=== PATIENT | female | born 1935 | race Caucasian/White ===

== ENCOUNTER 2016-10-14 17:10 | Inpatient (IN) | payer OTHER ==
[2016-10-14 17:54] LABS: BASOPHIL 1.1 % (0-2.0); EOSINOPHIL 3.2 % (0-4.5); MCH 29.8 pg (25.7-33.7); MCHC 32.7 g/dl (32.0-36.0); MEAN CELL VOLUME 91.1 fl (80-96); MEAN PLT VOLUME 8.2 fl (7.5-11.1); NEUTROPHILS 66.4 % (42.8-82.8); PLATELET COUNT 346 K/MM3 (134-434); RDW 14.6 % (11.6-15.6); WHITE BLOOD COUNT 6.2 K/mm3 (4.0-10.0)
--- NOTE | 2016-10-14 18:12 | PDOC ---
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 The patient reports left leg pain for approximately 2 weeks, during which she was diagnosed with a knee fracture, and was placed on a knee brace. The patient has had limited mobility secondary to fracture. The patient denies any chest pain, palpitations, shortness of breath, or diaphoresis. However, the family reports episodes where the patient has difficulty breathing. The patient denies any recent falls, head trauma, or LOC. The patient denies any fever, chills, cough, or dizziness. The patient denies any nausea, vomiting, diarrhea, or constipation. The patient denies dysuria, hematuria, frequency, or urgency. Allergies: None reported. Past Surgical History: Bilateral total hip replacements, left hip surgery Social History: Non-smoker. Denies alcohol or drug use. PCP: Dr. Kelly <Manas Ibrahim - Last Filed: 10/14/16 20:14> <Erica Khan - Last Filed: 10/14/16 20:48> - General Chief Complaint: Pain Stated Complaint: BLOOD CLOT Time Seen by Provider: 10/14/16 17:12 Past History <Manas Ibrahim - Last Filed: 10/14/16 20:14> - Past Medical History Anemia: Yes Asthma: Yes CVA: Yes (Right sided CVA January 2015, right arm weakness) Disorders: Yes (/O UTI) HTN: Yes Hypercholesterolemia: Yes - Surgical History Orthopedic Surgery: Yes (Bilateral total knee replacements, Left hip surgery,) - Psycho/Social/Smoking Cessation Hx Anxiety: No Suicidal Ideation: No Smoking History: Never smoked Have you smoked in the past 12 months: No Information on smoking cessation initiated: No Hx Alcohol Use: No Drug/Substance Use Hx: No Substance Use Type: None Hx Substance Use Treatment: No <Erica Khan - Last Filed: 10/14/16 20:48> - Past Medical History Allergies/Adverse Reactions: Allergies Allergy/AdvReac Type Severity Reaction Status Date / Time No Known Allergies Allergy Verified 10/14/16 17:12 Home Medications: Ambulatory Orders Calcium Carbonate/Vitamin D3 [Oyster Shell 500-Vit D3 200 Tb] 1 each PO DAILY Polyvinyl Alcohol [Artificial Tears] 0.2 drop OU BID 08/27/16 Acetaminophen [Tylenol .Regular Strength -] 650 mg PO Q6H PRN #0 tablet Albuterol 2.5/Ipratropium 0.5 [Duoneb -] 1 amp NEB Q6H PRN #0 amp 09/03/16 Aspirin Coated [Ecotrin -] 81 mg PO DAILY tablet.ec 09/03/16 Cyanocobalamin Vit B-12 Inj. [Vitamin B12 Injection -] 1,000 mcg IM DAILY vial 09/03/16 Docusate Sodium [Colace -] 300 mg PO HS capsule 09/03/16 Ferrous Sulfate [Feosol] 325 mg PO DAILY ud 09/03/16 Fluticasone Prop 0.05% Nasal [Flonase -] 1 spray NS BID bot 09/03/16 Lactobacillus Acidophilus [Bacid -] 1 tab PO DAILY tab 09/03/16 Loratadine [Claritin -] 10 mg PO DAILY tablet 09/03/16 Polyethylene Glycol 3350 [Miralax 119 gm Btl -] 17 gm PO DAILY PRN #0 bottle 07/10 Ranitidine [Zantac -] 150 mg PO DAILY tablet 09/03/16 Salmeterol/Fluticasone [Advair 100Mcg/50Mcg -] 1 puff IH BID inhaler 09/03/16 Amino Acids/Protein Hydrolys [Prostat Sugar-Free Packet -] 30 ml PO BID Review of Systems - Review of Systems Able to Perform ROS?: Yes Comments:: 10/14/16 19:40 CONSTITUTIONAL: Absent: fever, chills, diaphoresis, generalized weakness, malaise, loss of appetite HEENT: Absent: rhinorrhea, nasal congestion, throat pain, throat swelling, difficulty swallowing, mouth swelling, ear pain, eye pain, visual Changes CARDIOVASCULAR: Absent: chest pain, syncope, palpitations, irregular heart rate, lightheadedness , peripheral edema RESPIRATORY: Present: +difficulty breathing Absent: cough, orthopnea, wheezing, stridor, hemoptysis GASTROINTESTINAL: Absent: abdominal pain, abdominal distension, nausea, vomiting, diarrhea, constipation, melena, hematochezia GENITOURINARY: Absent: dysuria, frequency, urgency, hesitancy, hematuria, flank pain, genital pain MUSCULOSKELETAL: Present: +left leg fracture("on top of left knee cap"), +left leg DVT Absent: myalgia, arthralgia, joint swelling SKIN: Absent: rash, itching, pallor HEMATOLOGIC/IMMUNOLOGIC: Absent: easy bleeding, easy bruising, lymphadenopathy, frequent infections ENDOCRINE: Absent: unexplained weight gain, unexplained weight loss, heat intolerance, cold intolerance NEUROLOGIC: Absent: headache, focal weakness or paresthesias, dizziness, unsteady gait, seizure, mental status changes, bladder or bowel incontinence PSYCHIATRIC: Absent: anxiety, depression, suicidal or homicidal ideation, hallucinations. <Manas Ibrahim - Last Filed: 10/14/16 20:14> *Physical Exam - Vital Signs Last Vital Signs Temp Pulse Resp BP Pulse Ox 97.9 F 78 18 133/84 100 10/14/16 17:12 10/14/16 17:12 10/14/16 17:12 10/14/16 17:12 10/14/16 17:12 - Physical Exam Comments: 10/14/16 19:41 GENERAL: Well developed, well nourished. Awake and alert. No acute distress. HEENT: Normocephalic, atraumatic. PERRLA, EOMI. No conjunctival pallor. Sclera are non- icteric. Moist mucous membranes. Oropharynx is clear. NECK: Supple. Full ROM. No JVD. Carotid pulses 2+ and symmetric, without bruits. No thyromegaly. No lymphadenopathy. CARDIOVASCULAR: Regular rate and rhythm. No murmurs, rubs, or gallops. Distal pulses are 2+ and symmetric. PULMONARY: No evidence of respiratory distress. Lungs clear to auscultation bilaterally. No wheezing, rales or rhonchi. ABDOMINAL: Soft. Non-tender. Non-distended. No rebound or guarding. No organomegaly. Normoactive bowel sounds. MUSCULOSKELETAL Normal range of motion at all joints. No bony deformities or tenderness. No CVA tenderness. EXTREMITIES: Edema over the left knee. Bilateral lower extremity edema. No cyanosis. No clubbing. No calf tenderness. SKIN: Warm and dry. Normal capillary refill. No rashes. No jaundice. NEUROLOGICAL: Chronic left sided hemiplegia. Alert, awake, appropriate. Normal speech. PSYCHIATRIC: Cooperative. Good eye contact. Appropriate mood and affect. <Manas Ibrahim - Last Filed: 10/14/16 20:14> - Vital Signs Last Vital Signs Temp Pulse Resp BP Pulse Ox 97.9 F 78 18 133/84 100 10/14/16 17:12 10/14/16 17:12 10/14/16 17:12 10/14/16 17:12 10/14/16 17:12 <Erica Khan - Last Filed: 10/14/16 20:48> ED Treatment Course - LABORATORY CBC & Chemistry Diagram: 10/14/16 17:26 10/14/16 17:26 - ADDITIONAL ORDERS Additional order review: Laboratory Results 10/14/16 10/14/16 10/14/16 17:26 17:26 17:26 INR 1.41 H PTT (Actin FS) 26.4 L Sodium 142 Potassium 4.5 Chloride 108 H Carbon Dioxide 25 Anion Gap 9 BUN 25 H D Creatinine 1.0 Creat Clearance w eGFR 53.08 Random Glucose 83 Calcium 8.8 Total Bilirubin 0.2 AST 7 L D ALT 12 D Alkaline Phosphatase 95 Total Protein 7.3 Albumin 3.5 D 10/14/16 17:26 RBC 2.86 L MCV 91.1 MCHC 32.7 RDW 14.6 D MPV 8.2 Neutrophils % 66.4 Lymphocytes % 24.6 Monocytes % 4.7 Eosinophils % 3.2 Basophils % 1.1 - RADIOLOGY Radiograph Interpretation: 10/14/16 19:46 EXAM: CXR INTERPRETED BY: Dr. Claudio REVIEWED BY: Dr. Khan IMPRESSION: No significant interval change or acute lung disease is present. <Manas Ibrahim - Last Filed: 10/14/16 20:14> - LABORATORY CBC & Chemistry Diagram: 10/14/16 17:26 10/14/16 17:26 <Erica Khan - Last Filed: 10/14/16 20:48> Medical Decision Making - Medical Decision Making 10/14/16 20:10 First call placed to Dr. Kelly's service. Awaiting call back. First call placed to Dr. Navarro at 20:15. Awaiting call back. <Manas Ibrahim - Last Filed: 10/14/16 20:14> *DC/Admit/Observation/Transfer - Attestations Scribe Attestion: 10/14/16 19:46 Documentation prepared by Manas Ibrahim, acting as medical records assistant for Erica Khan MD. <Manas Ibrahim - Last Filed: 10/14/16 20:14> - Discharge Dispostion Admit: Yes <Erica Khan - Last Filed: 10/14/16 20:48> Diagnosis at time of Disposition: Deep vein thrombosis (DVT) Qualifiers: DVT location: lower extremity - Referrals Referrals: Ace Kelly MD [Primary Care Provider] -
[2016-10-14 18:18] LABS: INR 1.41 (0.82-1.09); PROTHROMBIN TIME (PATIENT) 15.6 SEC (9.98-11.88)
[2016-10-14 18:27] LABS: ALBUMIN 3.5 g/dl (3.4-5.0); BILIRUBIN,TOTAL 0.2 mg/dL (0.2-1.0); CALCIUM 8.8 mg/dL (8.5-10.1); TOT PROT 7.3 g/dl (6.4-8.2)
[2016-10-14] MEDS ORDERED: ALBUTEROL SO4 2.5/IPRATROPIUM 0.5 INH SOL 3 ML VIAL.NEB. NEB PRN (20:25)
[2016-10-14] MEDS ORDERED: ENOXAPARIN NA (PORCINE) 80 MG/0.8 ML DISP.SYRIN SQ ONE (20:34)
[2016-10-14] MEDS: ENOXAPARIN NA (PORCINE) 80 MG/0.8 ML DISP.SYRIN SQ SCH ×2 (20:39→22:08)
[2016-10-14] MEDS: DOCUSATE SODIUM 100 MG CAPSULE (FP) PO SCH (22:56)
[2016-10-14] MEDS: RANITIDINE HCL 150 MG TABLET (FP) PO SCH (22:56)
[2016-10-14] MEDS: FLUTICASONE/SALMETEROL 100 MCG/50 MCG DISKUS IH SCH (22:56)
[2016-10-15] MEDS ORDERED: NYSTATIN 100,000 UNIT/GM TOPICAL CREAM 15 GM TUBE TP ONE (00:45)
[2016-10-15] MEDS: NYSTATIN 100,000 UNIT/GM TOPICAL CREAM 15 GM TUBE TP SCH ×3 (00:57→23:38)
[2016-10-15] MEDS ORDERED: APIXABAN 5 MG TABLET PO SCH ×2 (10:00→22:00)
--- NOTE | 2016-10-15 10:01 | HP ---
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 Cardiovascular: Yes: HTN, Hyperlipdemia - Past Surgical History Past Surgical History: Yes: None - Smoking History Smoking history: Never smoked Have you smoked in the past 12 months: No - Alcohol/Substance Use Hx Alcohol Use: No - Social History ADL: Independent Home Medications - Allergies Allergies/Adverse Reactions: Allergies Allergy/AdvReac Type Severity Reaction Status Date / Time No Known Allergies Allergy Verified 10/14/16 17:12 - Home Medications Home Medications: Ambulatory Orders Calcium Carbonate/Vitamin D3 [Oyster Shell 500-Vit D3 200 Tb] 1 each PO DAILY Polyvinyl Alcohol [Artificial Tears] 0.2 drop OU BID 08/27/16 Acetaminophen [Tylenol .Regular Strength -] 650 mg PO Q6H PRN #0 tablet Albuterol 2.5/Ipratropium 0.5 [Duoneb -] 1 amp NEB Q6H PRN #0 amp 09/03/16 Aspirin Coated [Ecotrin -] 81 mg PO DAILY tablet.ec 09/03/16 Cyanocobalamin Vit B-12 Inj. [Vitamin B12 Injection -] 1,000 mcg IM DAILY vial 09/03/16 Docusate Sodium [Colace -] 300 mg PO HS capsule 09/03/16 Ferrous Sulfate [Feosol] 325 mg PO DAILY ud 09/03/16 Fluticasone Prop 0.05% Nasal [Flonase -] 1 spray NS BID bot 09/03/16 Lactobacillus Acidophilus [Bacid -] 1 tab PO DAILY tab 09/03/16 Loratadine [Claritin -] 10 mg PO DAILY tablet 09/03/16 Polyethylene Glycol 3350 [Miralax 119 gm Btl -] 17 gm PO DAILY PRN #0 bottle 07/10 Ranitidine [Zantac -] 150 mg PO DAILY tablet 09/03/16 Salmeterol/Fluticasone [Advair 100Mcg/50Mcg -] 1 puff IH BID inhaler 09/03/16 Amino Acids/Protein Hydrolys [Prostat Sugar-Free Packet -] 30 ml PO BID Review of Systems Findings/Remarks: AWAKE, CONFUSED - Review of Systems Constitutional: reports: Weakness Eyes: reports: No Symptoms HENT: reports: No Symptoms Neck: reports: No Symptoms Cardiovascular: reports: No Symptoms Respiratory: reports: No Symptoms Gastrointestinal: reports: No Symptoms Genitourinary: reports: Incontinence Musculoskeletal: reports: Muscle Weakness Integumentary: reports: No Symptoms Neurological: reports: Confusion, Pre-Existing Deficit Endocrine: reports: No Symptoms Hematology/Lymphatic: reports: No Symptoms Physical Examination Vital Signs: Vital Signs Temperature 97.9 F 10/14/16 17:12 Pulse Rate 86 10/15/16 04:48 Respiratory Rate 16 10/15/16 04:49 Blood Pressure 136/72 10/15/16 04:48 O2 Sat by Pulse Oximetry (%) 97 10/15/16 04:49 Findings/Remarks: FAMILY BEDSIDE, NAD NON-VERBAL Constitutional: Yes: Mild Distress Eyes: Yes: WNL HENT: Yes: WNL Neck: Yes: WNL Cardiovascular: Yes: WNL Respiratory: Yes: WNL Gastrointestinal: Yes: WNL Renal/: Yes: WNL, Incontinence Musculoskeletal: Yes: Muscle Weakness Extremities: Yes: Other Edema: Yes Edema: LLE: 2+, RLE: 2+ Peripheral Pulses WNL: Yes Integumentary: Yes: WNL Wound/Incision: Yes: Clean/Dry Neurological: Yes: Confusion, Pre-Existing Deficit ...Motor Strength: LLE Psychiatric: Yes: Other Imaging - Results Ultrasound: Report Reviewed Problem List - Problems (1) DVT (deep venous thrombosis) Code(s): I82.409 - ACUTE EMBOLISM AND THOMBOS UNSP DEEP VN UNSP LOWER EXTREMITY Qualifiers: DVT location: lower extremity (2) CVA (cerebral vascular accident) Code(s): I63.9 - CEREBRAL INFARCTION, UNSPECIFIED (3) Hemiplegia affecting dominant side Code(s): G81.90 - HEMIPLEGIA, UNSPECIFIED AFFECTING UNSPECIFIED SIDE (4) History of hip replacement Code(s): Z96.649 - PRESENCE OF UNSPECIFIED ARTIFICIAL HIP JOINT Assessment/Plan LOVENOX 80MG BID WEIGHT DETERMINED ELIQUIS 5MG BID GFR 53, NEED OUTPATIENT MONITORING OBSERVATION STATUS DC HOME TOMORROW STOOL GUAC PENDING
[2016-10-15] MEDS: AMINO ACIDS/PROTEIN HYDROLYS 30 ML LIQUID.PKT PO SCH ×2 (11:51→18:00)
[2016-10-15] MEDS: RANITIDINE HCL 150 MG TABLET (FP) PO SCH ×2 (11:52→23:38)
[2016-10-15] MEDS: ASPIRIN COATED 81 MG TABLET.EC PO SCH (11:52)
[2016-10-15] MEDS: ENOXAPARIN NA (PORCINE) 80 MG/0.8 ML DISP.SYRIN SQ SCH (11:52)
[2016-10-15] MEDS: LACTOBACILLUS ACIDOPHILUS 1 EACH TAB (FP) PO SCH (11:52)
[2016-10-15] MEDS: FERROUS SO4 325 MG TABLET (FP) PO SCH (11:52)
[2016-10-15] MEDS: POLYETHYLENE GLYCOL 3350 119 GM BTL PO SCH (12:05)
--- NOTE | 2016-10-15 13:54 | CONSULT ---
Consult Consult Specialty:: Neurology Reason for Consultation:: Anticoagulation - History of Present Illness History of Present Illness: 81 year old woman, history of left hemispheric stroke 2015 with residual right arm weakness and aphasia, hypertension, hyperlipidemia, presents to ED from [place] after left leg fracture, and found to have DVT. Patients daughter in law at bedside, states patient has had limited mobility in left leg due to fracture. She was started on eliquis for DVT. Daughter in law denies history of atrial fibrillation or anticoagulation needed for history of stroke. Denies any new neurological complaints. 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 Cardio/Vascular: Yes: HTN, Hyperlipdemia - Past Surgical History Past Surgical History: Yes: None - Alcohol/Substance Use Hx Alcohol Use: No - Smoking History Smoking history: Never smoked Have you smoked in the past 12 months: No - Social History ADL: Independent Home Medications - Allergies Allergies/Adverse Reactions: Allergies Allergy/AdvReac Type Severity Reaction Status Date / Time No Known Allergies Allergy Verified 10/14/16 17:12 - Home Medications Home Medications: Ambulatory Orders Calcium Carbonate/Vitamin D3 [Oyster Shell 500-Vit D3 200 Tb] 1 each PO DAILY Polyvinyl Alcohol [Artificial Tears] 0.2 drop OU BID 08/27/16 Acetaminophen [Tylenol .Regular Strength -] 650 mg PO Q6H PRN #0 tablet Albuterol 2.5/Ipratropium 0.5 [Duoneb -] 1 amp NEB Q6H PRN #0 amp 09/03/16 Aspirin Coated [Ecotrin -] 81 mg PO DAILY tablet.ec 09/03/16 Cyanocobalamin Vit B-12 Inj. [Vitamin B12 Injection -] 1,000 mcg IM DAILY vial 09/03/16 Docusate Sodium [Colace -] 300 mg PO HS capsule 09/03/16 Ferrous Sulfate [Feosol] 325 mg PO DAILY ud 09/03/16 Fluticasone Prop 0.05% Nasal [Flonase -] 1 spray NS BID bot 09/03/16 Lactobacillus Acidophilus [Bacid -] 1 tab PO DAILY tab 09/03/16 Loratadine [Claritin -] 10 mg PO DAILY tablet 09/03/16 Polyethylene Glycol 3350 [Miralax 119 gm Btl -] 17 gm PO DAILY PRN #0 bottle 07/10 Ranitidine [Zantac -] 150 mg PO DAILY tablet 09/03/16 Salmeterol/Fluticasone [Advair 100Mcg/50Mcg -] 1 puff IH BID inhaler 09/03/16 Amino Acids/Protein Hydrolys [Prostat Sugar-Free Packet -] 30 ml PO BID Physical Exam Vital Signs: Vital Signs Temperature 98.2 F 10/15/16 10:12 Pulse Rate 91 H 10/15/16 10:12 Respiratory Rate 16 10/15/16 10:12 Blood Pressure 141/78 10/15/16 10:12 O2 Sat by Pulse Oximetry (%) 97 10/15/16 10:12 Constitutional: Yes: No Distress Eyes: Yes: Conjunctiva Clear Cardiovascular: Yes: S1, S2 Respiratory: Yes: Regular Neurological: Yes: Alert, Other (+dysarthria, able to state name, can follow commands 3/5 strength right upper ext, 5/5 strength left upper ext, left lower extremity not assessed, right lower ext sensory intact to light touch) Assessment/Plan 81 year old woman, history of left hemispheric stroke 2014 with residual right arm weakness and aphasia, hypertension, hyperlipidemia, presents to ED from [place] after left leg fracture, and found to have DVT. Patients daughter in law at bedside, states patient has had limited mobility in left leg due to fracture. She was started on eliquis for DVT. Daughter in law denies history of atrial fibrillation or anticoagulation needed for history of stroke. Denies any new neurological complaints. Spoke to daughter at bedside Explained that anticoagulation would be necessary if patient had history of stroke and afib- however patients daughter denies history of afib Will defer management for anticoagulation for DVT to vascular medicine If eliquis is started for DVT, can discontinue aspirin as increased risk of bleeding could be seen. Once anticoagulation discontinued, recommend resuming aspirin for stroke prevention Continue supportive care
--- NOTE | 2016-10-15 14:45 | CONSULT ---
- Consultation REQUESTED PROVIDER: Dr. Agrawal, vascular surgery CONSULT REQUEST: We have been asked to surgically evaluate this patient for DVT. PCP: Syeda Navarro HISTORY OF PRESENT ILLNESS: 81 year old female with a PMH of CVA in 2014, HTN, hyperlipidemia, anemia, UTI, recent fracture of left knee, presented to the ED from her Detention after having a positive DVT study in her left leg. The patient had left leg pain for two weeks and one week ago was diagnosed with a knee fracture and put in a knee brace. According to the patient's daughter in law, the patient has had limited mobility for the past year, does not ambulate and has an aid to transfer her from her bed to chair. She had a hip replacement for left hip fracture in 2014 with multiple revision surgeries. PMHx: CVA in 2014, HTN, hyperlipidemia, anemia, UTI, recent fracture of left knee PSHx: Left hip replacement and revision 2015, bilateral knee replacements Social Hx: No tobacco or alcohol use Home Medications Medication Instructions Recorded Calcium Carbonate/Vitamin D3 1 each PO DAILY 02/27/16 [Oyster Shell 500-Vit D3 200 Tb] Polyvinyl Alcohol [Artificial 0.2 drop OU BID 08/27/16 Tears] Acetaminophen [Tylenol .Regular 650 mg PO Q6H PRN #0 tablet 09/03/16 Strength -] Albuterol 2.5/Ipratropium 0.5 1 amp NEB Q6H PRN #0 amp 09/03/16 [Duoneb -] Aspirin Coated [Ecotrin -] 81 mg PO DAILY tablet.ec 09/03/16 Cyanocobalamin Vit B-12 Inj. 1,000 mcg IM DAILY vial 09/03/16 [Vitamin B12 Injection -] Docusate Sodium [Colace -] 300 mg PO HS capsule 09/03/16 Ferrous Sulfate [Feosol] 325 mg PO DAILY ud 09/03/16 Fluticasone Prop 0.05% Nasal 1 spray NS BID bot 09/03/16 [Flonase -] Lactobacillus Acidophilus [Bacid -] 1 tab PO DAILY tab 09/03/16 Loratadine [Claritin -] 10 mg PO DAILY tablet 09/03/16 Polyethylene Glycol 3350 [Miralax 17 gm PO DAILY PRN #0 bottle 09/03/16 119 gm Btl -] Ranitidine [Zantac -] 150 mg PO DAILY tablet 09/03/16 Salmeterol/Fluticasone [Advair 1 puff IH BID inhaler 09/03/16 100Mcg/50Mcg -] Amino Acids/Protein Hydrolys 30 ml PO BID 10/14/16 [Prostat Sugar-Free Packet -] Allergies Allergy/AdvReac Type Severity Reaction Status Date / Time No Known Allergies Allergy Verified 10/14/16 17:12 REVIEW OF SYSTEMS: CONSTITUTIONAL: Absent: fever, chills CARDIOVASCULAR: Absent: chest pain, syncope, palpitations RESPIRATORY: Absent: cough, shortness of breath GASTROINTESTINAL: Absent: abdominal pain, nausea, vomiting GENITOURINARY: Absent: dysuria MUSCULOSKELETAL: Present: Left anterior and posterior knee pain SKIN: Absent: rash, itching HEMATOLOGIC/IMMUNOLOGIC: Absent: easy bleeding, easy bruising NEUROLOGIC: Absent: headache, dizziness PHYSICAL EXAM: GENERAL: NAD, minimal verbal responses, daughter in law at bedside reports this is her baseline HEAD: Normal with no signs of trauma EYES: PERRL, sclera anicteric, conjunctiva clear. NECK: supple without JVD or masses. LUNGS: Clear to auscultation bilat anteriorly HEART: Regular rate and rhythm ABDOMEN: Soft, nontender, not distended UPPER EXTREMITIES: warm, well-perfused LOWER EXTREMITIES: warm, well-perfused. Swelling noted over anterior knee, tenderness with palpation anterior and posterior knee, no erythema NEUROLOGICAL: Limited speech, gait not observed. SKIN: Warm, dry. Vital Signs Temperature 98.2 F 10/15/16 10:12 Pulse Rate 91 H 10/15/16 10:12 Respiratory Rate 16 10/15/16 10:12 Blood Pressure 141/78 10/15/16 10:12 O2 Sat by Pulse Oximetry (%) 97 10/15/16 10:12 Lab Results WBC 6.2 K/mm3 (4.0-10.0) 10/14/16 17:26 RBC 2.86 M/mm3 (3.60-5.2) L 10/14/16 17:26 Hgb 8.5 GM/dL (10.7-15.3) L 10/14/16 17:26 Hct 26.1 % (32.4-45.2) L 10/14/16 17:26 MCV 91.1 fl (80-96) 10/14/16 17:26 MCHC 32.7 g/dl (32.0-36.0) 10/14/16 17:26 RDW 14.6 % (11.6-15.6) D 10/14/16 17:26 Plt Count 346 K/MM3 (134-434) D 10/14/16 17:26 Sodium 142 mmol/L (136-145) 10/14/16 17:26 Potassium 4.5 mmol/L (3.5-5.1) 10/14/16 17:26 Chloride 108 mmol/L (98-107) H 10/14/16 17:26 Carbon Dioxide 25 mmol/L (21-32) 10/14/16 17:26 Anion Gap 9 (8-16) 10/14/16 17:26 BUN 25 mg/dL (7-18) H D 10/14/16 17:26 Creatinine 1.0 mg/dL (0.55-1.02) 10/14/16 17:26 Random Glucose 83 mg/dL (74-106) 10/14/16 17:26 Calcium 8.8 mg/dL (8.5-10.1) 10/14/16 17:26 INR 1.41 (0.82-1.09) H 10/14/16 17:26 Dopplar venous US: DVT in left popliteal and posterior tibial vein A/P LLE DVT in left popliteal and posterior tibial vein Patient was started on Lovenox 80 mg BID with plan to transition to Eliquis Patient discussed with Dr. Agrawal Patient should continue Eliquis for 6 months Visit type - Case Type Case Type: ED Admission - New patient This patient is new to me today: Yes Date on this admission: 10/15/16
--- NOTE | 2016-10-15 15:08 | CON.CARD ---
Consult Consult Specialty:: Cardiology Referred by:: Dr. Navarro Reason for Consultation:: Left leg DVT - History of Present Illness Chief Complaint: Left leg DVT History of Present Illness: 81 yo female with CVA in 2015, HTN, hyperlipidemia, anemia, UTI, and left knee fracture (diagnosed ~ 1 week ago) who presented to ED on 10/14/16 from assisted with left swelling and discomfor for past week or so and was found to have DVT in left popliteal or posterior tibialis vein. Currently denies chest pain or dyspnea. Cardiology consult was requested regarding anticoagulation for DVT. No reported melena, hematochezia, or hematmesis. - History Source History Provided By: Family Member, Medical Record - Past Medical History RANGE AID: Yes: CVA Cardio/Vascular: Yes: HTN, Hyperlipdemia - Past Surgical History Past Surgical History: Yes: None, Joint Replacement (bilateral total hip replacement) - Alcohol/Substance Use Hx Alcohol Use: No History of Substance Use: reports: None - Smoking History Smoking history: Never smoked Have you smoked in the past 12 months: No - Social History ADL: Independent Home Medications - Allergies Allergies/Adverse Reactions: Allergies Allergy/AdvReac Type Severity Reaction Status Date / Time No Known Allergies Allergy Verified 10/14/16 17:12 - Home Medications Home Medications: Ambulatory Orders Calcium Carbonate/Vitamin D3 [Oyster Shell 500-Vit D3 200 Tb] 1 each PO DAILY Polyvinyl Alcohol [Artificial Tears] 0.2 drop OU BID 08/27/16 Acetaminophen [Tylenol .Regular Strength -] 650 mg PO Q6H PRN #0 tablet Albuterol 2.5/Ipratropium 0.5 [Duoneb -] 1 amp NEB Q6H PRN #0 amp 09/03/16 Aspirin Coated [Ecotrin -] 81 mg PO DAILY tablet.ec 09/03/16 Cyanocobalamin Vit B-12 Inj. [Vitamin B12 Injection -] 1,000 mcg IM DAILY vial 09/03/16 Docusate Sodium [Colace -] 300 mg PO HS capsule 09/03/16 Ferrous Sulfate [Feosol] 325 mg PO DAILY ud 09/03/16 Fluticasone Prop 0.05% Nasal [Flonase -] 1 spray NS BID bot 09/03/16 Lactobacillus Acidophilus [Bacid -] 1 tab PO DAILY tab 09/03/16 Loratadine [Claritin -] 10 mg PO DAILY tablet 09/03/16 Polyethylene Glycol 3350 [Miralax 119 gm Btl -] 17 gm PO DAILY PRN #0 bottle 07/10 Ranitidine [Zantac -] 150 mg PO DAILY tablet 09/03/16 Salmeterol/Fluticasone [Advair 100Mcg/50Mcg -] 1 puff IH BID inhaler 09/03/16 Amino Acids/Protein Hydrolys [Prostat Sugar-Free Packet -] 30 ml PO BID Family Disease History - Family Disease History Family History: Denies (premature CAD) Review of Systems - Review of Systems Constitutional: reports: No Symptoms Eyes: reports: No Symptoms HENT: reports: No Symptoms Neck: reports: No Symptoms Cardiovascular: reports: Edema (left leg swelling). denies: Chest Pain, Palpitations, Shortness of Breath Respiratory: reports: No Symptoms Gastrointestinal: reports: No Symptoms Genitourinary: reports: No Symptoms Neurological: reports: No Symptoms Endocrine: reports: No Symptoms Vital Signs: Vital Signs Temperature 98.2 F 10/15/16 10:12 Pulse Rate 91 H 10/15/16 10:12 Respiratory Rate 16 10/15/16 10:12 Blood Pressure 141/78 10/15/16 10:12 O2 Sat by Pulse Oximetry (%) 97 10/15/16 10:12 Constitutional: Yes: No Distress, Obese Eyes: Yes: Conjunctiva Clear, EOM Intact HENT: Yes: Atraumatic, Normocephalic Respiratory: Yes: CTA Bilaterally Gastrointestinal: Yes: Normal Bowel Sounds, Soft. No: Tenderness Cardiovascular: Yes: Regular Rate and Rhythm JVD: No Carotid Bruit: No Heart Sounds: Yes: S1, S2 Murmur: No: Systolic Murmur Extremities: Yes: Other (Left leg swelling) Peripheral Pulses WNL: No Neurological: Yes: Alert, Oriented - Other Data Labs, Other Data: INR, PTT INR 1.41 (0.82-1.09) H 10/14/16 17:26 10/14/16 ECG: Sinus rhythm, rate 74 bpm, cannot rule out inferior infarct, but no change from 08/26/16 Echo: Report Reviewed (08/27/16 Echo: TDS. Normal LV size and systolic function. Possible diastolic dysfunction. RVSP 30-40 mmHg.) Imaging - Results Chest X-ray: Report Reviewed (10/14/16: No acute pulmonary process.), Image Reviewed Assessment/Plan 81 yo female with CVA in 2015, HTN, hyperlipidemia, anemia, UTI, and left knee fracture (diagnosed ~ 1 week ago). Admitted for left leg DVT of popliteal and posterior tibialis vein. Currently denies chest pain or dyspnea. Cardiology consult was requested regarding anticoagulation for DVT. RECS: Patient will require 3 months of anticoagulation. Patient received dose of lovenox 80 mg earlier today. Will discontinue lovenox and start Eliquis 5 mg po bid tonight. Patient is currently on aspirin given prior history of CVA. Although patient may be at increased risk of bleeding while on both oral anticoagulation and aspirin, would continue both as patient's prior CVA was not attributed to atrial fibrillation. Plan was discussed with Dr. Navarro. Patient should also ideally be on statin therapy given prior CVA, but will defer to primary care team. Will see prn. Please call with questions.
--- NOTE | 2016-10-15 16:09 | EKG ---
Test Reason : Blood Pressure : / mmHG Vent. Rate : 084 BPM Atrial Rate : 084 BPM P-R Int : 000 ms QRS Dur : 092 ms QT Int : 386 ms P-R-T Axes : 036 -11 009 degrees QTc Int : 456 ms SINUS RHYTHM WITH PREMATURE ATRIAL COMPLEXES INFERIOR INFARCT , AGE UNDETERMINED ABNORMAL ECG WHEN COMPARED WITH ECG OF 26-AUG-2016 22:41, PREMATURE ATRIAL COMPLEXES ARE NOW PRESENT VENT. RATE HAS DECREASED BY 43 BPM INFERIOR INFARCT IS NOW PRESENT Confirmed by AGGIE MINOR MD ([id number]) on 10/15/2016 4:09:14 PM Referred By: Confirmed By:AGGIE MIONR MD
--- NOTE | 2016-10-15 17:37 | PN ---
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 (short form) - Note 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: Vascular Surgery Pt seen and examined. Left popliteal vein DVt. Doing well. AC for 6 months of your choice. Ambulate. Dipak Agrawal DO
[2016-10-15] MEDS: FLUTICASONE/SALMETEROL 100 MCG/50 MCG DISKUS IH SCH ×2 (17:42→23:38)
[2016-10-15] MEDS: ACETAMINOPHEN 325 MG TABLET (FP) PO PRN (20:17)
[2016-10-15] MEDS: DOCUSATE SODIUM 100 MG CAPSULE (FP) PO SCH (23:37)
[2016-10-15] MEDS: ATORVASTATIN CA 10 MG TABLET (FP) PO SCH (23:38)
[2016-10-16 07:40] LABS: MCH 29.9 pg (25.7-33.7); MCHC 32.8 g/dl (32.0-36.0); MEAN PLT VOLUME 7.8 fl (7.5-11.1); PLATELET COUNT 230 K/MM3 (134-434); RDW 14.6 % (11.6-15.6); WHITE BLOOD COUNT 4.5 K/mm3 (4.0-10.0)
[2016-10-16 07:58] LABS: CALCIUM 8.2 mg/dL (8.5-10.1); CREATININE 0.9 mg/dL (0.55-1.02)
--- NOTE | 2016-10-16 09:16 | PN ---
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 (short form) - Note 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: THERE IS A DROP IN THE PATIENTS HEMOGLOBIN, NEED STAT GUAC AND HOLD ELQUIS. WILL REPEAT CBC AT 12PM TODAY. HOLD DISCHARGE Problem List - Problems (1) DVT (deep venous thrombosis) Code(s): I82.409 - ACUTE EMBOLISM AND THOMBOS UNSP DEEP VN UNSP LOWER EXTREMITY Qualifiers: DVT location: lower extremity (2) CVA (cerebral vascular accident) Code(s): I63.9 - CEREBRAL INFARCTION, UNSPECIFIED (3) Hemiplegia affecting dominant side Code(s): G81.90 - HEMIPLEGIA, UNSPECIFIED AFFECTING UNSPECIFIED SIDE (4) History of hip replacement Code(s): Z96.649 - PRESENCE OF UNSPECIFIED ARTIFICIAL HIP JOINT
[2016-10-16] MEDS: ASPIRIN COATED 81 MG TABLET.EC PO SCH (09:40)
[2016-10-16] MEDS: FLUTICASONE/SALMETEROL 100 MCG/50 MCG DISKUS IH SCH ×2 (09:40→23:15)
[2016-10-16] MEDS: LACTOBACILLUS ACIDOPHILUS 1 EACH TAB (FP) PO SCH (09:40)
[2016-10-16] MEDS: AMINO ACIDS/PROTEIN HYDROLYS 30 ML LIQUID.PKT PO SCH ×2 (09:40→17:39)
[2016-10-16] MEDS: RANITIDINE HCL 150 MG TABLET (FP) PO SCH ×2 (09:40→23:12)
[2016-10-16] MEDS: FERROUS SO4 325 MG TABLET (FP) PO SCH (09:40)
[2016-10-16] MEDS: POLYETHYLENE GLYCOL 3350 119 GM BTL PO SCH (09:41)
[2016-10-16] MEDS: NYSTATIN 100,000 UNIT/GM TOPICAL CREAM 15 GM TUBE TP SCH ×2 (09:49→23:12)
[2016-10-16 11:08] LABS: URINE APPEARANCE CLEAR; URINE BILIRUBIN NEGATIVE (NEGATIVE); URINE COLOR LTYELLOW; URINE GLUCOSE (UA) NEGATIVE (NEGATIVE); URINE KETONE NEGATIVE (NEGATIVE); URINE NITRITE NEGATIVE (NEGATIVE); URINE PROTEIN NEGATIVE (NEGATIVE); URINE UROBILINOGEN NEGATIVE E.U./dl (0.2-1.0)
[2016-10-16 11:37] LABS: URINE BLOOD 1+ (NEGATIVE); URINE LEUK ESTERASE 1+ (NEGATIVE)
[2016-10-16 11:39] LABS: URINE HYALINE CAST 5 /lpf; URINE MUCUS RARE; URINE RBC 2 /hpf (0-3); URINE WBC 10 /hpf (3-5)
--- NOTE | 2016-10-16 11:51 | PN ---
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, Physician Chief Complaint: AWAKE, FAMILY BEDSIDE NO MS CHANGE ELIQUIS STOPPED DUE TO DROP IN H/H - Current Medication List Current Medications: Active Medications Acetaminophen (Tylenol -) 650 mg PO Q6H PRN PRN Reason: FEVER OR PAIN Last Admin: 10/15/16 20:17 Dose: 650 mg Albuterol/Ipratropium (Duoneb -) 1 amp NEB Q6H PRN PRN Reason: SHORTNESS OF BREATH Amino Acids (Prosource No Carb Liquid Pkt) 30 ml PO BID@0800,1730 [facility] Last Admin: 10/16/16 09:40 Dose: 30 ml Aspirin (Ecotrin -) 81 mg PO DAILY [facility] Last Admin: 10/16/16 09:40 Dose: 81 mg Atorvastatin Calcium (Lipitor -) 10 mg PO HS [facility] Last Admin: 10/15/16 23:38 Dose: 10 mg Docusate Sodium (Colace -) 300 mg PO HS [facility] Last Admin: 10/15/16 23:37 Dose: 300 mg Ferrous Sulfate (Feosol -) 325 mg PO DAILY [facility] Last Admin: 10/16/16 09:40 Dose: 325 mg Lactobacillus Acidophilus (Bacid -) 1 tab PO DAILY [facility] Last Admin: 10/16/16 09:40 Dose: 1 tab Nystatin (Mycostatin Cream -) 1 applic TP BID [facility] Last Admin: 10/16/16 09:49 Dose: 1 applic Polyethylene Glycol (Miralax (For Daily Use) -) 17 gm PO DAILY [facility] Last Admin: 10/16/16 09:41 Dose: 17 gm Ranitidine HCl (Zantac -) 150 mg PO BID [facility] Last Admin: 10/16/16 09:40 Dose: 150 mg Fluticasone/Salmeterol (Advair 100mcg/50mcg -) 1 puff IH BID [facility] Last Admin: 10/16/16 09:40 Dose: 1 inh - Objective Vital Signs: Vital Signs Temperature 98.5 F 10/16/16 06:00 Pulse Rate 94 H 10/16/16 06:00 Respiratory Rate 18 10/16/16 06:00 Blood Pressure 125/81 10/16/16 06:00 O2 Sat by Pulse Oximetry (%) 97 10/16/16 04:00 Constitutional: Yes: No Distress Eyes: Yes: WNL HENT: Yes: WNL Neck: Yes: WNL Cardiovascular: Yes: WNL Respiratory: Yes: WNL Gastrointestinal: Yes: WNL Genitourinary: Yes: Incontinence Musculoskeletal: Yes: Joint Stiffness, Muscle Weakness Extremities: Yes: Deformity Edema: Yes Edema: LLE: Trace, RLE: Trace Peripheral Pulses WNL: Yes Integumentary: Yes: WNL Wound/Incision: Yes: Clean/Dry Neurological: Yes: Confusion, Pre-Existing Deficit, Unsteady Gait, Weakness ...Motor Strength: LLE, RLE Psychiatric: Yes: Other Labs: CBC, BMP 10/16/16 06:40 10/16/16 06:40 INR, PTT INR 1.41 (0.82-1.09) H 10/14/16 17:26 Problem List - Problems (1) DVT (deep venous thrombosis) Code(s): I82.409 - ACUTE EMBOLISM AND THOMBOS UNSP DEEP VN UNSP LOWER EXTREMITY Qualifiers: DVT location: lower extremity (2) CVA (cerebral vascular accident) Code(s): I63.9 - CEREBRAL INFARCTION, UNSPECIFIED (3) Hemiplegia affecting dominant side Code(s): G81.90 - HEMIPLEGIA, UNSPECIFIED AFFECTING UNSPECIFIED SIDE (4) History of hip replacement Code(s): Z96.649 - PRESENCE OF UNSPECIFIED ARTIFICIAL HIP JOINT Assessment/Plan ANTICOAGULATION STOPPED DUE TO DECREASE IN H/H REPEAT CBC TODAY STOOL FOR OCCULT BLOOD MAY BENEFIT FROM AN IVC FILTER VASC SX FOLLOW UP
[2016-10-16 12:07] LABS: MCH 29.3 pg (25.7-33.7); MCHC 32.1 g/dl (32.0-36.0); MEAN CELL VOLUME 91.4 fl (80-96); MEAN PLT VOLUME 7.6 fl (7.5-11.1); PLATELET COUNT 233 K/MM3 (134-434); RDW 14.9 % (11.6-15.6); WHITE BLOOD COUNT 5.7 K/mm3 (4.0-10.0)
[2016-10-16] MEDS: ACETAMINOPHEN 325 MG TABLET (FP) PO PRN (12:20)
--- NOTE | 2016-10-16 16:02 | PN ---
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 (short form) - Note 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: Vascular Surgery Pt seen and examined. Will do IVC filter in am douglas. Drop in H/H after AC was started. NPO past midnite. Dipak Agrawal DO
[2016-10-16] MEDS ORDERED: PT OWN MED DRAWER 7, Y5N ONE (23:03)
[2016-10-16] MEDS: DOCUSATE SODIUM 100 MG CAPSULE (FP) PO SCH (23:11)
[2016-10-16] MEDS: ATORVASTATIN CA 10 MG TABLET (FP) PO SCH (23:12)
[2016-10-17] MEDS: AMINO ACIDS/PROTEIN HYDROLYS 30 ML LIQUID.PKT PO SCH ×2 (08:00→17:44)
[2016-10-17] MEDS ORDERED: PROPOFOL 20 ML ONE (08:07)
[2016-10-17] MEDS ORDERED: LIDOCAINE HCL 1%, 10 MG/ML (20ML VIAL) IJ ONE ×2 (08:16)
--- NOTE | 2016-10-17 08:37 | OP ---
Operative Note - Note: Operative Date: 10/17/16 Pre-Operative Diagnosis: DVT left leg, GI bleed Operation: Insertion of IVC filter with venogram Post-Operative Diagnosis: Same as Pre-op Surgeon: Dipak Agrawal Anesthesia: Fractional Estimated Blood Loss (mls): 5 Operative Report Dictated: Yes
[2016-10-17 08:52] LABS: ALBUMIN 2.9 g/dl (3.4-5.0); BILIRUBIN,TOTAL 0.3 mg/dL (0.2-1.0); CALCIUM 8.2 mg/dL (8.5-10.1); CREATININE 0.9 mg/dL (0.55-1.02)
[2016-10-17] MEDS ORDERED: ALBUTEROL SO4 2.5/IPRATROPIUM 0.5 INH SOL 3 ML VIAL.NEB. NEB PRN (08:52)
[2016-10-17 08:54] LABS: TOT PROT 6.5 g/dl (6.4-8.2)
[2016-10-17] MEDS: NYSTATIN 100,000 UNIT/GM TOPICAL CREAM 15 GM TUBE TP SCH (10:00)
[2016-10-17] MEDS: FERROUS SO4 325 MG TABLET (FP) PO SCH (11:16)
[2016-10-17] MEDS: ASPIRIN COATED 81 MG TABLET.EC PO SCH (11:16)
[2016-10-17] MEDS: FLUTICASONE/SALMETEROL 100 MCG/50 MCG DISKUS IH SCH ×2 (11:17→21:08)
[2016-10-17] MEDS: LACTOBACILLUS ACIDOPHILUS 1 EACH TAB (FP) PO SCH (11:17)
[2016-10-17] MEDS: RANITIDINE HCL 150 MG TABLET (FP) PO SCH ×2 (11:18→21:07)
[2016-10-17] MEDS: POLYETHYLENE GLYCOL 3350 119 GM BTL PO SCH (11:18)
[2016-10-17] MEDS: ACETAMINOPHEN 325 MG TABLET (FP) PO PRN ×2 (11:53→17:43)
[2016-10-17] MEDS: PNEUMOC 13-VAL CONJ-DIP CRM/PF 0.5 ML DISP.SYRIN IM ONE ×2 (14:39→14:40)
--- NOTE | 2016-10-17 16:01 | PN ---
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, Physician Chief Complaint: PATIENT IN BED, AWAKE AND ALERT X 2 S/P IVC FILTER PLACED RIGHT GROIN TODAY TOLERATED WELL STOPPED ANTICOAGULATION DUE TO DROP IN HEMOGLOBIN S/P CVA, BED BOUND NON-AMBULATORY - Current Medication List Current Medications: Active Medications Acetaminophen (Tylenol -) 650 mg PO Q6H PRN PRN Reason: FEVER OR PAIN Last Admin: 10/17/16 11:53 Dose: 650 mg Albuterol/Ipratropium (Duoneb -) 1 amp NEB Q6H PRN PRN Reason: SHORTNESS OF BREATH Amino Acids (Prosource No Carb Liquid Pkt) 30 ml PO BID@0800,1730 [facility] Aspirin (Ecotrin -) 81 mg PO DAILY [facility] Last Admin: 10/17/16 11:16 Dose: 81 mg Atorvastatin Calcium (Lipitor -) 10 mg PO HS [facility] Docusate Sodium (Colace -) 300 mg PO HS [facility] Ferrous Sulfate (Feosol -) 325 mg PO DAILY [facility] Last Admin: 10/17/16 11:16 Dose: 325 mg Lactobacillus Acidophilus (Bacid -) 1 tab PO DAILY [facility] Last Admin: 10/17/16 11:17 Dose: 1 tab Nystatin (Mycostatin Cream -) 1 applic TP BID [facility] Pneumococcal 13-Valent Conj Vacc (Prevnar 13 Syringe -) 0.5 ml IM .ONCE ONE Stop: 10/17/16 16:01 Last Admin: 10/17/16 14:39 Dose: 0.5 ml Polyethylene Glycol (Miralax (For Daily Use) -) 17 gm PO DAILY [facility] Last Admin: 10/17/16 11:18 Dose: 17 gm Ranitidine HCl (Zantac -) 150 mg PO BID [facility] Last Admin: 10/17/16 11:18 Dose: 150 mg Fluticasone/Salmeterol (Advair 100mcg/50mcg -) 1 puff IH BID [facility] Last Admin: 10/17/16 11:17 Dose: 2 pfu - Objective Vital Signs: Vital Signs Temperature 98.6 F 10/17/16 14:40 Pulse Rate 72 10/17/16 14:40 Respiratory Rate 18 10/17/16 14:40 Blood Pressure 120/63 10/17/16 14:40 O2 Sat by Pulse Oximetry (%) 95 10/17/16 09:30 Constitutional: Yes: Mild Distress Eyes: Yes: WNL HENT: Yes: WNL Neck: Yes: WNL Cardiovascular: Yes: WNL Respiratory: Yes: WNL Gastrointestinal: Yes: WNL Genitourinary: Yes: Incontinence Musculoskeletal: Yes: Joint Stiffness, Muscle Weakness Extremities: Yes: Deformity Edema: Yes Edema: LLE: 2+, RLE: 2+ Peripheral Pulses WNL: Yes Integumentary: Yes: Rash Wound/Incision: Yes: Dressing Dry and Intact Neurological: Yes: Confusion, Pre-Existing Deficit, Unsteady Gait, Weakness ...Motor Strength: LLE, RLE Psychiatric: Yes: Other Labs: CBC, BMP 10/16/16 11:50 10/17/16 07:00 INR, PTT INR 1.41 (0.82-1.09) H 10/14/16 17:26 Problem List - Problems (1) DVT (deep venous thrombosis) Code(s): I82.409 - ACUTE EMBOLISM AND THOMBOS UNSP DEEP VN UNSP LOWER EXTREMITY Qualifiers: DVT location: lower extremity (2) CVA (cerebral vascular accident) Code(s): I63.9 - CEREBRAL INFARCTION, UNSPECIFIED (3) Hemiplegia affecting dominant side Code(s): G81.90 - HEMIPLEGIA, UNSPECIFIED AFFECTING UNSPECIFIED SIDE (4) History of hip replacement Code(s): Z96.649 - PRESENCE OF UNSPECIFIED ARTIFICIAL HIP JOINT Assessment/Plan ANTICOAGULATION STOPPED DUE TO DECREASE IN H/H REPEAT CBC TOMORROW CHECK CT BRAIN STOOL FOR OCCULT BLOOD IVC FILTER PLACED, PT EVAL OOB TO CHAIR [facility] SX FOLLOW UP
[2016-10-17] MEDS ORDERED: MAGNESIUM HYDROX 2400MG/30ML ORAL SUSPENSION 30 ML CUP PO PRN (16:03)
[2016-10-17] MEDS: DOCUSATE SODIUM 100 MG CAPSULE (FP) PO SCH (21:07)
[2016-10-17] MEDS: ATORVASTATIN CA 10 MG TABLET (FP) PO SCH (21:07)
[2016-10-18] MEDS: NYSTATIN 100,000 UNIT/GM TOPICAL CREAM 15 GM TUBE TP SCH ×3 (06:02→22:08)
[2016-10-18 07:30] LABS: MCH 29.6 pg (25.7-33.7); MCHC 32.9 g/dl (32.0-36.0); PLATELET COUNT 224 K/MM3 (134-434); RDW 14.3 % (11.6-15.6); WHITE BLOOD COUNT 4.9 K/mm3 (4.0-10.0)
[2016-10-18 07:58] LABS: CALCIUM 8.6 mg/dL (8.5-10.1); CREATININE 0.9 mg/dL (0.55-1.02)
[2016-10-18] MEDS: AMINO ACIDS/PROTEIN HYDROLYS 30 ML LIQUID.PKT PO SCH ×2 (10:25→17:05)
[2016-10-18] MEDS: RANITIDINE HCL 150 MG TABLET (FP) PO SCH ×2 (10:25→22:27)
[2016-10-18] MEDS: LACTOBACILLUS ACIDOPHILUS 1 EACH TAB (FP) PO SCH (10:25)
[2016-10-18] MEDS: FERROUS SO4 325 MG TABLET (FP) PO SCH (10:25)
[2016-10-18] MEDS: FLUTICASONE/SALMETEROL 100 MCG/50 MCG DISKUS IH SCH ×2 (10:26→22:27)
[2016-10-18] MEDS: ASPIRIN COATED 81 MG TABLET.EC PO SCH (10:26)
[2016-10-18] MEDS: POLYETHYLENE GLYCOL 3350 119 GM BTL PO SCH (10:30)
--- NOTE | 2016-10-18 10:56 | OP ---
DATE OF OPERATION: 10/17/2016 PREOPERATIVE DIAGNOSES: Gastrointestinal bleed, left lower extremity deep vein thrombosis. POSTOPERATIVE DIAGNOSES: Gastrointestinal bleed, left lower extremity deep vein thrombosis. PROCEDURE: Insertion of inferior vena cava filter with venogram. SURGEON: Dipak Don DO ANESTHESIA: Fractional. BLOOD LOSS: 5 mL. The patient is an 81-year-old female with a left lower extremity DVT secondary to a recent fracture in the femur. Came into the hospital with a left lower extremity DVT. She was started on anticoagulation with IV heparin and then given Eliquis, and then she had a drop in her hemoglobin and hematocrit and can no longer be anticoagulated. Thus, it was decided that she would need an IVC filter. Patient was consented for the procedure, understanding all risks, benefits, and alternatives, and then taken to the operating room. Once in the operating suite on the operating table in a supine manner, the area of the right groin was prepped and draped in sterile surgical manner. We then injected 10 mL of 1% lidocaine over the right common femoral vein. We then went ahead and used our micropuncture needle to puncture the right common femoral vein. Micropuncture wire was placed. Micropuncture sheath was placed. We then placed a 0.035 floppy guide wire under fluoroscopy into the inferior vena cava. We then went ahead and placed our IVC filter sheath up to L3. We then shot a venacavogram via hand injection, showing that the renal veins came off at L1 and those were marked on our screen. We then loaded the filter into the sheath, and the filter was deployed between L2 and L3. Completion venacavogram was then shot by hand injection, showing that the filter was in place. There was no extravasation of contrast, and there was no migration of the filter. We then took out the sheath. Pressure was held on the right groin for 5 minutes after which there was no bleeding. The area was wet and dried, and Dermabond was placed. Patient tolerated the procedure, with no complications. Patient was transferred to PACU in stable condition. DIPAK DON DO [id number]
[2016-10-18] MEDS: ACETAMINOPHEN 325 MG TABLET (FP) PO PRN ×2 (12:15→22:07)
--- NOTE | 2016-10-18 13:51 | PN ---
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, Physician History of Present Illness: FATIGUE - Current Medication List Current Medications: Active Medications Acetaminophen (Tylenol -) 650 mg PO Q6H PRN PRN Reason: FEVER OR PAIN Last Admin: 10/18/16 12:15 Dose: 650 mg Albuterol/Ipratropium (Duoneb -) 1 amp NEB Q6H PRN PRN Reason: SHORTNESS OF BREATH Amino Acids (Prosource No Carb Liquid Pkt) 30 ml PO BID@0800,1730 [facility] Last Admin: 10/18/16 10:25 Dose: 30 ml Aspirin (Ecotrin -) 81 mg PO DAILY [facility] Last Admin: 10/18/16 10:26 Dose: 81 mg Atorvastatin Calcium (Lipitor -) 10 mg PO HS [facility] Last Admin: 10/17/16 21:07 Dose: 10 mg Docusate Sodium (Colace -) 300 mg PO HS [facility] Last Admin: 10/17/16 21:07 Dose: 300 mg Ferrous Sulfate (Feosol -) 325 mg PO DAILY [facility] Last Admin: 10/18/16 10:25 Dose: 325 mg Furosemide (Lasix Injection -) 40 mg IVPUSH ONCE ONE Stop: 10/18/16 13:49 Lactobacillus Acidophilus (Bacid -) 1 tab PO DAILY [facility] Last Admin: 10/18/16 10:25 Dose: 1 tab Magnesium Hydroxide (Milk Of Magnesia -) 30 ml PO DAILY PRN PRN Reason: CONSTIPATION Last Admin: 10/17/16 17:43 Dose: 30 ml Nystatin (Mycostatin Cream -) 1 applic TP BID [facility] Last Admin: 10/18/16 06:02 Dose: Not Given Polyethylene Glycol (Miralax (For Daily Use) -) 17 gm PO DAILY [facility] Last Admin: 10/18/16 10:30 Dose: 17 gm Ranitidine HCl (Zantac -) 150 mg PO BID [facility] Last Admin: 10/18/16 10:25 Dose: 150 mg Fluticasone/Salmeterol (Advair 100mcg/50mcg -) 1 puff IH BID [facility] Last Admin: 10/18/16 10:26 Dose: 1 pfu - Objective Vital Signs: Vital Signs Temperature 98.9 F 10/18/16 06:00 Pulse Rate 85 10/18/16 06:00 Respiratory Rate 18 10/18/16 06:00 Blood Pressure 105/51 10/18/16 06:00 O2 Sat by Pulse Oximetry (%) 95 10/17/16 22:00 Cardiovascular: Yes: S1, S2 Respiratory: Yes: Regular, CTA Bilaterally Gastrointestinal: Yes: Normal Bowel Sounds, Soft. No: Tenderness Labs: CBC, BMP 10/18/16 06:20 10/18/16 06:20 INR, PTT INR 1.41 (0.82-1.09) H 10/14/16 17:26 Problem List - Problems (1) DVT (deep venous thrombosis) Assessment/Plan: IVC FILTER IN PLACE HOLD AC DUE TO ANEMIA Code(s): I82.409 - ACUTE EMBOLISM AND THOMBOS UNSP DEEP VN UNSP LOWER EXTREMITY Qualifiers: DVT location: lower extremity (2) CVA (cerebral vascular accident) Assessment/Plan: OLD Code(s): I63.9 - CEREBRAL INFARCTION, UNSPECIFIED (3) Anemia Assessment/Plan: TRANSFUSE PRBC FOLLOW LABS Code(s): D64.9 - ANEMIA, UNSPECIFIED
[2016-10-18] MEDS ORDERED: FUROSEMIDE 40 MG/4 ML INJECTABLE VIAL IVPUSH ONE ×2 (15:00→22:00)
[2016-10-18] MEDS ORDERED: PT OWN MED DRAWER 7, Y5N ONE (21:49)
[2016-10-18] MEDS: DOCUSATE SODIUM 100 MG CAPSULE (FP) PO SCH (22:27)
[2016-10-18] MEDS: ATORVASTATIN CA 10 MG TABLET (FP) PO SCH (22:27)
[2016-10-19 08:26] LABS: BASOPHIL 0.6 % (0-2.0); EOSINOPHIL 6.3 % (0-4.5); MCH 29.8 pg (25.7-33.7); MCHC 33.2 g/dl (32.0-36.0); MEAN CELL VOLUME 89.7 fl (80-96); MEAN PLT VOLUME 8.1 fl (7.5-11.1); NEUTROPHILS 50.7 % (42.8-82.8); PLATELET COUNT 229 K/MM3 (134-434); RDW 15.1 % (11.6-15.6); WHITE BLOOD COUNT 4.6 K/mm3 (4.0-10.0)
[2016-10-19 08:51] LABS: ALBUMIN 3.2 g/dl (3.4-5.0); CALCIUM 8.3 mg/dL (8.5-10.1)
[2016-10-19] MEDS ORDERED: PT OWN MED DRAWER 7, Y5N ONE (08:52)
[2016-10-19 08:55] LABS: BILIRUBIN,TOTAL 0.5 mg/dL (0.2-1.0); CREATININE 0.9 mg/dL (0.55-1.02); TOT PROT 6.6 g/dl (6.4-8.2)
[2016-10-19] MEDS: ACETAMINOPHEN 325 MG TABLET (FP) PO PRN ×2 (08:57→21:41)
[2016-10-19] MEDS: AMINO ACIDS/PROTEIN HYDROLYS 30 ML LIQUID.PKT PO SCH ×2 (08:58→18:42)
[2016-10-19] MEDS: FLUTICASONE/SALMETEROL 100 MCG/50 MCG DISKUS IH SCH ×2 (10:08→21:42)
[2016-10-19] MEDS: ASPIRIN COATED 81 MG TABLET.EC PO SCH (10:09)
[2016-10-19] MEDS: POLYETHYLENE GLYCOL 3350 119 GM BTL PO SCH (10:09)
[2016-10-19] MEDS: LACTOBACILLUS ACIDOPHILUS 1 EACH TAB (FP) PO SCH (10:09)
[2016-10-19] MEDS: FERROUS SO4 325 MG TABLET (FP) PO SCH (10:09)
[2016-10-19] MEDS: RANITIDINE HCL 150 MG TABLET (FP) PO SCH ×2 (10:09→21:41)
[2016-10-19] MEDS: NYSTATIN 100,000 UNIT/GM TOPICAL CREAM 15 GM TUBE TP SCH ×2 (10:10→21:42)
--- NOTE | 2016-10-19 11:04 | PN ---
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, Physician History of Present Illness: FATIGUE - Current Medication List Current Medications: Active Medications Acetaminophen (Tylenol -) 650 mg PO Q6H PRN PRN Reason: FEVER OR PAIN Last Admin: 10/19/16 08:57 Dose: 650 mg Albuterol/Ipratropium (Duoneb -) 1 amp NEB Q6H PRN PRN Reason: SHORTNESS OF BREATH Amino Acids (Prosource No Carb Liquid Pkt) 30 ml PO BID@0800,1730 [facility] Last Admin: 10/19/16 08:58 Dose: 30 ml Aspirin (Ecotrin -) 81 mg PO DAILY [facility] Last Admin: 10/19/16 10:09 Dose: 81 mg Atorvastatin Calcium (Lipitor -) 10 mg PO HS [facility] Last Admin: 10/18/16 22:27 Dose: 10 mg Docusate Sodium (Colace -) 300 mg PO HS [facility] Last Admin: 10/18/16 22:27 Dose: 300 mg Ferrous Sulfate (Feosol -) 325 mg PO DAILY [facility] Last Admin: 10/19/16 10:09 Dose: 325 mg Lactobacillus Acidophilus (Bacid -) 1 tab PO DAILY [facility] Last Admin: 10/19/16 10:09 Dose: 1 tab Magnesium Hydroxide (Milk Of Magnesia -) 30 ml PO DAILY PRN PRN Reason: CONSTIPATION Last Admin: 10/17/16 17:43 Dose: 30 ml Nystatin (Mycostatin Cream -) 1 applic TP BID [facility] Last Admin: 10/19/16 10:10 Dose: 1 applic Polyethylene Glycol (Miralax (For Daily Use) -) 17 gm PO DAILY [facility] Last Admin: 10/19/16 10:09 Dose: 17 gm Ranitidine HCl (Zantac -) 150 mg PO BID [facility] Last Admin: 10/19/16 10:09 Dose: 150 mg Fluticasone/Salmeterol (Advair 100mcg/50mcg -) 1 puff IH BID [facility] Last Admin: 10/19/16 10:08 Dose: 1 pfu - Objective Vital Signs: Vital Signs Temperature 99.2 F 10/19/16 09:30 Pulse Rate 85 10/19/16 09:30 Respiratory Rate 20 10/19/16 09:30 Blood Pressure 103/55 10/19/16 09:30 O2 Sat by Pulse Oximetry (%) 96 10/18/16 21:00 Cardiovascular: Yes: Regular Rate and Rhythm Respiratory: Yes: Regular, CTA Bilaterally Gastrointestinal: Yes: Normal Bowel Sounds, Soft Neurological: Yes: Alert, Pre-Existing Deficit Labs: CBC, BMP 10/19/16 06:20 10/19/16 06:20 INR, PTT INR 1.41 (0.82-1.09) H 10/14/16 17:26 Problem List - Problems (1) DVT (deep venous thrombosis) Assessment/Plan: IVC FILTER IN PLACE HOLD AC DUE TO ANEMIA Code(s): I82.409 - ACUTE EMBOLISM AND THOMBOS UNSP DEEP VN UNSP LOWER EXTREMITY Qualifiers: DVT location: lower extremity (2) CVA (cerebral vascular accident) Assessment/Plan: OLD Code(s): I63.9 - CEREBRAL INFARCTION, UNSPECIFIED (3) Anemia Assessment/Plan: S/P TRANSFUSION PRBC FOLLOW LABS Code(s): D64.9 - ANEMIA, UNSPECIFIED
[2016-10-19] MEDS: ATORVASTATIN CA 10 MG TABLET (FP) PO SCH (21:41)
[2016-10-19] MEDS: DOCUSATE SODIUM 100 MG CAPSULE (FP) PO SCH (21:41)
[2016-10-20 08:39] LABS: MCH 29.5 pg (25.7-33.7); MCHC 32.7 g/dl (32.0-36.0); MEAN CELL VOLUME 90.3 fl (80-96); MEAN PLT VOLUME 8.1 fl (7.5-11.1); PLATELET COUNT 214 K/MM3 (134-434); RDW 15.3 % (11.6-15.6); WHITE BLOOD COUNT 4.6 K/mm3 (4.0-10.0)
[2016-10-20] MEDS: AMINO ACIDS/PROTEIN HYDROLYS 30 ML LIQUID.PKT PO SCH ×2 (08:39→17:21)
[2016-10-20] MEDS: ASPIRIN COATED 81 MG TABLET.EC PO SCH (09:42)
[2016-10-20] MEDS: RANITIDINE HCL 150 MG TABLET (FP) PO SCH ×2 (09:42→23:40)
[2016-10-20] MEDS: LACTOBACILLUS ACIDOPHILUS 1 EACH TAB (FP) PO SCH (09:42)
[2016-10-20] MEDS: FERROUS SO4 325 MG TABLET (FP) PO SCH (09:42)
[2016-10-20] MEDS: FLUTICASONE/SALMETEROL 100 MCG/50 MCG DISKUS IH SCH ×2 (09:42→23:39)
[2016-10-20] MEDS: POLYETHYLENE GLYCOL 3350 119 GM BTL PO SCH (09:43)
[2016-10-20] MEDS: ACETAMINOPHEN 325 MG TABLET (FP) PO PRN (10:51)
[2016-10-20] MEDS: NYSTATIN 100,000 UNIT/GM TOPICAL CREAM 15 GM TUBE TP SCH ×2 (10:55→23:40)
--- NOTE | 2016-10-20 16:41 | DS ---
Physical Examination Vital Signs: Vital Signs Temperature 99.1 F 10/20/16 14:48 Pulse Rate 89 10/20/16 14:48 Respiratory Rate 20 10/20/16 14:48 Blood Pressure 105/78 10/20/16 14:48 O2 Sat by Pulse Oximetry (%) 95 10/20/16 09:00 Findings/Remarks: RECOGNIZES ME Cardiovascular: Yes: WNL Respiratory: Yes: WNL Gastrointestinal: Yes: WNL Labs: CBC, BMP 10/20/16 07:15 10/19/16 06:20 Discharge Summary Reason For Visit: DEEP VEIN THROMBOSIS (DVT) Current Active Problems Anemia (Acute) DVT (deep venous thrombosis) (Acute) Hospital Course: (1) DVT (deep venous thrombosis) Assessment/Plan: IVC FILTER IN PLACE HOLD AC DUE TO ANEMIA ON ASA 81 APPRECIATE VASC SURG CONSULT -> NEED AC x 6 MONTHS Code(s): I82.409 - ACUTE EMBOLISM AND THOMBOS UNSP DEEP VN UNSP LOWER EXTREMITY Qualifiers: DVT location: lower extremity (2) CVA (cerebral vascular accident) Assessment/Plan: OLD Code(s): I63.9 - CEREBRAL INFARCTION, UNSPECIFIED (3) Anemia Assessment/Plan: S/P TRANSFUSION PRBC HGB 9 STABLE Code(s): D64.9 - ANEMIA, UNSPECIFIED DISCHARGE BACK TO [facility] Condition: Stable - Instructions Referrals: Ace Kelly MD [Primary Care Provider] - Disposition: CARE HOME FACILITY - Home Medications Comprehensive Discharge Medication List: Ambulatory Orders Calcium Carbonate/Vitamin D3 [Oyster Shell 500-Vit D3 200 Tb] 1 each PO DAILY Polyvinyl Alcohol [Artificial Tears] 0.2 drop OU BID 08/27/16 Acetaminophen [Tylenol .Regular Strength -] 650 mg PO Q6H PRN #0 tablet Albuterol 2.5/Ipratropium 0.5 [Duoneb -] 1 amp NEB Q6H PRN #0 amp 09/03/16 Aspirin Coated [Ecotrin -] 81 mg PO DAILY tablet.ec 09/03/16 Cyanocobalamin Vit B-12 Inj. [Vitamin B12 Injection -] 1,000 mcg IM DAILY vial 09/03/16 Docusate Sodium [Colace -] 300 mg PO HS capsule 09/03/16 Ferrous Sulfate [Feosol] 325 mg PO DAILY ud 09/03/16 Fluticasone Prop 0.05% Nasal [Flonase -] 1 spray NS BID bot 09/03/16 Lactobacillus Acidophilus [Bacid -] 1 tab PO DAILY tab 09/03/16 Loratadine [Claritin -] 10 mg PO DAILY tablet 09/03/16 Polyethylene Glycol 3350 [Miralax 119 gm Btl -] 17 gm PO DAILY PRN #0 bottle 07/10 Ranitidine [Zantac -] 150 mg PO DAILY tablet 09/03/16 Salmeterol/Fluticasone [Advair 100Mcg/50Mcg -] 1 puff IH BID inhaler 09/03/16 Amino Acids/Protein Hydrolys [Prostat Sugar-Free Packet -] 30 ml PO BID
[2016-10-20] MEDS ORDERED: PT OWN MED DRAWER 7, Y5N ONE (23:28)
[2016-10-20] MEDS: DOCUSATE SODIUM 100 MG CAPSULE (FP) PO SCH (23:39)
[2016-10-20] MEDS: ATORVASTATIN CA 10 MG TABLET (FP) PO SCH (23:40)
[2016-10-21 08:26] LABS: BASOPHIL 1.1 % (0-2.0); EOSINOPHIL 4.7 % (0-4.5); MCH 29.7 pg (25.7-33.7); MCHC 33.1 g/dl (32.0-36.0); MEAN CELL VOLUME 89.6 fl (80-96); MEAN PLT VOLUME 7.7 fl (7.5-11.1); NEUTROPHILS 55.2 % (42.8-82.8); PLATELET COUNT 203 K/MM3 (134-434); RDW 14.8 % (11.6-15.6); WHITE BLOOD COUNT 4.8 K/mm3 (4.0-10.0)
[2016-10-21 09:05] LABS: ALBUMIN 3.1 g/dl (3.4-5.0); CALCIUM 8.8 mg/dL (8.5-10.1)
[2016-10-21 09:08] LABS: BILIRUBIN,TOTAL 0.3 mg/dL (0.2-1.0); CREATININE 0.9 mg/dL (0.55-1.02); TOT PROT 6.6 g/dl (6.4-8.2)
[2016-10-21] MEDS: AMINO ACIDS/PROTEIN HYDROLYS 30 ML LIQUID.PKT PO SCH ×2 (09:55→17:38)
[2016-10-21] MEDS: LACTOBACILLUS ACIDOPHILUS 1 EACH TAB (FP) PO SCH (09:55)
[2016-10-21] MEDS: ASPIRIN COATED 81 MG TABLET.EC PO SCH (09:55)
[2016-10-21] MEDS: FERROUS SO4 325 MG TABLET (FP) PO SCH (09:55)
[2016-10-21] MEDS: RANITIDINE HCL 150 MG TABLET (FP) PO SCH ×2 (09:55→22:47)
[2016-10-21] MEDS: FLUTICASONE/SALMETEROL 100 MCG/50 MCG DISKUS IH SCH ×2 (09:55→22:46)
[2016-10-21] MEDS: NYSTATIN 100,000 UNIT/GM TOPICAL CREAM 15 GM TUBE TP SCH ×2 (09:56→22:47)
[2016-10-21] MEDS: POLYETHYLENE GLYCOL 3350 119 GM BTL PO SCH (09:57)
[2016-10-21] MEDS: ACETAMINOPHEN 325 MG TABLET (FP) PO PRN ×2 (09:57→17:38)
--- NOTE | 2016-10-21 15:16 | PN ---
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 (short form) - Note 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: patient cleared for discharge , waiting on response for SNF. Patient seen and examined, family bedside. will discharge home if not accepted to SNF with home PT Problem List - Problems (1) DVT (deep venous thrombosis) Code(s): I82.409 - ACUTE EMBOLISM AND THOMBOS UNSP DEEP VN UNSP LOWER EXTREMITY Qualifiers: DVT location: lower extremity (2) CVA (cerebral vascular accident) Code(s): I63.9 - CEREBRAL INFARCTION, UNSPECIFIED (3) Hemiplegia affecting dominant side Code(s): G81.90 - HEMIPLEGIA, UNSPECIFIED AFFECTING UNSPECIFIED SIDE (4) History of hip replacement Code(s): Z96.649 - PRESENCE OF UNSPECIFIED ARTIFICIAL HIP JOINT
--- NOTE | 2016-10-21 15:30 | DS ---
Physical Examination Vital Signs: Vital Signs Temperature 99.1 F 10/21/16 15:24 Pulse Rate 76 10/21/16 15:24 Respiratory Rate 18 10/21/16 15:24 Blood Pressure 123/66 10/21/16 15:24 O2 Sat by Pulse Oximetry (%) 95 10/21/16 09:00 Constitutional: Yes: Mild Distress Eyes: Yes: WNL HENT: Yes: WNL Neck: Yes: WNL Cardiovascular: Yes: WNL Respiratory: Yes: WNL Gastrointestinal: Yes: WNL Renal/: Yes: WNL, Incontinence Extremities: Yes: WNL Edema: Yes Peripheral Pulses WNL: Yes Integumentary: Yes: WNL Wound/Incision: Yes: Open to air, Other Neurological: Yes: Pre-Existing Deficit, Unsteady Gait, Weakness ...Motor Strength: LLE, RLE Psychiatric: Yes: Other Labs: CBC, BMP 10/21/16 07:10 10/21/16 07:10 Discharge Summary Reason For Visit: DEEP VEIN THROMBOSIS (DVT) Current Active Problems Anemia (Acute) DVT (deep venous thrombosis) (Acute) OLD CVA OLD LEFT HIP FRACTURE Procedures: Principal: CT HEAD Other Procedures: IVC FILTER Hospital Course: ADMITTED COULD NOT TOLERATE ANTICOAGULATION DUE TO DROP IN HEMOGLOBIN, TRNSFUSED PRBC, GUAC NEGATIVE, IVC FILTER PLACED, ASPIRIN 81MG DAILY ONLY, THEN SNF OR HOME WITH AGGRESSIVE PHYSICAL THERAPY. Condition: Stable - Instructions Diet, Activity, Other Instructions: LOW SODIUM Referrals: Ace Kelly MD [Primary Care Provider] - Disposition: HOME - Home Medications Comprehensive Discharge Medication List: Ambulatory Orders Polyvinyl Alcohol [Artificial Tears] 0.2 drop OU BID 08/27/16 Acetaminophen [Tylenol .Regular Strength -] 650 mg PO Q6H PRN #0 tablet Albuterol 2.5/Ipratropium 0.5 [Duoneb -] 1 amp NEB Q6H PRN #0 amp 09/03/16 Aspirin Coated [Ecotrin -] 81 mg PO DAILY tablet.ec 09/03/16 Docusate Sodium [Colace -] 300 mg PO HS capsule 09/03/16 Ferrous Sulfate [Feosol] 325 mg PO DAILY ud 09/03/16 Lactobacillus Acidophilus [Bacid -] 1 tab PO DAILY tab 09/03/16 Polyethylene Glycol 3350 [Miralax 119 gm Btl -] 17 gm PO DAILY PRN #0 bottle 07/10 Salmeterol/Fluticasone [Advair 100Mcg/50Mcg -] 1 puff IH BID inhaler 09/03/16 Amino Acids/Protein Hydrolys [Prostat Sugar-Free Packet -] 30 ml PO BID Acetaminophen [Tylenol .Regular Strength -] 650 mg PO Q6H PRN #0 tablet Albuterol 2.5/Ipratropium 0.5 [Duoneb -] 1 amp NEB Q6H PRN #0 amp 10/20/16 Amino Acids/Protein Hydrolys [Prosource No Carb Liquid Pkt] 30 ml PO BID@0800, 1730 packet 10/20/16 Aspirin Coated [Ecotrin -] 81 mg PO DAILY tablet.ec 10/20/16 Atorvastatin Ca [Lipitor] 10 mg PO HS tablet 10/20/16 Docusate Sodium [Colace -] 300 mg PO HS capsule 10/20/16 Ferrous Sulfate [Feosol] 325 mg PO DAILY ud 10/20/16 Lactobacillus Acidophilus [Bacid -] 1 tab PO DAILY tab 10/20/16 Magnesium Hydrox 2400MG/30Ml [Milk of Magnesia -] 30 ml PO DAILY PRN #0 cup Nystatin Cream [Mycostatin Cream -] 1 applic TP BID applic 10/20/16 Polyethylene Glycol 3350 [Miralax 119 gm Btl -] 17 gm PO DAILY bottle 10/20/16 Ranitidine [Zantac -] 150 mg PO BID tablet 10/20/16 Salmeterol/Fluticasone [Advair 100Mcg/50Mcg -] 1 puff IH BID inhaler 10/20/16
[2016-10-21] MEDS ORDERED: PT OWN MED DRAWER 7, Y5N ONE (22:44)
[2016-10-21] MEDS: DOCUSATE SODIUM 100 MG CAPSULE (FP) PO SCH (22:46)
[2016-10-21] MEDS: ATORVASTATIN CA 10 MG TABLET (FP) PO SCH (22:47)
[2016-10-22 06:53] LABS: MCH 29.4 pg (25.7-33.7); MCHC 32.8 g/dl (32.0-36.0); MEAN CELL VOLUME 89.9 fl (80-96); MEAN PLT VOLUME 8.4 fl (7.5-11.1); PLATELET COUNT 216 K/MM3 (134-434); RDW 14.9 % (11.6-15.6); WHITE BLOOD COUNT 4.5 K/mm3 (4.0-10.0)
[2016-10-22] MEDS: ACETAMINOPHEN 325 MG TABLET (FP) PO PRN ×2 (08:39→15:00)
[2016-10-22] MEDS: AMINO ACIDS/PROTEIN HYDROLYS 30 ML LIQUID.PKT PO SCH (08:43)
[2016-10-22] MEDS: LACTOBACILLUS ACIDOPHILUS 1 EACH TAB (FP) PO SCH (10:20)
[2016-10-22] MEDS: FERROUS SO4 325 MG TABLET (FP) PO SCH (10:20)
[2016-10-22] MEDS: RANITIDINE HCL 150 MG TABLET (FP) PO SCH (10:21)
[2016-10-22] MEDS: FLUTICASONE/SALMETEROL 100 MCG/50 MCG DISKUS IH SCH (10:21)
[2016-10-22] MEDS: ASPIRIN COATED 81 MG TABLET.EC PO SCH (10:21)
[2016-10-22] MEDS: POLYETHYLENE GLYCOL 3350 119 GM BTL PO SCH (10:22)
[2016-10-22] MEDS: NYSTATIN 100,000 UNIT/GM TOPICAL CREAM 15 GM TUBE TP SCH (10:28)
[2016-10-22 15:35] VITALS: BP 134/70; PULSE 107; TEMP 99
== END 2016-10-22 17:03 | DRG 197 ==
LOC: JER 17:10 → JERBED 20:48 → J5S 10-15 10:02 → OBSVTOIN 10-16 11:48
PROVIDERS: ADMIT Family Medicine; ATTEND Family Medicine
PROC: 06H03DZ Insertion of Intraluminal Device into Inferior Vena Cava, Percutaneous Approach (ICD-10-PCS; principal; 2016-10-17 07:30)
PROC: 30233N1 Transfusion of Nonautologous Red Blood Cells into Peripheral Vein, Percutaneous Approach (ICD-10-PCS; 2016-10-18)
DX: I82.432 Acute embolism and thrombosis of left popliteal vein (principal); I82.442 Acute embolism and thrombosis of left tibial vein; I69.351 Hemiplegia and hemiparesis following cerebral infarction affecting right dominant side; D64.9 Anemia, unspecified; I69.320 Aphasia following cerebral infarction; J45.909 Unspecified asthma, uncomplicated; I10 Essential (primary) hypertension; E78.5 Hyperlipidemia, unspecified; E66.9 Obesity, unspecified; Z68.30 Body mass index [BMI] 30.0-30.9, adult
CPT/HCPCS: 36415; 36430; 70450-TC; 71010-TC; 76000-TC; 80048; 80053; 81003; 81015; 82272; 83540; 85025; 85027; 85610; 85730; 86850; 86900; 86901; 86922; 87086; 90670; 93005; 93010; 94760; 97116-GP; 97162-PG; 99285-25; G0378; P9038; P9058

== ENCOUNTER 2018-05-11 17:58 | Inpatient (IN) | payer MEDICARE, OTHER ==
[2018-05-11 18:57] LABS: BASO % 0.9 % (0-2.0); EOS % 3.5 % (0-4.5); HEMOGLOBIN 10.5 GM/dL (10.7-15.3); MCH 29.6 pg (25.7-33.7); MCHC 33.7 g/dl (32.0-36.0); MEAN CELL VOLUME 87.6 fl (80-96); MEAN PLT VOLUME 7.9 fl (7.5-11.1); MONO % 5.5 % (3.8-10.2); NEUT % 62.1 % (42.8-82.8); PLATELET COUNT 268 K/MM3 (134-434); RBC 3.54 M/mm3 (3.60-5.2); RDW 15.4 % (11.6-15.6); WHITE BLOOD COUNT 4.8 K/mm3 (4.0-10.0)
[2018-05-11 19:09] LABS: INR 1.11 (0.83-1.09); PROTHROMBIN TIME (PATIENT) 12.5 SEC (9.7-13.0)
--- NOTE | 2018-05-11 19:31 | PDOC ---
Attending Attestation - Resident Resident Name: Bill Owens - ED Attending Attestation I have performed the following: I have examined & evaluated the patient, The case was reviewed & discussed with the resident, I agree w/resident's findings & plan, Exceptions are as noted - HPI HPI: 05/11/18 19:26 83 F with h/o anemia, asthma, right sided CVA(01/2015), UTI, hypertension, and hyperlipidemia presenting with abdominal distention and pain. Pt denies vomiting. Endorses normal BMs, last one this morning. States that she has had similar episodes in the past and had NG tubes placed. Denies prior surgical history. Pt denies CP/SOB. - Physicial Exam PE: 05/11/18 19:31 "GENERAL: Awake, alert, and fully oriented, in no acute distress. HEAD: No signs of trauma EYES: PERRLA, EOMI, sclera anicteric, conjunctiva clear ENT: Auricles normal inspection, hearing grossly normal, nares patent, oropharynx clear without exudates. Moist mucosa NECK: Nontender, no stepoffs, Normal ROM, supple, no lymphadenopathy, JVD, or masses LUNGS: Breath sounds equal, clear to auscultation bilaterally. No wheezes, and no crackles HEART: Regular rate and rhythm, normal S1 and S2, no murmurs, rubs or gallops ABDOMEN: + distended, tympanitic, mild diffuse TTP, normoactive bowel sounds. No guarding, no rebound. No masses EXTREMITIES: Normal range of motion, no edema. No clubbing or cyanosis. No cords, erythema, or tenderness NEUROLOGICAL: Cranial nerves II through XII intact. 5/5 strength and sensation in all extremities, Normal speech, normal gait, normal cerebellar function SKIN: Warm, Dry, normal turgor, no rashes or lesions noted." - Medical Decision Making 05/11/18 19:31 83 F with abdominal distention and pain. Exam notable for distended and tympanitic abdomen. Pt without any other signs of obstruction, but will obtain CT to r/o SBO. - Labs - CTAP - Likely admit
--- NOTE | 2018-05-11 19:59 | PDOC ---
History of Present Illness - General Chief Complaint: Pain, Acute Stated Complaint: ABD PAIN Time Seen by Provider: 05/11/18 18:21 History Source: Family Exam Limitations: Clinical Condition - History of Present Illness Initial Comments: 05/11/18 19:54 Patient is an 83F with history of anemia, CVA with R sided weakness, dysarthria and dysphagia, chronic obstruction (worked up multiple times at [facility], placed ng tubes for medical management, no surgery) here today complaining of abdominal distention. Patient has had this distention for months and has been admitted at [facility] for medical management of what seems to be an obstruction, but the family is not sure what caused the obstruction. Family denies fevers, chills, nausea, vomiting. Last bowel movement was today. Patient is not able to give history. Patient's family reports that her colon is "weak" at the end, and that they considered a colostomy. Patient's family states that she came to [facility] because they wish to be evaluated by Dr Maxwell. Past History - Past Medical History Allergies/Adverse Reactions: Allergies Allergy/AdvReac Type Severity Reaction Status Date / Time No Known Allergies Allergy Verified 10/14/16 17:12 Home Medications: Ambulatory Orders Acetaminophen [Tylenol .Regular Strength -] 650 mg PO Q6H PRN #0 tablet Albuterol 2.5/Ipratropium 0.5 [Duoneb -] 1 amp NEB Q6H PRN #0 amp 09/03/16 Amino Acids/Protein Hydrolys [Prostat Sugar-Free Packet -] 30 ml PO BID Aspirin Coated [Ecotrin -] 81 mg PO DAILY tablet.ec 10/20/16 Atorvastatin Ca [Lipitor] 10 mg PO HS tablet 10/20/16 Docusate Sodium [Colace -] 300 mg PO HS capsule 10/20/16 Ferrous Sulfate [Feosol] 325 mg PO DAILY ud 10/20/16 Ascorbic Acid [Vitamin C] 500 mg PO DAILY 05/11/18 Clopidogrel Bisulfate [Plavix] 75 mg PO DAILY 05/11/18 Pantoprazole Sodium [Protonix] 40 mg PO DAILY 05/11/18 Sennosides [Senokot] 8.6 mg PO HS 05/11/18 Simethicone 80 mg PO TID PRN 05/11/18 Anemia: Yes Asthma: Yes CVA: Yes (Right sided CVA January 2015, right arm weakness) COPD: No Disorders: Yes (/O UTI) HTN: Yes Hypercholesterolemia: Yes - Surgical History Orthopedic Surgery: Yes (Bilateral total knee replacements, Left hip surgery,) - Suicide/Smoking/Psychosocial Hx Smoking History: Never smoked Have you smoked in the past 12 months: No Hx Alcohol Use: No Drug/Substance Use Hx: No Substance Use Type: None Hx Substance Use Treatment: No Review of Systems - Review of Systems Able to Perform ROS?: No (2/2 clinical condition) *Physical Exam - Vital Signs Last Vital Signs Temp Pulse Resp BP Pulse Ox 75 18 149/72 100 05/11/18 18:12 05/11/18 18:12 05/11/18 18:12 05/11/18 18:12 - Physical Exam Comments: 05/11/18 19:59 GENERAL: Awake, alert, in no acute distress HEAD: No signs of trauma, normocephalic, atraumatic EYES: PERRLA, EOMI, sclera anicteric, conjunctiva clear ENT: Auricles normal inspection, hearing grossly normal, nares patent, oropharynx clear without exudates. Moist mucosa NECK: Normal ROM, supple, no lymphadenopathy, JVD, or masses LUNGS: No distress, speaks full sentences, clear to auscultation bilaterally HEART: Regular rate and rhythm, normal S1 and S2, no murmurs, rubs or gallops, peripheral pulses normal and equal bilaterally. ABDOMEN: Distended, tympanic, nontender, normoactive bowel sounds. No guarding , no rebound. No masses EXTREMITIES: Normal inspection, Normal range of motion, no edema. No clubbing or cyanosis. NEUROLOGICAL: Cranial nerves II through XII grossly intact. Slurred speech SKIN: Warm, Dry, normal turgor, no rashes or lesions noted. ED Treatment Course - LABORATORY CBC & Chemistry Diagram: 05/11/18 18:41 05/11/18 18:41 - ADDITIONAL ORDERS Additional order review: Laboratory Results 05/11/18 05/11/18 05/11/18 18:41 18:41 18:41 PT with INR 12.50 INR 1.11 H Sodium Cancelled Potassium Cancelled Chloride Cancelled Carbon Dioxide Cancelled Anion Gap Cancelled BUN Cancelled Creatinine Cancelled Creat Clearance w eGFR Cancelled Random Glucose Cancelled Calcium Cancelled Total Bilirubin Cancelled AST Cancelled ALT Cancelled Alkaline Phosphatase Cancelled Creatine Kinase 70 Troponin I < 0.02 Total Protein Cancelled Albumin Cancelled Lipase Cancelled 05/11/18 18:40 PT with INR INR Sodium Potassium Chloride Carbon Dioxide Anion Gap BUN Creatinine Creat Clearance w eGFR Random Glucose Calcium Total Bilirubin AST ALT Alkaline Phosphatase Creatine Kinase Cancelled Troponin I Cancelled Total Protein Albumin Lipase 05/11/18 18:41 RBC 3.54 L MCV 87.6 MCHC 33.7 RDW 15.4 MPV 7.9 Neutrophils % 62.1 Lymphocytes % 28.0 Monocytes % 5.5 Eosinophils % 3.5 Basophils % 0.9 - RADIOLOGY Radiology Studies Ordered: Category Date Time Status ABDOMEN & PELVIS CT WITH CONTR [CT] Stat CT Scan 05/11/18 18:40 Ordered Medical Decision Making - Medical Decision Making 05/11/18 20:00 Patient is 83F with history of of anemia, CVA, chronic obstructions, HTN, HLD here today with abdominal distention. Vitals normal and stable. DDx includes, but is not limited to: ileus, plumbing and heating mechanic obstruction, volvulus. Will workup with abdominal labs, lactate, ct abd/pelvis. 05/11/18 20:37 BUN/Cr suggests dehydration, K low to 2.8. Will give 1L NS with 20eq K. Trop and lactic acid negative. 05/11/18 21:50 CT shows ileus in distal colon, no acute SBO. No mass or physical obstruction seen. Page out to hospitalist. 05/11/18 22:06 D/w Erica Cunningham. Will admit under Ifudu. *DC/Admit/Observation/Transfer Diagnosis at time of Disposition: Ileus - Discharge Dispostion Condition at time of disposition: Stable Decision to Admit order: Yes - Referrals Referrals: Ace Kelly MD [Primary Care Provider] - - Patient Instructions - Post Discharge Activity
[2018-05-11 20:06] LABS: ALBUMIN 3.1 g/dl (3.4-5.0); ANION GAP 14 MMOL/L (8-16); BILIRUBIN,TOTAL 0.3 mg/dL (0.2-1); BLOOD UREA NITROGEN 34 mg/dL (7-18); CALCIUM 8.9 mg/dL (8.5-10.1); CHLORIDE 109 mmol/L (98-107); CO2 22 mmol/L (21-32); CREATININE 0.5 mg/dL (0.55-1.3); GLUCOSE,RANDOM 105 mg/dL (74-106); LIPASE 259 U/L (73-393); SGOT/AST 18 U/L (15-37); SODIUM 145 mmol/L (136-145); TOT PROT 6.7 g/dl (6.4-8.2)
[2018-05-11 20:13] LABS: ALK PHOS 69 U/L (45-117); SGPT/ALT 21 U/L (13-61)
[2018-05-11 20:22] LABS: POTASSIUM 2.8 mmol/L (3.5-5.1)
[2018-05-11] MEDS ORDERED: SODIUM CHLORIDE 0.9%/KCL 20 MEQ/1,000 ML INFUS.BAG IV SCH (20:30)
--- NOTE | 2018-05-11 22:24 | HP ---
Admitting History and Physical - Primary Care Physician PCP: Ace Kelly S - Admission Chief Complaint: Abdominal Distention History of Present Illness: 83 y/o woman with PMHx of CVA (R-sided hemiplegia), dysarthria, dysphagia, multiple chronic obstructions (NGTs, no sx), HTN, HLD. Who presents to the ED with family for abdominal distention. Per family patient was seen at [facility] for same, unresolved. Per family patient has had BMs, no N/V. Patient's family requesting patient to be evaluated by Dr. Maxwell. History Source: Family Member Limitations to Obtaining History: Clinical Condition, Language Barrier - Past Medical History ACADEMY DIRECTOR: Yes: CVA, Dementia Cardiovascular: Yes: HTN, Hyperlipdemia Gastrointestinal: Yes: Other (chronic obstructions) - Past Surgical History Past Surgical History: Yes: None, Joint Replacement (bilateral total hip replacement) - Smoking History Smoking history: Never smoked Have you smoked in the past 12 months: No - Alcohol/Substance Use Hx Alcohol Use: No History of Substance Use: reports: None - Social History Usual Living Arrangement: Yes: Retirement ADL: Support Services History of Recent Travel: No Home Medications - Allergies Allergies/Adverse Reactions: Allergies Allergy/AdvReac Type Severity Reaction Status Date / Time No Known Allergies Allergy Verified 10/14/16 17:12 - Home Medications Home Medications: Ambulatory Orders Acetaminophen [Tylenol .Regular Strength -] 650 mg PO Q6H PRN #0 tablet Albuterol 2.5/Ipratropium 0.5 [Duoneb -] 1 amp NEB Q6H PRN #0 amp 09/03/16 Amino Acids/Protein Hydrolys [Prostat Sugar-Free Packet -] 30 ml PO BID Aspirin Coated [Ecotrin -] 81 mg PO DAILY tablet.ec 10/20/16 Atorvastatin Ca [Lipitor] 10 mg PO HS tablet 10/20/16 Docusate Sodium [Colace -] 300 mg PO HS capsule 10/20/16 Ferrous Sulfate [Feosol] 325 mg PO DAILY ud 10/20/16 Ascorbic Acid [Vitamin C] 500 mg PO DAILY 05/11/18 Clopidogrel Bisulfate [Plavix] 75 mg PO DAILY 05/11/18 Pantoprazole Sodium [Protonix] 40 mg PO DAILY 05/11/18 Sennosides [Senokot] 8.6 mg PO HS 05/11/18 Simethicone 80 mg PO TID PRN 05/11/18 Family Disease History - Family Disease History Family History: Unable to Obtain Review of Systems Unable to obtain ROS, reason: dementia Physical Examination Vital Signs: Vital Signs Temperature Pulse Rate 75 05/11/18 18:12 Respiratory Rate 18 05/11/18 18:12 Blood Pressure 149/72 05/11/18 18:12 O2 Sat by Pulse Oximetry (%) 100 05/11/18 18:12 Constitutional: Yes: No Distress, Calm Eyes: Yes: Conjunctiva Clear, PERRL HENT: Yes: WNL, Atraumatic, Normocephalic Neck: Yes: WNL, Supple, Trachea Midline Cardiovascular: Yes: WNL, Regular Rate and Rhythm, S1, S2 Respiratory: Yes: WNL, Regular, CTA Bilaterally Gastrointestinal: Yes: Distention, Hypoactive Bowel Sounds, Other (loose stool in diaper) Renal/: Yes: Incontinence Breast(s): Yes: WNL Extremities: Yes: Shortened (LLE contracture- baseline) Peripheral Pulses WNL: Yes Integumentary: Yes: Pressure Ulcer (sacral) Wound/Incision: Yes: Other (sacral decubitus) Neurological: Yes: Alert, Dysarthria Psychiatric: Yes: Alert Labs: CBC, BMP 05/11/18 18:41 05/11/18 18:41 Laboratory Results - last 24 hr 05/11/18 05/11/18 05/11/18 18:40 18:41 18:41 WBC 4.8 RBC 3.54 L Hgb 10.5 L Hct 31.0 L MCV 87.6 MCH 29.6 MCHC 33.7 RDW 15.4 Plt Count 268 D MPV 7.9 Absolute Neuts (auto) 3.0 Neutrophils % 62.1 Lymphocytes % 28.0 Monocytes % 5.5 Eosinophils % 3.5 Basophils % 0.9 Nucleated RBC % 0 PT with INR 12.50 INR 1.11 H Sodium 145 Potassium 2.8 L* Chloride 109 H Carbon Dioxide 22 Anion Gap 14 BUN 34 H Creatinine 0.5 L Creat Clearance w eGFR > 60 Random Glucose 105 Lactic Acid Calcium 8.9 Total Bilirubin 0.3 AST 18 ALT 21 Alkaline Phosphatase 69 Creatine Kinase Cancelled Troponin I Cancelled Total Protein 6.7 Albumin 3.1 L Lipase 259 05/11/18 05/11/18 05/11/18 18:41 18:41 18:41 WBC RBC Hgb Hct MCV MCH MCHC RDW Plt Count MPV Absolute Neuts (auto) Neutrophils % Lymphocytes % Monocytes % Eosinophils % Basophils % Nucleated RBC % PT with INR INR Sodium Cancelled Potassium Cancelled Chloride Cancelled Carbon Dioxide Cancelled Anion Gap Cancelled BUN Cancelled Creatinine Cancelled Creat Clearance w eGFR Cancelled Random Glucose Cancelled Lactic Acid 0.7 Calcium Cancelled Total Bilirubin Cancelled AST Cancelled ALT Cancelled Alkaline Phosphatase Cancelled Creatine Kinase 70 Troponin I < 0.02 Total Protein Cancelled Albumin Cancelled Lipase Cancelled 05/12/18 04:30 WBC RBC Hgb Hct MCV MCH MCHC RDW Plt Count MPV Absolute Neuts (auto) Neutrophils % Lymphocytes % Monocytes % Eosinophils % Basophils % Nucleated RBC % PT with INR INR Sodium 143 Potassium 2.9 L* Chloride 110 H Carbon Dioxide 28 Anion Gap 5 L BUN 25 H Creatinine 0.5 L Creat Clearance w eGFR > 60 Random Glucose 101 Lactic Acid Calcium 8.2 L Total Bilirubin AST ALT Alkaline Phosphatase Creatine Kinase Troponin I Total Protein Albumin Lipase Current Medications Generic Name Dose Route Start Last Admin Trade Name Freq PRN Reason Stop Dose Admin Heparin Sodium (Porcine) 5,000 unit 05/12/18 10:00 Heparin - SQ BID AIDEE Potassium Chloride/Sodium Chloride 20 meq in 1,000 mls @ 175 mls/hr 05/11/18 20:30 05/11/18 21:41 Ns+20 Meq Kcl - IV 175 mls/hr ASDIR AIDEE Administration Dextrose/Sodium Chloride 1,000 mls @ 42 mls/hr 05/11/18 22:30 05/12/18 00:00 D5-1/2ns - IV 42 mls/hr ASDIR AIDEE Administration Potassium Chloride 10 meq in 100 mls @ 100 mls/hr 05/12/18 05:45 05/12/18 06: 14 Potassium Chloride 10 Meq Premix Ivpb - IVPB 05/12/18 07:44 100 mls/hr Q60M AIDEE Administration Influenza Virus Vaccine Quadrival 60 mcg 05/12/18 10:00 Flulaval Quad [id number] IM 05/12/18 10:01 .ONCE ONE Intake & Output 05/09/18 05/10/18 05/11/18 05/12/18 23:59 23:59 23:59 23:59 Intake Total 400 Balance 400 Weight 90.718 kg 79.605 kg Imaging - Results Chest X-ray: Image Reviewed Cat Scan: Report Reviewed (read by Dr. Edwards: In comparison to a 2017 CT study interval development of marked air-filled distention is seen of the mild and upper thirds a very redundant sigmoid colon probably on the basis of an ileus/ atony. There is no definite CT evidence of a sigmoid volvulus. The rectum and the lower third of the sigmoid colon demonstrate mild to moderate fluid-filled distention.), Image Reviewed EKG: Image Reviewed Problem List - Problems (1) Ileus Code(s): K56.7 - ILEUS, UNSPECIFIED (2) Abdominal distension Code(s): R14.0 - ABDOMINAL DISTENSION (GASEOUS) (3) Abdominal pain Code(s): R10.9 - UNSPECIFIED ABDOMINAL PAIN (4) Anemia Code(s): D64.9 - ANEMIA, UNSPECIFIED (5) CVA (cerebral vascular accident) Code(s): I63.9 - CEREBRAL INFARCTION, UNSPECIFIED (6) DVT (deep venous thrombosis) Code(s): I82.409 - ACUTE EMBOLISM AND THOMBOS UNSP DEEP VN UNSP LOWER EXTREMITY Qualifiers: DVT location: lower extremity (7) Dysarthria as late effect of cerebrovascular accident (CVA) Code(s): I69.322 - DYSARTHRIA FOLLOWING CEREBRAL INFARCTION (8) Hemiplegia affecting dominant side Code(s): G81.90 - HEMIPLEGIA, UNSPECIFIED AFFECTING UNSPECIFIED SIDE (9) Functional quadriplegia Code(s): R53.2 - FUNCTIONAL QUADRIPLEGIA Assessment/Plan 83 y/o woman admitted for Ileus, Hypokalemia secondary to Dehydration for further evaluation of their emergent condition. Plan Admit to M/S 1. Acute Ileus- Abd xray suggestive Ileus, no obstruction, per family pt has had BM today. Appreciate GI consult, no leukocytosis, lactate-nl, will monitor CBC, BMPs, vitals, gentle IVF, consider NGT, serial abd exams 2. Hypokalemia -Likely secondary to dehydration, repleted with K- rider x1 in ED , serial BMPs, will replete as needed, EKG reviewed, monitor vitals 3. CVA hx- stable, Fall precautions, will hold meds tonight and reassess in am, will need NGT for med administration 4. HTN- stable, monitor BP, hold meds tonight reassess in am 5. Sacral Ulcer- chronic, continue wound care, turn & position Q2hr 6. Functional Quadriplegia- complete mobility due to frailty, end stage Dementia , CVA, turn Q2h, Che Lift as needed, heel protectors, Fall Precautions 5. FEN- D51/2NS@42ml/hr, Repleted K with K riders, continue to monitor, NPO 6. DVT ppx- SCDs, Heparin SQ Dispo: Requires Inpatient Care Visit type - Emergency Visit Emergency Visit: Yes ED Registration Date: 05/11/18 Care time: The patient presented to the Emergency Department on the above date and was hospitalized for further evaluation of their emergent condition. - New Patient This patient is new to me today: Yes Date on this admission: 05/11/18 - Critical Care Critical Care patient: No Hospitalist Screening - Colonoscopy Questionnaire Colonoscopy Questionnaire: Colonoscopy Questionnaire - Patient: 50 - 75 years old and never had a screening colonoscopy: Unknown History of colon or rectal polyps, or CA: Unknown History of IBD, Crohn's disease or UC: Unknown History of abdominal radiation therapy as a child: Unknown - Relative: 1 with colon or rectal CA, or polyps at age 60 or younger: Unknown Colon or rectal CA diagnosed at age 45 or younger: Unknown Multiple relatives with colon or rectal CA: Unknown - Outcome: Screening Result: Negative Screen
[2018-05-11] MEDS ORDERED: DEXTROSE 5%-0.45% SALINE 1,000 ML IV SCH (22:30)
[2018-05-12] MEDS ORDERED: KCL 10 MEQ IVPB 10 MEQ/100 ML INFUS.BAG IVPB SCH (02:00)
[2018-05-12 05:31] LABS: BLOOD UREA NITROGEN 25 mg/dL (7-18); CREATININE 0.5 mg/dL (0.55-1.3); GLUCOSE,RANDOM 101 mg/dL (74-106); SODIUM 143 mmol/L (136-145)
[2018-05-12 05:32] LABS: ANION GAP 5 MMOL/L (8-16); CALCIUM 8.2 mg/dL (8.5-10.1); CHLORIDE 110 mmol/L (98-107); CO2 28 mmol/L (21-32)
[2018-05-12 05:36] LABS: POTASSIUM 2.9 mmol/L (3.5-5.1)
[2018-05-12] MEDS: KCL 10 MEQ IVPB 10 MEQ/100 ML INFUS.BAG IVPB SCH ×5 (06:14→18:49)
[2018-05-12 07:15] LABS: BASO % 0.9 % (0-2.0); HEMATOCRIT 29.7 % (32.4-45.2); HEMOGLOBIN 9.9 GM/dL (10.7-15.3); LYMPH % 29.6 % (8-40); MCH 29.1 pg (25.7-33.7); MCHC 33.4 g/dl (32.0-36.0); MEAN CELL VOLUME 87.3 fl (80-96); MEAN PLT VOLUME 7.9 fl (7.5-11.1); MONO % 6.8 % (3.8-10.2); NEUT % 58.7 % (42.8-82.8); PLATELET COUNT 250 K/MM3 (134-434); RDW 15.5 % (11.6-15.6); WHITE BLOOD COUNT 4.6 K/mm3 (4.0-10.0)
[2018-05-12 07:29] LABS: ANION GAP 7 MMOL/L (8-16); BLOOD UREA NITROGEN 25 mg/dL (7-18); CALCIUM 8.2 mg/dL (8.5-10.1); CHLORIDE 110 mmol/L (98-107); CO2 27 mmol/L (21-32); CREATININE 0.5 mg/dL (0.55-1.3); GLUCOSE,RANDOM 104 mg/dL (74-106); MAGNESIUM 1.7 mg/dL (1.8-2.4); SODIUM 144 mmol/L (136-145)
[2018-05-12 08:17] LABS: POTASSIUM 2.8 mmol/L (3.5-5.1)
[2018-05-12] MEDS ORDERED: HEPARIN NA (PORCINE) 5,000 UNITS/ML 1ML VIAL SQ SCH (10:00)
[2018-05-12] MEDS ORDERED: FLU VACCINE QUAD 60 MCG/0.5 ML (MDV 18-19) IM ONE (10:00)
--- NOTE | 2018-05-12 11:01 | CON.GI ---
Consult Consult Specialty:: Gastroenterology Referred by:: Dr Navarro - History of Present Illness History of Present Illness: 83 y/o female with PMH of dysphagia, abdominal distention, NGT decompression in the past was asked to be seen because of abdominal distention. Medical records reviewed. Cat scan done in ED revealed colonic distention with no evidence of volsulus. She has been bed ridden . 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 Cardio/Vascular: Yes: HTN, Hyperlipdemia Gastrointestinal: Yes: Other (chronic obstructions) - Past Surgical History Past Surgical History: Yes: None, Joint Replacement (bilateral total hip replacement) - Alcohol/Substance Use Hx Alcohol Use: No History of Substance Use: reports: None - Smoking History Smoking history: Never smoked Have you smoked in the past 12 months: No - Social History ADL: Support Services History of Recent Travel: No Home Medications - Allergies Allergies/Adverse Reactions: Allergies Allergy/AdvReac Type Severity Reaction Status Date / Time No Known Allergies Allergy Verified 10/14/16 17:12 - Home Medications Home Medications: Ambulatory Orders Acetaminophen [Tylenol .Regular Strength -] 650 mg PO Q6H PRN #0 tablet Albuterol 2.5/Ipratropium 0.5 [Duoneb -] 1 amp NEB Q6H PRN #0 amp 09/03/16 Amino Acids/Protein Hydrolys [Prostat Sugar-Free Packet -] 30 ml PO BID Aspirin Coated [Ecotrin -] 81 mg PO DAILY tablet.ec 10/20/16 Atorvastatin Ca [Lipitor] 10 mg PO HS tablet 10/20/16 Docusate Sodium [Colace -] 300 mg PO HS capsule 10/20/16 Ferrous Sulfate [Feosol] 325 mg PO DAILY ud 10/20/16 Ascorbic Acid [Vitamin C] 500 mg PO DAILY 05/11/18 Clopidogrel Bisulfate [Plavix] 75 mg PO DAILY 05/11/18 Pantoprazole Sodium [Protonix] 40 mg PO DAILY 05/11/18 Sennosides [Senokot] 8.6 mg PO HS 05/11/18 Simethicone 80 mg PO TID PRN 05/11/18 Physical Exam-GI Vital Signs: Vital Signs Temperature 98.7 F 05/12/18 06:00 Pulse Rate 83 05/12/18 06:00 Respiratory Rate 18 05/12/18 06:00 Blood Pressure 133/72 05/12/18 06:00 O2 Sat by Pulse Oximetry (%) 97 05/12/18 01:00 Constitutional: Yes: Well Nourished Eyes: Yes: Conjunctiva Clear HENT: Yes: Atraumatic Neck: Yes: Supple Cardiovascular: Yes: Regular Rate and Rhythm Respiratory: Yes: CTA Bilaterally Gastrointestinal Inspection: Yes: Distention ...Palpate: Yes: Soft. No: Firm/Rigid, Guarding, Hepatomegaly, Mass, Pulsatile Mass, Splenomegaly, Tenderness ...Percussion: Yes: Tympanitic Labs: CBC, BMP 05/12/18 06:25 INR, PTT INR 1.11 (0.83-1.09) H 05/11/18 18:41 Current Medications Generic Name Dose Route Start Last Admin Trade Name Freq PRN Reason Stop Dose Admin Heparin Sodium (Porcine) 5,000 unit 05/12/18 10:00 05/12/18 10:32 Heparin - SQ 5,000 unit BID AIDEE Administration Potassium Chloride/Sodium Chloride 20 meq in 1,000 mls @ 175 mls/hr 05/11/18 20:30 05/11/18 21:41 Ns+20 Meq Kcl - IV 175 mls/hr ASDIR AIDEE Administration Dextrose/Sodium Chloride 1,000 mls @ 42 mls/hr 05/11/18 22:30 05/12/18 00:00 D5-1/2ns - IV 42 mls/hr ASDIR AIDEE Administration Sodium Phosphate 133 ml 05/12/18 10:55 Fleet Adult Rectal Enema - CA 05/12/18 10:56 ONCE ONE Home Medications Medication Instructions Recorded Acetaminophen [Tylenol .Regular 650 mg PO Q6H PRN #0 tablet 09/03/16 Strength -] Albuterol 2.5/Ipratropium 0.5 1 amp NEB Q6H PRN #0 amp 09/03/16 [Duoneb -] Amino Acids/Protein Hydrolys 30 ml PO BID 10/14/16 [Prostat Sugar-Free Packet -] Aspirin Coated [Ecotrin -] 81 mg PO DAILY tablet.ec 10/20/16 Atorvastatin Ca [Lipitor] 10 mg PO HS tablet 10/20/16 Docusate Sodium [Colace -] 300 mg PO HS capsule 10/20/16 Ferrous Sulfate [Feosol] 325 mg PO DAILY ud 10/20/16 Ascorbic Acid [Vitamin C] 500 mg PO DAILY 05/11/18 Clopidogrel Bisulfate [Plavix] 75 mg PO DAILY 05/11/18 Pantoprazole Sodium [Protonix] 40 mg PO DAILY 05/11/18 Sennosides [Senokot] 8.6 mg PO HS 05/11/18 Simethicone 80 mg PO TID PRN 05/11/18 Problem List - Problems (1) Pseudo-obstruction of colon Assessment/Plan: this condition is difficult to treat as laxatives and enemas are the only options FUA in am Code(s): K59.8 - OTHER SPECIFIED FUNCTIONAL INTESTINAL DISORDERS (2) Anemia Assessment/Plan: secondary to chronic Plavix and Aspirin use R> continue supportive care, poor candidate for any GI procedures at this time consider to discontinue Plavix or Aspirin to avoid further anemia Ferrous sulfate can cause severe constipation--will mason Dulcoalax and Miralax Code(s): D64.9 - ANEMIA, UNSPECIFIED
[2018-05-12] MEDS ORDERED: BISACODYL 5 MG TABLET.DR (FP) PO ONE (11:11)
[2018-05-12] MEDS ORDERED: SODIUM PHOSPHATE/NA BIPHOS 133 ML ENEMA PR ONE (11:45)
[2018-05-12] MEDS ORDERED: PANTOPRAZOLE 40 MG TABLET (FP) PO ONE (11:45)
[2018-05-12 11:54] LABS: ANION GAP 12 MMOL/L (8-16); BLOOD UREA NITROGEN 27 mg/dL (7-18); CALCIUM 8.5 mg/dL (8.5-10.1); CHLORIDE 111 mmol/L (98-107); CO2 24 mmol/L (21-32); CREATININE 0.5 mg/dL (0.55-1.3); SODIUM 147 mmol/L (136-145)
[2018-05-12] MEDS ORDERED: PT OWN MED DRAWER 7, Y5N ONE ×2 (12:00→21:37)
[2018-05-12] MEDS: METOCLOPRAMIDE HCL 10 MG TABLET (FP) PO SCH ×2 (12:13→17:32)
[2018-05-12] MEDS: POLYETHYLENE GLYCOL 3350 119 GM BTL PO SCH ×2 (12:15→22:53)
[2018-05-12 12:47] LABS: GLUCOSE,RANDOM 108 mg/dL (74-106)
[2018-05-12] MEDS: LIPASE/PROTEASE/AMYLASE 36,000 UNIT CAPSULE PO SCH ×2 (12:48→17:33)
--- NOTE | 2018-05-12 13:37 | EKG ---
Test Reason : Blood Pressure : / mmHG Vent. Rate : 085 BPM Atrial Rate : 085 BPM P-R Int : 156 ms QRS Dur : 098 ms QT Int : 400 ms P-R-T Axes : 000 010 035 degrees QTc Int : 476 ms NORMAL SINUS RHYTHM CANNOT RULE OUT INFERIOR INFARCT (CITED ON OR BEFORE 14-OCT-2016) ABNORMAL ECG WHEN COMPARED WITH ECG OF 14-OCT-2016 17:35, PREMATURE ATRIAL COMPLEXES ARE NO LONGER PRESENT Confirmed by DONY LOPEZ MD ([id number]) on 05/12/2018 1:36:58 PM Referred By: Confirmed By:DONY LOPEZ MD
--- NOTE | 2018-05-12 14:42 | PN ---
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, Physician Chief Complaint: Hypokalemia Abdominal distention Constipation Anemia History of Present Illness: NAD Pt alert but non verbal bed bound - Current Medication List Current Medications: Active Medications Acetaminophen (Tylenol -) 650 mg PO Q6H PRN PRN Reason: FEVER Albuterol/Ipratropium (Duoneb -) 1 amp NEB Q6H PRN PRN Reason: SHORTNESS OF BREATH Ascorbic Acid (Vitamin C -) 500 mg PO BID [facility] Aspirin (Ecotrin -) 81 mg PO DAILY [facility] Atorvastatin Calcium (Lipitor -) 10 mg PO HS [facility] Clopidogrel Bisulfate (Plavix -) 75 mg PO DAILY [facility] Heparin Sodium (Porcine) (Heparin -) 5,000 unit SQ BID [facility] Last Admin: 05/12/18 10:32 Dose: 5,000 unit Dextrose/Sodium Chloride (D5-1/2ns+40 Meq Kcl -) 40 meq in 1,000 mls @ 42 mls/ hr IV ASDIR [facility] Potassium Chloride (Potassium Chloride 10 Meq Premix Ivpb -) 10 meq in 100 mls @ 100 mls/hr IVPB Q60M [facility] Stop: 05/12/18 17:29 Metoclopramide HCl (Reglan -) 5 mg PO TIDAC [facility] Last Admin: 05/12/18 12:13 Dose: 5 mg Metronidazole (Flagyl -) 250 mg PO TID [facility] Pancrelipase (Creon Dr 36,000 Units Capsule) 1 cap PO TIDCM [facility] Last Admin: 05/12/18 12:48 Dose: 1 cap Pantoprazole Sodium (Protonix -) 40 mg PO DAILY [facility] Polyethylene Glycol (Miralax (For Daily Use) -) 34 gm PO BID [facility] Last Admin: 05/12/18 12:15 Dose: 34 gm Simethicone (Mylicon Liquid -) 80 mg PO QID [facility] - Objective Vital Signs: Vital Signs Temperature 98.2 F 05/12/18 12:00 Pulse Rate 83 05/12/18 12:00 Respiratory Rate 18 05/12/18 12:00 Blood Pressure 138/68 05/12/18 12:00 O2 Sat by Pulse Oximetry (%) 96 05/12/18 09:00 Constitutional: Yes: Well Nourished, No Distress, Calm Cardiovascular: Yes: Regular Rate and Rhythm Respiratory: Yes: Regular Gastrointestinal: Yes: Normal Bowel Sounds, Soft, Abdomen, Obese Musculoskeletal: Yes: Muscle Weakness Edema: No Peripheral Pulses WNL: Yes Neurological: Yes: Alert, Pre-Existing Deficit Psychiatric: Yes: Alert Labs: CBC, BMP 05/12/18 06:25 05/12/18 10:20 INR, PTT INR 1.11 (0.83-1.09) H 05/11/18 18:41 Problem List - Problems (1) Hypokalemia Assessment/Plan: -Change IVF to D5 08/25 NS + KCl 40 meq @ 42 cc/hr -KCl 10 meq x 3 -repeat labs in AM Code(s): E87.6 - HYPOKALEMIA (2) Anemia Assessment/Plan: -No Iron deficiency in the past, repeat iron profile -Stool Guaiac negative in the past, would repeat -B12 and folate deficiency in the past, recheck levels now -Recheck Thyroid profile as well Code(s): D64.9 - ANEMIA, UNSPECIFIED (3) Functional quadriplegia Assessment/Plan: 2/2 to past CVA in 2014 Code(s): R53.2 - FUNCTIONAL QUADRIPLEGIA (4) Pseudo-obstruction of colon Assessment/Plan: -Seen by GI-CT abd/pelvis reviewed, no volvulus or obstruction noted -Abdominal distention 2/2 to ileus? -Simethicone 80 mg po QID -Flagyl for SIBO -Enema x 3 -Miralax daily -KUB in AM Code(s): K59.8 - OTHER SPECIFIED FUNCTIONAL INTESTINAL DISORDERS (5) Abdominal distension Assessment/Plan: -Seen by GI-CT abd/pelvis reviewed, no volvulus or obstruction noted -Abdominal distention 2/2 to ileus? -Simethicone 80 mg po QID -Flagyl for SIBO -Enema x 3 -Miralax daily -KUB in AM Code(s): R14.0 - ABDOMINAL DISTENSION (GASEOUS) (6) CAD (coronary artery disease) Assessment/Plan: -repeat lipids in AM -No history of Diabetes -No U/S carotid imaging available -last MRI and CT head no ischemia or infarct Code(s): I25.10 - ATHSCL HEART DISEASE OF [place] CORONARY ARTERY W/O ANG PCTRS Assessment/Plan see problem list
[2018-05-12] MEDS: CLOPIDOGREL BISULFATE 75 MG TABLET (FP) PO SCH (15:10)
[2018-05-12] MEDS: metroNIDAZOLE 250 MG TABLET PO SCH ×2 (15:11→22:52)
[2018-05-12] MEDS: D5-1/2NS+40 MEQ KCL - 40 MEQ/1,000 ML INFUS.BAG IV SCH (15:15)
[2018-05-12] MEDS: SODIUM PHOSPHATE/NA BIPHOS 133 ML ENEMA RC SCH ×2 (16:30→22:52)
[2018-05-12] MEDS: SIMETHICONE 40 MG/0.6 ML BOTTLE PO SCH ×2 (17:34→22:52)
--- NOTE | 2018-05-12 17:49 | CONSULT ---
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 Cardiovascular: Yes: HTN, Hyperlipdemia Gastrointestinal: Yes: Other (chronic obstructions) - Past Surgical History Past Surgical History: Yes: None, Joint Replacement (bilateral total hip replacement) - Advance Directives Advance Directives: Yes: Health Care Proxy - Smoking History Smoking history: Never smoked Have you smoked in the past 12 months: No - Alcohol/Substance Use Hx Alcohol Use: No History of Substance Use: reports: None - Social History ADL: Support Services History of Recent Travel: No History - Admission Reason For Visit: ILEUS - Hearing Hearing: Normal Hearing Aide: No With Patient: No Speech Evaluation - Communication Primary Language: HEBREW Communication: Yes: Aphasia Oral Expression Ability: Yes: Non-Verbal - Speech Production Dysarthria: Yes: Flaccid Apraxia: Yes Able to Make Needs Known: Yes: Severely Impaired Intelligibility: Yes: Severely Impaired - Speech Characteristics Voice Loudness: Moderately Loud Voice Pitch: Yes: Moderately High Voice Phonatory-based Quality: Yes: Hoarse, Shrill, Strident Speech Pattern: Impaired Speech Clarity: < 25% Articulation: Yes: Imprecise - Language/Auditory Comprehension Follows: Yes: 1 Stage Simple Commands (within functional limits. ie "open your mouth" "swallow"), 2 Stage Simple Commands (not demonstrated) Observation: Able to respond to yes/no queries: No, Yes/No Confusion: Yes, Comprehends Conversational Speech: No (not demonstrated), Benefits from Slow Speech: Yes, Benefits from Repetiton: Yes, Benefits from Increased Volume of Speech: Yes - Language/Verbal Expression Aphasia: Yes: Nonfluent (Simple responses, a couple of words to represent a sentence.More fluent than 16) Able to Respond to Simple Queries: Yes: Moderately Impaired Functional Communication Status: Yes: Severely Impaired Aware of Errors: No Attempts to Correct Errors: No Use of Gestures: Yes Written Expression: not examined Oral Expression: Non verbal Reading Comprehension: not examined Calculations: not examined Attention: Yes: Moderate Impairment - Memory/Perception FCI Memory: Yes: Moderately Impaired Short Term Memory: Yes: Moderately Impaired Hemaniopsia: Yes: Right - Swallow Evaluation/Bedside Assessment Current Nutritional Intake: Clear Liquids Oral Secretions: Yes: Dryness, Tongue Coated Tracheostomy Present: No Patient on Ventilator: No Dentition: Yes: Edentulous (bottom), Missing Teeth Facial Symmetry at Rest: Facial Droop Right Facial Symmetry on Retraction: Facial Droop Right Facial Movement: Controlled Sensation: Reduced Right Facial Comment: Right side weakness, but WFL for swallow Jaw Position: Open at Rest Against Resistance Opening: Weak (right) Against Resistance Closing: Weak Pucker Lips: Droops Right Lips, Comment: Right side weakness, but WFL for swallow Lingual Movement: Unable to Perform Lingual Speed of Movement: Reduced Lingual Movement Strgth Against Opposition: Normal Lingual Movement Characteristics: Normal Lingual Comment: WFL for swallow Soft Palate Description: Normal Color Hard Palate Description: Normal Color Gag Reflex: Strong Bite Reflex: Present Velopharyngeal Movement: Normal Laryngeal Elevation: WFL Laryngeal Movement: Able to Palpate Needs Assistance: Yes Rate of Intake: Slow/Holding Bolus Size: Small Sensation: Bite Reflex Labial Seal: WFL Chewing: WFL Oral Prep Time: WFL A-P Transit: WFL Pocketing: None Timing of Swallow: Delayed (2-3 seconds, requires verbal prompting.) Odynophagia: Oral, Pharyngeal Other Findings/Remarks: 83 yo female seen at bedside for swallow eval to r/o dysphagia. Pt is non- verbal but vocal, A&Ox1 somewhat cooperative. Pt presents with right hemiplegia of face and Right UES. Noticeable reduced airway protect. Audible breath sounds at rest. Admitted to [facility] for abdominal distention. PHMX includes right hemiplegia secondary to CVA, dysarthria, dysphagia, HTN HLD. Reduced airway protection. Reduced vocal quality. Pt unable to participate in oral motor exam. Informally, right side weakness of face and jaw. Pt observed crying occasionally during this session. Pt given po trial of pureed only with total assistance revealed reduced acceptance and bolus control. Reduce lateral tongue movement. Tongue thrust observe with bolus with A-P transport. Pharyngeal swallow are mildly delayed (2- 3 seconds ) with occasional cough possibly due to secretion management. Pt did require verbal prompts to open mouth and then swallow. Pt given po trials of nectar thicken liquids with total assistance via spoon and cup revealed reduced acceptance and bolus control. Reduce lateral tongue movement. Tongue thrust observe with bolus with A-P transport. Pharyngeal swallow are mildly delayed (2-3 seconds ) with occasional cough possibly due to secretion management. Recommendations - Speech Evaluation, Impression/Plan Impression: 83 yo female present with moderate rian-phayrngeal dysphagia for pureed and thicken liquids. Possible risk of aspiration observed secondary to poor secretion management. Fdc Goals: tolerate the least restrictive diet consistency without s/s of aspiration. Short Term Goals: tolerate purees and nectar thicken liquids without s/s of aspiration. - Dysphagia Impressions/Plan Swallowing Skills: Impaired Dysphagia Impressions: Moderate Impairment, Risk of Aspiration, Refused PO Trials *Silent aspiration: cannot be R/O at bedside Dysphagia Treatment Plan: Small Bites, Trial Feedings (nectar thicken liquids. pureed), Safe Rate, 1/2 tsp. at a time, Elevate HOB during feed Dysphagia Evaluation Summary: Trial puree with nectar thicken liquids as tolerated. Observe standard aspiration precautions. Slow rate of intake. Pt may require verbal prompts to open mouth and swallow at times. Crush meds in purees. Results given verbally to storage battery charger and WRAPPING CHECKER. TUNNEL KILN FIRER to follow up for diet tolerance. Recommendations: Modified Barium Swallow (consider to determine risk of aspiration.) - Recommendations Diet Consistency: Dysphagia Pureed Medication Administration: Crushed with applesauce Liquids: No Name Thick
[2018-05-12] MEDS: ATORVASTATIN CA 10 MG TABLET (FP) PO SCH (22:52)
[2018-05-12] MEDS: ASCORBIC ACID 500 MG TABLET (FP) PO SCH (22:52)
[2018-05-13] MEDS: SODIUM PHOSPHATE/NA BIPHOS 133 ML ENEMA RC SCH (01:15)
[2018-05-13] MEDS: METOCLOPRAMIDE HCL 10 MG TABLET (FP) PO SCH ×3 (06:06→17:10)
[2018-05-13] MEDS: metroNIDAZOLE 250 MG TABLET PO SCH ×3 (06:07→22:40)
[2018-05-13] MEDS: ACETAMINOPHEN 325 MG TABLET (FP) PO PRN ×2 (06:07→22:40)
[2018-05-13 07:16] LABS: BASO % 0.7 % (0-2.0); EOS % 0.8 % (0-4.5); HEMATOCRIT 29.2 % (32.4-45.2); HEMOGLOBIN 9.9 GM/dL (10.7-15.3); LYMPH % 13.4 % (8-40); MCH 29.4 pg (25.7-33.7); MEAN CELL VOLUME 86.4 fl (80-96); MEAN PLT VOLUME 7.8 fl (7.5-11.1); MONO % 5.2 % (3.8-10.2); NEUT % 79.9 % (42.8-82.8); PLATELET COUNT 240 K/MM3 (134-434); RBC 3.38 M/mm3 (3.60-5.2); RDW 15.4 % (11.6-15.6); WHITE BLOOD COUNT 5.4 K/mm3 (4.0-10.0)
[2018-05-13 07:39] LABS: CHLORIDE 110 mmol/L (98-107); SODIUM 145 mmol/L (136-145)
[2018-05-13 07:45] LABS: ALBUMIN 2.9 g/dl (3.4-5.0); ALK PHOS 68 U/L (45-117); ANION GAP 9 MMOL/L (8-16); BILIRUBIN,TOTAL 0.4 mg/dL (0.2-1); BLOOD UREA NITROGEN 14 mg/dL (7-18); CALCIUM 7.8 mg/dL (8.5-10.1); CHOLESTEROL 95 mg/dL (50-200); CO2 26 mmol/L (21-32); CREATININE 0.5 mg/dL (0.55-1.3); GLUCOSE,RANDOM 128 mg/dL (74-106); HDL CHOLESTEROL 33 mg/dL (40-60); SGOT/AST 11 U/L (15-37); SGPT/ALT 15 U/L (13-61); TOT PROT 6.3 g/dl (6.4-8.2); TRIGLYCERIDES 104 mg/dL (0-150)
[2018-05-13 08:15] LABS: POTASSIUM 2.4 mmol/L (3.5-5.1)
[2018-05-13] MEDS ORDERED: PT OWN MED DRAWER 7, Y5N ONE (08:23)
[2018-05-13] MEDS: LIPASE/PROTEASE/AMYLASE 36,000 UNIT CAPSULE PO SCH ×3 (08:33→17:12)
[2018-05-13] MEDS ORDERED: PANTOPRAZOLE 40 MG TABLET (FP) PO SCH (10:00)
[2018-05-13] MEDS ORDERED: POTASSIUM CHLORIDE ORAL LIQUID 20 MEQ/15 ML PO ONE (10:01)
--- NOTE | 2018-05-13 10:01 | HOSP ---
Physical Examination Vital Signs: Vital Signs Temperature 99.5 F 05/13/18 09:42 Pulse Rate 87 05/13/18 09:42 Respiratory Rate 17 05/13/18 09:42 Blood Pressure 147/95 05/13/18 09:42 O2 Sat by Pulse Oximetry (%) 96 05/12/18 21:00 Constitutional: Yes: No Distress Eyes: Yes: WNL HENT: Yes: WNL Neck: Yes: WNL Cardiovascular: Yes: Regular Rate and Rhythm Respiratory: Yes: WNL Gastrointestinal: Yes: Distention Labs: CBC, BMP 05/13/18 06:40 05/13/18 06:40 Hospitalist Encounter Assessment: Called by primary RN after attempts to call attending to report critical value of serum potassium of 2.4 Patient in bed, contracted upper ext. in no acute distress, anterior lung sounds clear to auscultation. patient to get ekg now, tech at bedside. plan: stat ekg 3 k riders of K recheck labs at 3pm
[2018-05-13] MEDS: ASCORBIC ACID 500 MG TABLET (FP) PO SCH ×3 (10:26→22:40)
[2018-05-13] MEDS: KCL 10 MEQ IVPB 10 MEQ/100 ML INFUS.BAG IVPB SCH ×3 (10:26→13:49)
[2018-05-13] MEDS: ASPIRIN COATED 81 MG TABLET.EC PO SCH (10:26)
[2018-05-13] MEDS: CLOPIDOGREL BISULFATE 75 MG TABLET (FP) PO SCH (10:27)
[2018-05-13] MEDS: POLYETHYLENE GLYCOL 3350 119 GM BTL PO SCH ×2 (10:33→22:43)
[2018-05-13] MEDS: SIMETHICONE 40 MG/0.6 ML BOTTLE PO SCH ×5 (10:34→22:44)
--- NOTE | 2018-05-13 10:43 | PN ---
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, AUDITOR INTERNAL - Note 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: Per GI- Pseudo-obstruction of colon Assessment/Plan: this condition is difficult to treat as laxatives and enemas are the only options FUA in am MBS 2016- brisk swallow- soft diet/thin liquid. Pt alert, non vocal, non verbal. Tongue hanging out of her mouth. With puree trial and told to swallow in [place] ([place]), pt retracted tongue weakly, with incomplete,weak bilabial closure, wityh swallow onset. Swallow seems weak and untimely with aspiration risk. Suggest- Dys puree, honey thick liquid on tsp. Tell pt to swallow with each 1/2 tsp. Monitor tolerance If poor tolerance, may need TF. Agree with MBS. Defer today due to low Potassium. Suggest t'mw if medically stable.
--- NOTE | 2018-05-13 11:52 | PN ---
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, Physician Chief Complaint: patient seen in bed temp 100.3 - Current Medication List Current Medications: Active Medications Acetaminophen (Tylenol -) 650 mg PO Q6H PRN PRN Reason: FEVER Last Admin: 05/13/18 06:07 Dose: 650 mg Albuterol/Ipratropium (Duoneb -) 1 amp NEB Q6H PRN PRN Reason: SHORTNESS OF BREATH Ascorbic Acid (Vitamin C -) 500 mg PO BID [facility] Last Admin: 05/13/18 10:26 Dose: Not Given Aspirin (Ecotrin -) 81 mg PO DAILY [facility] Last Admin: 05/13/18 10:26 Dose: Not Given Atorvastatin Calcium (Lipitor -) 10 mg PO HS [facility] Last Admin: 05/12/18 22:52 Dose: 10 mg Clopidogrel Bisulfate (Plavix -) 75 mg PO DAILY [facility] Last Admin: 05/13/18 10:27 Dose: Not Given Dextrose/Sodium Chloride (D5-1/2ns+40 Meq Kcl -) 40 meq in 1,000 mls @ 42 mls/ hr IV ASDIR [facility] Last Admin: 05/12/18 15:15 Dose: 42 mls/hr Potassium Chloride (Potassium Chloride 10 Meq Premix Ivpb -) 10 meq in 100 mls @ 100 mls/hr IVPB Q60M [facility] Stop: 05/13/18 12:59 Last Admin: 05/13/18 10:26 Dose: 100 mls/hr Magnesium Sulfate (Magnesium Sulfate) 1 gm IVPB ONCE ONE Stop: 05/13/18 11:41 Metoclopramide HCl (Reglan -) 5 mg PO TIDAC [facility] Last Admin: 05/13/18 10:26 Dose: Not Given Metronidazole (Flagyl -) 250 mg PO TID [facility] Last Admin: 05/13/18 06:07 Dose: 250 mg Pancrelipase (Creon Dr 36,000 Units Capsule) 1 cap PO TIDCM [facility] Last Admin: 05/13/18 08:33 Dose: 1 cap Pantoprazole Sodium (Protonix Iv) 40 mg IVPB DAILY [facility] Polyethylene Glycol (Miralax (For Daily Use) -) 34 gm PO BID [facility] Last Admin: 05/13/18 10:33 Dose: Not Given Simethicone (Mylicon Liquid -) 80 mg PO QID [facility] Last Admin: 05/13/18 10:34 Dose: Not Given - Objective Vital Signs: Vital Signs Temperature 99.5 F 05/13/18 09:42 Pulse Rate 87 05/13/18 09:42 Respiratory Rate 17 05/13/18 09:42 Blood Pressure 147/95 05/13/18 09:42 O2 Sat by Pulse Oximetry (%) 96 05/12/18 21:00 Constitutional: Yes: Calm Cardiovascular: Yes: Regular Rate and Rhythm, S1, S2 Respiratory: Yes: CTA Bilaterally, Diminished Gastrointestinal: Yes: Soft, Distention Labs: CBC, BMP 05/13/18 06:40 05/13/18 06:40 INR, PTT INR 1.11 (0.83-1.09) H 05/11/18 18:41 Problem List - Problems (1) Anemia Assessment/Plan: iron panel Code(s): D64.9 - ANEMIA, UNSPECIFIED (2) Hypokalemia Assessment/Plan: potassium riders ordered not taking liquid potassium magnesium ordered as well repeat labs in afternoon Code(s): E87.6 - HYPOKALEMIA (3) Pseudo-obstruction of colon Assessment/Plan: got enema had two bm repeat FUA pending Code(s): K59.8 - OTHER SPECIFIED FUNCTIONAL INTESTINAL DISORDERS
[2018-05-13] MEDS ORDERED: MAGNESIUM SULF 50% (8.12 MEQ/2 ML-1 GM VIAL) IVPB ONE (12:00)
[2018-05-13] MEDS: PANTOPRAZOLE SODIUM 40 MG VIAL IVPB SCH (12:20)
--- NOTE | 2018-05-13 14:42 | EKG ---
Test Reason : Blood Pressure : / mmHG Vent. Rate : 085 BPM Atrial Rate : 085 BPM P-R Int : 180 ms QRS Dur : 092 ms QT Int : 394 ms P-R-T Axes : -26 -09 012 degrees QTc Int : 468 ms NORMAL SINUS RHYTHM INFERIOR INFARCT (CITED ON OR BEFORE 14-OCT-2016) ABNORMAL ECG WHEN COMPARED WITH ECG OF 11-MAY-2018 19:18, QUESTIONABLE CHANGE IN INITIAL FORCES OF INFERIOR LEADS Confirmed by STEFF CHAMBERS MD ([id number]) on 05/13/2018 2:41:38 PM Referred By: Confirmed By:STEFF CHAMBERS MD
[2018-05-13 15:59] LABS: MAGNESIUM 1.9 mg/dL (1.8-2.4); POTASSIUM 3.2 mmol/L (3.5-5.1)
[2018-05-13 16:37] LABS: URINE APPEARANCE CLEAR; URINE BILIRUBIN NEGATIVE (<2.0 mg/dL); URINE COLOR YELLOW; URINE GLUCOSE (UA) NEGATIVE (NEGATIVE); URINE KETONE NEGATIVE (NEGATIVE); URINE LEUK ESTERASE TRACE (NEGATIVE); URINE NITRITE POSITIVE (NEGATIVE); URINE PROTEIN NEGATIVE (NEGATIVE); URINE UROBILINOGEN NEGATIVE mg/dL (0.2-1.0)
[2018-05-13 16:48] LABS: URINE BACTERIA MANY /hpf (NONE SEEN); URINE MUCUS RARE
[2018-05-13] MEDS: D5-1/2NS+40 MEQ KCL - 40 MEQ/1,000 ML INFUS.BAG IV SCH (17:11)
[2018-05-13] MEDS: ALBUTEROL SO4 2.5/IPRATROPIUM 0.5 INH SOL 3 ML VIAL.NEB. NEB PRN (19:40)
[2018-05-13] MEDS: ATORVASTATIN CA 10 MG TABLET (FP) PO SCH (22:40)
[2018-05-14 06:06] LABS: SERUM IRON SATURATION 15 % (15-55); TOTAL IRON BINDING CAPACITY 181 ug/dL (250-450); UIBC 153 ug/dL (118-369)
[2018-05-14] MEDS: METOCLOPRAMIDE HCL 10 MG TABLET (FP) PO SCH ×3 (07:03→16:32)
[2018-05-14] MEDS: metroNIDAZOLE 250 MG TABLET PO SCH ×3 (07:03→21:44)
[2018-05-14 07:17] LABS: BASO % 0.7 % (0-2.0); EOS % 2.1 % (0-4.5); HEMOGLOBIN 10.2 GM/dL (10.7-15.3); MCH 29.3 pg (25.7-33.7); MCHC 32.8 g/dl (32.0-36.0); MEAN CELL VOLUME 89.1 fl (80-96); MEAN PLT VOLUME 7.7 fl (7.5-11.1); NEUT % 54.2 % (42.8-82.8); PLATELET COUNT 229 K/MM3 (134-434); RBC 3.48 M/mm3 (3.60-5.2); RDW 15.6 % (11.6-15.6)
[2018-05-14 07:48] LABS: ALK PHOS 67 U/L (45-117); ANION GAP 11 MMOL/L (8-16); BILIRUBIN,TOTAL 0.3 mg/dL (0.2-1); BLOOD UREA NITROGEN 12 mg/dL (7-18); CHLORIDE 110 mmol/L (98-107); CO2 25 mmol/L (21-32); CREATININE 0.6 mg/dL (0.55-1.3); GLUCOSE,RANDOM 108 mg/dL (74-106); MAGNESIUM 1.8 mg/dL (1.8-2.4); POTASSIUM 3.2 mmol/L (3.5-5.1); SGOT/AST 14 U/L (15-37); SGPT/ALT 14 U/L (13-61); SODIUM 145 mmol/L (136-145); TOT PROT 6.5 g/dl (6.4-8.2)
[2018-05-14] MEDS ORDERED: PT OWN MED DRAWER 7, Y5N ONE (08:51)
[2018-05-14] MEDS: LIPASE/PROTEASE/AMYLASE 36,000 UNIT CAPSULE PO SCH ×3 (09:07→16:33)
[2018-05-14] MEDS: ALBUTEROL SO4 2.5/IPRATROPIUM 0.5 INH SOL 3 ML VIAL.NEB. NEB PRN (09:28)
[2018-05-14] MEDS: POLYETHYLENE GLYCOL 3350 119 GM BTL PO SCH ×3 (10:28→22:34)
[2018-05-14] MEDS: ASPIRIN COATED 81 MG TABLET.EC PO SCH (10:28)
[2018-05-14] MEDS: PANTOPRAZOLE SODIUM 40 MG VIAL IVPB SCH (10:29)
[2018-05-14] MEDS: SIMETHICONE 40 MG/0.6 ML BOTTLE PO SCH ×4 (10:29→21:44)
[2018-05-14] MEDS: CLOPIDOGREL BISULFATE 75 MG TABLET (FP) PO SCH (10:29)
[2018-05-14] MEDS: ASCORBIC ACID 500 MG TABLET (FP) PO SCH ×2 (10:30→21:44)
[2018-05-14] MEDS ORDERED: POTASSIUM CHLORIDE ORAL LIQUID 20 MEQ/15 ML PO ONE (10:30)
--- NOTE | 2018-05-14 11:49 | PN ---
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, Physician Chief Complaint: patient seen in bed temp 100.5 potassium noted - Current Medication List Current Medications: Active Medications Acetaminophen (Tylenol -) 650 mg PO Q6H PRN PRN Reason: FEVER Last Admin: 05/13/18 22:40 Dose: 650 mg Albuterol/Ipratropium (Duoneb -) 1 amp NEB Q6H PRN PRN Reason: SHORTNESS OF BREATH Last Admin: 05/14/18 09:28 Dose: 1 amp Ascorbic Acid (Vitamin C -) 500 mg PO BID [facility] Last Admin: 05/14/18 10:30 Dose: 500 mg Aspirin (Ecotrin -) 81 mg PO DAILY [facility] Last Admin: 05/14/18 10:28 Dose: 81 mg Atorvastatin Calcium (Lipitor -) 10 mg PO HS [facility] Last Admin: 05/13/18 22:40 Dose: 10 mg Clopidogrel Bisulfate (Plavix -) 75 mg PO DAILY [facility] Last Admin: 05/14/18 10:29 Dose: 75 mg Dextrose/Sodium Chloride (D5-1/2ns+40 Meq Kcl -) 40 meq in 1,000 mls @ 42 mls/ hr IV ASDIR [facility] Last Admin: 05/13/18 17:11 Dose: Not Given Potassium Chloride (Potassium Chloride 10 Meq Premix Ivpb -) 10 meq in 100 mls @ 100 mls/hr IVPB Q60M [facility] Stop: 05/14/18 14:44 Metoclopramide HCl (Reglan -) 5 mg PO TIDAC [facility] Last Admin: 05/14/18 07:03 Dose: 5 mg Metronidazole (Flagyl -) 250 mg PO TID [facility] Last Admin: 05/14/18 07:03 Dose: 250 mg Pancrelipase (Creon Dr 36,000 Units Capsule) 1 cap PO TIDCM [facility] Last Admin: 05/14/18 09:07 Dose: 1 cap Pantoprazole Sodium (Protonix Iv) 40 mg IVPB DAILY [facility] Last Admin: 05/14/18 10:29 Dose: 40 mg Polyethylene Glycol (Miralax (For Daily Use) -) 34 gm PO BID [facility] Last Admin: 05/14/18 10:38 Dose: Not Given Simethicone (Mylicon Liquid -) 80 mg PO QID [facility] Last Admin: 05/14/18 10:29 Dose: 80 mg - Objective Vital Signs: Vital Signs Temperature 99.5 F 05/14/18 06:00 Pulse Rate 80 05/14/18 06:00 Respiratory Rate 18 05/14/18 06:00 Blood Pressure 128/75 05/14/18 06:00 O2 Sat by Pulse Oximetry (%) 94 L 05/13/18 21:00 Constitutional: Yes: Calm Neck: Yes: Other (trach) Cardiovascular: Yes: Regular Rate and Rhythm, S1, S2 Respiratory: Yes: CTA Bilaterally Gastrointestinal: Yes: Normal Bowel Sounds, Soft, Distention (less distended) Labs: CBC, BMP 05/14/18 06:30 05/14/18 06:30 INR, PTT INR 1.11 (0.83-1.09) H 05/11/18 18:41 Problem List - Problems (1) Pseudo-obstruction of colon Assessment/Plan: got enema had two bm repeat FUA report pending miralax enema simethicone on flagyl as well to get mBS today- dysphagia puree diet Code(s): K59.8 - OTHER SPECIFIED FUNCTIONAL INTESTINAL DISORDERS (2) Anemia Assessment/Plan: iron panel noted h/h stable ferrous sulfate on hold given constipation and abdominal distension b12 and folate level are ok protonix Code(s): D64.9 - ANEMIA, UNSPECIFIED (3) Hypokalemia Assessment/Plan: potassium riders ordered Code(s): E87.6 - HYPOKALEMIA
[2018-05-14] MEDS: KCL 10 MEQ IVPB 10 MEQ/100 ML INFUS.BAG IVPB SCH ×3 (12:02→16:32)
[2018-05-14] MEDS: D5-1/2NS+40 MEQ KCL - 40 MEQ/1,000 ML INFUS.BAG IV SCH (14:46)
--- NOTE | 2018-05-14 16:04 | CON.ID ---
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, 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 Cardio/Vascular: Yes: HTN, Hyperlipdemia Pulmonary: Yes: Asthma Gastrointestinal: Yes: Other (chronic obstructions) Renal/: Yes: UTI Heme/Onc: Yes: Anemia - Past Surgical History Past Surgical History: Yes: None, Joint Replacement (bilateral knee replacement , left hip surgery) Additional Surgical History: ivc filter - Alcohol/Substance Use Hx Alcohol Use: No History of Substance Use: reports: None - Smoking History Smoking history: Never smoked Have you smoked in the past 12 months: No - Social History Usual Living Arrangement: [facility] ADL: Support Services History of Recent Travel: No Home Medications - Allergies Allergies/Adverse Reactions: Allergies Allergy/AdvReac Type Severity Reaction Status Date / Time No Known Allergies Allergy Verified 10/14/16 17:12 - Home Medications Home Medications: Ambulatory Orders Acetaminophen [Tylenol .Regular Strength -] 650 mg PO Q6H PRN #0 tablet Albuterol 2.5/Ipratropium 0.5 [Duoneb -] 1 amp NEB Q6H PRN #0 amp 09/03/16 Amino Acids/Protein Hydrolys [Prostat Sugar-Free Packet -] 30 ml PO BID Aspirin Coated [Ecotrin -] 81 mg PO DAILY tablet.ec 10/20/16 Atorvastatin Ca [Lipitor] 10 mg PO HS tablet 10/20/16 Docusate Sodium [Colace -] 300 mg PO HS capsule 10/20/16 Ferrous Sulfate [Feosol] 325 mg PO DAILY ud 10/20/16 Ascorbic Acid [Vitamin C] 500 mg PO DAILY 05/11/18 Clopidogrel Bisulfate [Plavix] 75 mg PO DAILY 05/11/18 Pantoprazole Sodium [Protonix] 40 mg PO DAILY 05/11/18 Sennosides [Senokot] 8.6 mg PO HS 05/11/18 Simethicone 80 mg PO TID PRN 05/11/18 Family Disease History - Family Disease History Family History: Unable to Obtain Review of Systems Unable to obtain ROS, reason: due to dementia Physical Exam Vital Signs: Vital Signs Temperature 98.5 F 05/14/18 10:00 Pulse Rate 83 05/14/18 10:00 Respiratory Rate 05/14/18 10:00 Blood Pressure 111/76 05/14/18 10:00 O2 Sat by Pulse Oximetry (%) 94 L 05/13/18 21:00 Constitutional: Yes: No Distress, Calm Eyes: Yes: Conjunctiva Clear HENT: Yes: Atraumatic, Normocephalic Neck: Yes: Supple, Trachea Midline Cardiovascular: Yes: Regular Rate and Rhythm Respiratory: Yes: Regular, CTA Bilaterally Gastrointestinal: Yes: Normal Bowel Sounds, Soft, Distention, Other (normal bowel sounds, soft,). No: Tenderness ...Rectal Exam: Yes: Deferred Extremities: Yes: WNL Edema: No Neurological: Yes: Other (awake does not speak does not follow ocmmands) Labs: CBC, BMP 05/14/18 06:30 05/14/18 06:30 Imaging - Results Chest X-ray: Report Reviewed (clear, right humerus fractue suspected) Cat Scan: Report Reviewed (l4 vertebral body compression fractue, ileus) Problem List - Problems (1) Fever Code(s): R50.9 - FEVER, UNSPECIFIED (2) Ileus Code(s): K56.7 - ILEUS, UNSPECIFIED (3) Functional quadriplegia Code(s): R53.2 - FUNCTIONAL QUADRIPLEGIA Assessment/Plan no obvious source of fever agree with cultures and f/u ua not impressive apparently abdominal distention is improved now with BMS records from md reviewed
--- NOTE | 2018-05-14 16:43 | PN ---
GI 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 Subjective: patient was more alert, had good results from enemas, spoke to her son, the patietn is more alert and has less abdominal distention. Patient was seen at 4 pm yesterday and was noted to be less distended. Patient is noted to have poor po intake. MInimal bowel movement today as per nurse. - Objective Vital Signs: Vital Signs Temperature 98.5 F 05/14/18 10:00 Pulse Rate 83 05/14/18 10:00 Respiratory Rate 18 05/14/18 10:00 Blood Pressure 111/76 05/14/18 10:00 O2 Sat by Pulse Oximetry (%) 97 05/14/18 09:00 Constitutional: Well Nourished Eyes: Yes: Conjunctiva Clear HENT: Yes: Atraumatic Neck: Yes: Supple Cardiovascular: Yes: Regular Rate and Rhythm Respiratory: Yes: CTA Bilaterally Gastrointestinal Inspection: Yes: Distention ...Palpate: Yes: Soft. No: Firm/Rigid, Guarding, Hepatomegaly, Mass, Pulsatile Mass, Splenomegaly, Tenderness Labs: CBC, BMP 05/14/18 06:30 05/14/18 06:30 INR, PTT INR 1.11 (0.83-1.09) H 05/11/18 18:41 Problem List - Problems (1) Pseudo-obstruction of colon Assessment/Plan: R> chadd Dawn spoke to her son and advised that she is given fleets enema --Thu in the [place] Code(s): K59.8 - OTHER SPECIFIED FUNCTIONAL INTESTINAL DISORDERS (2) Anemia Code(s): D64.9 - ANEMIA, UNSPECIFIED (3) Change in mental status Assessment/Plan: R> neurology consult Code(s): R41.82 - ALTERED MENTAL STATUS, UNSPECIFIED
[2018-05-14] MEDS: ATORVASTATIN CA 10 MG TABLET (FP) PO SCH (21:44)
[2018-05-15] MEDS: METOCLOPRAMIDE HCL 10 MG TABLET (FP) PO SCH ×3 (06:08→17:18)
[2018-05-15] MEDS: metroNIDAZOLE 250 MG TABLET PO SCH ×3 (06:09→21:21)
[2018-05-15] MEDS ORDERED: PT OWN MED DRAWER 7, Y5N ONE ×4 (08:18→19:57)
[2018-05-15] MEDS: LIPASE/PROTEASE/AMYLASE 36,000 UNIT CAPSULE PO SCH ×3 (08:23→17:19)
[2018-05-15] MEDS: ASPIRIN COATED 81 MG TABLET.EC PO SCH (10:10)
[2018-05-15] MEDS: PANTOPRAZOLE SODIUM 40 MG VIAL IVPB SCH (10:10)
[2018-05-15] MEDS: ASCORBIC ACID 500 MG TABLET (FP) PO SCH ×2 (10:10→21:21)
[2018-05-15] MEDS: SIMETHICONE 40 MG/0.6 ML BOTTLE PO SCH ×4 (10:10→21:21)
[2018-05-15] MEDS: CLOPIDOGREL BISULFATE 75 MG TABLET (FP) PO SCH (10:10)
[2018-05-15] MEDS: POLYETHYLENE GLYCOL 3350 119 GM BTL PO SCH ×2 (10:16→10:36)
[2018-05-15] MEDS: D5-1/2NS+40 MEQ KCL - 40 MEQ/1,000 ML INFUS.BAG IV SCH (15:07)
--- NOTE | 2018-05-15 15:09 | PN ---
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, Physician Chief Complaint: Hypokalemia Abdominal distention Constipation Anemia History of Present Illness: NAD Pt alert but non verbal bed bound febrile Seen by ID UC/BC pending - Current Medication List Current Medications: Active Medications Acetaminophen (Tylenol -) 650 mg PO Q6H PRN PRN Reason: FEVER Last Admin: 05/13/18 22:40 Dose: 650 mg Albuterol/Ipratropium (Duoneb -) 1 amp NEB Q6H PRN PRN Reason: SHORTNESS OF BREATH Last Admin: 05/14/18 09:28 Dose: 1 amp Ascorbic Acid (Vitamin C -) 500 mg PO BID [facility] Last Admin: 05/15/18 10:10 Dose: 500 mg Aspirin (Ecotrin -) 81 mg PO DAILY [facility] Last Admin: 05/15/18 10:10 Dose: 81 mg Atorvastatin Calcium (Lipitor -) 10 mg PO HS [facility] Last Admin: 05/14/18 21:44 Dose: 10 mg Clopidogrel Bisulfate (Plavix -) 75 mg PO DAILY [facility] Last Admin: 05/15/18 10:10 Dose: 75 mg Dextrose/Sodium Chloride (D5-1/2ns+40 Meq Kcl -) 40 meq in 1,000 mls @ 42 mls/ hr IV ASDIR [facility] Last Admin: 05/14/18 14:46 Dose: Not Given Metoclopramide HCl (Reglan -) 5 mg PO TIDAC [facility] Last Admin: 05/15/18 12:24 Dose: 5 mg Metronidazole (Flagyl -) 250 mg PO TID [facility] Last Admin: 05/15/18 14:40 Dose: 250 mg Pancrelipase (Creon Dr 36,000 Units Capsule) 1 cap PO TIDCM [facility] Last Admin: 05/15/18 12:28 Dose: 1 cap Pantoprazole Sodium (Protonix Iv) 40 mg IVPB DAILY [facility] Last Admin: 05/15/18 10:10 Dose: 40 mg Polyethylene Glycol (Miralax (For Daily Use) -) 34 gm PO BID [facility] Last Admin: 05/15/18 10:36 Dose: Not Given Potassium Chloride (Potassium Chloride Oral Liquid) 40 meq PO DAILY [facility] Simethicone (Mylicon Liquid -) 80 mg PO QID [facility] Last Admin: 05/15/18 14:40 Dose: 80 mg - Objective Vital Signs: Vital Signs Temperature 98.3 F 05/15/18 09:16 Pulse Rate 91 H 05/15/18 09:16 Respiratory Rate 18 05/15/18 09:16 Blood Pressure 121/66 05/15/18 09:16 O2 Sat by Pulse Oximetry (%) 97 05/14/18 21:00 Constitutional: Yes: Well Nourished, No Distress, Calm Cardiovascular: Yes: Regular Rate and Rhythm Respiratory: Yes: Regular Gastrointestinal: Yes: Normal Bowel Sounds, Soft Musculoskeletal: Yes: Muscle Weakness Extremities: Yes: WNL Neurological: Yes: Alert, Pre-Existing Deficit Psychiatric: Yes: Alert Labs: CBC, BMP 05/14/18 06:30 05/14/18 06:30 INR, PTT INR 1.11 (0.83-1.09) H 05/11/18 18:41 Problem List - Problems (1) Hypokalemia Assessment/Plan: -improved -IVF to D5 08/25 NS + KCl 40 meq @ 42 cc/hr -Kcl 40 meq PO daily -repeat labs in AM Code(s): E87.6 - HYPOKALEMIA (2) Anemia Assessment/Plan: -Chronic disease -No Iron deficiency in the past, repeat iron profile -Stool Guaiac negative in the past, would repeat -B12 and folate deficiency in the past, repeat levels normal -thyroid profile normal Code(s): D64.9 - ANEMIA, UNSPECIFIED (3) Functional quadriplegia Assessment/Plan: 2/2 to past CVA in 2014 Code(s): R53.2 - FUNCTIONAL QUADRIPLEGIA (4) Pseudo-obstruction of colon Assessment/Plan: -Seen by GI-CT abd/pelvis reviewed, no volvulus or obstruction noted -Abdominal distention 2/2 to ileus? -Simethicone 80 mg po QID -Flagyl for SIBO -Enema x 3 -Miralax daily -KUB in AM Code(s): K59.8 - OTHER SPECIFIED FUNCTIONAL INTESTINAL DISORDERS (5) Abdominal distension Assessment/Plan: -Seen by GI-CT abd/pelvis reviewed, no volvulus or obstruction noted -Abdominal distention 2/2 to ileus? -Simethicone 80 mg po QID -Flagyl for SIBO -Enema x 3 -Miralax daily -KUB in AM Code(s): R14.0 - ABDOMINAL DISTENSION (GASEOUS) (6) CAD (coronary artery disease) Assessment/Plan: -repeat lipids in AM -No history of Diabetes -No U/S carotid imaging available -last MRI and CT head no ischemia or infarct Code(s): I25.10 - ATHSCL HEART DISEASE OF [place] CORONARY ARTERY W/O ANG PCTRS (7) Fever Assessment/Plan: -BC/UC pending -Seen by ID -Acetaminophen for fever > 100.0F Code(s): R50.9 - FEVER, UNSPECIFIED Assessment/Plan see problem list spoke to son and daughter at bedside
[2018-05-15] MEDS ORDERED: diphenhydrAMINE HCL 50 MG CAPSULE PO ONE (15:10)
[2018-05-15] MEDS ORDERED: diphenhydrAMINE HCL 25 MG CAPSULE (FP) PO ONE (15:35)
[2018-05-15] MEDS: POTASSIUM CHLORIDE ORAL LIQUID 20 MEQ/15 ML PO SCH (15:38)
[2018-05-15] MEDS: ACETAMINOPHEN 500 MG TABLET (FP) PO SCH (15:42)
[2018-05-15] MEDS: ATORVASTATIN CA 10 MG TABLET (FP) PO SCH (21:21)
[2018-05-15] MEDS: SENNOSIDES 8.8 MG/5 ML BULK BOTTLE PO SCH (21:21)
[2018-05-16] MEDS: metroNIDAZOLE 250 MG TABLET PO SCH ×3 (05:22→22:11)
[2018-05-16] MEDS: METOCLOPRAMIDE HCL 10 MG TABLET (FP) PO SCH ×3 (06:00→17:44)
[2018-05-16] MEDS ORDERED: PT OWN MED DRAWER 7, Y5N ONE (08:11)
[2018-05-16] MEDS: ACETAMINOPHEN 500 MG TABLET (FP) PO SCH (09:02)
[2018-05-16] MEDS: ASPIRIN COATED 81 MG TABLET.EC PO SCH (09:02)
[2018-05-16] MEDS: ASCORBIC ACID 500 MG TABLET (FP) PO SCH ×2 (09:02→22:11)
[2018-05-16] MEDS: PANTOPRAZOLE SODIUM 40 MG VIAL IVPB SCH (09:03)
[2018-05-16] MEDS: CLOPIDOGREL BISULFATE 75 MG TABLET (FP) PO SCH (09:04)
[2018-05-16] MEDS: POTASSIUM CHLORIDE ORAL LIQUID 20 MEQ/15 ML PO SCH (09:04)
[2018-05-16] MEDS: LIPASE/PROTEASE/AMYLASE 36,000 UNIT CAPSULE PO SCH ×3 (09:51→17:45)
[2018-05-16] MEDS: SIMETHICONE 40 MG/0.6 ML BOTTLE PO SCH ×4 (10:11→22:11)
--- NOTE | 2018-05-16 11:51 | PN ---
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, Physician Chief Complaint: Hypokalemia Abdominal distention Constipation Anemia History of Present Illness: NAD Pt alert but non verbal bed bound febrile Seen by ID UC/BC pending - Current Medication List Current Medications: Active Medications Acetaminophen (Tylenol -) 650 mg PO Q6H PRN PRN Reason: FEVER Last Admin: 05/13/18 22:40 Dose: 650 mg Acetaminophen (Tylenol -) 500 mg PO DAILY [facility] Last Admin: 05/16/18 09:02 Dose: 500 mg Albuterol/Ipratropium (Duoneb -) 1 amp NEB Q6H PRN PRN Reason: SHORTNESS OF BREATH Last Admin: 05/14/18 09:28 Dose: 1 amp Ascorbic Acid (Vitamin C -) 500 mg PO BID [facility] Last Admin: 05/16/18 09:02 Dose: 500 mg Aspirin (Ecotrin -) 81 mg PO DAILY [facility] Last Admin: 05/16/18 09:02 Dose: 81 mg Atorvastatin Calcium (Lipitor -) 10 mg PO [facility] Last Admin: 05/15/18 21:21 Dose: 10 mg Clopidogrel Bisulfate (Plavix -) 75 mg PO DAILY [facility] Last Admin: 05/16/18 09:04 Dose: 75 mg Dextrose/Sodium Chloride (D5-1/2ns+40 Meq Kcl -) 40 meq in 1,000 mls @ 42 mls/ hr IV ASDIR [facility] Last Admin: 05/15/18 15:07 Dose: Not Given Metoclopramide HCl (Reglan -) 5 mg PO TIDAC [facility] Last Admin: 05/16/18 06:00 Dose: 5 mg Metronidazole (Flagyl -) 250 mg PO TID [facility] Last Admin: 05/16/18 05:22 Dose: 250 mg Pancrelipase (Creon Dr 36,000 Units Capsule) 1 cap PO TIDCM [facility] Last Admin: 05/16/18 09:51 Dose: 1 cap Pantoprazole Sodium (Protonix Iv) 40 mg IVPB DAILY [facility] Last Admin: 05/16/18 09:03 Dose: 40 mg Potassium Chloride (Potassium Chloride Oral Liquid) 40 meq PO DAILY [facility] Last Admin: 05/16/18 09:04 Dose: 40 meq Senna (Senna Oral Solution -) 8.8 mg PO HS [facility] Last Admin: 05/15/18 21:21 Dose: 8.8 mg Simethicone (Mylicon Liquid -) 80 mg PO QID [facility] Last Admin: 05/16/18 10:11 Dose: 80 mg - Objective Vital Signs: Vital Signs Temperature 98.7 F 05/16/18 08:54 Pulse Rate 78 05/16/18 08:54 Respiratory Rate 20 05/16/18 08:54 Blood Pressure 151/91 05/16/18 08:54 O2 Sat by Pulse Oximetry (%) 95 05/15/18 19:25 Constitutional: Yes: Well Nourished, No Distress, Calm Cardiovascular: Yes: Regular Rate and Rhythm Respiratory: Yes: Regular Gastrointestinal: Yes: Normal Bowel Sounds, Soft, Abdomen, Obese Musculoskeletal: Yes: Muscle Weakness Neurological: Yes: Alert, Pre-Existing Deficit Psychiatric: Yes: Alert Labs: CBC, BMP 05/14/18 06:30 05/14/18 06:30 INR, PTT INR 1.11 (0.83-1.09) H 05/11/18 18:41 Problem List - Problems (1) Hypokalemia Assessment/Plan: -labs today -IVF to D5 08/25 NS + KCl 40 meq @ 42 cc/hr -Kcl 40 meq PO daily -repeat labs in AM Code(s): E87.6 - HYPOKALEMIA (2) Anemia Assessment/Plan: -Chronic disease -No Iron deficiency in the past, repeat iron profile -Stool Guaiac negative in the past, would repeat -B12 and folate deficiency in the past, repeat levels normal -thyroid profile normal Code(s): D64.9 - ANEMIA, UNSPECIFIED (3) Functional quadriplegia Assessment/Plan: 2/2 to past CVA in 2014 Code(s): R53.2 - FUNCTIONAL QUADRIPLEGIA (4) Pseudo-obstruction of colon Assessment/Plan: -Seen by GI-CT abd/pelvis reviewed, no volvulus or obstruction noted -Abdominal distention 2/2 to ileus? -Simethicone 80 mg po QID -Flagyl for SIBO -Enema x 3 -Miralax daily -KUB in AM Code(s): K59.8 - OTHER SPECIFIED FUNCTIONAL INTESTINAL DISORDERS (5) Abdominal distension Assessment/Plan: -Seen by GI-CT abd/pelvis reviewed, no volvulus or obstruction noted -Abdominal distention 2/2 to ileus? -Simethicone 80 mg po QID -Flagyl for SIBO -Enema x 3 -Miralax daily -KUB in AM Code(s): R14.0 - ABDOMINAL DISTENSION (GASEOUS) (6) CAD (coronary artery disease) Assessment/Plan: -repeat lipids in AM -No history of Diabetes -No U/S carotid imaging available -last MRI and CT head no ischemia or infarct Code(s): I25.10 - ATHSCL HEART DISEASE OF [place] CORONARY ARTERY W/O ANG PCTRS (7) Fever Assessment/Plan: -BC/UC pending -Seen by ID -Acetaminophen for fever > 100.0F Code(s): R50.9 - FEVER, UNSPECIFIED Assessment/Plan see problem list
[2018-05-16 12:57] LABS: EOS % 3.3 % (0-4.5); HEMATOCRIT 31.7 % (32.4-45.2); HEMOGLOBIN 10.4 GM/dL (10.7-15.3); LYMPH % 28.3 % (8-40); MCH 29.3 pg (25.7-33.7); MCHC 32.9 g/dl (32.0-36.0); MEAN CELL VOLUME 89.2 fl (80-96); MEAN PLT VOLUME 7.9 fl (7.5-11.1); MONO % 5.9 % (3.8-10.2); NEUT % 61.5 % (42.8-82.8); PLATELET COUNT 245 K/MM3 (134-434); RBC 3.56 M/mm3 (3.60-5.2); RDW 15.5 % (11.6-15.6); WHITE BLOOD COUNT 5.1 K/mm3 (4.0-10.0)
[2018-05-16 13:45] LABS: ALK PHOS 68 U/L (45-117); ANION GAP 3 MMOL/L (8-16); BILIRUBIN,TOTAL 0.2 mg/dL (0.2-1); BLOOD UREA NITROGEN 12 mg/dL (7-18); CALCIUM 8.1 mg/dL (8.5-10.1); CHLORIDE 112 mmol/L (98-107); CO2 25 mmol/L (21-32); CREATININE 0.6 mg/dL (0.55-1.3); GLUCOSE,RANDOM 216 mg/dL (74-106); POTASSIUM 5.9 mmol/L (3.5-5.1); SGOT/AST 17 U/L (15-37); SGPT/ALT 14 U/L (13-61); SODIUM 140 mmol/L (136-145); TOT PROT 6.5 g/dl (6.4-8.2)
--- NOTE | 2018-05-16 14:16 | PN ---
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 (short form) - Note 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: no fevers normal WBC now having BMs less abdominal distention Vital Signs Period Temp Pulse Resp BP Sys/[place] Pulse Ox Last 24 Hr 98.5 F-99 F 78-87 18-20 120-151/65-91 95 cor-rrr lungs clear abd soft,slightly distended, nt ext no edema CBC, BMP 05/16/18 12:45 05/16/18 12:45 Microbiology 05/13/18 12:23 Blood - Fresh Frozen Plasma Unit Blood Culture - Preliminary NO GROWTH OBTAINED AFTER 72 HOURS, INCUBATION TO CONTINUE FOR 2 DAYS. 05/13/18 12:45 Blood - Fresh Frozen Plasma Unit Blood Culture - Preliminary NO GROWTH OBTAINED AFTER 72 HOURS, INCUBATION TO CONTINUE FOR 2 DAYS. 05/13/18 12:38 Urine - Urine - Catheterized Urine Culture - Final Escherichia Coli a/p Ileus with fecal retention pseudo-obstruction aymptomatic bacteriuria-no need to treat fevers resolved with resolution of constipation please call back if needed Problem List - Problems (1) Fever Code(s): R50.9 - FEVER, UNSPECIFIED (2) Ileus Code(s): K56.7 - ILEUS, UNSPECIFIED (3) Functional quadriplegia Code(s): R53.2 - FUNCTIONAL QUADRIPLEGIA
[2018-05-16] MEDS: SENNOSIDES 8.8 MG/5 ML BULK BOTTLE PO SCH (22:11)
[2018-05-16] MEDS: ATORVASTATIN CA 10 MG TABLET (FP) PO SCH (22:11)
[2018-05-17] MEDS: metroNIDAZOLE 250 MG TABLET PO SCH ×2 (06:04→15:10)
[2018-05-17] MEDS: METOCLOPRAMIDE HCL 10 MG TABLET (FP) PO SCH ×3 (06:04→17:15)
[2018-05-17 08:04] LABS: BASO % 1.3 % (0-2.0); EOS % 3.5 % (0-4.5); HEMATOCRIT 29.4 % (32.4-45.2); HEMOGLOBIN 9.8 GM/dL (10.7-15.3); LYMPH % 27.5 % (8-40); MCH 29.5 pg (25.7-33.7); MCHC 33.4 g/dl (32.0-36.0); MEAN CELL VOLUME 88.3 fl (80-96); MEAN PLT VOLUME 7.8 fl (7.5-11.1); MONO % 6.1 % (3.8-10.2); NEUT % 61.6 % (42.8-82.8); PLATELET COUNT 216 K/MM3 (134-434); RBC 3.33 M/mm3 (3.60-5.2); RDW 15.4 % (11.6-15.6); WHITE BLOOD COUNT 4.6 K/mm3 (4.0-10.0)
[2018-05-17] MEDS ORDERED: PT OWN MED DRAWER 7, Y5N ONE ×2 (08:30→08:58)
[2018-05-17 08:58] LABS: ALBUMIN 2.8 g/dl (3.4-5.0); ALK PHOS 67 U/L (45-117); ANION GAP 7 MMOL/L (8-16); BILIRUBIN,TOTAL 0.3 mg/dL (0.2-1); BLOOD UREA NITROGEN 12 mg/dL (7-18); CALCIUM 8.6 mg/dL (8.5-10.1); CHLORIDE 109 mmol/L (98-107); CO2 26 mmol/L (21-32); CREATININE 0.6 mg/dL (0.55-1.3); GLUCOSE,RANDOM 89 mg/dL (74-106); POTASSIUM 4.2 mmol/L (3.5-5.1); SGOT/AST 16 U/L (15-37); SGPT/ALT 14 U/L (13-61); SODIUM 142 mmol/L (136-145); TOT PROT 6.1 g/dl (6.4-8.2)
[2018-05-17] MEDS: ASPIRIN COATED 81 MG TABLET.EC PO SCH (09:01)
[2018-05-17] MEDS: ASCORBIC ACID 500 MG TABLET (FP) PO SCH (09:01)
[2018-05-17] MEDS: CLOPIDOGREL BISULFATE 75 MG TABLET (FP) PO SCH (09:01)
[2018-05-17] MEDS: PANTOPRAZOLE SODIUM 40 MG VIAL IVPB SCH (09:01)
[2018-05-17] MEDS: ACETAMINOPHEN 500 MG TABLET (FP) PO SCH (09:02)
[2018-05-17] MEDS: SIMETHICONE 40 MG/0.6 ML BOTTLE PO SCH ×2 (09:02→15:16)
--- NOTE | 2018-05-17 12:16 | PN ---
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 Selected Entries 05/16/18 05/16/18 05/16/18 05:32 08:54 15:10 Breakfast 50% Lunch 75% Skin Risk Level Supper Temperature 98.9 F 98.7 F 98.2 F 05/16/18 05/16/18 05/16/18 19:13 22:00 23:48 Breakfast Lunch Skin Risk Level Very High Risk Supper 50% Temperature 98.5 F 05/17/18 05/17/18 01:00 11:27 Breakfast 50% Lunch Skin Risk Level Supper Temperature 98.0 F Laboratory Tests 05/17/18 07:10 WBC 4.6 MBS completed with brisk swallow. Recommended puree/thin liquids, and Ensure b/ n meals. Diet order presently is puree/nectar/ no supplements ordered. Tolerating diet per [employer] REC: Puree/thin liquids, and Ensure b/n meals.
[2018-05-17] MEDS: LIPASE/PROTEASE/AMYLASE 36,000 UNIT CAPSULE PO SCH ×3 (12:50→17:15)
--- NOTE | 2018-05-17 13:48 | DS ---
Physical Examination Vital Signs: Vital Signs Temperature 98.5 F 05/17/18 10:00 Pulse Rate 79 05/17/18 10:00 Respiratory Rate 20 05/17/18 10:00 Blood Pressure 111/75 05/17/18 10:00 O2 Sat by Pulse Oximetry (%) 95 05/17/18 09:00 Constitutional: Yes: Calm Neck: Yes: Other (trach) Cardiovascular: Yes: Regular Rate and Rhythm, S1, S2 Respiratory: Yes: Diminished Gastrointestinal: Yes: Soft, Distention (less distended) Labs: CBC, BMP 05/17/18 07:10 05/17/18 07:10 Discharge Summary Reason For Visit: ILEUS Current Active Problems Anemia (Acute) CAD (coronary artery disease) (Acute) Change in mental status (Acute) Fever (Acute) Functional quadriplegia (Acute) Hypokalemia (Acute) Ileus (Acute) Pseudo-obstruction of colon (Acute) Hospital Course: - Primary Care Physician PCP: Ace Kelly - Admission Chief Complaint: Abdominal Distention History of Present Illness: 83 y/o woman with PMHx of CVA (R-sided hemiplegia), dysarthria, dysphagia, multiple chronic obstructions (NGTs, no sx), HTN, HLD. Who presents to the ED with family for abdominal distention. Per family patient was seen at [facility] for same, unresolved. Per family patient has had BMs, no N/V. Patient's family requesting patient to be evaluated by Dr. Maxwell. 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 Cardiovascular: Yes: HTN, Hyperlipdemia Gastrointestinal: Yes: Other (chronic obstructions) - Past Surgical History Past Surgical History: Yes: None, Joint Replacement (bilateral total hip replacement) - Smoking History Smoking history: Never smoked Have you smoked in the past 12 months: No - Alcohol/Substance Use Hx Alcohol Use: No History of Substance Use: reports: None in hospital seen by GI pseudo obstruction stop iron enema and miralax flagyl for SIBO hypokalemia - improved check twice a week bmp constipation fleet enemas and miralax Condition: Stable - Instructions Referrals: Ace Kelly MD [Primary Care Provider] - Disposition: [facility] - Home Medications Comprehensive Discharge Medication List: Ambulatory Orders Acetaminophen [Tylenol .Regular Strength -] 650 mg PO Q6H PRN #0 tablet Albuterol 2.5/Ipratropium 0.5 [Duoneb -] 1 amp NEB Q6H PRN #0 amp 09/03/16 Amino Acids/Protein Hydrolys [Prostat Sugar-Free Packet -] 30 ml PO BID Aspirin Coated [Ecotrin -] 81 mg PO DAILY tablet.ec 10/20/16 Atorvastatin Ca [Lipitor] 10 mg PO HS tablet 10/20/16 Docusate Sodium [Colace -] 300 mg PO HS capsule 10/20/16 Ferrous Sulfate [Feosol] 325 mg PO DAILY ud 10/20/16 Ascorbic Acid [Vitamin C] 500 mg PO DAILY 05/11/18 Clopidogrel Bisulfate [Plavix] 75 mg PO DAILY 05/11/18 Pantoprazole Sodium [Protonix] 40 mg PO DAILY 05/11/18 Sennosides [Senokot] 8.6 mg PO HS 05/11/18 Simethicone 80 mg PO TID PRN 05/11/18
[2018-05-17 15:24] VITALS: BP 130/68; PULSE 77; TEMP 98.9
== END 2018-05-17 17:38 | DRG 391 ==
LOC: JER 17:58 → JERBED 21:48 → J5S 05-12 00:30
PROVIDERS: ADMIT Internal Medicine; ATTEND Family Medicine
DX: K59.8 Other specified functional intestinal disorders (principal); R53.2 Functional quadriplegia; K56.7 Ileus, unspecified; I69.351 Hemiplegia and hemiparesis following cerebral infarction affecting right dominant side; E87.6 Hypokalemia; E86.0 Dehydration; D64.9 Anemia, unspecified; I25.10 Atherosclerotic heart disease of native coronary artery without angina pectoris; J45.909 Unspecified asthma, uncomplicated; E78.5 Hyperlipidemia, unspecified; I10 Essential (primary) hypertension; I69.322 Dysarthria following cerebral infarction; I69.391 Dysphagia following cerebral infarction; Z96.643 Presence of artificial hip joint, bilateral; R13.12 Dysphagia, oropharyngeal phase; R32 Unspecified urinary incontinence; Z74.01 Bed confinement status; Z93.0 Tracheostomy status
CPT/HCPCS: 36415; 71045-TC-FY; 74018-TC-FY; 74177-TC; 74230-TC-FY; 80048; 80053; 80061; 81003; 81015; 82272; 82550; 82607; 82728; 82746; 83036; 83540; 83550; 83605; 83690; 83721; 83735; 84132; 84439; 84443; 84484; 85025; 85610; 87040; 87086; 87186; 90688; 92611-GN; 93005; 93010; 94640; 99283-25; G0008; J1644

== ENCOUNTER 2018-08-01 16:21 | Inpatient (IN) | payer MEDICARE, OTHER ==
--- NOTE | 2018-08-01 16:26 | PDOC ---
History of Present Illness - General Stated Complaint: AMS Time Seen by Provider: 08/01/18 16:26 - History of Present Illness Initial Comments: 83 y/o woman with PMHx of CVA (residual right sided hemiplegia), dysarthria, large ventral hernia, chronic constipation, dysphagia, multiple chronic obstructions (non surgical management), HTN, and HLD presenting with decreased feeding for the past three days, warmth, and altered mental status. Family states that she has not been eating much over the past 3 days and they have been trying to force her to eat and drink with little success. Earlier today, she appeared altered and less responsive than usual according to the family. Typically she can respond, have a conversation, and knows her name + her location but never really knows the date. She has been less interactive the past year but has definitely declined over the past three days. 08/01/18 16:26 Past History - Past Medical History Allergies/Adverse Reactions: Allergies Allergy/AdvReac Type Severity Reaction Status Date / Time No Known Allergies Allergy Verified 10/14/16 17:12 Home Medications: Ambulatory Orders Acetaminophen [Tylenol .Regular Strength -] 650 mg PO Q6H PRN #0 tablet Albuterol 2.5/Ipratropium 0.5 [Duoneb -] 1 amp NEB Q6H PRN #0 amp 09/03/16 Amino Acids/Protein Hydrolys [Prostat Sugar-Free Packet -] 30 ml PO BID Aspirin Coated [Ecotrin -] 81 mg PO DAILY tablet.ec 10/20/16 Atorvastatin Ca [Lipitor] 10 mg PO HS tablet 10/20/16 Docusate Sodium [Colace -] 300 mg PO HS capsule 10/20/16 Ascorbic Acid [Vitamin C] 500 mg PO DAILY 05/11/18 Clopidogrel Bisulfate [Plavix] 75 mg PO DAILY 05/11/18 Pantoprazole Sodium [Protonix] 40 mg PO DAILY 05/11/18 Sennosides [Senokot] 8.6 mg PO HS 05/11/18 Simethicone 80 mg PO TID PRN 05/11/18 Metoclopramide HCl [Reglan -] 5 mg PO TIDAC #20 tablet MDD 3 05/17/18 Potassium Chloride [Potassium Chloride Oral Liquid] 40 meq PO DAILY #30 ml 05/17 Simethicone Liquid [Mylicon Liquid -] 80 mg PO QID #20 ml 05/17/18 metroNIDAZOLE [Flagyl -] 250 mg PO TID #30 tablet MDD 3 05/17/18 Megestrol Acetate Oral Susp [Megace Liquid -] 400 mg PO DAILY 08/01/18 Anemia: Yes Asthma: Yes CVA: Yes (Right sided CVA January 2015, right arm weakness) COPD: No Disorders: Yes (/O UTI) HTN: Yes Hypercholesterolemia: Yes - Surgical History Orthopedic Surgery: Yes (Bilateral total knee replacements, Left hip surgery,) - Suicide/Smoking/Psychosocial Hx Smoking History: Never smoked Have you smoked in the past 12 months: No Hx Alcohol Use: No Drug/Substance Use Hx: No Substance Use Type: None Hx Substance Use Treatment: No Review of Systems - Review of Systems Able to Perform ROS?: No (altered) *Physical Exam - Physical Exam General Appearance: Yes: Nourished, Appropriately Dressed. No: Apparent Distress HEENT: positive: EOMI, SOUMYA. negative: Normal ENT Inspection (dry mucous membrane), Normal Voice Neck: positive: Trachea midline, Normal Thyroid, Supple. negative: Tender, Rigid Respiratory/Chest: positive: Lungs Clear, Normal Breath Sounds. negative: Chest Tender, Respiratory Distress, Accessory Muscle Use Cardiovascular: positive: Regular Rhythm, Tachycardia. negative: Regular Rate Gastrointestinal/Abdominal: positive: Normal Bowel Sounds, Soft, Distended, Other (large reducible hernia). negative: Tender, Flat Lymphatic: negative: Adenopathy, Tenderness Musculoskeletal: positive: Normal Inspection. negative: Decreased Range of Motion Extremity: positive: Normal Capillary Refill, Normal Inspection. negative: Normal Range of Motion (inability to move right side with minimal response to command), Tender Integumentary: positive: Normal Color, Dry, Warm Neurologic: positive: Alert. negative: Fully Oriented, Normal Mood/Affect, Normal Response, Motor Strength 5/5 (globally weak) ED Treatment Course - LABORATORY CBC & Chemistry Diagram: 08/01/18 17:19 08/01/18 17:19 Medical Decision Making - Medical Decision Making 83 year old female with PMHx of CVA (R-sided hemiplegia), dysarthria, dysphagia , multiple chronic obstructions (NGTs, no sx), HTN, and presenting with decreased PO intake and altered mental status. This AMS is likely due to decreased feeding but unclear reason for decreased feeding. This is likely evolution of her vascular dementia. THere has been discussion for PEG placement in the past but family was hesitant to pursue due to the seemingly invasive nature of the procedure. Labs demonstrating hypernatremia and hyperchloremia. EKG demonstrating rate 101, IN 128, QRS 88, QTc 456, normal axis. Will Admit to hospitalist after signing out to AREN Cunningham under Dr. Tyler. 08/01/18 18:08 *DC/Admit/Observation/Transfer Diagnosis at time of Disposition: Hypernatremia - Discharge Dispostion Condition at time of disposition: Stable Decision to Admit order: Yes - Referrals Referrals: Ace Kelly MD [Primary Care Provider] - - Patient Instructions - Post Discharge Activity
--- NOTE | 2018-08-01 17:05 | PDOC ---
Attending Attestation - Resident Resident Name: PauletteRyleemonydane - ED Attending Attestation I have performed the following: I have examined & evaluated the patient, The case was reviewed & discussed with the resident, I agree w/resident's findings & plan, Exceptions are as noted - HPI HPI: 08/01/18 17:32 The patient is a 83 woman with a significant past medical Hx of CVA (residual right sided hemiplegia), dysarthria, dysphagia, multiple chronic obstructions ( non surgical management), HTN, and HLD who presents to the emergency department via ems from [place] for difficulty to arouse and nonverbal this morning as per family. The family also reports decreased PO intake over the past few days and was to see dr. weiner regarding possible PEG. History limited from patient and provided primariy from EMS and family. Allergies: None reported. Past Surgical History: Bilateral total hip replacements, left hip surgery Social History: Non-smoker. Denies alcohol or drug use. PCP: Dr. Kelly - Physicial Exam PE: 08/01/18 17:47 general: no acute distress pulm cta b/l abd soft nontender card rrr, no mrg skin hot to touch - Medical Decision Making 08/01/18 17:33 ddx includes but not limited to metaoblic darangement, occult infection, cva, sepsis orderset obtained will obtain ct head will reassess anticipate admission <Anibal Hannah - Last Filed: 08/01/18 17:47> - Medical Decision Making 08/01/18 21:16 Received pt on signout. Pt with Na and CL elevated; Started on a 1/2 NSS drip 100ml/hr. I called for hospitalist and ICU eval; hospitalist will care for pt on telemetry. <Cherri Avitia - Last Filed: 08/01/18 21:18>
[2018-08-01] MEDS ORDERED: ACETAMINOPHEN 1000 MG/100 ML VIAL (NON FORMULARY) IVPB ONE (18:04)
[2018-08-01 18:07] LABS: BASO % 0.2 % (0-2.0); EOS % 1.1 % (0-4.5); HEMATOCRIT 34.5 % (32.4-45.2); HEMOGLOBIN 11.4 GM/dL (10.7-15.3); MCH 30.9 pg (25.7-33.7); MEAN CELL VOLUME 93.5 fl (80-96); MEAN PLT VOLUME 10.5 fl (7.5-11.1); MONO % 3.7 % (3.8-10.2); PLATELET COUNT 213 K/MM3 (134-434); RBC 3.69 M/mm3 (3.60-5.2); RDW 16.3 % (11.6-15.6); WHITE BLOOD COUNT 8.6 K/mm3 (4.0-10.0)
[2018-08-01 18:07] LABS: VENOUS PC02 39.6 mmHg (38-52); VENOUS PH 7.4 (7.32-7.42); VENOUS PO2 47.1 mmHg (28-48)
[2018-08-01] MEDS ORDERED: ACETAMINOPHEN INJECTION 100 ML IVPB ONE (18:15)
[2018-08-01 18:17] LABS: INR 1.29 (0.83-1.09); PROTHROMBIN TIME (PATIENT) 15.3 SEC (9.7-13.0)
[2018-08-01 18:20] LABS: ACTIVATED PTT 27.1 SECONDS (25.2-36.5)
[2018-08-01 19:02] LABS: ALBUMIN 2.8 g/dl (3.4-5.0); ALK PHOS 106 U/L (45-117); ANION GAP 7 MMOL/L (8-16); BILIRUBIN,TOTAL 0.5 mg/dL (0.2-1); BLOOD UREA NITROGEN 49 mg/dL (7-18); CALCIUM 8.8 mg/dL (8.5-10.1); CHLORIDE 132 mmol/L (98-107); CO2 24 mmol/L (21-32); CREATININE 0.9 mg/dL (0.55-1.3); GLUCOSE,RANDOM 113 mg/dL (74-106); POTASSIUM 3.9 mmol/L (3.5-5.1); SGOT/AST 30 U/L (15-37); SGPT/ALT 51 U/L (13-61); TOT PROT 6.9 g/dl (6.4-8.2)
[2018-08-01 19:04] LABS: SODIUM 162 mmol/L (136-145)
[2018-08-01 19:14] LABS: URINE APPEARANCE CLEAR; URINE BILIRUBIN NEGATIVE (<2.0 mg/dL); URINE COLOR DKYELLOW; URINE GLUCOSE (UA) NEGATIVE (NEGATIVE); URINE KETONE NEGATIVE (NEGATIVE); URINE LEUK ESTERASE TRACE (NEGATIVE); URINE NITRITE POSITIVE (NEGATIVE); URINE PROTEIN NEGATIVE (NEGATIVE)
[2018-08-01 19:22] LABS: URINE BACTERIA MANY /hpf (NONE SEEN); URINE MUCUS RARE
[2018-08-01] MEDS ORDERED: LACTATED RINGERS SOLUTION 1,000 ML/1,000 ML INFUS.BAG IV SCH (19:30)
[2018-08-01] MEDS ORDERED: SODIUM CHLORIDE 0.45% 1,000 ML IV SCH (20:00)
[2018-08-01 21:23] LABS: ALBUMIN 2.9 g/dl (3.4-5.0); ALK PHOS 100 U/L (45-117); ANION GAP 6 MMOL/L (8-16); BILIRUBIN,TOTAL 0.5 mg/dL (0.2-1); BLOOD UREA NITROGEN 52 mg/dL (7-18); CALCIUM 8.9 mg/dL (8.5-10.1); CHLORIDE 132 mmol/L (98-107); CO2 25 mmol/L (21-32); GLUCOSE,RANDOM 115 mg/dL (74-106); POTASSIUM 3.9 mmol/L (3.5-5.1); SGOT/AST 23 U/L (15-37); SGPT/ALT 48 U/L (13-61); TOT PROT 6.7 g/dl (6.4-8.2)
[2018-08-01 21:31] LABS: SODIUM 164 mmol/L (136-145)
--- NOTE | 2018-08-01 22:19 | HP ---
Admitting History and Physical - Primary Care Physician PCP: Ace Kelly S - Admission Chief Complaint: AMS, Weakness History of Present Illness: This is a 83 y/o woman with a PMHx of Dementia, HTN, CVA (r-sided deficits), Chronic Obstructions (NGTs, no sx). Who presents to the ED with family for AMS and weakness. Patient has Dementia, family not at bedside to provide HPI. Per ED records: presenting with decreased feeding for the past three days, warmth, and altered mental status. Family states that she has not been eating much over the past 3 days and they have been trying to force her to eat and drink with little success. Earlier today, she appeared altered and less responsive than usual according to the family. Typically she can respond, have a conversation, and knows her name + her location but never really knows the date. She has been less interactive the past year but has definitely declined over the past three days. History Source: Family Member, Medical Record Limitations to Obtaining History: Clinical Condition, Dementia - Past Medical History [place]: Yes: CVA, Dementia Cardiovascular: Yes: HTN, Hyperlipdemia Pulmonary: Yes: Asthma Gastrointestinal: Yes: Other (chronic obstructions) Renal/: Yes: UTI Heme/Onc: Yes: Anemia - Past Surgical History Past Surgical History: Yes: None, Joint Replacement (bilateral knee replacement , left hip surgery) - Smoking History Smoking history: Never smoked Have you smoked in the past 12 months: No - Alcohol/Substance Use Hx Alcohol Use: No History of Substance Use: reports: None - Social History ADL: Support Services History of Recent Travel: No Home Medications - Allergies Allergies/Adverse Reactions: Allergies Allergy/AdvReac Type Severity Reaction Status Date / Time No Known Allergies Allergy Verified 10/14/16 17:12 - Home Medications Home Medications: Ambulatory Orders Acetaminophen [Tylenol .Regular Strength -] 650 mg PO Q6H PRN #0 tablet Albuterol 2.5/Ipratropium 0.5 [Duoneb -] 1 amp NEB Q6H PRN #0 amp 09/03/16 Amino Acids/Protein Hydrolys [Prostat Sugar-Free Packet -] 30 ml PO BID Aspirin Coated [Ecotrin -] 81 mg PO DAILY tablet.ec 10/20/16 Atorvastatin Ca [Lipitor] 10 mg PO HS tablet 10/20/16 Docusate Sodium [Colace -] 300 mg PO HS capsule 10/20/16 Ascorbic Acid [Vitamin C] 500 mg PO DAILY 05/11/18 Clopidogrel Bisulfate [Plavix] 75 mg PO DAILY 05/11/18 Pantoprazole Sodium [Protonix] 40 mg PO DAILY 05/11/18 Sennosides [Senokot] 8.6 mg PO HS 05/11/18 Simethicone 80 mg PO TID PRN 05/11/18 Metoclopramide HCl [Reglan -] 5 mg PO TIDAC #20 tablet MDD 3 05/17/18 Potassium Chloride [Potassium Chloride Oral Liquid] 40 meq PO DAILY #30 ml 05/17 Simethicone Liquid [Mylicon Liquid -] 80 mg PO QID #20 ml 05/17/18 metroNIDAZOLE [Flagyl -] 250 mg PO TID #30 tablet MDD 3 05/17/18 Megestrol Acetate Oral Susp [Megace Liquid -] 400 mg PO DAILY 08/01/18 Family Disease History - Family Disease History Family History: Unable to Obtain Review of Systems Unable to obtain ROS, reason: Dementia Physical Examination Vital Signs: Vital Signs Temperature 99.0 F 08/01/18 19:05 Pulse Rate 92 H 08/01/18 19:05 Respiratory Rate 16 08/01/18 19:05 Blood Pressure 111/71 08/01/18 19:05 O2 Sat by Pulse Oximetry (%) 98 08/01/18 19:05 Constitutional: Yes: No Distress, Other (Lethargic) Eyes: Yes: Conjunctiva Clear, PERRL HENT: Yes: Atraumatic, Normocephalic, Other (dry mucousa) Neck: Yes: WNL, Supple, Trachea Midline Cardiovascular: Yes: WNL, Regular Rate and Rhythm, S1, S2 Respiratory: Yes: WNL, Regular, CTA Bilaterally, On Nasal O2 Gastrointestinal: Yes: WNL, Normal Bowel Sounds, Soft ...Rectal Exam: Yes: Deferred Renal/: Yes: Incontinence Breast(s): Yes: WNL Musculoskeletal: Yes: WNL Extremities: Yes: WNL Edema: No Peripheral Pulses WNL: Yes Peripheral Pulses: Left Doralis Pedis: 2+, Right Dorsalis Pedis: 2+ Neurological: Yes: Lethargy Psychiatric: Yes: Other (Lethargic unable to assess) Labs: CBC, BMP 08/01/18 17:19 18 20:00 Laboratory Results - last 24 hr 08/01/1818 18 17:09 17:09 17:09 WBC RBC Hgb Hct MCV MCH MCHC RDW Plt Count MPV Absolute Neuts (auto) Neutrophils % Lymphocytes % Monocytes % Eosinophils % Basophils % Nucleated RBC % PT with INR INR PTT (Actin FS) VBG pH 7.40 POC VBG pCO2 39.6 POC VBG pO2 47.1 Mixed VBG HCO3 24.1 Sodium Potassium Chloride Carbon Dioxide Anion Gap BUN Creatinine Creat Clearance w eGFR Random Glucose Lactic Acid 1.4 Calcium Total Bilirubin AST ALT Alkaline Phosphatase Troponin I < 0.02 Total Protein Albumin TSH Urine Color Urine Appearance Urine pH Ur Specific [place] Urine Protein Urine Glucose (UA) Urine Ketones Urine Blood Urine Nitrite Urine Bilirubin Urine Urobilinogen Ur Leukocyte Esterase Urine WBC (Auto) Urine RBC (Auto) Urine Bacteria Urine Mucus Ur Random Sodium Ur Random Potassium Ur Random Chloride 08/01/18 08/01/18 08/01/18 17:09 17:19 17:19 WBC 8.6 RBC 3.69 Hgb 11.4 Hct 34.5 D MCV 93.5 MCH 30.9 MCHC 33.0 RDW 16.3 H Plt Count 213 MPV 10.5 D Absolute Neuts (auto) 6.6 Neutrophils % 76.0 D Lymphocytes % 19.0 D Monocytes % 3.7 L Eosinophils % 1.1 Basophils % 0.2 Nucleated RBC % 0 PT with INR 15.30 H INR 1.29 H PTT (Actin FS) 27.1 VBG pH POC VBG pCO2 POC VBG pO2 Mixed VBG HCO3 Sodium Potassium Chloride Carbon Dioxide Anion Gap BUN Creatinine Creat Clearance w eGFR Random Glucose Lactic Acid Calcium Total Bilirubin AST ALT Alkaline Phosphatase Troponin I Total Protein Albumin TSH 0.90 Urine Color Urine Appearance Urine pH Ur Specific [place] Urine Protein Urine Glucose (UA) Urine Ketones Urine Blood Urine Nitrite Urine Bilirubin Urine Urobilinogen Ur Leukocyte Esterase Urine WBC (Auto) Urine RBC (Auto) Urine Bacteria Urine Mucus Ur Random Sodium Ur Random Potassium Ur Random Chloride 08/01/1818 18 17:19 18:14 20:00 WBC RBC Hgb Hct MCV MCH MCHC RDW Plt Count MPV Absolute Neuts (auto) Neutrophils % Lymphocytes % Monocytes % Eosinophils % Basophils % Nucleated RBC % PT with INR INR PTT (Actin FS) VBG pH POC VBG pCO2 POC VBG pO2 Mixed VBG HCO3 Sodium 162 H* 164 H* Potassium 3.9 3.9 Chloride 132 H 132 H Carbon Dioxide 24 25 Anion Gap 7 L 6 L BUN 49 H 52 H Creatinine 0.9 1.0 Creat Clearance w eGFR 59.65 52.82 Random Glucose 113 H 115 H Lactic Acid Calcium 8.8 8.9 Total Bilirubin 0.5 0.5 AST 30 23 ALT 51 48 Alkaline Phosphatase 106 100 Troponin I Total Protein 6.9 6.7 Albumin 2.8 L 2.9 L TSH Urine Color Dkyellow Urine Appearance Clear Urine pH 5.0 Ur Specific [place] 1.021 Urine Protein Negative Urine Glucose (UA) Negative Urine Ketones Negative Urine Blood Negative Urine Nitrite Positive Urine Bilirubin Negative Urine Urobilinogen 2.0 H Ur Leukocyte Esterase Trace Urine WBC (Auto) 9 Urine RBC (Auto) None Urine Bacteria Many Urine Mucus Rare Ur Random Sodium Ur Random Potassium Ur Random Chloride 08/02/18 08/02/18 01:00 03:25 WBC RBC Hgb Hct MCV MCH MCHC RDW Plt Count MPV Absolute Neuts (auto) Neutrophils % Lymphocytes % Monocytes % Eosinophils % Basophils % Nucleated RBC % PT with INR INR PTT (Actin FS) VBG pH POC VBG pCO2 POC VBG pO2 Mixed VBG HCO3 Sodium 162 H* Potassium 3.7 Chloride 132 H Carbon Dioxide 26 Anion Gap 4 L BUN 52 H Creatinine 1.0 Creat Clearance w eGFR 52.82 Random Glucose 111 H Lactic Acid Calcium 8.4 L Total Bilirubin 0.5 AST 22 ALT 44 Alkaline Phosphatase 95 Troponin I Total Protein 6.5 Albumin 2.6 L TSH Urine Color Urine Appearance Urine pH Ur Specific [place] Urine Protein Urine Glucose (UA) Urine Ketones Urine Blood Urine Nitrite Urine Bilirubin Urine Urobilinogen Ur Leukocyte Esterase Urine WBC (Auto) Urine RBC (Auto) Urine Bacteria Urine Mucus Ur Random Sodium 38 L Ur Random Potassium 52.0 Ur Random Chloride 42 L Intake & Output 07/30/18 07/31/18 08/01/18 08/02/18 23:59 23:59 23:59 23:59 Weight 72.575 kg Imaging - Results Chest X-ray: Image Reviewed Cat Scan: Image Reviewed EKG: Image Reviewed (ST 101bpm with PVCs QT/QTc 352/456) Problem List - Problems (1) Acute metabolic encephalopathy Assessment/Plan: Likely secondary to Hypernatremia Head CT- no ICH Appreciate Neurology consult Neurochecks Monitor CMP Monitor vitals Seizure Precautions Code(s): G93.41 - METABOLIC ENCEPHALOPATHY (2) Altered mental status Assessment/Plan: See above Code(s): R41.82 - ALTERED MENTAL STATUS, UNSPECIFIED Qualifiers: Altered mental status type: unspecified Qualified Code(s): R41.82 - Altered mental status, unspecified (3) Hypernatremia Assessment/Plan: Likely secondary to dehydration Patient's family reported decreased PO intake > 3 days Free Water Deficit 5.1L Appreciate Nephrology consult BMP Q4h 0.45%NS started in ED, will continue and defer to Nephrology Seizure Precautions Monitor vitals Code(s): E87.0 - HYPEROSMOLALITY AND HYPERNATREMIA (4) UTI (urinary tract infection) Assessment/Plan: UA- +nitrate, trace Leukocyte Esterase, many Bacteria Urine Culture-pending hx Ecoli, ESBL content producer Will start on Ceftriaxone Monitor CBC, BMP Monitor vitals Code(s): N39.0 - URINARY TRACT INFECTION, SITE NOT SPECIFIED Qualifiers: Urinary tract infection type: site unspecified Hematuria presence: without hematuria Qualified Code(s): N39.0 - Urinary tract infection, site not specified (5) Failure to thrive in adult Assessment/Plan: Likely secondary to advancing disease process Appreciate RD consult Continue IVF Monitor lytes Monitor vitals Code(s): R62.7 - ADULT FAILURE TO THRIVE (6) Dementia Assessment/Plan: Will continue home meds when at baseline Fall Precautions Aspiration Precautions Code(s): F03.90 - UNSPECIFIED DEMENTIA WITHOUT BEHAVIORAL DISTURBANCE (7) HTN (hypertension) Assessment/Plan: stable Monitor BP Will resume meds when more arousable, consider IV as needed Monitor renal function Code(s): I10 - ESSENTIAL (PRIMARY) HYPERTENSION (8) Anemia Assessment/Plan: stable Hgb 11.4 Will transfuse if Hgb < 7.0 Monitor CBC Code(s): D64.9 - ANEMIA, UNSPECIFIED (9) CAD (coronary artery disease) Assessment/Plan: stable EKG reviewed Continue home meds when more arousable Code(s): I25.10 - ATHSCL HEART DISEASE OF [place] CORONARY ARTERY W/O ANG PCTRS (10) CVA (cerebral vascular accident) Assessment/Plan: Continue home meds, when patient is more arousable Fall Precautions Aspiration Precautions Code(s): I63.9 - CEREBRAL INFARCTION, UNSPECIFIED (11) Dysarthria as late effect of cerebrovascular accident (CVA) Assessment/Plan: not at baseline secondary to Hypernatremia Code(s): I69.322 - DYSARTHRIA FOLLOWING CEREBRAL INFARCTION (12) Hemiplegia affecting dominant side Assessment/Plan: Will continue to monitor and treat with interventions accordingly Code(s): G81.90 - HEMIPLEGIA, UNSPECIFIED AFFECTING UNSPECIFIED SIDE (13) Functional quadriplegia Assessment/Plan: Complete immobility due to frailty, end-stage Dementia Requires total care Turn Q2h Che lift as needed Heel Protectors Fall Precaution Code(s): R53.2 - FUNCTIONAL QUADRIPLEGIA Assessment/Plan This is a 83 y/o woman with a PMHx of: CVA (R-deficits), Dementia, HTN, Dysphagia, Chronic Obstructions (NGTs, no Sx). Admitted for Acute Metabolic Encephalopathy secondary to Acute Hypernatremia, Failure to Thrive for further evaluation of their emergent condition. Plan: FEN 0.45%NS@100ml/hr Replete lytes prn NPO DVT ppx SCDs Lovenox SQ Code Status: Full Code, HCP Dispo: Requires Inpatient Care Visit type - Emergency Visit Emergency Visit: Yes ED Registration Date: 08/01/18 Care time: The patient presented to the Emergency Department on the above date and was hospitalized for further evaluation of their emergent condition. - New Patient This patient is new to me today: Yes Date on this admission: 08/01/18 - Critical Care Critical Care patient: No
[2018-08-02 04:31] LABS: ALBUMIN 2.6 g/dl (3.4-5.0); ALK PHOS 95 U/L (45-117); ANION GAP 4 MMOL/L (8-16); BILIRUBIN,TOTAL 0.5 mg/dL (0.2-1); BLOOD UREA NITROGEN 52 mg/dL (7-18); CALCIUM 8.4 mg/dL (8.5-10.1); CHLORIDE 132 mmol/L (98-107); CO2 26 mmol/L (21-32); GLUCOSE,RANDOM 111 mg/dL (74-106); POTASSIUM 3.7 mmol/L (3.5-5.1); SGOT/AST 22 U/L (15-37); SGPT/ALT 44 U/L (13-61); TOT PROT 6.5 g/dl (6.4-8.2)
[2018-08-02 04:36] LABS: SODIUM 162 mmol/L (136-145)
[2018-08-02] MEDS ORDERED: CEFTRIAXONE 1 GM in DEXTROSE 5%-WATER - 50 ML IVPB ONE (05:38)
[2018-08-02 06:03] VITALS: BMI 29.5
[2018-08-02 07:39] LABS: BASO % 0.4 % (0-2.0); EOS % 2.6 % (0-4.5); HEMATOCRIT 36.2 % (32.4-45.2); LYMPH % 24.6 % (8-40); MCH 29.5 pg (25.7-33.7); MCHC 30.4 g/dl (32.0-36.0); MEAN CELL VOLUME 97.1 fl (80-96); MEAN PLT VOLUME 10.1 fl (7.5-11.1); MONO % 3.3 % (3.8-10.2); NEUT % 69.1 % (42.8-82.8); PLATELET COUNT 160 K/MM3 (134-434); RBC 3.73 M/mm3 (3.60-5.2); RDW 16.9 % (11.6-15.6); WHITE BLOOD COUNT 7.4 K/mm3 (4.0-10.0)
[2018-08-02 07:50] LABS: MAGNESIUM 2.5 mg/dL (1.8-2.4); PHOSPHOROUS 3.6 mg/dL (2.5-4.9)
[2018-08-02 08:11] LABS: ALBUMIN 2.6 g/dl (3.4-5.0); ALK PHOS 96 U/L (45-117); ANION GAP 6 MMOL/L (8-16); BILIRUBIN,TOTAL 0.5 mg/dL (0.2-1); BLOOD UREA NITROGEN 51 mg/dL (7-18); CALCIUM 8.4 mg/dL (8.5-10.1); CHLORIDE 131 mmol/L (98-107); CO2 25 mmol/L (21-32); GLUCOSE,RANDOM 105 mg/dL (74-106); POTASSIUM 3.8 mmol/L (3.5-5.1); SGOT/AST 22 U/L (15-37); SGPT/ALT 41 U/L (13-61); TOT PROT 6.5 g/dl (6.4-8.2)
[2018-08-02 08:15] LABS: SODIUM 162 mmol/L (136-145)
[2018-08-02] MEDS ORDERED: cefTRIAXone SODIUM 1 GM VIAL ONE (09:02)
[2018-08-02] MEDS ORDERED: DEXTROSE 5%-WATER - 50 ML IVPB ONE (09:02)
[2018-08-02 11:31] LABS: ALBUMIN 2.6 g/dl (3.4-5.0); ALK PHOS 94 U/L (45-117); ANION GAP 8 MMOL/L (8-16); BILIRUBIN,TOTAL 0.4 mg/dL (0.2-1); BLOOD UREA NITROGEN 49 mg/dL (7-18); CALCIUM 8.5 mg/dL (8.5-10.1); CHLORIDE 130 mmol/L (98-107); CO2 23 mmol/L (21-32); CREATININE 0.9 mg/dL (0.55-1.3); GLUCOSE,RANDOM 102 mg/dL (74-106); SGOT/AST 23 U/L (15-37); SGPT/ALT 38 U/L (13-61); TOT PROT 6.6 g/dl (6.4-8.2)
--- NOTE | 2018-08-02 11:33 | PN ---
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, Physician Chief Complaint: EVENTS AND NOTES REVIEWED PATIENT WITH OLD CVA WITH DEMENTIA, POOR APPETITE, DYSPHAGIA, HYPERNATREMIA, CHF, COPD, POOR OVERALL PROGNOSIS WITH POOR QUALITY OF LIFE. - Current Medication List Current Medications: Active Medications Sodium Chloride (1/2 Normal Saline) 1,000 mls @ 100 mls/hr IV ASDIR AIDEE Last Admin: 08/01/18 20:38 Dose: 100 mls/hr Ceftriaxone Sodium 1 gm/ (Dextrose) 50 mls @ 100 mls/hr IVPB DAILY AIDEE; Protocol - Objective Vital Signs: Vital Signs Temperature 97.3 F L 08/02/18 08:57 Pulse Rate 86 08/02/18 08:57 Respiratory Rate 18 08/02/18 10:42 Blood Pressure 109/46 L 08/02/18 08:57 O2 Sat by Pulse Oximetry (%) 95 08/02/18 10:42 Constitutional: Yes: Moderate Distress HENT: Yes: Other Cardiovascular: Yes: Regular Rate and Rhythm Respiratory: Yes: Diminished, On Nasal O2 Gastrointestinal: Yes: Soft, Distention Genitourinary: Yes: Incontinence Musculoskeletal: Yes: Muscle Weakness Extremities: Yes: Deformity Edema: Yes Integumentary: Yes: Pressure Ulcer, Other Wound/Incision: Yes: Dressing Dry and Intact, Excoriated, Unapproximated Neurological: Yes: Aphasia, Facial Droop, Lethargy, Loss of Sensation, Numbness , Paresthesia, Pre-Existing Deficit, Unresponsive, Weakness ...Motor Strength: LUE, LLE, RUE, RLE Psychiatric: Yes: Other Labs: CBC, BMP 08/02/18 06:00 INR, PTT INR 1.29 (0.83-1.09) H 08/01/18 17:19 Problem List - Problems (1) Old cerebrovascular accident (CVA) without late effect Code(s): Z86.73 - PRSNL HX OF TIA (TIA), AND CEREB INFRC W/O RESID DEFICITS (2) Acute metabolic encephalopathy Code(s): G93.41 - METABOLIC ENCEPHALOPATHY (3) Dementia Code(s): F03.90 - UNSPECIFIED DEMENTIA WITHOUT BEHAVIORAL DISTURBANCE (4) Failure to thrive in adult Code(s): R62.7 - ADULT FAILURE TO THRIVE (5) HTN (hypertension) Code(s): I10 - ESSENTIAL (PRIMARY) HYPERTENSION (6) Hypernatremia Code(s): E87.0 - HYPEROSMOLALITY AND HYPERNATREMIA (7) [place] (acute kidney injury) Code(s): N17.9 - ACUTE KIDNEY FAILURE, UNSPECIFIED (8) Abdominal distension Code(s): R14.0 - ABDOMINAL DISTENSION (GASEOUS) (9) Anemia Code(s): D64.9 - ANEMIA, UNSPECIFIED (10) Functional quadriplegia Code(s): R53.2 - FUNCTIONAL QUADRIPLEGIA (11) Hemiplegia affecting dominant side Code(s): G81.90 - HEMIPLEGIA, UNSPECIFIED AFFECTING UNSPECIFIED SIDE (12) History of hip replacement Code(s): Z96.649 - PRESENCE OF UNSPECIFIED ARTIFICIAL HIP JOINT Assessment/Plan POOR OVERALL PROGNOSIS DISCUSSED WITH FAMILY BEDSIDE I DO NOT RECOMMEND A FEEDING TUBE AT THIS TIME. I HAVE RECOMMENDED HOSPICE CARE AND PALLIAITVE CARE CONSULTS IVF IV ABX
[2018-08-02 12:17] LABS: SODIUM 161 mmol/L (136-145)
--- NOTE | 2018-08-02 14:57 | CONSULT ---
Consult Consult Specialty:: Nephrology Reason for Consultation:: hypernatremia - History of Present Illness Chief Complaint: decreased po intake and altered mentation History of Present Illness: Pt is an 83 year old female with pmhx of CVA with right marty, dysarthria, HTN, dementia and HLD who presents to the ER with altered mental status and decreased PO intake. SHe is not able to give history. Chart reviewed for history. She is awake but not responding. Her daughter is at bedside who also assisted with history. Pt has not been eating of drinking at all. She was found to be hypernatremic and sodium did not respond to 1/2ns. - History Source History Provided By: Medical Record - Past Medical History [employer]: Yes: CVA, Dementia Cardio/Vascular: Yes: HTN, Hyperlipdemia Pulmonary: Yes: Asthma Gastrointestinal: Yes: Other (chronic obstructions) Renal/: Yes: UTI ...: No - Past Surgical History Past Surgical History: Yes: None, Joint Replacement (bilateral knee replacement , left hip surgery) - Alcohol/Substance Use Hx Alcohol Use: No History of Substance Use: reports: None - Smoking History Smoking history: Never smoked Have you smoked in the past 12 months: No - Social History Usual Living Arrangement: Shelter ADL: Support Services History of Recent Travel: No Home Medications - Allergies Allergies/Adverse Reactions: Allergies Allergy/AdvReac Type Severity Reaction Status Date / Time No Known Allergies Allergy Verified 10/14/16 17:12 - Home Medications Home Medications: Ambulatory Orders Acetaminophen [Tylenol .Regular Strength -] 650 mg PO Q6H PRN #0 tablet Albuterol 2.5/Ipratropium 0.5 [Duoneb -] 1 amp NEB Q6H PRN #0 amp 09/03/16 Amino Acids/Protein Hydrolys [Prostat Sugar-Free Packet -] 30 ml PO BID Aspirin Coated [Ecotrin -] 81 mg PO DAILY tablet.ec 10/20/16 Atorvastatin Ca [Lipitor] 10 mg PO HS tablet 10/20/16 Docusate Sodium [Colace -] 300 mg PO HS capsule 10/20/16 Ascorbic Acid [Vitamin C] 500 mg PO DAILY 05/11/18 Clopidogrel Bisulfate [Plavix] 75 mg PO DAILY 05/11/18 Pantoprazole Sodium [Protonix] 40 mg PO DAILY 05/11/18 Sennosides [Senokot] 8.6 mg PO HS 05/11/18 Simethicone 80 mg PO TID PRN 05/11/18 Metoclopramide HCl [Reglan -] 5 mg PO TIDAC #20 tablet [facility] 3 05/17/18 Potassium Chloride [Potassium Chloride Oral Liquid] 40 meq PO DAILY #30 ml 05/17 Simethicone Liquid [Mylicon Liquid -] 80 mg PO QID #20 ml 05/17/18 metroNIDAZOLE [Flagyl -] 250 mg PO TID #30 tablet [facility] 3 05/17/18 Megestrol Acetate Oral Susp [Megace Liquid -] 400 mg PO DAILY 08/01/18 Family Disease History - Family Disease History Family History: Unable to Obtain Review of Systems Unable to obtain ROS, reason: non verbal Physical Exam Vital Signs: Vital Signs Temperature 97.3 F L 08/02/18 08:57 Pulse Rate 86 08/02/18 08:57 Respiratory Rate 18 08/02/18 10:42 Blood Pressure 109/46 L 08/02/18 08:57 O2 Sat by Pulse Oximetry (%) 95 08/02/18 10:42 Constitutional: Yes: Calm Eyes: Yes: Conjunctiva Clear HENT: Yes: Other (dry mucous membranes) Neck: Yes: Supple Cardiovascular: Yes: S1, S2 Respiratory: Yes: CTA Bilaterally Gastrointestinal: Yes: Abdomen, Obese Renal/: Yes: Incontinence Musculoskeletal: Yes: Muscle Weakness Edema: No Neurological: Yes: Aphasia, Unresponsive Labs: CBC, BMP 08/02/18 06:00 08/02/18 10:11 Laboratory Tests 08/01/18 08/01/18 08/02/18 17:19 20:00 03:25 Sodium 162 H* 164 H* 162 H* 08/02/18 08/02/18 06:00 10:11 Sodium 162 H* 161 H* Imaging - Results Chest X-ray: Report Reviewed Problem List - Problems (1) Acute metabolic encephalopathy Code(s): G93.41 - METABOLIC ENCEPHALOPATHY (2) Dementia Code(s): F03.90 - UNSPECIFIED DEMENTIA WITHOUT BEHAVIORAL DISTURBANCE (3) Failure to thrive in adult Code(s): R62.7 - ADULT FAILURE TO THRIVE (4) HTN (hypertension) Code(s): I10 - ESSENTIAL (PRIMARY) HYPERTENSION (5) Hypernatremia Code(s): E87.0 - HYPEROSMOLALITY AND HYPERNATREMIA (6) WIN (acute kidney injury) Code(s): N17.9 - ACUTE KIDNEY FAILURE, UNSPECIFIED Assessment/Plan Current Medications Generic Name Dose Route Start Last Admin Trade Name Freq PRN Reason Stop Dose Admin Sodium Chloride 1,000 mls @ 100 mls/hr 08/01/18 20:00 08/01/18 20:38 1/2 Normal Saline IV 100 mls/hr ASDIR AIDEE Administration Ceftriaxone Sodium 1 gm/ 50 mls @ 100 mls/hr 08/03/18 10:00 Dextrose IVPB DAILY AIDEE Protocol Impression 1. WIN 2. UTI 3. CVA 4. HTN 5. hyperlipidemia 6. hypernatremia 7. dementia Plan - win likely from severe dehydration - pt has a free water deficit of 5.1 liters, will need about 2.2 liters to get her to a sodium of 151 (10 meq) - check bladder ultrasound - cont abx for UTI - discussed with family
--- NOTE | 2018-08-02 15:21 | EKG ---
Test Reason : Blood Pressure : / mmHG Vent. Rate : 101 BPM Atrial Rate : 101 BPM P-R Int : 128 ms QRS Dur : 088 ms QT Int : 352 ms P-R-T Axes : 017 038 045 degrees QTc Int : 456 ms SINUS TACHYCARDIA WITH PREMATURE ATRIAL COMPLEXES LOW VOLTAGE QRS BORDERLINE ECG WHEN COMPARED WITH ECG OF 13-MAY-2018 09:58, PREMATURE ATRIAL COMPLEXES ARE NOW PRESENT T WAVE VARIATION VENT. RATE HAS INCREASED Confirmed by SHANDA VARGAS, YINA ([id number]) on 08/02/2018 3:21:08 PM Referred By: Confirmed By:YINA LAND MD
[2018-08-02] MEDS: DEXTROSE 5%-WATER - 1,000 ML IV SCH (16:37)
[2018-08-02 17:03] LABS: ALBUMIN 2.7 g/dl (3.4-5.0); ALK PHOS 93 U/L (45-117); ANION GAP 6 MMOL/L (8-16); BILIRUBIN,TOTAL 0.3 mg/dL (0.2-1); BLOOD UREA NITROGEN 46 mg/dL (7-18); CALCIUM 8.4 mg/dL (8.5-10.1); CHLORIDE 132 mmol/L (98-107); CO2 22 mmol/L (21-32); CREATININE 0.8 mg/dL (0.55-1.3); GLUCOSE,RANDOM 88 mg/dL (74-106); POTASSIUM 3.9 mmol/L (3.5-5.1); SGOT/AST 19 U/L (15-37); SGPT/ALT 36 U/L (13-61); SODIUM 160 mmol/L (136-145); TOT PROT 6.4 g/dl (6.4-8.2)
[2018-08-02 19:44] LABS: ALBUMIN 2.6 g/dl (3.4-5.0); ALK PHOS 89 U/L (45-117); ANION GAP 6 MMOL/L (8-16); BILIRUBIN,TOTAL 0.4 mg/dL (0.2-1); BLOOD UREA NITROGEN 46 mg/dL (7-18); CALCIUM 8.5 mg/dL (8.5-10.1); CHLORIDE 130 mmol/L (98-107); CO2 23 mmol/L (21-32); CREATININE 0.9 mg/dL (0.55-1.3); GLUCOSE,RANDOM 114 mg/dL (74-106); POTASSIUM 3.7 mmol/L (3.5-5.1); SGOT/AST 18 U/L (15-37); SGPT/ALT 37 U/L (13-61); SODIUM 160 mmol/L (136-145); TOT PROT 6.2 g/dl (6.4-8.2)
--- NOTE | 2018-08-02 23:30 | CONSULT ---
Consult - text type - Consultation Consultation Note: NEUROLOGY CONSULTATION is greatly appreciated: This 83 yo woman is a chronic [place] resident after left CVA with Right hemiparesis , aphasia and dysphagia. Maintained on: Acetaminophen; Albuterol; Aspirin 81; Atorvastatin; Clopidogrel; Protonix; Metoclopramide; metroNIDAZOLE. Family was apparently planning a PEG insertion by Dr. Maxwell but patient had decreased PO intake became lethargic and poorly responsive. Admitted with Na+=160 and Cl--= [address] mg% CT of head (reviewed): shows moderate, diffuse atrophy and diffuse microvascular changes with calcification of the intracranial arteries. ADALGISA: Neck supple. No bruits. Cor reg Left leg foreshortened, internally rotated with a club foot. B/L TKR's. NEURO: Spontaneous eye opening and closure. No speech. Follows no commands. + Glabella. Blinks to visual threat L>R Left facial. Decreased gag Drops both elevated arms symmetrically. No legs mov't to pinch Areflexic. Grimaces to pinch arms>>legs. IMP: Severe, B/L cerebral dysfunction (OMS/Chronic) Advanced Alzheimer's +/- Chronic microvascular/ multiinfarct state (CT does not support large territory infarcts). This would explain progressive dysphagia. 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 Toxic-metabolic Encephalopathy due to dehydration. SUGGEST: Aggressive IV hydation Check B12, TSH, RPR Reassess level of consciousness and cognition when rehydrated. Proceed with PEG if family desires. Thank you very much, Miguel Ann MD
[2018-08-03 06:51] LABS: ALBUMIN 2.4 g/dl (3.4-5.0); ALK PHOS 89 U/L (45-117); ANION GAP 7 MMOL/L (8-16); BILIRUBIN,TOTAL 0.4 mg/dL (0.2-1); BLOOD UREA NITROGEN 43 mg/dL (7-18); CALCIUM 8.5 mg/dL (8.5-10.1); CHLORIDE 126 mmol/L (98-107); CO2 23 mmol/L (21-32); CREATININE 0.8 mg/dL (0.55-1.3); GLUCOSE,RANDOM 131 mg/dL (74-106); POTASSIUM 3.6 mmol/L (3.5-5.1); SGOT/AST 17 U/L (15-37); SGPT/ALT 33 U/L (13-61); SODIUM 156 mmol/L (136-145)
[2018-08-03 07:09] LABS: HEMATOCRIT 33.3 % (32.4-45.2); HEMOGLOBIN 10.4 GM/dL (10.7-15.3); MCH 29.6 pg (25.7-33.7); MCHC 31.2 g/dl (32.0-36.0); MEAN CELL VOLUME 94.8 fl (80-96); MEAN PLT VOLUME 9.9 fl (7.5-11.1); PLATELET COUNT 166 K/MM3 (134-434); RBC 3.51 M/mm3 (3.60-5.2); RDW 15.9 % (11.6-15.6); WHITE BLOOD COUNT 5.5 K/mm3 (4.0-10.0)
[2018-08-03] MEDS ORDERED: cefTRIAXone SODIUM 1 GM VIAL ONE (10:04)
[2018-08-03] MEDS ORDERED: DEXTROSE 5%-WATER - 50 ML IVPB ONE (10:04)
[2018-08-03] MEDS: CEFTRIAXONE 1 GM in DEXTROSE 5%-WATER - 50 ML IVPB SCH (10:37)
--- NOTE | 2018-08-03 12:53 | PN ---
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, Physician History of Present Illness: Pt seen and examined at bedside. She is more awake than yesterday. - Current Medication List Current Medications: Active Medications Ceftriaxone Sodium 1 gm/ (Dextrose) 50 mls @ 100 mls/hr IVPB DAILY AIDEE; Protocol Last Admin: 08/03/18 10:37 Dose: 100 mls/hr Dextrose (D5w -) 1,000 mls @ 90 mls/hr IV ASDIR AIDEE Last Admin: 08/02/18 16:37 Dose: 90 mls/hr - Objective Vital Signs: Vital Signs Temperature 99.4 F 08/03/18 09:00 Pulse Rate 87 08/03/18 09:00 Respiratory Rate 14 08/03/18 09:00 Blood Pressure 95/55 L 08/03/18 09:00 O2 Sat by Pulse Oximetry (%) 98 08/03/18 08:57 Constitutional: Yes: Calm Eyes: Yes: Conjunctiva Clear Cardiovascular: Yes: S1, S2 Respiratory: Yes: CTA Bilaterally Gastrointestinal: Yes: Soft, Abdomen, Obese Genitourinary: Yes: Incontinence Musculoskeletal: Yes: Muscle Weakness Edema: No Neurological: Yes: Aphasia, Confusion, Pre-Existing Deficit Labs: CBC, BMP 08/03/18 05:30 08/03/18 05:30 INR, PTT INR 1.29 (0.83-1.09) H 08/01/18 17:19 Problem List - Problems (1) Acute metabolic encephalopathy Code(s): G93.41 - METABOLIC ENCEPHALOPATHY (2) Dementia Code(s): F03.90 - UNSPECIFIED DEMENTIA WITHOUT BEHAVIORAL DISTURBANCE (3) Failure to thrive in adult Code(s): R62.7 - ADULT FAILURE TO THRIVE (4) HTN (hypertension) Code(s): I10 - ESSENTIAL (PRIMARY) HYPERTENSION (5) Hypernatremia Code(s): E87.0 - HYPEROSMOLALITY AND HYPERNATREMIA (6) AZALEA (acute kidney injury) Code(s): N17.9 - ACUTE KIDNEY FAILURE, UNSPECIFIED Assessment/Plan Current Medications Generic Name Dose Route Start Last Admin Trade Name Freq PRN Reason Stop Dose Admin Ceftriaxone Sodium 1 gm/ 50 mls @ 100 mls/hr 08/03/18 10:00 08/03/18 10:37 Dextrose IVPB 100 mls/hr DAILY AIDEE Administration Protocol Dextrose 1,000 mls @ 90 mls/hr 08/02/18 15:45 08/02/18 16:37 D5w - IV 90 mls/hr ASDIR AIDEE Administration Impression 1. AZALEA 2. UTI 3. CVA 4. HTN 5. hyperlipidemia 6. hypernatremia 7. dementia Plan - cont fluids - sodium is improving - cont to monitor renal function - monitor mental status - neuro input appreciated - creatinine is improving - renal ultrasound reviewed - cont abx for UTI
--- NOTE | 2018-08-03 15:25 | PN ---
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, Physician Chief Complaint: AWAKE NOT RESPONDING DUE TO APHASIA NEUROLOGY/RENAL EVAL REVIEWED - Current Medication List Current Medications: Active Medications Ceftriaxone Sodium 1 gm/ (Dextrose) 50 mls @ 100 mls/hr IVPB DAILY AIDEE; Protocol Last Admin: 08/03/18 10:37 Dose: 100 mls/hr Dextrose (D5w -) 1,000 mls @ 90 mls/hr IV ASDIR AIDEE Last Admin: 08/02/18 16:37 Dose: 90 mls/hr - Objective Vital Signs: Vital Signs Temperature 99.4 F 08/03/18 09:00 Pulse Rate 87 08/03/18 09:00 Respiratory Rate 14 08/03/18 09:00 Blood Pressure 95/55 L 08/03/18 09:00 O2 Sat by Pulse Oximetry (%) 98 08/03/18 08:57 Constitutional: Yes: Moderate Distress Eyes: Yes: Other HENT: Yes: Other Neck: Yes: WNL Cardiovascular: Yes: Regular Rate and Rhythm Respiratory: Yes: Diminished Gastrointestinal: Yes: Soft, Abdomen, Obese Genitourinary: Yes: Incontinence Musculoskeletal: Yes: Muscle Weakness Extremities: Yes: Deformity Edema: Yes Integumentary: Yes: Pressure Ulcer, Other Wound/Incision: Yes: Dressing Dry and Intact, Excoriated, Unapproximated Neurological: Yes: Aphasia, Ataxia, Confusion, Pre-Existing Deficit, Unresponsive, Unsteady Gait, Weakness ...Motor Strength: LUE, LLE, RUE, RLE Psychiatric: Yes: Other Labs: CBC, BMP 08/03/18 05:30 08/03/18 05:30 INR, PTT INR 1.29 (0.83-1.09) H 08/01/18 17:19 Problem List - Problems (1) Old cerebrovascular accident (CVA) without late effect Code(s): Z86.73 - PRSNL HX OF TIA (TIA), AND CEREB INFRC W/O RESID DEFICITS (2) Acute metabolic encephalopathy Code(s): G93.41 - METABOLIC ENCEPHALOPATHY (3) Dementia Code(s): F03.90 - UNSPECIFIED DEMENTIA WITHOUT BEHAVIORAL DISTURBANCE (4) Failure to thrive in adult Code(s): R62.7 - ADULT FAILURE TO THRIVE (5) HTN (hypertension) Code(s): I10 - ESSENTIAL (PRIMARY) HYPERTENSION (6) Hypernatremia Code(s): E87.0 - HYPEROSMOLALITY AND HYPERNATREMIA (7) AZALEA (acute kidney injury) Code(s): N17.9 - ACUTE KIDNEY FAILURE, UNSPECIFIED (8) Abdominal distension Code(s): R14.0 - ABDOMINAL DISTENSION (GASEOUS) (9) Anemia Code(s): D64.9 - ANEMIA, UNSPECIFIED (10) Functional quadriplegia Code(s): R53.2 - FUNCTIONAL QUADRIPLEGIA (11) Hemiplegia affecting dominant side Code(s): G81.90 - HEMIPLEGIA, UNSPECIFIED AFFECTING UNSPECIFIED SIDE (12) History of hip replacement Code(s): Z96.649 - PRESENCE OF UNSPECIFIED ARTIFICIAL HIP JOINT Assessment/Plan SEVERE CEREBRAL DEGENERATION WITH TOXIC METABOLIC ENCEPHALOPATHY UTI/HYPERNATREMIA, FAILURE TO THRIVE. TREATING CONSERVATIVELY D/W HER SON GAUTAM HE IVF AND IV CEFTRIAXONE FOR NOW IF PATIENT IS MORE ALERT WILL DISCUSS FEEDING TUBE PLACEMENT. HOWEVER, AT THIS POINT WITH HER POOR OVERALL QUALITY OF LIFE PATIENT SHOULD BE PLACED IN HOSPICE/PALLIATIVE CARE.
[2018-08-03] MEDS: DEXTROSE 5%-WATER - 1,000 ML IV SCH (16:36)
[2018-08-04 07:27] LABS: HEMATOCRIT 32.1 % (32.4-45.2); HEMOGLOBIN 9.9 GM/dL (10.7-15.3); MCHC 30.8 g/dl (32.0-36.0); MEAN CELL VOLUME 94.1 fl (80-96); MEAN PLT VOLUME 9.9 fl (7.5-11.1); PLATELET COUNT 165 K/MM3 (134-434); RBC 3.41 M/mm3 (3.60-5.2); RDW 15.3 % (11.6-15.6); WHITE BLOOD COUNT 4.8 K/mm3 (4.0-10.0)
[2018-08-04 08:07] LABS: ALBUMIN 3.2 g/dl (3.4-5.0); ALK PHOS 82 U/L (45-117); ANION GAP 13 MMOL/L (8-16); BILIRUBIN,TOTAL 0.2 mg/dL (0.2-1); BLOOD UREA NITROGEN 28 mg/dL (7-18); CALCIUM 8.6 mg/dL (8.5-10.1); CHLORIDE 114 mmol/L (98-107); CO2 21 mmol/L (21-32); CREATININE 0.9 mg/dL (0.55-1.3); GLUCOSE,RANDOM 112 mg/dL (74-106); SGOT/AST 19 U/L (15-37); SGPT/ALT 17 U/L (13-61); SODIUM 148 mmol/L (136-145); TOT PROT 6.6 g/dl (6.4-8.2)
[2018-08-04] MEDS ORDERED: cefTRIAXone SODIUM 1 GM VIAL ONE (08:54)
[2018-08-04] MEDS ORDERED: DEXTROSE 5%-WATER - 50 ML IVPB ONE (08:54)
[2018-08-04] MEDS: CEFTRIAXONE 1 GM in DEXTROSE 5%-WATER - 50 ML IVPB SCH (09:03)
--- NOTE | 2018-08-04 10:16 | PN ---
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, Physician Chief Complaint: NO CHANGE IN MENTAL STATUS FAMILY FEELS THAT SHE IS BETTER?? UNRESPONSIVE, APHASIA, WEAKNESS - Current Medication List Current Medications: Active Medications Ceftriaxone Sodium 1 gm/ (Dextrose) 50 mls @ 100 mls/hr IVPB DAILY AIDEE; Protocol Last Admin: 08/04/18 09:03 Dose: 100 mls/hr Dextrose (D5w -) 1,000 mls @ 90 mls/hr IV ASDIR AIDEE Last Admin: 08/03/18 16:36 Dose: 90 mls/hr - Objective Vital Signs: Vital Signs Temperature 98.7 F 08/04/18 06:00 Pulse Rate 83 08/04/18 06:00 Respiratory Rate 20 08/04/18 06:00 Blood Pressure 100/54 L 08/04/18 06:00 O2 Sat by Pulse Oximetry (%) 100 08/03/18 21:00 Constitutional: Yes: Other HENT: Yes: Other (TONGUE HYPERTROPHY) Cardiovascular: Yes: Regular Rate and Rhythm Respiratory: Yes: Poor Air Entry Gastrointestinal: Yes: Abdomen, Obese Genitourinary: Yes: Incontinence Musculoskeletal: Yes: Muscle Weakness Extremities: Yes: Other Edema: Yes Integumentary: Yes: Rash, Other Wound/Incision: Yes: Dressing Dry and Intact Neurological: Yes: Aphasia, Asterixis, Facial Droop, Numbness, Paresthesia, Weakness ...Motor Strength: LUE (WEAKNESS), LLE, RUE, RLE Psychiatric: Yes: Other Labs: CBC, BMP 08/04/18 05:30 08/04/18 05:30 INR, PTT INR 1.29 (0.83-1.09) H 08/01/18 17:19 Problem List - Problems (1) Old cerebrovascular accident (CVA) without late effect Code(s): Z86.73 - PRSNL HX OF TIA (TIA), AND CEREB INFRC W/O RESID DEFICITS (2) Acute metabolic encephalopathy Code(s): G93.41 - METABOLIC ENCEPHALOPATHY (3) Dementia Code(s): F03.90 - UNSPECIFIED DEMENTIA WITHOUT BEHAVIORAL DISTURBANCE (4) Failure to thrive in adult Code(s): R62.7 - ADULT FAILURE TO THRIVE (5) HTN (hypertension) Code(s): I10 - ESSENTIAL (PRIMARY) HYPERTENSION (6) Hypernatremia Code(s): E87.0 - HYPEROSMOLALITY AND HYPERNATREMIA (7) AZALEA (acute kidney injury) Code(s): N17.9 - ACUTE KIDNEY FAILURE, UNSPECIFIED (8) Abdominal distension Code(s): R14.0 - ABDOMINAL DISTENSION (GASEOUS) (9) Anemia Code(s): D64.9 - ANEMIA, UNSPECIFIED (10) Functional quadriplegia Code(s): R53.2 - FUNCTIONAL QUADRIPLEGIA (11) Hemiplegia affecting dominant side Code(s): G81.90 - HEMIPLEGIA, UNSPECIFIED AFFECTING UNSPECIFIED SIDE (12) History of hip replacement Code(s): Z96.649 - PRESENCE OF UNSPECIFIED ARTIFICIAL HIP JOINT Assessment/Plan SEVERE CEREBRAL DEGENERATION WITH TOXIC METABOLIC ENCEPHALOPATHY UTI/HYPERNATREMIA, FAILURE TO THRIVE. TREATING CONSERVATIVELY D/W HER SON GAUTAM HE IVF AND IV CEFTRIAXONE FOR NOW IF PATIENT IS MORE ALERT WILL DISCUSS FEEDING TUBE PLACEMENT. HOWEVER, AT THIS POINT WITH HER POOR OVERALL QUALITY OF LIFE PATIENT SHOULD BE PLACED IN HOSPICE/PALLIATIVE CARE. STARTING DYSPHAGIA PUREE DIET WITH HONEY THICK LIQUIDS
--- NOTE | 2018-08-04 11:48 | PN ---
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, Physician History of Present Illness: Pt seen and examined at bedside. She is awake and appears comfortable. - Current Medication List Current Medications: Active Medications Ceftriaxone Sodium 1 gm/ (Dextrose) 50 mls @ 100 mls/hr IVPB DAILY AIDEE; Protocol Last Admin: 08/04/18 09:03 Dose: 100 mls/hr Dextrose (D5w -) 1,000 mls @ 90 mls/hr IV ASDIR AIDEE Last Admin: 08/03/18 16:36 Dose: 90 mls/hr - Objective Vital Signs: Vital Signs Temperature 98.7 F 08/04/18 06:00 Pulse Rate 83 08/04/18 06:00 Respiratory Rate 20 08/04/18 06:00 Blood Pressure 100/54 L 08/04/18 06:00 O2 Sat by Pulse Oximetry (%) 100 08/03/18 21:00 Constitutional: Yes: Calm Eyes: Yes: Conjunctiva Clear HENT: Yes: Atraumatic Neck: Yes: Supple Cardiovascular: Yes: S1, S2 Respiratory: Yes: CTA Bilaterally Gastrointestinal: Yes: Soft, Abdomen, Obese Genitourinary: Yes: Incontinence Musculoskeletal: Yes: Muscle Weakness Edema: No Neurological: Yes: Pre-Existing Deficit Labs: CBC, BMP 08/04/18 05:30 08/04/18 05:30 INR, PTT INR 1.29 (0.83-1.09) H 08/01/18 17:19 Problem List - Problems (1) Acute metabolic encephalopathy Code(s): G93.41 - METABOLIC ENCEPHALOPATHY (2) Dementia Code(s): F03.90 - UNSPECIFIED DEMENTIA WITHOUT BEHAVIORAL DISTURBANCE (3) Failure to thrive in adult Code(s): R62.7 - ADULT FAILURE TO THRIVE (4) HTN (hypertension) Code(s): I10 - ESSENTIAL (PRIMARY) HYPERTENSION (5) Hypernatremia Code(s): E87.0 - HYPEROSMOLALITY AND HYPERNATREMIA (6) AZALEA (acute kidney injury) Code(s): N17.9 - ACUTE KIDNEY FAILURE, UNSPECIFIED Assessment/Plan Current Medications Generic Name Dose Route Start Last Admin Trade Name Freq PRN Reason Stop Dose Admin Ceftriaxone Sodium 1 gm/ 50 mls @ 100 mls/hr 08/03/18 10:00 08/04/18 09:03 Dextrose IVPB 100 mls/hr DAILY AIDEE Administration Protocol Dextrose 1,000 mls @ 90 mls/hr 08/02/18 15:45 08/03/18 16:36 D5w - IV 90 mls/hr ASDIR AIDEE Administration Impression 1. AZALEA 2. UTI 3. CVA 4. HTN 5. hyperlipidemia 6. hypernatremia 7. dementia Plan - sodium is improving - renal function is stabilizing - cont fluids - monitor mental status - cont abx for UTI
--- NOTE | 2018-08-04 12:12 | CONSULT ---
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 Pt became lethargic and poorly responsive and was admitted with dx of Acute metabolic encephalopathy likely secondary to Hypernatremia. Pt was on puree/nectar thick liquid at [place]. Pt has been NPO since admission. Presently pt is a full code, and decision regarding PEG vs Hospice/palliative care being addressed. Selected Entries 08/01/18 08/01/18 08/01/18 16:23 16:51 19:05 Supper Temperature 99.7 F H 99.7 F H 99.0 F 08/01/18 08/01/18 08/02/18 20:34 23:05 05:09 Supper Temperature 98 F 99.0 F 98.0 F 08/02/18 08/02/18 08/03/18 08:57 21:00 01:47 Supper Temperature 97.3 F L 98.9 F 98.3 F 08/03/18 08/03/18 08/03/18 05:00 09:00 13:00 Supper Temperature 98.5 F 99.4 F 99.1 F 08/03/18 08/03/18 08/04/18 17:00 21:00 02:33 Supper Temperature 99.0 F 98.3 F 98.1 F 08/04/18 08/04/18 06:00 10:00 Supper NPO Temperature 98.7 F 98.3 F Laboratory Tests 08/04/18 05:30 WBC 4.8 Seen last by me April 2018, MBS with brisk swallow. Recommended puree/thin liquids, and Ensure b/n meals. Patient with intermittent po acceptance. No admissions at [facility] since April. Pt does not look emaciated. Has pt tolerated PO diet over last 3 months with recent decline? Related to dehydation? History Source: Medical Record Limitations to Obtaining History: Clinical Condition, Dementia, Other (Aphasia) - Past Medical History TECHNOLOGY LEAD: Yes: CVA, Dementia Cardiovascular: Yes: HTN, Hyperlipdemia Pulmonary: Yes: Asthma Gastrointestinal: Yes: Other (chronic obstructions) Renal/: Yes: UTI ...: No Heme/Onc: Yes: Anemia - Past Surgical History Past Surgical History: Yes: None, Joint Replacement (bilateral knee replacement , left hip surgery) - Advance Directives Advance Directives: Yes: Health Care Proxy - Smoking History Smoking history: Never smoked Have you smoked in the past 12 months: No - Alcohol/Substance Use Hx Alcohol Use: No History of Substance Use: reports: None - Social History ADL: Support Services History of Recent Travel: No History - Admission Reason For Visit: HYPERNATREMIA / AMS - Diagnostics X-ray: Report Reviewed CT Scan: Report Reviewed ( moderate, diffuse atrophy and diffuse microvascular changes with calcification of the intracranial arteries.) - General Mental Status: Awake and Alert (Visually tracks. Quite dealyed response but closes eyes upon command. Follows no other commands. Rare eye blink.) Ability to Follow Directions: Poor Head/Neck Control: Fair - Hearing Hearing: Normal Hearing Aide: No With Patient: No Speech Evaluation - Communication Primary Language: YI Communication: Yes: Non-Communicable Oral Expression Ability: Yes: Non-Verbal (vocal. Snorts. Weak velopharyngeal closure suspected.) - Speech Production Apraxia: Yes - Speech Characteristics Voice Phonatory-based Quality: Yes: Normal - Language/Auditory Comprehension Observation: Able to respond to yes/no queries: No, Comprehends Conversational Speech: No (not demonstrated) - Swallow Evaluation/Bedside Assessment Current Nutritional Intake: NPO Oral Secretions: Yes: WFL Facial Symmetry at Rest: Symmetrical Jaw Position: Open at Rest Against Resistance Opening: Weak Against Resistance Closing: Weak Lingual Movement: Symmetric (weak. Hangs out of open mouth.) Lingual Speed of Movement: Reduced Lingual Movement Strgth Against Opposition: Reduced Velopharyngeal Movement: Reduced Elevation Laryngeal Elevation: Impaired Laryngeal Movement: Reduced Excursion, Labored,delay initiation, Reduced Velocity Needs Assistance: Yes Rate of Intake: Slow/Holding Labial Seal: Impaired Bilaterally (Open mouth posture resulting in dryness of oral mucosa. Bilabial closure is weak but achieved. Benefits from gentle upward pressure to chin/mandible to achieve bilabial closure with delayed, fairly brisk swallow. Liquid spills out of her mouth without tactile stim/jaw support) A-P Transit: WFL Timing of Swallow: Delayed Coughing/Throat Clear: No (with thick liquid on tsp.) Change in Voice: No Recommendations - Speech Evaluation, Impression/Plan Impression: Aphasia. Non verbal. Was verbal, imprecise speech in April. Open mouth posture resulting in dryness of oral mucosa. Bilabial closure is weak but achieved. Benefits from gentle upward pressure to chin/mandible to achieve bilabial closure with delayed, fairly brisk swallow. Liquid spills out of her mouth without tactile stim/jaw support - Disposition Discharge to: Long Term Facility - Dysphagia Impressions/Plan Dysphagia Impressions: Mild Impairment, Moderate Impairment, Risk of Aspiration *Silent aspiration: cannot be R/O at bedside Dysphagia Treatment Plan: Small Bites, Clear Pocket Food, Trial Feedings, Safe Rate, 1/2 tsp. at a time, Elevate HOB during feed, Other (Gentle upward pressure to chin/mandible to achieve bilabial closure with delayed, fairly brisk swallow. Liquid spills out of her mouth without tactile stim/jaw support) Recommendations: Other (Monitor congestion/suppicient PO acceptance.Staff educated on feeding technique) - Recommendations Diet Consistency: Dysphagia Pureed (thinned out with soup/gravy) Medication Administration: Crushed with applesauce (maybe in nectar thick liquid.gentle upward pressure to chin/mandible to achieve bilabial closure with delayed, fairly brisk swallow. Liquid spills out of her mouth without tactile stim/jaw support) Liquids: Joffre Thick (on tsp.gentle upward pressure to chin/mandible to achieve bilabial closure with delayed, fairly brisk swallow. Liquid spills out of her mouth without tactile stim/jaw support) Supplement: Ensure Pudding (thinned out with milk.gentle upward pressure to chin /mandible to achieve bilabial closure with delayed, fairly brisk swallow. Liquid spills out of her mouth without tactile stim/jaw support), Other (Ensure compact TID)
[2018-08-04] MEDS ORDERED: ACETAMINOPHEN 325 MG TABLET (FP) PO PRN (17:06)
[2018-08-04] MEDS: DEXTROSE 5%-WATER - 1,000 ML IV SCH (18:47)
[2018-08-04] MEDS: ATORVASTATIN CA 10 MG TABLET (FP) PO SCH (21:12)
[2018-08-04] MEDS: SENNOSIDES 8.6MG TABLET (FP) PO SCH (21:12)
[2018-08-05 07:56] LABS: ALBUMIN 2.3 g/dl (3.4-5.0); ALK PHOS 71 U/L (45-117); ANION GAP 11 MMOL/L (8-16); BILIRUBIN,TOTAL 0.4 mg/dL (0.2-1); BLOOD UREA NITROGEN 25 mg/dL (7-18); CALCIUM 7.8 mg/dL (8.5-10.1); CHLORIDE 114 mmol/L (98-107); CO2 19 mmol/L (21-32); CREATININE 0.7 mg/dL (0.55-1.3); GLUCOSE,RANDOM 132 mg/dL (74-106); POTASSIUM 3.3 mmol/L (3.5-5.1); SGOT/AST 20 U/L (15-37); SGPT/ALT 30 U/L (13-61); SODIUM 144 mmol/L (136-145); TOT PROT 5.4 g/dl (6.4-8.2)
[2018-08-05] MEDS: DEXTROSE 5%-WATER - 1,000 ML IV SCH (08:21)
[2018-08-05] MEDS ORDERED: cefTRIAXone SODIUM 1 GM VIAL ONE (09:03)
[2018-08-05] MEDS ORDERED: DEXTROSE 5%-WATER - 50 ML IVPB ONE (09:03)
[2018-08-05] MEDS: PANTOPRAZOLE SOD 40 MG SUSPENSION PACKET PO SCH (09:21)
[2018-08-05] MEDS: CEFTRIAXONE 1 GM in DEXTROSE 5%-WATER - 50 ML IVPB SCH (09:21)
[2018-08-05] MEDS: CLOPIDOGREL BISULFATE 75 MG TABLET (FP) PO SCH (09:21)
[2018-08-05] MEDS: ASPIRIN COATED 81 MG TABLET.EC PO SCH (09:21)
--- NOTE | 2018-08-05 10:34 | CON.CARD ---
Cardiology Consult (text) - Consultation Consultation Note: cc: failure to thrive pt with dementia, not communicating, hx from charts hpi: 83 f hx dementia, htn, hld, cva, here with failure to thrive. Had not been eating at home and seemed more lethargic so brought to ER. Found to be dehydrated wit high Na. Improving with ivfs. pmh: per hpi psh: hip, knee social: no tob fam: unknown ros: unable to obtain 2/2 dementia meds: Ambulatory Orders Acetaminophen [Tylenol .Regular Strength -] 650 mg PO Q6H PRN #0 tablet Albuterol 2.5/Ipratropium 0.5 [Duoneb -] 1 amp NEB Q6H PRN #0 amp 09/03/16 Amino Acids/Protein Hydrolys [Prostat Sugar-Free Packet -] 30 ml PO BID Aspirin Coated [Ecotrin -] 81 mg PO DAILY tablet.ec 10/20/16 Atorvastatin Ca [Lipitor] 10 mg PO HS tablet 10/20/16 Docusate Sodium [Colace -] 300 mg PO HS capsule 10/20/16 Ascorbic Acid [Vitamin C] 500 mg PO DAILY 05/11/18 Clopidogrel Bisulfate [Plavix] 75 mg PO DAILY 05/11/18 Pantoprazole Sodium [Protonix] 40 mg PO DAILY 05/11/18 Sennosides [Senokot] 8.6 mg PO HS 05/11/18 Simethicone 80 mg PO TID PRN 05/11/18 Metoclopramide HCl [Reglan -] 5 mg PO TIDAC #20 tablet MDD 3 05/17/18 Potassium Chloride [Potassium Chloride Oral Liquid] 40 meq PO DAILY #30 ml 05/17 Simethicone Liquid [Mylicon Liquid -] 80 mg PO QID #20 ml 05/17/18 metroNIDAZOLE [Flagyl -] 250 mg PO TID #30 tablet MDD 3 05/17/18 Megestrol Acetate Oral Susp [Megace Liquid -] 400 mg PO DAILY 08/01/18 pe: Vital Signs Period Temp Pulse Resp BP Sys/Hancock Pulse Ox Last 24 Hr 98.0 F-99.4 F 74-81 18-20 98-108/52-70 100 nad no jvd rrr s1s2 no mrg no le e/c/c abd nd pos bs no jaudice diaphoresis awake alert confused pos dp pt no carotid bruits cta bl anteriorly, poor eff Laboratory Last Values WBC 4.8 K/mm3 (4.0-10.0) 08/04/18 05:30 RBC 3.41 M/mm3 (3.60-5.2) L 08/04/18 05:30 Hgb 9.9 GM/dL (10.7-15.3) L 08/04/18 05:30 Hct 32.1 % (32.4-45.2) L 08/04/18 05:30 MCV 94.1 fl (80-96) 08/04/18 05:30 MCH 29.0 pg (25.7-33.7) 08/04/18 05:30 MCHC 30.8 g/dl (32.0-36.0) L 08/04/18 05:30 RDW 15.3 % (11.6-15.6) 08/04/18 05:30 Plt Count 165 K/MM3 (134-434) 08/04/18 05:30 MPV 9.9 fl (7.5-11.1) 08/04/18 05:30 Absolute Neuts (auto) 5.1 K/mm3 (1.5-8.0) 08/02/18 06:00 Neutrophils % 69.1 % (42.8-82.8) 08/02/18 06:00 Lymphocytes % 24.6 % (8-40) D 08/02/18 06:00 Monocytes % 3.3 % (3.8-10.2) L 08/02/18 06:00 Eosinophils % 2.6 % (0-4.5) D 08/02/18 06:00 Basophils % 0.4 % (0-2.0) 08/02/18 06:00 Nucleated RBC % 0 % (0-0) 08/02/18 06:00 PT with INR 15.30 SEC (9.7-13.0) H 08/01/18 17:19 INR 1.29 (0.83-1.09) H 08/01/18 17:19 PTT (Actin FS) 27.1 SECONDS (25.2-36.5) 08/01/18 17:19 VBG pH 7.40 (7.32-7.42) 08/01/18 17:09 POC VBG pCO2 39.6 mmHg (38-52) 08/01/18 17:09 POC VBG pO2 47.1 mmHg (28-48) 08/01/18 17:09 Mixed VBG HCO3 24.1 meq/L (19-25) 08/01/18 17:09 Sodium 144 mmol/L (136-145) 08/05/18 05:30 Potassium 3.3 mmol/L (3.5-5.1) L 08/05/18 05:30 Chloride 114 mmol/L (98-107) H 08/05/18 05:30 Carbon Dioxide 19 mmol/L (21-32) L 08/05/18 05:30 Anion Gap 11 MMOL/L (8-16) 08/05/18 05:30 BUN 25 mg/dL (7-18) H 08/05/18 05:30 Creatinine 0.7 mg/dL (0.55-1.3) 08/05/18 05:30 Creat Clearance w eGFR > 60 (>60) 08/05/18 05:30 Random Glucose 132 mg/dL (74-106) H 08/05/18 05:30 Lactic Acid 1.4 mmol/L (0.4-2.0) 08/01/18 17:09 Calcium 7.8 mg/dL (8.5-10.1) L 08/05/18 05:30 Phosphorus 3.6 mg/dL (2.5-4.9) 08/02/18 06:00 Magnesium 2.5 mg/dL (1.8-2.4) H 08/02/18 06:00 Total Bilirubin 0.4 mg/dL (0.2-1) 08/05/18 05:30 AST 20 U/L (15-37) 08/05/18 05:30 ALT 30 U/L (13-61) 08/05/18 05:30 Alkaline Phosphatase 71 U/L (45-117) 08/05/18 05:30 Troponin I < 0.02 ng/ml (0.00-0.05) 08/01/18 17:09 Total Protein 5.4 g/dl (6.4-8.2) L 08/05/18 05:30 Albumin 2.3 g/dl (3.4-5.0) L 08/05/18 05:30 TSH 0.90 uIU/ml (0.358-3.74) 08/01/18 17:09 Urine Color Dkyellow 08/01/18 18:14 Urine Appearance Clear 08/01/18 18:14 Urine pH 5.0 (5.0-8.0) 08/01/18 18:14 Ur Specific [place] 1.021 (1.010-1.035) 08/01/18 18:14 Urine Protein Negative (NEGATIVE) 08/01/18 18:14 Urine Glucose (UA) Negative (NEGATIVE) 08/01/18 18:14 Urine Ketones Negative (NEGATIVE) 08/01/18 18:14 Urine Blood Negative (NEGATIVE) 08/01/18 18:14 Urine Nitrite Positive (NEGATIVE) 08/01/18 18:14 Urine Bilirubin Negative (<2.0 mg/dL) 08/01/18 18:14 Urine Urobilinogen 2.0 mg/dL (0.2-1.0) H 08/01/18 18:14 Ur Leukocyte Esterase Trace (NEGATIVE) 08/01/18 18:14 Urine WBC (Auto) 9 /hpf (3-5) 08/01/18 18:14 Urine RBC (Auto) None /hpf (0-3) 08/01/18 18:14 Urine Bacteria Many /hpf (NONE SEEN) 08/01/18 18:14 Urine Mucus Rare 08/01/18 18:14 Ur Random Sodium 38 MMOL/L (40-220) L 08/02/18 01:00 Ur Random Potassium 52.0 MMOL/L (25-125) 08/02/18 01:00 Ur Random Chloride 42 MMOL/L (110-250) L 08/02/18 01:00 cxr: clear lungs echo 08/2016: tds, nl lvef, rv tds, no sig valve path, rvsp 30-40 tele: sr, pacs ecg: sr, nl intervals, no ischemic changes a/p: 83 f hx dementia, htn, hld, cva, here with failure to thrive. hypernatremia, win: -renal following, labs improved with ivfs htn: -controlled off meds hld: -cont statin cva: -cont statin, asa cardiac sandoval stable, can dc tele
--- NOTE | 2018-08-05 11:54 | PN ---
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, Physician Chief Complaint: AWAKE MORE ALERT TODAY NO EVENTS OVERNIGHT - Current Medication List Current Medications: Active Medications Acetaminophen (Tylenol -) 650 mg PO Q6H PRN PRN Reason: FEVER Aspirin (Ecotrin -) 81 mg PO DAILY [facility] Last Admin: 08/05/18 09:21 Dose: 81 mg Atorvastatin Calcium (Lipitor -) 10 mg PO HS [facility] Last Admin: 08/04/18 21:12 Dose: 10 mg Clopidogrel Bisulfate (Plavix -) 75 mg PO DAILY [facility] Last Admin: 08/05/18 09:21 Dose: 75 mg Ceftriaxone Sodium 1 gm/ (Dextrose) 50 mls @ 100 mls/hr IVPB DAILY [facility]; Protocol Last Admin: 08/05/18 09:21 Dose: 100 mls/hr Dextrose (D5w -) 1,000 mls @ 83 mls/hr IV ASDIR [facility] Last Admin: 08/05/18 08:21 Dose: 83 mls/hr Potassium Chloride (Potassium Chloride 10 Meq Premix Ivpb -) 10 meq in 100 mls @ 100 mls/hr IVPB Q60M [facility] Stop: 08/05/18 13:29 Pantoprazole Sodium (Protonix Packets For Oral Suspension -) 40 mg PO DAILY [facility] Last Admin: 08/05/18 09:21 Dose: 40 mg Senna (Senna -) 2 tab PO HS [facility] Last Admin: 08/04/18 21:12 Dose: 2 tab - Objective Vital Signs: Vital Signs Temperature 98.3 F 08/05/18 09:03 Pulse Rate 81 08/05/18 09:03 Respiratory Rate 18 08/05/18 09:03 Blood Pressure 98/52 L 08/05/18 09:03 O2 Sat by Pulse Oximetry (%) 100 08/04/18 21:00 Constitutional: Yes: Other Eyes: Yes: WNL HENT: Yes: Other (TONGUE HYPERTROPHY) Cardiovascular: Yes: Regular Rate and Rhythm Respiratory: Yes: Diminished Gastrointestinal: Yes: Soft Genitourinary: Yes: Incontinence Musculoskeletal: Yes: Muscle Weakness Extremities: Yes: Other Edema: Yes Integumentary: Yes: Pressure Ulcer, Rash, Venous Stasis Changes Wound/Incision: Yes: Other Neurological: Yes: Aphasia, Ataxia, Confusion ...Motor Strength: LUE, LLE, RUE, RLE Psychiatric: Yes: Other Labs: CBC, BMP 08/04/18 05:30 08/05/18 05:30 INR, PTT INR 1.29 (0.83-1.09) H 08/01/18 17:19 Problem List - Problems (1) Old cerebrovascular accident (CVA) without late effect Code(s): Z86.73 - PRSNL HX OF TIA (TIA), AND CEREB INFRC W/O RESID DEFICITS (2) Acute metabolic encephalopathy Code(s): G93.41 - METABOLIC ENCEPHALOPATHY (3) Dementia Code(s): F03.90 - UNSPECIFIED DEMENTIA WITHOUT BEHAVIORAL DISTURBANCE (4) Failure to thrive in adult Code(s): R62.7 - ADULT FAILURE TO THRIVE (5) HTN (hypertension) Code(s): I10 - ESSENTIAL (PRIMARY) HYPERTENSION (6) Hypernatremia Code(s): E87.0 - HYPEROSMOLALITY AND HYPERNATREMIA (7) AZALEA (acute kidney injury) Code(s): N17.9 - ACUTE KIDNEY FAILURE, UNSPECIFIED (8) Abdominal distension Code(s): R14.0 - ABDOMINAL DISTENSION (GASEOUS) (9) Anemia Code(s): D64.9 - ANEMIA, UNSPECIFIED (10) Functional quadriplegia Code(s): R53.2 - FUNCTIONAL QUADRIPLEGIA (11) Hemiplegia affecting dominant side Code(s): G81.90 - HEMIPLEGIA, UNSPECIFIED AFFECTING UNSPECIFIED SIDE (12) History of hip replacement Code(s): Z96.649 - PRESENCE OF UNSPECIFIED ARTIFICIAL HIP JOINT Assessment/Plan SEVERE CEREBRAL DEGENERATION WITH TOXIC METABOLIC ENCEPHALOPATHY UTI/HYPERNATREMIA, FAILURE TO THRIVE. TREATING CONSERVATIVELY D/W HER SON GAUTAM HE IVF AND IV CEFTRIAXONE FOR NOW IF PATIENT IS MORE ALERT WILL DISCUSS FEEDING TUBE PLACEMENT. HOWEVER, AT THIS POINT WITH HER POOR OVERALL QUALITY OF LIFE PATIENT SHOULD BE PLACED IN HOSPICE/PALLIATIVE CARE. STARTING DYSPHAGIA PUREE DIET WITH HONEY THICK LIQUIDS [facility]
--- NOTE | 2018-08-05 13:29 | PN ---
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, Physician History of Present Illness: Pt seen and examined at bedside. She remains confused. - Current Medication List Current Medications: Active Medications Acetaminophen (Tylenol -) 650 mg PO Q6H PRN PRN Reason: FEVER Aspirin (Ecotrin -) 81 mg PO DAILY [facility] Last Admin: 08/05/18 09:21 Dose: 81 mg Atorvastatin Calcium (Lipitor -) 10 mg PO HS [facility] Last Admin: 08/04/18 21:12 Dose: 10 mg Clopidogrel Bisulfate (Plavix -) 75 mg PO DAILY [facility] Last Admin: 08/05/18 09:21 Dose: 75 mg Ceftriaxone Sodium 1 gm/ (Dextrose) 50 mls @ 100 mls/hr IVPB DAILY [facility]; Protocol Last Admin: 08/05/18 09:21 Dose: 100 mls/hr Dextrose (D5w -) 1,000 mls @ 83 mls/hr IV ASDIR [facility] Last Admin: 08/05/18 08:21 Dose: 83 mls/hr Potassium Chloride (Potassium Chloride 10 Meq Premix Ivpb -) 10 meq in 100 mls @ 100 mls/hr IVPB Q60M [facility] Stop: 08/05/18 13:29 Pantoprazole Sodium (Protonix Packets For Oral Suspension -) 40 mg PO DAILY [facility] Last Admin: 08/05/18 09:21 Dose: 40 mg Senna (Senna -) 2 tab PO [facility] Last Admin: 08/04/18 21:12 Dose: 2 tab - Objective Vital Signs: Vital Signs Temperature 98.3 F 08/05/18 09:03 Pulse Rate 81 08/05/18 09:03 Respiratory Rate 18 08/05/18 09:03 Blood Pressure 98/52 L 08/05/18 09:03 O2 Sat by Pulse Oximetry (%) 100 08/04/18 21:00 Constitutional: Yes: Calm Eyes: Yes: Conjunctiva Clear HENT: Yes: Atraumatic Neck: Yes: Supple Cardiovascular: Yes: S1, S2 Respiratory: Yes: CTA Bilaterally Gastrointestinal: Yes: Normal Bowel Sounds, Soft, Abdomen, Obese Genitourinary: Yes: Incontinence Musculoskeletal: Yes: Muscle Weakness Edema: No Neurological: Yes: Confusion Labs: CBC, BMP 08/04/18 05:30 08/05/18 05:30 INR, PTT INR 1.29 (0.83-1.09) H 08/01/18 17:19 Problem List - Problems (1) Acute metabolic encephalopathy Code(s): G93.41 - METABOLIC ENCEPHALOPATHY (2) Dementia Code(s): F03.90 - UNSPECIFIED DEMENTIA WITHOUT BEHAVIORAL DISTURBANCE (3) Failure to thrive in adult Code(s): R62.7 - ADULT FAILURE TO THRIVE (4) HTN (hypertension) Code(s): I10 - ESSENTIAL (PRIMARY) HYPERTENSION (5) Hypernatremia Code(s): E87.0 - HYPEROSMOLALITY AND HYPERNATREMIA (6) AZALEA (acute kidney injury) Code(s): N17.9 - ACUTE KIDNEY FAILURE, UNSPECIFIED Assessment/Plan Current Medications Generic Name Dose Route Start Last Admin Trade Name Freq PRN Reason Stop Dose Admin Acetaminophen 650 mg 08/04/18 17:06 Tylenol - PO Q6H PRN FEVER Aspirin 81 mg 08/05/18 10:00 08/05/18 09:21 Ecotrin - PO 81 mg DAILY AIDEE Administration Atorvastatin Calcium 10 mg 08/04/18 22:00 08/04/18 21:12 Lipitor - PO 10 mg HS AIDEE Administration Clopidogrel Bisulfate 75 mg 08/05/18 10:00 08/05/18 09:21 Plavix - PO 75 mg DAILY AIDEE Administration Ceftriaxone Sodium 1 gm/ 50 mls @ 100 mls/hr 08/03/18 10:00 08/05/18 09:21 Dextrose IVPB 100 mls/hr DAILY AIDEE Administration Protocol Dextrose 1,000 mls @ 83 mls/hr 08/04/18 11:49 08/05/18 08:21 D5w - IV 83 mls/hr ASDIR AIDEE Administration Potassium Chloride 10 meq in 100 mls @ 100 mls/hr 08/05/18 11:30 Potassium Chloride 10 Meq Premix Ivpb - IVPB 08/05/18 13:29 Q60M AIDEE Pantoprazole Sodium 40 mg 08/05/18 10:00 08/05/18 09:21 Protonix Packets For Oral Suspension - PO 40 mg DAILY AIDEE Administration Senna 2 tab 08/04/18 22:00 08/04/18 21:12 Senna - PO 2 tab HS AIDEE Administration Impression 1. AZALEA 2. UTI 3. CVA 4. HTN 5. hyperlipidemia 6. hypernatremia 7. dementia Plan - will decrease rate of d5w and add potassium to it - repeat labs in am - check mag - overall she is stabilizing - monitor mental status - cont abx for UTI
[2018-08-05] MEDS: KCL 10 MEQ IVPB 10 MEQ/100 ML INFUS.BAG IVPB SCH ×2 (13:34→14:53)
--- NOTE | 2018-08-05 14:17 | PN ---
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, PALLIATIVE CARE NURSE PRACTITIONER - Note 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: Selected Entries 08/04/18 08/04/18 08/04/18 02:33 06:00 10:00 Breakfast Supper NPO Temperature 98.1 F 98.7 F 98.3 F 08/04/18 08/04/18 08/04/18 14:00 17:00 19:30 Breakfast Supper 25% Temperature 99.1 F 98.9 F 08/04/18 08/05/18 08/05/18 21:00 02:01 05:43 Breakfast Supper Temperature 99.4 F 98.0 F 98.5 F 08/05/18 08/05/18 09:03 12:29 Breakfast 25% Supper Temperature 98.3 F Laboratory Tests 08/04/18 05:30 WBC 4.8 Pt reported to have tolerated diet last night, fed by son. This am, she accepted breakfast, with sweetener added with visible genertion of swallow reflex. [employer] reported after eating a good amount, she started hanging head down with less head support and drooling, spitting out a decent amount and started coughing. Breakfast was then terminated. Lunch time, head again down with poor support, tongue out (tongue is baseline). [employer] unable to feed pt with pt not retracting tongue/swallowing. When I tried, she was unable to transfer puree. However, with nectar thick apple juice on teaspoon, tongueretracted, lips closed and pt did trigger a swallow. However, there was a responsive cough with 3 trials attempted. Lunch was terminated. Pt's son was planning on coming in to try to feed her. Staff advised to observe , and hold PO if cough, vocal wetness, SOB noted. Swallowing not as functional as yesterday. Careful monitoring with PO trials. NPO if difficulty. Pt is a full code. End of life decisions regarding code/PEG/hospice/comfort care may need to be readdressed.
[2018-08-05] MEDS ORDERED: PT OWN MED DRAWER 7, Y5N ONE (16:45)
[2018-08-05] MEDS: POTASSIUM CHLORIDE 10 MEQ in DEXTROSE 5%-WATER - 1,000 ML IVPB SCH (18:15)
--- NOTE | 2018-08-05 19:00 | CON.ENT ---
Consult Consult Specialty:: ENT Referred by:: Dr. Navarro Reason for Consultation:: difficulty swallowing - History of Present Illness Chief Complaint: difficulty swallowing History of Present Illness: 83 yo F with hx recurrent TIA's, fell, hip fracture, surgical repair has had gradual progressive trouble swallowing at one point stopped eating completely son modified pts diet to pureed found sometimes pt spit food out, sometimes held in mouth, when swallows sometimes chokes has had speech and swallowing evaluation with Lucita Schneider no modified barium swallow yet has also had GI consultation with Dr. 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 Cardio/Vascular: Yes: HTN, Hyperlipdemia Pulmonary: Yes: Asthma Gastrointestinal: Yes: Other (chronic obstructions) Renal/: Yes: UTI ...: No - Past Surgical History Past Surgical History: Yes: None, Joint Replacement (bilateral knee replacement , left hip surgery) - Alcohol/Substance Use Hx Alcohol Use: No History of Substance Use: reports: None - Smoking History Smoking history: Never smoked Have you smoked in the past 12 months: No - Social History Usual Living Arrangement: Care Home ADL: Support Services History of Recent Travel: No Home Medications - Allergies Allergies/Adverse Reactions: Allergies Allergy/AdvReac Type Severity Reaction Status Date / Time No Known Allergies Allergy Verified 10/14/16 17:12 - Home Medications Home Medications: Ambulatory Orders Acetaminophen [Tylenol .Regular Strength -] 650 mg PO Q6H PRN #0 tablet Albuterol 2.5/Ipratropium 0.5 [Duoneb -] 1 amp NEB Q6H PRN #0 amp 09/03/16 Amino Acids/Protein Hydrolys [Prostat Sugar-Free Packet -] 30 ml PO BID Aspirin Coated [Ecotrin -] 81 mg PO DAILY tablet.ec 10/20/16 Atorvastatin Ca [Lipitor] 10 mg PO HS tablet 10/20/16 Docusate Sodium [Colace -] 300 mg PO HS capsule 10/20/16 Ascorbic Acid [Vitamin C] 500 mg PO DAILY 05/11/18 Clopidogrel Bisulfate [Plavix] 75 mg PO DAILY 05/11/18 Pantoprazole Sodium [Protonix] 40 mg PO DAILY 05/11/18 Sennosides [Senokot] 8.6 mg PO HS 05/11/18 Simethicone 80 mg PO TID PRN 05/11/18 Metoclopramide HCl [Reglan -] 5 mg PO TIDAC #20 tablet MDD 3 05/17/18 Potassium Chloride [Potassium Chloride Oral Liquid] 40 meq PO DAILY #30 ml 05/17 Simethicone Liquid [Mylicon Liquid -] 80 mg PO QID #20 ml 05/17/18 metroNIDAZOLE [Flagyl -] 250 mg PO TID #30 tablet MDD 3 05/17/18 Megestrol Acetate Oral Susp [Megace Liquid -] 400 mg PO DAILY 08/01/18 Family Disease History - Family Disease History Family Disease History: Other: Son (alive and well ) Physical Exam-ENT Vital Signs: Vital Signs Temperature 100 F H 08/05/18 14:00 Pulse Rate 86 08/05/18 14:00 Respiratory Rate 18 08/05/18 14:00 Blood Pressure 109/62 08/05/18 14:00 O2 Sat by Pulse Oximetry (%) 99 08/05/18 09:00 Head: Yes: WNL Face: Yes: WNL Nose: Yes: Septum Deviated, Other (crusting left greater than right) Nasal Passage: Yes: Other (nasal endoscopy: crusting (removed) deviated septum, turbinates edematous inferior and middle; polyp left side, small, no pus, sphenoethmoid recesses clear) Oral/Pharynx: Yes: WNL, Gag Reflex, Other (tongue enlarged, protruding, poor dentition; flexible laryngoscopy shows normal base of tongue, vallecula, epiglottis, aryepiglottic folds and arytenoids. moderate postglottic edema, true and false vocal folds WNL, normal vocal cord mobility with full closure on phonation, symmetric adduction. NO stridor or respiratory distress, nonverbal but vocalization produces relatively clear voice. NO pooling noted) Outer Ear: Yes: WNL Ear Canal: Yes: WNL Tympanic Membrane: Yes: WNL Neck: Yes: WNL, Other (no mass, salivary glands WNL) Respiratory: Yes: WNL Imaging - Results Cat Scan: Report Reviewed, Image Reviewed (deviated septum, osteoma ethmoid sinus) Problem List - Problems (1) Dysphagia Assessment/Plan: dysphagia multifactorial, likely related to CVA some macroglossia and holding of food in mouth some choking suggesting risk of aspiration Recommend: aspiration precautions dysphagia diet as per Lucita Jennie modified barium swallow as per Lucita Jennie hope for improved swallowing function and ability to maintain adequate nutritional intake po if not then consideration of alternate feeding methods, including PEG, should be considered Code(s): R13.10 - DYSPHAGIA, UNSPECIFIED Qualifiers: Dysphagia type: oropharyngeal phase Qualified Code(s): R13.12 - Dysphagia, oropharyngeal phase (2) Rhinitis Assessment/Plan: chronic rhinitis - drying from oxygen and some crusting, cleaned mild deviated septum 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
[2018-08-05] MEDS: SENNOSIDES 8.6MG TABLET (FP) PO SCH (21:09)
[2018-08-05] MEDS: ATORVASTATIN CA 10 MG TABLET (FP) PO SCH (21:09)
[2018-08-05] MEDS: NYSTATIN POWDER 100,000 UNITS/GM - 15 GM TOPICAL POWDER TP SCH (21:13)
[2018-08-05] MEDS: SODIUM CHLORIDE NASAL SPRAY 44 ML BOTTLE NS SCH (21:14)
[2018-08-06] MEDS: POTASSIUM CHLORIDE 10 MEQ in DEXTROSE 5%-WATER - 1,000 ML IVPB SCH ×3 (06:35→22:00)
[2018-08-06 08:00] LABS: ALBUMIN 2.2 g/dl (3.4-5.0); ALK PHOS 71 U/L (45-117); ANION GAP 7 MMOL/L (8-16); BILIRUBIN,TOTAL 0.2 mg/dL (0.2-1); BLOOD UREA NITROGEN 18 mg/dL (7-18); CALCIUM 7.6 mg/dL (8.5-10.1); CHLORIDE 112 mmol/L (98-107); CO2 22 mmol/L (21-32); CREATININE 0.6 mg/dL (0.55-1.3); GLUCOSE,RANDOM 94 mg/dL (74-106); MAGNESIUM 1.6 mg/dL (1.8-2.4); POTASSIUM 3.4 mmol/L (3.5-5.1); SGOT/AST 19 U/L (15-37); SGPT/ALT 27 U/L (13-61); SODIUM 141 mmol/L (136-145); TOT PROT 5.1 g/dl (6.4-8.2)
[2018-08-06] MEDS ORDERED: DEXTROSE 5%-WATER - 50 ML IVPB ONE (09:00)
[2018-08-06] MEDS ORDERED: cefTRIAXone SODIUM 1 GM VIAL ONE (09:00)
[2018-08-06] MEDS ORDERED: PT OWN MED DRAWER 7, Y5N ONE ×2 (09:00→21:04)
[2018-08-06] MEDS: PANTOPRAZOLE SOD 40 MG SUSPENSION PACKET PO SCH (09:58)
[2018-08-06] MEDS: CEFTRIAXONE 1 GM in DEXTROSE 5%-WATER - 50 ML IVPB SCH (09:58)
[2018-08-06] MEDS: CLOPIDOGREL BISULFATE 75 MG TABLET (FP) PO SCH (09:58)
[2018-08-06] MEDS: ASPIRIN COATED 81 MG TABLET.EC PO SCH (09:58)
[2018-08-06] MEDS: SODIUM CHLORIDE NASAL SPRAY 44 ML BOTTLE NS SCH ×2 (09:59→21:18)
[2018-08-06] MEDS: NYSTATIN POWDER 100,000 UNITS/GM - 15 GM TOPICAL POWDER TP SCH ×2 (09:59→21:18)
--- NOTE | 2018-08-06 11:04 | PN ---
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, Physician Chief Complaint: AMS UTI History of Present Illness: NAD more awake ams 2/2 to metabolic encephalopathy Palliative care on board due to poor prognosis - Current Medication List Current Medications: Active Medications Acetaminophen (Tylenol -) 650 mg PO Q6H PRN PRN Reason: FEVER Last Admin: 08/05/18 14:00 Dose: 650 mg Aspirin (Ecotrin -) 81 mg PO DAILY [facility] Last Admin: 08/06/18 09:58 Dose: 81 mg Atorvastatin Calcium (Lipitor -) 10 mg PO HS [facility] Last Admin: 08/05/18 21:09 Dose: 10 mg Clopidogrel Bisulfate (Plavix -) 75 mg PO DAILY [facility] Last Admin: 08/06/18 09:58 Dose: 75 mg Ceftriaxone Sodium 1 gm/ (Dextrose) 50 mls @ 100 mls/hr IVPB DAILY [facility]; Protocol Last Admin: 08/06/18 09:58 Dose: 100 mls/hr Potassium Chloride 10 meq/ (Dextrose) 1,005 mls @ 60 mls/hr IVPB Q16H [facility] Last Admin: 08/06/18 10:03 Dose: 60 mls/hr Nystatin (Nystop Powder -) 1 applic TP BID [facility] Last Admin: 08/06/18 09:59 Dose: 1 applic Pantoprazole Sodium (Protonix Packets For Oral Suspension -) 40 mg PO DAILY [facility] Last Admin: 08/06/18 09:58 Dose: 40 mg Senna (Senna -) 2 tab PO HS [facility] Last Admin: 08/05/18 21:09 Dose: 2 tab Sodium Chloride ([place] Nasal [place] -) 2 spray NS BID [facility] Last Admin: 08/06/18 09:59 Dose: 2 spray - Objective Vital Signs: Vital Signs Temperature 99.3 F 08/06/18 06:00 Pulse Rate 81 08/06/18 06:00 Respiratory Rate 22 H 08/05/18 22:20 Blood Pressure 118/65 08/06/18 06:00 O2 Sat by Pulse Oximetry (%) 100 08/05/18 21:00 Labs: CBC, BMP 08/04/18 05:30 08/06/18 05:40 INR, PTT INR 1.29 (0.83-1.09) H 08/01/18 17:19 Problem List - Problems (1) Acute metabolic encephalopathy Assessment/Plan: 2/2 to UTI -ID on board -On IV abx Code(s): G93.41 - METABOLIC ENCEPHALOPATHY (2) Dementia Assessment/Plan: -chronic Code(s): F03.90 - UNSPECIFIED DEMENTIA WITHOUT BEHAVIORAL DISTURBANCE (3) Dysphagia Code(s): R13.10 - DYSPHAGIA, UNSPECIFIED Qualifiers: Dysphagia type: oropharyngeal phase Qualified Code(s): R13.12 - Dysphagia, oropharyngeal phase (4) Failure to thrive in adult Assessment/Plan: -palliative care -Speech therapy Code(s): R62.7 - ADULT FAILURE TO THRIVE (5) Anemia Assessment/Plan: -H/H trnding down -Iron profile pending -B12+ thyroid profile normal -Stool OB pending -monitor trend Code(s): D64.9 - ANEMIA, UNSPECIFIED (6) UTI (urinary tract infection) Assessment/Plan: -culture: Microbiology 08/01/18 17:19 Blood - Peripheral Venous Blood Culture - Final NO GROWTH AFTER 5 DAYS INCUBATION 08/01/18 17:19 Blood - Peripheral Venous Blood Culture - Final NO GROWTH AFTER 5 DAYS INCUBATION 08/01/18 18:14 Urine - Urine Clean Catch Urine Culture - Final Escherichia Coli 08/02/18 19:20 Stool Clostridium difficile Antigen (ELLIE) - Final 08/02/18 19:20 Stool Clostridium difficile Toxin Assay - Final -ID on board -On IV abx Code(s): N39.0 - URINARY TRACT INFECTION, SITE NOT SPECIFIED Qualifiers: Urinary tract infection type: site unspecified Hematuria presence: without hematuria Qualified Code(s): N39.0 - Urinary tract infection, site not specified Assessment/Plan see problem list
--- NOTE | 2018-08-06 11:59 | PN ---
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, Physician History of Present Illness: Pt seen and examined at bedside. She is starting to eat however needs one to one feeds. - Current Medication List Current Medications: Active Medications Acetaminophen (Tylenol -) 650 mg PO Q6H PRN PRN Reason: FEVER Last Admin: 08/05/18 14:00 Dose: 650 mg Aspirin (Ecotrin -) 81 mg PO DAILY [facility] Last Admin: 08/06/18 09:58 Dose: 81 mg Atorvastatin Calcium (Lipitor -) 10 mg PO HS [facility] Last Admin: 08/05/18 21:09 Dose: 10 mg Clopidogrel Bisulfate (Plavix -) 75 mg PO DAILY [facility] Last Admin: 08/06/18 09:58 Dose: 75 mg Ceftriaxone Sodium 1 gm/ (Dextrose) 50 mls @ 100 mls/hr IVPB DAILY [facility]; Protocol Last Admin: 08/06/18 09:58 Dose: 100 mls/hr Potassium Chloride 10 meq/ (Dextrose) 1,005 mls @ 60 mls/hr IVPB Q16H [facility] Last Admin: 08/06/18 10:03 Dose: 60 mls/hr Potassium Chloride (Potassium Chloride 10 Meq Premix Ivpb -) 10 meq in 100 mls @ 100 mls/hr IVPB Q60M [facility] Stop: 08/06/18 13:59 Nystatin (Nystop Powder -) 1 applic TP BID [facility] Last Admin: 08/06/18 09:59 Dose: 1 applic Pantoprazole Sodium (Protonix Packets For Oral Suspension -) 40 mg PO DAILY [facility] Last Admin: 08/06/18 09:58 Dose: 40 mg Potassium Chloride (Potassium Chloride Oral Liquid) 20 meq PO ONCE ONE Stop: 08/06/18 11:57 Senna (Senna -) 2 tab PO HS [facility] Last Admin: 08/05/18 21:09 Dose: 2 tab Sodium Chloride ([place] Nasal [place] -) 2 spray NS BID [facility] Last Admin: 08/06/18 09:59 Dose: 2 spray - Objective Vital Signs: Vital Signs Temperature 99.3 F 08/06/18 06:00 Pulse Rate 81 08/06/18 06:00 Respiratory Rate 22 H 08/05/18 22:20 Blood Pressure 118/65 08/06/18 06:00 O2 Sat by Pulse Oximetry (%) 100 08/05/18 21:00 Constitutional: Yes: Calm Eyes: Yes: Conjunctiva Clear HENT: Yes: Atraumatic Neck: Yes: Supple Cardiovascular: Yes: S1, S2 Respiratory: Yes: CTA Bilaterally Gastrointestinal: Yes: Soft Genitourinary: Yes: Incontinence Musculoskeletal: Yes: Muscle Weakness Edema: No Neurological: Yes: Confusion, Other (awake) Labs: CBC, BMP 08/04/18 05:30 08/06/18 05:40 INR, PTT INR 1.29 (0.83-1.09) H 08/01/18 17:19 Problem List - Problems (1) Acute metabolic encephalopathy Code(s): G93.41 - METABOLIC ENCEPHALOPATHY (2) Dementia Code(s): F03.90 - UNSPECIFIED DEMENTIA WITHOUT BEHAVIORAL DISTURBANCE (3) Failure to thrive in adult Code(s): R62.7 - ADULT FAILURE TO THRIVE (4) HTN (hypertension) Code(s): I10 - ESSENTIAL (PRIMARY) HYPERTENSION (5) Hypernatremia Code(s): E87.0 - HYPEROSMOLALITY AND HYPERNATREMIA (6) AZALEA (acute kidney injury) Code(s): N17.9 - ACUTE KIDNEY FAILURE, UNSPECIFIED Assessment/Plan Current Medications Generic Name Dose Route Start Last Admin Trade Name Freq PRN Reason Stop Dose Admin Acetaminophen 650 mg 08/04/18 17:06 08/05/18 14:00 Tylenol - PO 650 mg Q6H PRN Administration FEVER Aspirin 81 mg 08/05/18 10:00 08/06/18 09:58 Ecotrin - PO 81 mg DAILY AIDEE Administration Atorvastatin Calcium 10 mg 08/04/18 22:00 08/05/18 21:09 Lipitor - PO 10 mg HS AIDEE Administration Clopidogrel Bisulfate 75 mg 08/05/18 10:00 08/06/18 09:58 Plavix - PO 75 mg DAILY A[facility]EE Administration Ceftriaxone Sodium 1 gm/ 50 mls @ 100 mls/hr 08/03/18 10:00 08/06/18 09:58 Dextrose IVPB 100 mls/hr DAILY AIDEE Administration Protocol Potassium Chloride 10 meq/ 1,005 mls @ 60 mls/hr 08/05/18 13:45 08/06/18 10: 03 Dextrose IVPB 60 mls/hr Q16H AIDEE Administration Potassium Chloride 10 meq in 100 mls @ 100 mls/hr 08/06/18 12:00 Potassium Chloride 10 Meq Premix Ivpb - IVPB 08/06/18 13:59 Q60M AIDEE Magnesium Sulfate 2 gm 08/06/18 11:57 Magnesium Sulfate IVPB 08/06/18 11:58 ONCE ONE Nystatin 1 applic 08/05/18 22:00 08/06/18 09:59 Nystop Powder - TP 1 applic BID AIDEE Administration Pantoprazole Sodium 40 mg 08/05/18 10:00 08/06/18 09:58 Protonix Packets For Oral Suspension - PO 40 mg DAILY [facility]EE Administration Potassium Chloride 20 meq 08/06/18 11:56 Potassium Chloride Oral Liquid PO 08/06/18 11:57 ONCE ONE Senna 2 tab 08/04/18 22:00 08/05/18 21:09 Senna - PO 2 tab HS AIDEE Administration Sodium Chloride 2 spray 08/05/18 22:00 08/06/18 09:59 [place] Nasal [place] - NS 2 spray BID AIDEE Administration Impression 1. AZALEA 2. UTI 3. CVA 4. HTN 5. hyperlipidemia 6. hypernatremia 7. dementia Plan - decrease fluids further - monitor lytes - will need to encourage PO intake - replace mag - one to one feeds - overall she is stabilizing - cont abx for UTI
--- NOTE | 2018-08-06 12:12 | PN ---
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 (short form) - Note 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: s: does not communicate, no overnight events, appears comfortable Current Medications Generic Name Dose Route Start Last Admin Trade Name Freq PRN Reason Stop Dose Admin Acetaminophen 650 mg 08/04/18 17:06 08/05/18 14:00 Tylenol - PO 650 mg Q6H PRN Administration FEVER Aspirin 81 mg 08/05/18 10:00 08/06/18 09:58 Ecotrin - PO 81 mg DAILY AIDEE Administration Atorvastatin Calcium 10 mg 08/04/18 22:00 08/05/18 21:09 Lipitor - PO 10 mg HS AIDEE Administration Clopidogrel Bisulfate 75 mg 08/05/18 10:00 08/06/18 09:58 Plavix - PO 75 mg DAILY A[facility]EE Administration Ceftriaxone Sodium 1 gm/ 50 mls @ 100 mls/hr 08/03/18 10:00 08/06/18 09:58 Dextrose IVPB 100 mls/hr DAILY A[facility]EE Administration Protocol Potassium Chloride 10 meq/ 1,005 mls @ 60 mls/hr 08/05/18 13:45 08/06/18 10: 03 Dextrose IVPB 60 mls/hr Q16H [facility] Administration Potassium Chloride 10 meq in 100 mls @ 100 mls/hr 08/06/18 12:00 Potassium Chloride 10 Meq Premix Ivpb - IVPB 08/06/18 13:59 Q60M AIDEE Magnesium Sulfate 2 gm 08/06/18 12:30 Magnesium Sulfate IVPB 08/06/18 12:31 ONCE ONE Nystatin 1 applic 08/05/18 22:00 08/06/18 09:59 Nystop Powder - TP 1 applic BID [facility]EE Administration Pantoprazole Sodium 40 mg 08/05/18 10:00 08/06/18 09:58 Protonix Packets For Oral Suspension - PO 40 mg DAILY A[facility]EE Administration Potassium Chloride 20 meq 08/06/18 12:20 Potassium Chloride Oral Liquid PO 08/06/18 12:21 ONCE ONE Senna 2 tab 08/04/18 22:00 08/05/18 21:09 Senna - PO 2 tab HS AIDEE Administration Sodium Chloride 2 spray 08/05/18 22:00 08/06/18 09:59 [place] Nasal [place] - NS 2 spray BID AIDEE Administration pe: Vital Signs Period Temp Pulse Resp BP Sys/[place] Pulse Ox Last 24 Hr 99.3 F-100 F 81-88 18-22 109-164/62-84 100 nad no jvd rrr s1s2 no mrg no le e/c/c abd nd pos bs no jaudice diaphoresis awake alert confused cta bl anteriorly, poor eff CBC, BMP 08/04/18 05:30 08/06/18 05:40 cxr: clear lungs echo 08/2016: tds, nl lvef, rv tds, no sig valve path, rvsp 30-40 ecg: sr, nl intervals, no ischemic changes a/p: 83 f hx dementia, htn, hld, cva, here with failure to thrive. hypernatremia, win: -renal following, labs improved with ivfs htn: -controlled off meds hld: -cont statin cva: -cont statin, asa cardiac sandoval stable, no contraindications to PEG if planned
[2018-08-06] MEDS ORDERED: POTASSIUM CHLORIDE ORAL LIQUID 20 MEQ/15 ML PO ONE (12:20)
[2018-08-06] MEDS: KCL 10 MEQ IVPB 10 MEQ/100 ML INFUS.BAG IVPB SCH ×2 (12:25→13:33)
[2018-08-06] MEDS ORDERED: MAGNESIUM SULF 50% (8.12 MEQ/2 ML-1 GM VIAL) IVPB ONE (12:30)
--- NOTE | 2018-08-06 13:40 | PN ---
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 Pt reportedly ate well last night and this am. Provided extensive education to pt's [id number] and son regarding compensatory swallowing strategies. They will additionally be educated by nursing, CULTURE MEDIA LABORATORY ASSISTANT and RD regarding diet and safest means of feeding pt to minimize aspiration risk and maximize nutrition and hydration. Please add Ensure compact TID Monitor PO tolerance, pulmonary/nutritional status, temperature. Pt is a full code. f/u by Palliative care.
[2018-08-06] MEDS ORDERED: MINERAL OIL ENEMA 133 ML ENEMA PR ONE (18:01)
[2018-08-06] MEDS: SENNOSIDES 8.6MG TABLET (FP) PO SCH (21:17)
[2018-08-06] MEDS: ATORVASTATIN CA 10 MG TABLET (FP) PO SCH (21:17)
[2018-08-07] MEDS ORDERED: PT OWN MED DRAWER 7, Y5N ONE ×3 (05:58→09:48)
[2018-08-07] MEDS: POTASSIUM CHLORIDE 10 MEQ in DEXTROSE 5%-WATER - 1,000 ML IVPB SCH ×2 (06:29→23:58)
[2018-08-07] MEDS ORDERED: ACETAMINOPHEN 325 MG TABLET (FP) PO PRN (07:25)
[2018-08-07 08:29] LABS: ALBUMIN 2.4 g/dl (3.4-5.0); ALK PHOS 74 U/L (45-117); ANION GAP 8 MMOL/L (8-16); BILIRUBIN,TOTAL 0.2 mg/dL (0.2-1); BLOOD UREA NITROGEN 14 mg/dL (7-18); CALCIUM 7.9 mg/dL (8.5-10.1); CHLORIDE 110 mmol/L (98-107); CO2 20 mmol/L (21-32); CREATININE 0.6 mg/dL (0.55-1.3); GLUCOSE,RANDOM 109 mg/dL (74-106); POTASSIUM 3.6 mmol/L (3.5-5.1); SGOT/AST 17 U/L (15-37); SGPT/ALT 26 U/L (13-61); SODIUM 138 mmol/L (136-145); TOT PROT 5.6 g/dl (6.4-8.2)
--- NOTE | 2018-08-07 09:15 | PN ---
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, Physician Chief Complaint: AMS UTI History of Present Illness: NAD more awake, eating well as per staff ams 2/2 to metabolic encephalopathy Palliative care on board due to poor prognosis - Current Medication List Current Medications: Active Medications Acetaminophen (Tylenol -) 650 mg PO Q6H PRN PRN Reason: FEVER Aspirin (Ecotrin -) 81 mg PO DAILY [facility] Atorvastatin Calcium (Lipitor -) 10 mg PO HS [facility]EE Clopidogrel Bisulfate (Plavix -) 75 mg PO DAILY [facility] Potassium Chloride 10 meq/ (Dextrose) 1,005 mls @ 60 mls/hr IVPB Q16H [facility] Last Admin: 08/07/18 06:29 Dose: 60 mls/hr Ceftriaxone Sodium 1 gm/ (Dextrose) 50 mls @ 100 mls/hr IVPB DAILY [facility]; Protocol Nystatin (Nystop Powder -) 1 applic TP BID [facility] Last Admin: 08/06/18 21:18 Dose: 1 applic Pantoprazole Sodium (Protonix Packets For Oral Suspension -) 40 mg PO DAILY [facility] Senna (Senna -) 2 tab PO HS [facility] Sodium Chloride ([place] Nasal [place] -) 2 spray NS BID [facility] Last Admin: 08/06/18 21:18 Dose: 2 spray - Objective Vital Signs: Vital Signs Temperature 99.0 F 08/07/18 06:00 Pulse Rate 75 08/07/18 06:00 Respiratory Rate 20 08/07/18 06:00 Blood Pressure 122/67 08/07/18 06:00 O2 Sat by Pulse Oximetry (%) 97 08/06/18 20:50 Constitutional: Yes: Well Nourished, No Distress, Calm Cardiovascular: Yes: Regular Rate and Rhythm Respiratory: Yes: Regular Gastrointestinal: Yes: Normal Bowel Sounds, Soft Musculoskeletal: Yes: Muscle Weakness Edema: No Peripheral Pulses WNL: Yes Neurological: Yes: Lethargy, Pre-Existing Deficit Labs: CBC, BMP 08/04/18 05:30 08/07/18 07:00 INR, PTT INR 1.29 (0.83-1.09) H 08/01/18 17:19 Problem List - Problems (1) Acute metabolic encephalopathy Assessment/Plan: 2/2 to UTI -ID on board -On IV abx Code(s): G93.41 - METABOLIC ENCEPHALOPATHY (2) Dementia Assessment/Plan: -chronic Code(s): F03.90 - UNSPECIFIED DEMENTIA WITHOUT BEHAVIORAL DISTURBANCE (3) Failure to thrive in adult Assessment/Plan: -palliative care -Speech therapy Code(s): R62.7 - ADULT FAILURE TO THRIVE (4) UTI (urinary tract infection) Assessment/Plan: -culture: Microbiology 08/01/18 17:19 Blood - Peripheral Venous Blood Culture - Final NO GROWTH AFTER 5 DAYS INCUBATION 08/01/18 17:19 Blood - Peripheral Venous Blood Culture - Final NO GROWTH AFTER 5 DAYS INCUBATION 08/01/18 18:14 Urine - Urine Clean Catch Urine Culture - Final Escherichia Coli 08/02/18 19:20 Stool Clostridium difficile Antigen (ELLIE) - Final 08/02/18 19:20 Stool Clostridium difficile Toxin Assay - Final -ID on board -On IV abx Code(s): N39.0 - URINARY TRACT INFECTION, SITE NOT SPECIFIED Qualifiers: Urinary tract infection type: site unspecified Hematuria presence: without hematuria Qualified Code(s): N39.0 - Urinary tract infection, site not specified (5) Anemia Assessment/Plan: -H/H trnding down -Iron profile pending -B12+ thyroid profile normal -Stool OB pending -monitor trend Code(s): D64.9 - ANEMIA, UNSPECIFIED Assessment/Plan See problem list Palliative care and speech therapy on board
[2018-08-07] MEDS ORDERED: cefTRIAXone SODIUM 1 GM VIAL ONE (09:49)
[2018-08-07] MEDS ORDERED: DEXTROSE 5%-WATER - 50 ML IVPB ONE ×2 (09:49→20:27)
[2018-08-07] MEDS: CEFTRIAXONE 1 GM in DEXTROSE 5%-WATER - 50 ML IVPB SCH (10:01)
[2018-08-07] MEDS: CLOPIDOGREL BISULFATE 75 MG TABLET (FP) PO SCH (10:05)
[2018-08-07] MEDS: PANTOPRAZOLE SOD 40 MG SUSPENSION PACKET PO SCH (10:05)
[2018-08-07] MEDS: ASPIRIN COATED 81 MG TABLET.EC PO SCH (10:06)
[2018-08-07] MEDS: NYSTATIN POWDER 100,000 UNITS/GM - 15 GM TOPICAL POWDER TP SCH ×2 (10:07→22:39)
[2018-08-07] MEDS: SODIUM CHLORIDE NASAL SPRAY 44 ML BOTTLE NS SCH ×2 (10:10→22:39)
--- NOTE | 2018-08-07 20:04 | HOSP ---
Physical Examination Vital Signs: Vital Signs Temperature 103 F H 08/07/18 19:58 Pulse Rate 74 08/07/18 19:58 Respiratory Rate 21 H 08/07/18 19:58 Blood Pressure 90/48 L 08/07/18 19:58 O2 Sat by Pulse Oximetry (%) 98 08/07/18 09:00 Labs: CBC, BMP 08/04/18 05:30 08/07/18 07:00 Hospitalist Encounter Assessment: Patient with high fever of 103F. Ordered blood cultures, urine cultures, CXR, lactate. Covered empirically with vancomycin and zosyn. Will monitor VS closely. ID consult.
[2018-08-07] MEDS ORDERED: ACETAMINOPHEN 1000 MG/100 ML VIAL (NON FORMULARY) IVPB PRN (20:21)
[2018-08-07] MEDS ORDERED: PIPERACILLIN/TAZOBACTAM 3.375 GM VIAL IVPB ONE (20:27)
[2018-08-07] MEDS ORDERED: PIPERACILLIN/TAZOB 3.375 GM 3.375 GM in DEXTROSE 5%-WATER - 50 ML IVPB ONE (20:30)
[2018-08-07] MEDS ORDERED: VANCOMYCIN 1 GRAM (PRE-DOCKED) 1,000 MG/250 ML BAG IVPB ONE (20:30)
[2018-08-07 20:56] LABS: BASO % 0.5 % (0-2.0); EOS % 2.3 % (0-4.5); HEMATOCRIT 26.6 % (32.4-45.2); HEMOGLOBIN 9.2 GM/dL (10.7-15.3); MCHC 34.4 g/dl (32.0-36.0); MEAN PLT VOLUME 9.4 fl (7.5-11.1); MONO % 5.5 % (3.8-10.2); NEUT % 61.7 % (42.8-82.8); PLATELET COUNT 197 K/MM3 (134-434); RBC 2.96 M/mm3 (3.60-5.2); RDW 14.6 % (11.6-15.6); WHITE BLOOD COUNT 4.6 K/mm3 (4.0-10.0)
[2018-08-07 21:36] LABS: ANION GAP 8 MMOL/L (8-16); BLOOD UREA NITROGEN 13 mg/dL (7-18); CALCIUM 7.3 mg/dL (8.5-10.1); CHLORIDE 105 mmol/L (98-107); CO2 20 mmol/L (21-32); CREATININE 0.6 mg/dL (0.55-1.3); GLUCOSE,RANDOM 140 mg/dL (74-106); POTASSIUM 3.6 mmol/L (3.5-5.1); SODIUM 133 mmol/L (136-145)
[2018-08-07 21:50] LABS: URINE APPEARANCE CLEAR; URINE BILIRUBIN NEGATIVE (<2.0 mg/dL); URINE COLOR LTYELLOW; URINE GLUCOSE (UA) NEGATIVE (NEGATIVE); URINE KETONE NEGATIVE (NEGATIVE); URINE LEUK ESTERASE NEGATIVE (NEGATIVE); URINE NITRITE NEGATIVE (NEGATIVE); URINE PROTEIN NEGATIVE (NEGATIVE); URINE UROBILINOGEN NEGATIVE mg/dL (0.2-1.0)
[2018-08-07] MEDS: SENNOSIDES 8.6MG TABLET (FP) PO SCH (22:40)
[2018-08-07] MEDS: ATORVASTATIN CA 10 MG TABLET (FP) PO SCH (22:40)
[2018-08-08] MEDS ORDERED: PT OWN MED DRAWER 7, Y5N ONE ×3 (04:20→14:44)
[2018-08-08] MEDS: POTASSIUM CHLORIDE 10 MEQ in DEXTROSE 5%-WATER - 1,000 ML IVPB SCH ×3 (04:21→21:26)
[2018-08-08 07:36] LABS: BASO % 0.3 % (0-2.0); HEMATOCRIT 26.6 % (32.4-45.2); HEMOGLOBIN 9.3 GM/dL (10.7-15.3); LYMPH % 26.3 % (8-40); MCH 31.3 pg (25.7-33.7); MCHC 34.8 g/dl (32.0-36.0); MONO % 5.4 % (3.8-10.2); PLATELET COUNT 193 K/MM3 (134-434); RBC 2.95 M/mm3 (3.60-5.2); RDW 14.8 % (11.6-15.6); WHITE BLOOD COUNT 4.7 K/mm3 (4.0-10.0)
[2018-08-08 08:19] LABS: ALBUMIN 2.2 g/dl (3.4-5.0); ALK PHOS 64 U/L (45-117); ANION GAP 7 MMOL/L (8-16); BILIRUBIN,TOTAL 0.5 mg/dL (0.2-1); BLOOD UREA NITROGEN 12 mg/dL (7-18); CALCIUM 7.6 mg/dL (8.5-10.1); CHLORIDE 109 mmol/L (98-107); CO2 21 mmol/L (21-32); CREATININE 0.6 mg/dL (0.55-1.3); GLUCOSE,RANDOM 97 mg/dL (74-106); POTASSIUM 3.7 mmol/L (3.5-5.1); SGOT/AST 15 U/L (15-37); SGPT/ALT 21 U/L (13-61); SODIUM 137 mmol/L (136-145); TOT PROT 5.2 g/dl (6.4-8.2)
[2018-08-08] MEDS ORDERED: DEXTROSE 5%-WATER - 50 ML IVPB ONE ×3 (09:34→17:14)
[2018-08-08] MEDS ORDERED: cefTRIAXone SODIUM 1 GM VIAL ONE (09:34)
[2018-08-08] MEDS: CEFTRIAXONE 1 GM in DEXTROSE 5%-WATER - 50 ML IVPB SCH (09:37)
[2018-08-08] MEDS: CLOPIDOGREL BISULFATE 75 MG TABLET (FP) PO SCH (09:40)
[2018-08-08] MEDS: PANTOPRAZOLE SOD 40 MG SUSPENSION PACKET PO SCH (09:41)
[2018-08-08] MEDS: ASPIRIN COATED 81 MG TABLET.EC PO SCH (09:42)
--- NOTE | 2018-08-08 09:45 | PN ---
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, Physician Chief Complaint: AMS UTI History of Present Illness: NAD more awake ams 2/2 to metabolic encephalopathy Palliative care on board due to poor prognosis febrile overnight CXR and labs unremarkable BC pending already on IV abx was noted to have cough during meals - Current Medication List Current Medications: Active Medications Acetaminophen (Ofirmev Injection -) 1,000 mg IVPB Q6H PRN PRN Reason: FEVER Last Admin: 08/07/18 20:34 Dose: 1,000 mg Aspirin (Ecotrin -) 81 mg PO DAILY [facility] Last Admin: 08/07/18 10:06 Dose: Not Given Atorvastatin Calcium (Lipitor -) 10 mg PO HS [facility] Last Admin: 08/07/18 22:40 Dose: Not Given Clopidogrel Bisulfate (Plavix -) 75 mg PO DAILY [facility] Last Admin: 08/07/18 10:05 Dose: Not Given Potassium Chloride 10 meq/ (Dextrose) 1,005 mls @ 60 mls/hr IVPB Q16H [facility] Last Admin: 08/08/18 05:30 Dose: Not Given Ceftriaxone Sodium 1 gm/ (Dextrose) 50 mls @ 100 mls/hr IVPB DAILY [facility]; Protocol Last Admin: 08/08/18 09:37 Dose: 100 mls/hr Nystatin (Nystop Powder -) 1 applic TP BID [facility] Last Admin: 08/07/18 22:39 Dose: 1 applic Pantoprazole Sodium (Protonix Packets For Oral Suspension -) 40 mg PO DAILY [facility] Last Admin: 08/07/18 10:05 Dose: Not Given Senna (Senna -) 2 tab PO HS [facility] Last Admin: 08/07/18 22:40 Dose: Not Given Sodium Chloride ([place] Nasal [place] -) 2 spray NS BID [facility] Last Admin: 08/07/18 22:39 Dose: 2 spray - Objective Vital Signs: Vital Signs Temperature 97.8 F 08/08/18 05:30 Pulse Rate 74 08/08/18 05:30 Respiratory Rate 20 08/08/18 05:30 Blood Pressure 109/62 08/08/18 05:30 O2 Sat by Pulse Oximetry (%) 98 08/07/18 21:00 Constitutional: Yes: Well Nourished, No Distress, Calm Cardiovascular: Yes: Regular Rate and Rhythm Respiratory: Yes: Regular Gastrointestinal: Yes: Normal Bowel Sounds, Soft, Abdomen, Obese Musculoskeletal: Yes: WNL Extremities: Yes: WNL Edema: No Peripheral Pulses WNL: Yes Neurological: Yes: Pre-Existing Deficit Labs: CBC, BMP 08/08/18 07:15 08/08/18 07:15 INR, PTT INR 1.29 (0.83-1.09) H 08/01/18 17:19 Problem List - Problems (1) Acute metabolic encephalopathy Assessment/Plan: 2/2 to UTI -ID on board -On IV abx Code(s): G93.41 - METABOLIC ENCEPHALOPATHY (2) Dementia Assessment/Plan: -chronic Code(s): F03.90 - UNSPECIFIED DEMENTIA WITHOUT BEHAVIORAL DISTURBANCE (3) Dysphagia Code(s): R13.10 - DYSPHAGIA, UNSPECIFIED Qualifiers: Dysphagia type: oropharyngeal phase Qualified Code(s): R13.12 - Dysphagia, oropharyngeal phase (4) Failure to thrive in adult Assessment/Plan: -palliative care -Speech therapy Code(s): R62.7 - ADULT FAILURE TO THRIVE (5) Anemia Assessment/Plan: -H/H trending down -Iron profile pending -B12+ thyroid profile normal -Stool OB negative -monitor trend Code(s): D64.9 - ANEMIA, UNSPECIFIED (6) UTI (urinary tract infection) Assessment/Plan: -culture: Microbiology 08/01/18 17:19 Blood - Peripheral Venous Blood Culture - Final NO GROWTH AFTER 5 DAYS INCUBATION 08/01/18 17:19 Blood - Peripheral Venous Blood Culture - Final NO GROWTH AFTER 5 DAYS INCUBATION 08/01/18 18:14 Urine - Urine Clean Catch Urine Culture - Final Escherichia Coli 08/02/18 19:20 Stool Clostridium difficile Antigen (ELLIE) - Final 08/02/18 19:20 Stool Clostridium difficile Toxin Assay - Final -ID on board -On IV abx Code(s): N39.0 - URINARY TRACT INFECTION, SITE NOT SPECIFIED Qualifiers: Urinary tract infection type: site unspecified Hematuria presence: without hematuria Qualified Code(s): N39.0 - Urinary tract infection, site not specified Assessment/Plan see problem list
[2018-08-08] MEDS: SODIUM CHLORIDE NASAL SPRAY 44 ML BOTTLE NS SCH ×2 (10:00→21:27)
[2018-08-08] MEDS: NYSTATIN POWDER 100,000 UNITS/GM - 15 GM TOPICAL POWDER TP SCH ×2 (10:00→21:28)
--- NOTE | 2018-08-08 13:24 | CON.ID ---
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, Dementia Cardio/Vascular: Yes: HTN, Hyperlipdemia Pulmonary: Yes: Asthma Gastrointestinal: Yes: Other (chronic obstructions) Renal/: Yes: UTI ...: No - Past Surgical History Past Surgical History: Yes: None, Joint Replacement (bilateral knee replacement , left hip surgery) - Alcohol/Substance Use Hx Alcohol Use: No History of Substance Use: reports: None - Smoking History Smoking history: Never smoked Have you smoked in the past 12 months: No - Social History Usual Living Arrangement: Group Home ADL: Support Services History of Recent Travel: No Home Medications - Allergies Allergies/Adverse Reactions: Allergies Allergy/AdvReac Type Severity Reaction Status Date / Time No Known Allergies Allergy Verified 10/14/16 17:12 - Home Medications Home Medications: Ambulatory Orders Acetaminophen [Tylenol .Regular Strength -] 650 mg PO Q6H PRN #0 tablet Albuterol 2.5/Ipratropium 0.5 [Duoneb -] 1 amp NEB Q6H PRN #0 amp 09/03/16 Amino Acids/Protein Hydrolys [Prostat Sugar-Free Packet -] 30 ml PO BID Aspirin Coated [Ecotrin -] 81 mg PO DAILY tablet.ec 10/20/16 Atorvastatin Ca [Lipitor] 10 mg PO HS tablet 10/20/16 Docusate Sodium [Colace -] 300 mg PO HS capsule 10/20/16 Ascorbic Acid [Vitamin C] 500 mg PO DAILY 05/11/18 Clopidogrel Bisulfate [Plavix] 75 mg PO DAILY 05/11/18 Pantoprazole Sodium [Protonix] 40 mg PO DAILY 05/11/18 Sennosides [Senokot] 8.6 mg PO HS 05/11/18 Simethicone 80 mg PO TID PRN 05/11/18 Metoclopramide HCl [Reglan -] 5 mg PO TIDAC #20 tablet MDD 3 05/17/18 Potassium Chloride [Potassium Chloride Oral Liquid] 40 meq PO DAILY #30 ml 05/17 Simethicone Liquid [Mylicon Liquid -] 80 mg PO QID #20 ml 05/17/18 metroNIDAZOLE [Flagyl -] 250 mg PO TID #30 tablet MDD 3 05/17/18 Megestrol Acetate Oral Susp [Megace Liquid -] 400 mg PO DAILY 08/01/18 Family Disease History - Family Disease History Family Disease History: Other: Son (alive and well ) Physical Exam Vital Signs: Vital Signs Temperature 98 F 08/08/18 09:00 Pulse Rate 70 08/08/18 09:00 Respiratory Rate 20 08/08/18 09:00 Blood Pressure 120/70 08/08/18 09:00 O2 Sat by Pulse Oximetry (%) 100 08/08/18 09:00 Labs: CBC, BMP 08/08/18 07:15 08/08/18 07:15
[2018-08-08] MEDS ORDERED: PIPERACILLIN/TAZOBACTAM 3.375 GM VIAL IVPB ONE ×2 (14:21→17:13)
[2018-08-08] MEDS: PIPERACILLIN/TAZOB 3.375 GM 3.375 GM in DEXTROSE 5%-WATER - 50 ML IVPB SCH ×2 (14:36→17:19)
[2018-08-08] MEDS: ATORVASTATIN CA 10 MG TABLET (FP) PO SCH (21:27)
[2018-08-08] MEDS: SENNOSIDES 8.6MG TABLET (FP) PO SCH (21:27)
[2018-08-08] MEDS ORDERED: ACETAMINOPHEN 500 MG TABLET (FP) PO PRN (22:50)
[2018-08-09] MEDS ORDERED: DEXTROSE 5%-WATER - 50 ML IVPB ONE ×3 (00:13→18:55)
[2018-08-09] MEDS ORDERED: PIPERACILLIN/TAZOBACTAM 3.375 GM VIAL IVPB ONE ×3 (00:13→18:55)
[2018-08-09] MEDS: PIPERACILLIN/TAZOB 3.375 GM 3.375 GM in DEXTROSE 5%-WATER - 50 ML IVPB SCH ×3 (02:30→19:01)
[2018-08-09] MEDS: POTASSIUM CHLORIDE 10 MEQ in DEXTROSE 5%-WATER - 1,000 ML IVPB SCH ×2 (02:32→19:01)
[2018-08-09] MEDS ORDERED: ACETAMINOPHEN 650 MG SUPP.RECT PR ONE (05:29)
[2018-08-09 07:13] LABS: BASO % 0.4 % (0-2.0); EOS % 2.7 % (0-4.5); HEMATOCRIT 31.6 % (32.4-45.2); HEMOGLOBIN 10.1 GM/dL (10.7-15.3); LYMPH % 32.2 % (8-40); MCH 29.2 pg (25.7-33.7); MCHC 31.8 g/dl (32.0-36.0); MEAN CELL VOLUME 91.7 fl (80-96); MEAN PLT VOLUME 8.8 fl (7.5-11.1); MONO % 4.8 % (3.8-10.2); NEUT % 59.9 % (42.8-82.8); PLATELET COUNT 194 K/MM3 (134-434); RBC 3.45 M/mm3 (3.60-5.2); RDW 14.6 % (11.6-15.6)
[2018-08-09 07:35] LABS: ALBUMIN 2.5 g/dl (3.4-5.0); ALK PHOS 74 U/L (45-117); ANION GAP 8 MMOL/L (8-16); BILIRUBIN,TOTAL 0.2 mg/dL (0.2-1); BLOOD UREA NITROGEN 10 mg/dL (7-18); CHLORIDE 104 mmol/L (98-107); CO2 23 mmol/L (21-32); CREATININE 0.6 mg/dL (0.55-1.3); GLUCOSE,RANDOM 83 mg/dL (74-106); SGOT/AST 15 U/L (15-37); SGPT/ALT 24 U/L (13-61); SODIUM 135 mmol/L (136-145); TOT PROT 5.9 g/dl (6.4-8.2)
--- NOTE | 2018-08-09 09:36 | PN ---
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, Physician - Current Medication List Current Medications: Active Medications Acetaminophen (Tylenol -) 500 mg PO Q6H PRN PRN Reason: FEVER Aspirin (Ecotrin -) 81 mg PO DAILY [facility] Last Admin: 08/08/18 09:42 Dose: Not Given Atorvastatin Calcium (Lipitor -) 10 mg PO HS [facility] Last Admin: 08/08/18 21:27 Dose: Not Given Clopidogrel Bisulfate (Plavix -) 75 mg PO DAILY [facility] Last Admin: 08/08/18 09:40 Dose: Not Given Potassium Chloride 10 meq/ (Dextrose) 1,005 mls @ 60 mls/hr IVPB Q16H [facility] Last Admin: 08/09/18 02:32 Dose: 60 mls/hr Piperacillin Sod/Tazobactam (Sod 3.375 gm/ Dextrose) 50 mls @ 100 mls/hr IVPB Q8H-IV [facility]; Protocol Last Admin: 08/09/18 02:30 Dose: 100 mls/hr Nystatin (Nystop Powder -) 1 applic TP BID [facility] Last Admin: 08/08/18 21:28 Dose: 1 applic Pantoprazole Sodium (Protonix Packets For Oral Suspension -) 40 mg PO DAILY [facility] Last Admin: 08/08/18 09:41 Dose: Not Given Senna (Senna -) 2 tab PO HS [facility] Last Admin: 08/08/18 21:27 Dose: Not Given Sodium Chloride ([place] Nasal [place] -) 2 spray NS BID [facility] Last Admin: 08/08/18 21:27 Dose: Not Given - Objective Vital Signs: Vital Signs Temperature 100.2 F H 08/09/18 06:35 Pulse Rate 62 08/09/18 08:36 Respiratory Rate 20 08/09/18 08:36 Blood Pressure 118/66 08/09/18 08:36 O2 Sat by Pulse Oximetry (%) 99 08/08/18 21:00 Labs: CBC, BMP 08/09/18 06:30 08/09/18 06:30 INR, PTT INR 1.29 (0.83-1.09) H 08/01/18 17:19 Assessment/Plan cxr: clear lungs echo 08/2016: tds, nl lvef, rv tds, no sig valve path, rvsp 30-40 ecg: sr, nl intervals, no ischemic changes a/p: 83 f hx dementia, htn, hld, cva, here with failure to thrive. hypernatremia, win: -renal following, labs improved with ivfs htn: -controlled off meds hld: -cont statin cva: -cont statin, asa cardiac sandoval stable, no contraindications to PEG if planned
[2018-08-09] MEDS: ASPIRIN COATED 81 MG TABLET.EC PO SCH (10:13)
[2018-08-09] MEDS: CLOPIDOGREL BISULFATE 75 MG TABLET (FP) PO SCH (10:14)
[2018-08-09] MEDS: PANTOPRAZOLE SOD 40 MG SUSPENSION PACKET PO SCH (10:14)
[2018-08-09] MEDS: SODIUM CHLORIDE NASAL SPRAY 44 ML BOTTLE NS SCH ×2 (10:14→22:04)
[2018-08-09] MEDS: NYSTATIN POWDER 100,000 UNITS/GM - 15 GM TOPICAL POWDER TP SCH ×2 (10:14→22:04)
--- NOTE | 2018-08-09 11:35 | PN ---
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, Physician History of Present Illness: patient looks more comfortable son in the room had a low grade spike of fever currently sleeping - Current Medication List Current Medications: Active Medications Acetaminophen (Tylenol -) 500 mg PO Q6H PRN PRN Reason: FEVER Aspirin (Ecotrin -) 81 mg PO DAILY [facility] Last Admin: 08/09/18 10:13 Dose: Not Given Atorvastatin Calcium (Lipitor -) 10 mg PO HS [facility] Last Admin: 08/08/18 21:27 Dose: Not Given Clopidogrel Bisulfate (Plavix -) 75 mg PO DAILY [facility] Last Admin: 08/09/18 10:14 Dose: Not Given Potassium Chloride 10 meq/ (Dextrose) 1,005 mls @ 60 mls/hr IVPB Q16H [facility] Last Admin: 08/09/18 02:32 Dose: 60 mls/hr Piperacillin Sod/Tazobactam (Sod 3.375 gm/ Dextrose) 50 mls @ 100 mls/hr IVPB Q8H-IV [facility]; Protocol Last Admin: 08/09/18 10:21 Dose: 100 mls/hr Nystatin (Nystop Powder -) 1 applic TP BID [facility] Last Admin: 08/09/18 10:14 Dose: 1 applic Pantoprazole Sodium (Protonix Packets For Oral Suspension -) 40 mg PO DAILY [facility] Last Admin: 08/09/18 10:14 Dose: Not Given Senna (Senna -) 2 tab PO [facility] Last Admin: 08/08/18 21:27 Dose: Not Given Sodium Chloride ([place] Nasal [place] -) 2 spray NS BID [facility] Last Admin: 08/09/18 10:14 Dose: Not Given - Objective Vital Signs: Vital Signs Temperature 99.0 F 08/09/18 10:11 Pulse Rate 62 08/09/18 08:36 Respiratory Rate 20 08/09/18 08:36 Blood Pressure 118/66 08/09/18 08:36 O2 Sat by Pulse Oximetry (%) 100 08/09/18 09:00 Constitutional: Yes: No Distress, Calm Cardiovascular: Yes: S1, S2 Respiratory: Yes: Regular, On Nasal O2, Poor Air Entry (bases) Gastrointestinal: Yes: Normal Bowel Sounds, Soft Musculoskeletal: Yes: WNL Extremities: Yes: WNL Neurological: Yes: Alert, Other (dementia) Labs: CBC, BMP 08/09/18 06:30 08/09/18 06:30 INR, PTT INR 1.29 (0.83-1.09) H 08/01/18 17:19 - ....Imaging Chest X-ray: Report Reviewed, Image Reviewed Assessment/Plan Problem List - Problems (1) Acute metabolic encephalopathy Code(s): G93.41 - METABOLIC ENCEPHALOPATHY (2) Dementia Assessment/Plan: -chronic Code(s): F03.90 - UNSPECIFIED DEMENTIA WITHOUT BEHAVIORAL DISTURBANCE (3) Dysphagia Code(s): R13.10 - DYSPHAGIA, UNSPECIFIED Qualifiers: Dysphagia type: oropharyngeal phase Qualified Code(s): R13.12 - Dysphagia, oropharyngeal phase (4) Failure to thrive in adult Code(s): R62.7 - ADULT FAILURE TO THRIVE (5) Anemia Code(s): D64.9 - ANEMIA, UNSPECIFIED (6) UTI (urinary tract infection) Assessment/Plan: 7 asp pna plan will start patient on zosyn nutrition rest as per the team family wants peg tube
--- NOTE | 2018-08-09 12:21 | PN ---
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: Selected Entries 08/06/18 08/06/18 08/06/18 06:00 09:00 11:51 Breakfast 75% Lunch Supper Temperature 99.3 F 97.8 F 08/06/18 08/06/18 08/07/18 15:05 22:00 06:00 Breakfast Lunch 75% Supper Temperature 98.8 F 98.7 F 99.0 F 08/07/18 08/07/18 08/07/18 09:00 14:00 18:00 Breakfast 25% Lunch 25% Supper Temperature 98.8 F 99.8 F H 101.1 F H 08/07/18 08/07/18 08/08/18 19:58 23:00 02:00 Breakfast Lunch Supper Temperature 103 F H 99.6 F 98.8 F 08/08/18 08/08/18 08/08/18 05:30 09:00 13:38 Breakfast 25% Lunch Supper Temperature 97.8 F 98 F 98.5 F 08/08/18 08/08/18 08/08/18 18:00 20:55 22:45 Breakfast Lunch Supper Temperature 99.4 F 99.8 F H 98.8 F 08/08/18 08/09/18 08/09/18 22:54 02:00 06:35 Breakfast Lunch Supper NPO Temperature 99.0 F 100.2 F H 08/09/18 08/09/18 09:29 10:11 Breakfast NPO Lunch Supper Temperature 99.0 F Laboratory Tests 08/08/18 08/09/18 07:15 06:30 WBC 4.7 6.0 Pt seemed to be tolerating diet well on Thursday. CXR ok. Pt started having fevers. Up to 103 on 08/07. ID on case. Lungs reported to be clear. Sleeping. Pt now NPO, pending PEG. Pt may tolerate PO trials for quality of life, with PEG to supplement as desired by family. Consider repeat MBS at some point.
--- NOTE | 2018-08-09 13:07 | PN ---
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, Physician Chief Complaint: patient in bed awake no distress awaiting peg placement on iv zosyn low grade temp today - Current Medication List Current Medications: Active Medications Acetaminophen (Tylenol -) 500 mg PO Q6H PRN PRN Reason: FEVER Aspirin (Ecotrin -) 81 mg PO DAILY [facility] Last Admin: 08/09/18 10:13 Dose: Not Given Atorvastatin Calcium (Lipitor -) 10 mg PO HS [facility] Last Admin: 08/08/18 21:27 Dose: Not Given Clopidogrel Bisulfate (Plavix -) 75 mg PO DAILY [facility] Last Admin: 08/09/18 10:14 Dose: Not Given Potassium Chloride 10 meq/ (Dextrose) 1,005 mls @ 60 mls/hr IVPB Q16H [facility] Last Admin: 08/09/18 02:32 Dose: 60 mls/hr Piperacillin Sod/Tazobactam (Sod 3.375 gm/ Dextrose) 50 mls @ 100 mls/hr IVPB Q8H-IV [facility]; Protocol Last Admin: 08/09/18 10:21 Dose: 100 mls/hr Nystatin (Nystop Powder -) 1 applic TP BID [facility] Last Admin: 08/09/18 10:14 Dose: 1 applic Pantoprazole Sodium (Protonix Packets For Oral Suspension -) 40 mg PO DAILY [facility] Last Admin: 08/09/18 10:14 Dose: Not Given Senna (Senna -) 2 tab PO [facility] Last Admin: 08/08/18 21:27 Dose: Not Given Sodium Chloride ([place] Nasal [place] -) 2 spray NS BID [facility] Last Admin: 08/09/18 10:14 Dose: Not Given - Objective Vital Signs: Vital Signs Temperature 99.0 F 08/09/18 10:11 Pulse Rate 62 08/09/18 08:36 Respiratory Rate 20 08/09/18 08:36 Blood Pressure 118/66 08/09/18 08:36 O2 Sat by Pulse Oximetry (%) 100 08/09/18 09:00 Constitutional: Yes: Calm Cardiovascular: Yes: Regular Rate and Rhythm, S1, S2 Respiratory: Yes: CTA Bilaterally Gastrointestinal: Yes: Normal Bowel Sounds, Soft Labs: CBC, BMP 08/09/18 06:30 08/09/18 06:30 INR, PTT INR 1.29 (0.83-1.09) H 08/01/18 17:19 Problem List - Problems (1) Acute metabolic encephalopathy Assessment/Plan: aspiration pna on zosyn low Code(s): G93.41 - METABOLIC ENCEPHALOPATHY (2) Dysphagia Assessment/Plan: gi eval for peg placement npo cleared by cardiology for peg placement Code(s): R13.10 - DYSPHAGIA, UNSPECIFIED Qualifiers: Dysphagia type: oropharyngeal phase Qualified Code(s): R13.12 - Dysphagia, oropharyngeal phase
--- NOTE | 2018-08-09 15:22 | PN ---
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 (short form) - Note 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: 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: s: does not communicate, no events, appears comfortable Current Medications Acetaminophen (Tylenol -) 500 mg PO Q6H PRN PRN Reason: FEVER Aspirin (Ecotrin -) 81 mg PO DAILY [facility] Last Admin: 08/09/18 10:13 Dose: Not Given Atorvastatin Calcium (Lipitor -) 10 mg PO HS [facility] Last Admin: 08/08/18 21:27 Dose: Not Given Clopidogrel Bisulfate (Plavix -) 75 mg PO DAILY [facility] Last Admin: 08/09/18 10:14 Dose: Not Given Potassium Chloride 10 meq/ (Dextrose) 1,005 mls @ 60 mls/hr IVPB Q16H [facility] Last Admin: 08/09/18 02:32 Dose: 60 mls/hr Piperacillin Sod/Tazobactam (Sod 3.375 gm/ Dextrose) 50 mls @ 100 mls/hr IVPB Q8H-IV [facility]; Protocol Last Admin: 08/09/18 10:21 Dose: 100 mls/hr Nystatin (Nystop Powder -) 1 applic TP BID [facility] Last Admin: 08/09/18 10:14 Dose: 1 applic Pantoprazole Sodium (Protonix Packets For Oral Suspension -) 40 mg PO DAILY [facility] Last Admin: 08/09/18 10:14 Dose: Not Given Senna (Senna -) 2 tab PO HS [facility] Last Admin: 08/08/18 21:27 Dose: Not Given Sodium Chloride ([place] Nasal [place] -) 2 spray NS BID [facility] Last Admin: 08/09/18 10:14 Dose: Not Given pe: Vital Signs Period Temp Pulse Resp BP Sys/[place] Pulse Ox Last 24 Hr 98.8 F-100.2 F 62-77 19-20 100-130/49-72 99-100 nad no jvd rrr s1s2 no mrg no le e/c/c abd nd pos bs no jaudice diaphoresis awake alert confused cta bl anteriorly, poor eff cxr: clear lungs echo 08/2016: tds, nl lvef, rv tds, no sig valve path, rvsp 30-40 ecg: sr, nl intervals, no ischemic changes a/p: 83 f hx dementia, htn, hld, cva, here with failure to thrive. hypernatremia, win: -renal following, labs improved with ivfs htn: -stable off meds hld: -cont statin cva: -cont statin, asa cardiac sandoval stable, no contraindications to PEG if planned
[2018-08-09] MEDS ORDERED: ACETAMINOPHEN 1000 MG/100 ML VIAL (NON FORMULARY) IVPB PRN (16:07)
--- NOTE | 2018-08-09 18:09 | CON.GI ---
Consult - Past Medical History [employer]: Yes: CVA, Dementia Cardio/Vascular: Yes: HTN, Hyperlipdemia Pulmonary: Yes: Asthma Gastrointestinal: Yes: Other (chronic obstructions) Renal/: Yes: UTI ...: No - Past Surgical History Past Surgical History: Yes: None, Joint Replacement (bilateral knee replacement , left hip surgery) - Alcohol/Substance Use Hx Alcohol Use: No History of Substance Use: reports: None - Smoking History Smoking history: Never smoked Have you smoked in the past 12 months: No - Social History Usual Living Arrangement: Jail ADL: Support Services History of Recent Travel: No Home Medications - Allergies Allergies/Adverse Reactions: Allergies Allergy/AdvReac Type Severity Reaction Status Date / Time No Known Allergies Allergy Verified 10/14/16 17:12 - Home Medications Home Medications: Ambulatory Orders Acetaminophen [Tylenol .Regular Strength -] 650 mg PO Q6H PRN #0 tablet Albuterol 2.5/Ipratropium 0.5 [Duoneb -] 1 amp NEB Q6H PRN #0 amp 09/03/16 Amino Acids/Protein Hydrolys [Prostat Sugar-Free Packet -] 30 ml PO BID Aspirin Coated [Ecotrin -] 81 mg PO DAILY tablet.ec 10/20/16 Atorvastatin Ca [Lipitor] 10 mg PO HS tablet 10/20/16 Docusate Sodium [Colace -] 300 mg PO HS capsule 10/20/16 Ascorbic Acid [Vitamin C] 500 mg PO DAILY 05/11/18 Clopidogrel Bisulfate [Plavix] 75 mg PO DAILY 05/11/18 Pantoprazole Sodium [Protonix] 40 mg PO DAILY 05/11/18 Sennosides [Senokot] 8.6 mg PO HS 05/11/18 Simethicone 80 mg PO TID PRN 05/11/18 Metoclopramide HCl [Reglan -] 5 mg PO TIDAC #20 tablet MDD 3 05/17/18 Potassium Chloride [Potassium Chloride Oral Liquid] 40 meq PO DAILY #30 ml 05/17 Simethicone Liquid [Mylicon Liquid -] 80 mg PO QID #20 ml 05/17/18 metroNIDAZOLE [Flagyl -] 250 mg PO TID #30 tablet MDD 3 05/17/18 Megestrol Acetate Oral Susp [Megace Liquid -] 400 mg PO DAILY 08/01/18 Family Disease History - Family Disease History Family Disease History: Other: Son (alive and well ) Physical Exam-GI Vital Signs: Vital Signs Temperature 98.9 F 08/09/18 14:57 Pulse Rate 66 08/09/18 14:57 Respiratory Rate 20 08/09/18 08:36 Blood Pressure 114/72 08/09/18 14:57 O2 Sat by Pulse Oximetry (%) 100 08/09/18 09:00 Labs: CBC, BMP 08/09/18 06:30 08/09/18 06:30 INR, PTT INR 1.29 (0.83-1.09) H 08/01/18 17:19
[2018-08-09] MEDS ORDERED: PHYTONADIONE 10 MG/1 ML AMP IM ONE (18:27)
[2018-08-09] MEDS: ATORVASTATIN CA 10 MG TABLET (FP) PO SCH (22:04)
[2018-08-09] MEDS: SENNOSIDES 8.6MG TABLET (FP) PO SCH (22:05)
[2018-08-10] MEDS ORDERED: DEXTROSE 5%-WATER - 50 ML IVPB ONE ×3 (00:50→17:34)
[2018-08-10] MEDS ORDERED: PIPERACILLIN/TAZOBACTAM 3.375 GM VIAL IVPB ONE ×3 (00:50→17:34)
[2018-08-10] MEDS: PIPERACILLIN/TAZOB 3.375 GM 3.375 GM in DEXTROSE 5%-WATER - 50 ML IVPB SCH ×3 (01:50→17:37)
[2018-08-10] MEDS ORDERED: PT OWN MED DRAWER 7, Y5N ONE ×2 (05:41→21:05)
[2018-08-10] MEDS: POTASSIUM CHLORIDE 10 MEQ in DEXTROSE 5%-WATER - 1,000 ML IVPB SCH (05:42)
[2018-08-10 06:11] LABS: BASO % 0.4 % (0-2.0); EOS % 2.8 % (0-4.5); HEMATOCRIT 27.8 % (32.4-45.2); HEMOGLOBIN 9.1 GM/dL (10.7-15.3); LYMPH % 25.1 % (8-40); MCH 29.4 pg (25.7-33.7); MCHC 32.7 g/dl (32.0-36.0); MEAN CELL VOLUME 90.1 fl (80-96); MEAN PLT VOLUME 8.8 fl (7.5-11.1); NEUT % 68.7 % (42.8-82.8); PLATELET COUNT 207 K/MM3 (134-434); RBC 3.08 M/mm3 (3.60-5.2); RDW 14.8 % (11.6-15.6); WHITE BLOOD COUNT 6.7 K/mm3 (4.0-10.0)
[2018-08-10 06:29] LABS: ALBUMIN 2.2 g/dl (3.4-5.0); ALK PHOS 69 U/L (45-117); ANION GAP 7 MMOL/L (8-16); BILIRUBIN,TOTAL 0.3 mg/dL (0.2-1); BLOOD UREA NITROGEN 10 mg/dL (7-18); CALCIUM 7.7 mg/dL (8.5-10.1); CHLORIDE 106 mmol/L (98-107); CO2 22 mmol/L (21-32); CREATININE 0.5 mg/dL (0.55-1.3); GLUCOSE,RANDOM 96 mg/dL (74-106); SGOT/AST 12 U/L (15-37); SGPT/ALT 20 U/L (13-61); SODIUM 135 mmol/L (136-145); TOT PROT 5.3 g/dl (6.4-8.2)
[2018-08-10] MEDS ORDERED: ETOMIDATE 20 MG/10 ML AMPUL IVPUSH ONE (07:52)
[2018-08-10] MEDS ORDERED: ACETAMINOPHEN 1000 MG/100 ML VIAL (NON FORMULARY) IVPB PRN (09:21)
[2018-08-10] MEDS ORDERED: ACETAMINOPHEN 500 MG TABLET (FP) PO PRN (09:21)
[2018-08-10] MEDS ORDERED: POTASSIUM CHLORIDE ORAL LIQUID 20 MEQ/15 ML PO ONE (10:49)
--- NOTE | 2018-08-10 10:53 | PN ---
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, Physician Chief Complaint: AMS UTI History of Present Illness: NAD more awake ams 2/2 to metabolic encephalopathy Palliative care on board due to poor prognosis Febrile yesterday CXR and labs unremarkable BC pending already on IV abx S/P Peg - Current Medication List Current Medications: Active Medications Acetaminophen (Tylenol -) 500 mg PO Q6H PRN PRN Reason: FEVER Acetaminophen (Ofirmev Injection -) 1,000 mg IVPB Q6H PRN PRN Reason: PAIN LEVEL 6-10 Aspirin (Ecotrin -) 81 mg PO DAILY [facility] Atorvastatin Calcium (Lipitor -) 10 mg PO HS [facility] Bacitracin/Polymyxin B Sulfate (Polysporin Ointment -) 1 applic TP DAILY [facility] Piperacillin Sod/Tazobactam (Sod 3.375 gm/ Dextrose) 50 mls @ 100 mls/hr IVPB Q8H-IV AIDEE; Protocol Nystatin (Nystop Powder -) 1 applic TP BID [facility] Pantoprazole Sodium (Protonix Packets For Oral Suspension -) 40 mg PO DAILY [facility] Potassium Chloride (Potassium Chloride Oral Liquid) 40 meq PO ONCE ONE Stop: 08/10/18 10:50 Senna (Senna -) 2 tab PO HS [facility]EE Sodium Chloride ([place] [employer] Nasal [employer] -) 2 spray NS BID [facility]EE - Objective Vital Signs: Vital Signs Temperature 98.8 F 08/10/18 08:54 Pulse Rate 61 08/10/18 08:54 Respiratory Rate 20 08/10/18 08:54 Blood Pressure 129/53 L 08/10/18 08:54 O2 Sat by Pulse Oximetry (%) 100 08/10/18 08:54 Constitutional: Yes: Well Nourished, No Distress, Calm Cardiovascular: Yes: Regular Rate and Rhythm Respiratory: Yes: Regular Gastrointestinal: Yes: Normal Bowel Sounds, Soft Musculoskeletal: Yes: WNL Extremities: Yes: WNL Edema: No Neurological: Yes: Alert, Oriented Psychiatric: Yes: Alert, Oriented Labs: CBC, BMP 08/10/18 05:30 08/10/18 05:30 INR, PTT INR 1.29 (0.83-1.09) H 08/01/18 17:19 Problem List - Problems (1) Acute metabolic encephalopathy Assessment/Plan: 2/2 to UTI -ID on board -On IV abx Code(s): G93.41 - METABOLIC ENCEPHALOPATHY (2) Dementia Assessment/Plan: -chronic Code(s): F03.90 - UNSPECIFIED DEMENTIA WITHOUT BEHAVIORAL DISTURBANCE (3) Dysphagia Code(s): R13.10 - DYSPHAGIA, UNSPECIFIED Qualifiers: Dysphagia type: oropharyngeal phase Qualified Code(s): R13.12 - Dysphagia, oropharyngeal phase (4) Failure to thrive in adult Assessment/Plan: -palliative care -Speech therapy -S/P PEG Code(s): R62.7 - ADULT FAILURE TO THRIVE (5) Anemia Assessment/Plan: -H/H stable -Iron profile pending -B12+ thyroid profile normal -Stool OB negative -monitor trend Code(s): D64.9 - ANEMIA, UNSPECIFIED (6) UTI (urinary tract infection) Assessment/Plan: -culture: Microbiology 08/01/18 17:19 Blood - Peripheral Venous Blood Culture - Final NO GROWTH AFTER 5 DAYS INCUBATION 08/01/18 17:19 Blood - Peripheral Venous Blood Culture - Final NO GROWTH AFTER 5 DAYS INCUBATION 08/01/18 18:14 Urine - Urine Clean Catch Urine Culture - Final Escherichia Coli 08/02/18 19:20 Stool Clostridium difficile Antigen (ELLIE) - Final 08/02/18 19:20 Stool Clostridium difficile Toxin Assay - Final -ID on board -On IV abx Code(s): N39.0 - URINARY TRACT INFECTION, SITE NOT SPECIFIED Qualifiers: Urinary tract infection type: site unspecified Hematuria presence: without hematuria Qualified Code(s): N39.0 - Urinary tract infection, site not specified (7) Hypokalemia Assessment/Plan: -2/2 to NPO -KCl 40 meq once via peg -monitor trend once peg is initiated Code(s): E87.6 - HYPOKALEMIA Assessment/Plan see problem list
[2018-08-10] MEDS: ASPIRIN COATED 81 MG TABLET.EC PO SCH (11:01)
[2018-08-10] MEDS: BACITRACIN/POLYMYXIN B SULFATE 15 GM TUBE TP SCH (11:01)
[2018-08-10] MEDS: PANTOPRAZOLE SOD 40 MG SUSPENSION PACKET PO SCH (11:34)
[2018-08-10] MEDS: SODIUM CHLORIDE NASAL SPRAY 44 ML BOTTLE NS SCH ×2 (11:34→21:26)
[2018-08-10] MEDS: NYSTATIN POWDER 100,000 UNITS/GM - 15 GM TOPICAL POWDER TP SCH ×2 (11:35→21:26)
--- NOTE | 2018-08-10 12:55 | PN ---
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 (short form) - Note 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: 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: s: not communicative. appears comfortable. Current Medications Acetaminophen (Tylenol -) 500 mg PO Q6H PRN PRN Reason: FEVER Acetaminophen (Ofirmev Injection -) 1,000 mg IVPB Q6H PRN PRN Reason: PAIN LEVEL 6-10 Aspirin (Ecotrin -) 81 mg PO DAILY [facility] Last Admin: 08/10/18 11:01 Dose: 81 mg Atorvastatin Calcium (Lipitor -) 10 mg PO HS [facility] Bacitracin/Polymyxin B Sulfate (Polysporin Ointment -) 1 applic TP DAILY [facility] Last Admin: 08/10/18 11:01 Dose: 1 applic Piperacillin Sod/Tazobactam (Sod 3.375 gm/ Dextrose) 50 mls @ 100 mls/hr IVPB Q8H-IV AIDEE; Protocol Last Admin: 08/10/18 11:01 Dose: 100 mls/hr Nystatin (Nystop Powder -) 1 applic TP BID [facility] Last Admin: 08/10/18 11:35 Dose: 1 applic Pantoprazole Sodium (Protonix Packets For Oral Suspension -) 40 mg PO DAILY [facility] Last Admin: 08/10/18 11:34 Dose: 40 mg Senna (Senna -) 2 tab PO HS [facility] Sodium Chloride ([place] Nasal [place] -) 2 spray NS BID [facility] Last Admin: 08/10/18 11:34 Dose: 2 sprays pe: Vital Signs Period Temp Pulse Resp BP Sys/[place] Pulse Ox Last 24 Hr 98.6 F-99.1 F 61-76 18-20 111-143/48-93 100-100 nad no jvd rrr s1s2 no mrg no le e/c/c abd nd pos bs no jaudice diaphoresis awake alert confused cta bl anteriorly, poor eff cxr: clear lungs echo 08/2016: tds, nl lvef, rv tds, no sig valve path, rvsp 30-40 ecg: sr, nl intervals, no ischemic changes a/p: 83 f hx dementia, htn, hld, cva, here with failure to thrive. hypernatremia, win: -renal following, labs improved with ivfs htn: -stable off meds hld: -cont statin cva: -cont statin, asa cardiac sandoval stable, no contraindications to PEG if planned
--- NOTE | 2018-08-10 15:07 | PN ---
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, [employer] - Note 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: PEG placed. Pt's family would like MBS done to r/o aspiration. MBS ordered, however, pt too lethargic for PO intake and swallowing study. I spoke with pt's son and explained that pt needs to be alert for MBS, and that we can try tomorrow, or that it can be done in future, as out pt from [place]. He would prefer that it be done before pt is discharged. Plan for MBS if pt is alert tomorrow.
--- NOTE | 2018-08-10 16:52 | PN ---
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, Physician History of Present Illness: Pt seen and examined at bedside. She is tolerating feeds. Family are at bedside. - Current Medication List Current Medications: Active Medications Acetaminophen (Tylenol -) 500 mg PO Q6H PRN PRN Reason: FEVER Acetaminophen (Ofirmev Injection -) 1,000 mg IVPB Q6H PRN PRN Reason: PAIN LEVEL 6-10 Aspirin (Ecotrin -) 81 mg PO DAILY [facility] Last Admin: 08/10/18 11:01 Dose: 81 mg Atorvastatin Calcium (Lipitor -) 10 mg PO HS [facility] Bacitracin/Polymyxin B Sulfate (Polysporin Ointment -) 1 applic TP DAILY [facility] Last Admin: 08/10/18 11:01 Dose: 1 applic Piperacillin Sod/Tazobactam (Sod 3.375 gm/ Dextrose) 50 mls @ 100 mls/hr IVPB Q8H-IV [facility]; Protocol Last Admin: 08/10/18 11:01 Dose: 100 mls/hr Nystatin (Nystop Powder -) 1 applic TP BID [facility] Last Admin: 08/10/18 11:35 Dose: 1 applic Pantoprazole Sodium (Protonix Packets For Oral Suspension -) 40 mg PO DAILY [facility] Last Admin: 08/10/18 11:34 Dose: 40 mg Senna (Senna -) 2 tab PO HS [facility] Sodium Chloride ([place] Nasal [place] -) 2 spray NS BID [facility] Last Admin: 08/10/18 11:34 Dose: 2 sprays - Objective Vital Signs: Vital Signs Temperature 98.6 F 08/10/18 10:00 Pulse Rate 63 08/10/18 10:00 Respiratory Rate 20 08/10/18 10:00 Blood Pressure 128/48 L 08/10/18 10:00 O2 Sat by Pulse Oximetry (%) 98 08/10/18 09:00 Constitutional: Yes: Calm Eyes: Yes: Conjunctiva Clear Cardiovascular: Yes: S1, S2 Respiratory: Yes: CTA Bilaterally Gastrointestinal: Yes: Soft Genitourinary: Yes: Incontinence Musculoskeletal: Yes: Muscle Weakness Edema: No Neurological: Yes: Pre-Existing Deficit Labs: CBC, BMP 08/10/18 05:30 08/10/18 05:30 INR, PTT INR 1.29 (0.83-1.09) H 08/01/18 17:19 Problem List - Problems (1) Acute metabolic encephalopathy Code(s): G93.41 - METABOLIC ENCEPHALOPATHY (2) Dementia Code(s): F03.90 - UNSPECIFIED DEMENTIA WITHOUT BEHAVIORAL DISTURBANCE (3) Failure to thrive in adult Code(s): R62.7 - ADULT FAILURE TO THRIVE (4) HTN (hypertension) Code(s): I10 - ESSENTIAL (PRIMARY) HYPERTENSION (5) Hypernatremia Code(s): E87.0 - HYPEROSMOLALITY AND HYPERNATREMIA (6) AZALEA (acute kidney injury) Code(s): N17.9 - ACUTE KIDNEY FAILURE, UNSPECIFIED Assessment/Plan Current Medications Generic Name Dose Route Start Last Admin Trade Name Freq PRN Reason Stop Dose Admin Acetaminophen 500 mg 08/10/18 09:21 Tylenol - PO Q6H PRN FEVER Acetaminophen 1,000 mg 08/10/18 09:21 Ofirmev Injection - IVPB Q6H PRN PAIN LEVEL 6-10 Aspirin 81 mg 08/10/18 10:00 08/10/18 11:01 Ecotrin - PO 81 mg DAILY AIDEE Administration Atorvastatin Calcium 10 mg 08/10/18 22:00 Lipitor - PO HS AIDEE Bacitracin/Polymyxin B Sulfate 1 applic 08/10/18 10:00 08/10/18 11:01 Polysporin Ointment - TP 1 applic DAILY [facility]EE Administration Piperacillin Sod/Tazobactam 50 mls @ 100 mls/hr 08/10/18 10:00 08/10/18 11:01 Sod 3.375 gm/ Dextrose IVPB 100 mls/hr Q8H-IV AIDEE Administration Protocol Nystatin 1 applic 08/10/18 10:00 08/10/18 11:35 Nystop Powder - TP 1 applic BID A[facility]EE Administration Pantoprazole Sodium 40 mg 08/10/18 10:00 08/10/18 11:34 Protonix Packets For Oral Suspension - PO 40 mg DAILY AIDEE Administration Senna 2 tab 08/10/18 22:00 Senna - PO HS [facility]EE Sodium Chloride 2 spray 08/10/18 10:00 08/10/18 11:34 [place] Nasal [place] - NS 2 sprays BID AIDEE Administration Impression 1. AZALEA 2. UTI 3. CVA 4. HTN 5. hyperlipidemia 6. hypernatremia 7. dementia Plan - d/c fluids - replace potassium, will give another 20 meq - check mag levels - cont tube feeds - discussed with family - cont abx for UTI
[2018-08-10] MEDS ORDERED: POTASSIUM CHLORIDE ORAL LIQUID 20 MEQ/15 ML PEG ONE (17:00)
--- NOTE | 2018-08-10 18:02 | PN ---
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, Physician History of Present Illness: stable tolerating peg tube feeding comfortable family in the room - Current Medication List Current Medications: Active Medications Acetaminophen (Tylenol -) 500 mg PO Q6H PRN PRN Reason: FEVER Last Admin: 08/10/18 17:36 Dose: 500 mg Acetaminophen (Ofirmev Injection -) 1,000 mg IVPB Q6H PRN PRN Reason: PAIN LEVEL 6-10 Aspirin (Ecotrin -) 81 mg PO DAILY [facility] Last Admin: 08/10/18 11:01 Dose: 81 mg Atorvastatin Calcium (Lipitor -) 10 mg PO HS [facility] Bacitracin/Polymyxin B Sulfate (Polysporin Ointment -) 1 applic TP DAILY [facility] Last Admin: 08/10/18 11:01 Dose: 1 applic Piperacillin Sod/Tazobactam (Sod 3.375 gm/ Dextrose) 50 mls @ 100 mls/hr IVPB Q8H-IV AIDEE; Protocol Last Admin: 08/10/18 17:37 Dose: 100 mls/hr Nystatin (Nystop Powder -) 1 applic TP BID [facility] Last Admin: 08/10/18 11:35 Dose: 1 applic Pantoprazole Sodium (Protonix Packets For Oral Suspension -) 40 mg PO DAILY [facility] Last Admin: 08/10/18 11:34 Dose: 40 mg Senna (Senna -) 2 tab PO HS [facility] Sodium Chloride ([place] Nasal [place] -) 2 spray NS BID [facility] Last Admin: 08/10/18 11:34 Dose: 2 sprays - Objective Vital Signs: Vital Signs Temperature 98.6 F 08/10/18 10:00 Pulse Rate 63 08/10/18 10:00 Respiratory Rate 20 08/10/18 10:00 Blood Pressure 128/48 L 08/10/18 10:00 O2 Sat by Pulse Oximetry (%) 98 08/10/18 09:00 Constitutional: Yes: No Distress, Calm Cardiovascular: Yes: Regular Rate and Rhythm Respiratory: Yes: Regular, CTA Bilaterally Gastrointestinal: Yes: Normal Bowel Sounds, Soft, Other (peg in place) Musculoskeletal: Yes: WNL Extremities: Yes: WNL Neurological: Yes: Alert, Other (dementia) Labs: CBC, BMP 08/10/18 05:30 08/10/18 05:30 INR, PTT INR 1.29 (0.83-1.09) H 08/01/18 17:19 Assessment/Plan Problem List - Problems (1) Acute metabolic encephalopathy Code(s): G93.41 - METABOLIC ENCEPHALOPATHY (2) Dementia Assessment/Plan: -chronic Code(s): F03.90 - UNSPECIFIED DEMENTIA WITHOUT BEHAVIORAL DISTURBANCE (3) Dysphagia Code(s): R13.10 - DYSPHAGIA, UNSPECIFIED Qualifiers: Dysphagia type: oropharyngeal phase Qualified Code(s): R13.12 - Dysphagia, oropharyngeal phase (4) Failure to thrive in adult Code(s): R62.7 - ADULT FAILURE TO THRIVE (5) Anemia Code(s): D64.9 - ANEMIA, UNSPECIFIED (6) UTI (urinary tract infection) Assessment/Plan: [address] zosyn will deescalte abx tomorrow nutrition rest as per the team family wants peg tube
[2018-08-10] MEDS ORDERED: POTASSIUM CHLORIDE 10 MEQ in DEXTROSE 5%-WATER - 1,000 ML IVPB SCH (21:45)
[2018-08-10] MEDS ORDERED: ATORVASTATIN CA 10 MG TABLET (FP) PO SCH (22:00)
[2018-08-10] MEDS ORDERED: SENNOSIDES 8.6MG TABLET (FP) PO SCH (22:00)
[2018-08-11] MEDS ORDERED: PIPERACILLIN/TAZOBACTAM 3.375 GM VIAL IVPB ONE ×2 (02:33→10:07)
[2018-08-11] MEDS ORDERED: DEXTROSE 5%-WATER - 50 ML IVPB ONE ×2 (02:33→10:07)
[2018-08-11] MEDS: PIPERACILLIN/TAZOB 3.375 GM 3.375 GM in DEXTROSE 5%-WATER - 50 ML IVPB SCH ×2 (02:39→10:16)
[2018-08-11 07:33] LABS: ALBUMIN 2.2 g/dl (3.4-5.0); ALK PHOS 84 U/L (45-117); ANION GAP 8 MMOL/L (8-16); BILIRUBIN,TOTAL 0.2 mg/dL (0.2-1); BLOOD UREA NITROGEN 13 mg/dL (7-18); CALCIUM 7.7 mg/dL (8.5-10.1); CHLORIDE 109 mmol/L (98-107); CO2 21 mmol/L (21-32); CREATININE 0.5 mg/dL (0.55-1.3); GLUCOSE,RANDOM 104 mg/dL (74-106); MAGNESIUM 1.6 mg/dL (1.8-2.4); POTASSIUM 3.9 mmol/L (3.5-5.1); SGOT/AST 10 U/L (15-37); SGPT/ALT 16 U/L (13-61); SODIUM 137 mmol/L (136-145); TOT PROT 5.4 g/dl (6.4-8.2)
[2018-08-11] MEDS ORDERED: MAGNESIUM SULF 50% (8.12 MEQ/2 ML-1 GM VIAL) IVPB ONE (07:47)
[2018-08-11 09:07] LABS: HEMATOCRIT 28.2 % (32.4-45.2); HEMOGLOBIN 9.2 GM/dL (10.7-15.3); MCH 29.7 pg (25.7-33.7); MCHC 32.7 g/dl (32.0-36.0); MEAN CELL VOLUME 90.9 fl (80-96); MEAN PLT VOLUME 9.3 fl (7.5-11.1); PLATELET COUNT 218 K/MM3 (134-434); RDW 14.6 % (11.6-15.6); WHITE BLOOD COUNT 7.7 K/mm3 (4.0-10.0)
[2018-08-11] MEDS: ASPIRIN COATED 81 MG TABLET.EC PO SCH (10:16)
[2018-08-11] MEDS: PANTOPRAZOLE SOD 40 MG SUSPENSION PACKET PO SCH (10:16)
[2018-08-11] MEDS: NYSTATIN POWDER 100,000 UNITS/GM - 15 GM TOPICAL POWDER TP SCH (10:18)
[2018-08-11 12:27] LABS: ACANTHOCYTES 0; ANISOCYTOSIS 0; HELMET CELLS 0; HOWELL-JOLLY BODIES 0; MACROCYTOSIS 0; OVALOCYTE 0; PLATELET ESTIMATE NORMAL; ROULEAU 0; SICKELED CELLS 0; TARGET CELLS 0; TEAR DROP CELLS 0; TOXIC GRANULATION 0
[2018-08-11 12:40] VITALS: BP 135/66; PULSE 77; TEMP 98
--- NOTE | 2018-08-11 12:41 | PN ---
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, Physician History of Present Illness: Pt seen and examined. She is tolerating feeds. She is stable off of fluids. - Current Medication List Current Medications: Active Medications Acetaminophen (Tylenol -) 500 mg PO Q6H PRN PRN Reason: FEVER Last Admin: 08/10/18 17:36 Dose: 500 mg Acetaminophen (Ofirmev Injection -) 1,000 mg IVPB Q6H PRN PRN Reason: PAIN LEVEL 6-10 Aspirin (Ecotrin -) 81 mg PO DAILY [facility] Last Admin: 08/11/18 10:16 Dose: 81 mg Atorvastatin Calcium (Lipitor -) 10 mg PO HS [facility] Last Admin: 08/10/18 21:26 Dose: 10 mg Bacitracin/Polymyxin B Sulfate (Polysporin Ointment -) 1 applic TP DAILY [facility] Last Admin: 08/10/18 11:01 Dose: 1 applic Piperacillin Sod/Tazobactam (Sod 3.375 gm/ Dextrose) 50 mls @ 100 mls/hr IVPB Q8H-IV AIDEE; Protocol Last Admin: 08/11/18 10:16 Dose: 100 mls/hr Nystatin (Nystop Powder -) 1 applic TP BID [facility] Last Admin: 08/11/18 10:18 Dose: 1 applic Pantoprazole Sodium (Protonix Packets For Oral Suspension -) 40 mg PO DAILY [facility] Last Admin: 08/11/18 10:16 Dose: 40 mg Senna (Senna -) 2 tab PO HS [facility] Last Admin: 08/10/18 21:26 Dose: 2 tab Sodium Chloride ([place] Nasal [place] -) 2 spray NS BID [facility] Last Admin: 08/10/18 21:26 Dose: 2 sprays - Objective Vital Signs: Vital Signs Temperature 98.5 F 08/11/18 07:03 Pulse Rate 76 08/11/18 07:03 Respiratory Rate 21 H 08/11/18 07:03 Blood Pressure 125/61 08/11/18 07:03 O2 Sat by Pulse Oximetry (%) 98 08/10/18 21:00 Constitutional: Yes: Calm Eyes: Yes: Conjunctiva Clear HENT: Yes: Atraumatic Neck: Yes: Supple Cardiovascular: Yes: S1, S2 Respiratory: Yes: CTA Bilaterally Gastrointestinal: Yes: Soft Genitourinary: Yes: Incontinence Musculoskeletal: Yes: Muscle Weakness Edema: No Neurological: Yes: Pre-Existing Deficit, Other (awake) Labs: CBC, BMP 08/11/18 06:30 08/11/18 06:30 INR, PTT INR 1.29 (0.83-1.09) H 08/01/18 17:19 Problem List - Problems (1) Acute metabolic encephalopathy Code(s): G93.41 - METABOLIC ENCEPHALOPATHY (2) Dementia Code(s): F03.90 - UNSPECIFIED DEMENTIA WITHOUT BEHAVIORAL DISTURBANCE (3) Failure to thrive in adult Code(s): R62.7 - ADULT FAILURE TO THRIVE (4) HTN (hypertension) Code(s): I10 - ESSENTIAL (PRIMARY) HYPERTENSION (5) Hypernatremia Code(s): E87.0 - HYPEROSMOLALITY AND HYPERNATREMIA (6) AZALEA (acute kidney injury) Code(s): N17.9 - ACUTE KIDNEY FAILURE, UNSPECIFIED Assessment/Plan Current Medications Generic Name Dose Route Start Last Admin Trade Name Freq PRN Reason Stop Dose Admin Acetaminophen 500 mg 08/10/18 09:21 08/10/18 17:36 Tylenol - PO 500 mg Q6H PRN Administration FEVER Acetaminophen 1,000 mg 08/10/18 09:21 Ofirmev Injection - IVPB Q6H PRN PAIN LEVEL 6-10 Aspirin 81 mg 08/10/18 10:00 08/11/18 10:16 Ecotrin - PO 81 mg DAILY [facility] Administration Atorvastatin Calcium 10 mg 08/10/18 22:00 08/10/18 21:26 Lipitor - PO 10 mg HS AIDEE Administration Bacitracin/Polymyxin B Sulfate 1 applic 08/10/18 10:00 08/10/18 11:01 Polysporin Ointment - TP 1 applic DAILY [facility] Administration Piperacillin Sod/Tazobactam 50 mls @ 100 mls/hr 08/10/18 10:00 08/11/18 10:16 Sod 3.375 gm/ Dextrose IVPB 100 mls/hr Q8H-IV AIDEE Administration Protocol Nystatin 1 applic 08/10/18 10:00 08/11/18 10:18 Nystop Powder - TP 1 applic BID [facility]EE Administration Pantoprazole Sodium 40 mg 08/10/18 10:00 08/11/18 10:16 Protonix Packets For Oral Suspension - PO 40 mg DAILY [facility] Administration Senna 2 tab 08/10/18 22:00 08/10/18 21:26 Senna - PO 2 tab HS A[facility]EE Administration Sodium Chloride 2 spray 08/10/18 10:00 08/10/18 21:26 [place] Nasal [place] - NS 2 sprays BID [facility]EE Administration Impression 1. AZALEA 2. UTI 3. CVA 4. HTN 5. hyperlipidemia 6. hypernatremia 7. dementia Plan - stable off of fluids - will replace mag - cont tube feeds - monitor lytes - will follow prn
--- NOTE | 2018-08-11 14:10 | PN ---
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, Physician Chief Complaint: AMS UTI History of Present Illness: NAD alert but non verbal ams 2/2 to metabolic encephalopathy Palliative care on board due to poor prognosis Febrile yesterday CXR and labs unremarkable BC pending already on IV abx S/P Peg-tolerating feeds Seen by Speech pathology Awaiting [facility] [place] [place] - Current Medication List Current Medications: Active Medications Acetaminophen (Tylenol -) 500 mg PO Q6H PRN PRN Reason: FEVER Last Admin: 08/10/18 17:36 Dose: 500 mg Acetaminophen (Ofirmev Injection -) 1,000 mg IVPB Q6H PRN PRN Reason: PAIN LEVEL 6-10 Aspirin (Ecotrin -) 81 mg PO DAILY [facility] Last Admin: 08/11/18 10:16 Dose: 81 mg Atorvastatin Calcium (Lipitor -) 10 mg PO HS [facility] Last Admin: 08/10/18 21:26 Dose: 10 mg Bacitracin/Polymyxin B Sulfate (Polysporin Ointment -) 1 applic TP DAILY [facility] Last Admin: 08/10/18 11:01 Dose: 1 applic Piperacillin Sod/Tazobactam (Sod 3.375 gm/ Dextrose) 50 mls @ 100 mls/hr IVPB Q8H-IV AIDEE; Protocol Last Admin: 08/11/18 10:16 Dose: 100 mls/hr Magnesium Oxide (Mag-Ox -) 400 mg PO DAILY [facility] Stop: 08/15/18 10:01 Nystatin (Nystop Powder -) 1 applic TP BID [facility] Last Admin: 08/11/18 10:18 Dose: 1 applic Pantoprazole Sodium (Protonix Packets For Oral Suspension -) 40 mg PO DAILY [facility] Last Admin: 08/11/18 10:16 Dose: 40 mg Senna (Senna -) 2 tab PO HS [facility] Last Admin: 08/10/18 21:26 Dose: 2 tab Sodium Chloride ([place] Nasal [place] -) 2 spray NS BID [facility] Last Admin: 08/10/18 21:26 Dose: 2 sprays - Objective Vital Signs: Vital Signs Temperature 98.0 F 08/11/18 11:00 Pulse Rate 77 08/11/18 11:00 Respiratory Rate 18 08/11/18 11:00 Blood Pressure 135/66 08/11/18 11:00 O2 Sat by Pulse Oximetry (%) 96 08/11/18 10:00 Constitutional: Yes: Well Nourished, No Distress, Calm Cardiovascular: Yes: Regular Rate and Rhythm Respiratory: Yes: Regular Gastrointestinal: Yes: Normal Bowel Sounds, Soft Genitourinary: Yes: Incontinence Musculoskeletal: Yes: Muscle Weakness Edema: No Peripheral Pulses WNL: Yes Neurological: Yes: Alert, Pre-Existing Deficit Psychiatric: Yes: Alert Labs: CBC, BMP 08/11/18 06:30 08/11/18 06:30 INR, PTT INR 1.29 (0.83-1.09) H 08/01/18 17:19 Problem List - Problems (1) Acute metabolic encephalopathy Assessment/Plan: 09/25 to UTI -ID on board -On IV abx Code(s): G93.41 - METABOLIC ENCEPHALOPATHY (2) Dementia Assessment/Plan: -chronic Code(s): F03.90 - UNSPECIFIED DEMENTIA WITHOUT BEHAVIORAL DISTURBANCE (3) Dysphagia Code(s): R13.10 - DYSPHAGIA, UNSPECIFIED Qualifiers: Qualified Code(s): R13.12 - Dysphagia, oropharyngeal phase (4) Failure to thrive in adult Assessment/Plan: -palliative care -Speech therapy -S/P PEG-tolerating feeds Code(s): R62.7 - ADULT FAILURE TO THRIVE (5) Anemia Assessment/Plan: -H/H stable -Iron profile unremarkable -B12+ thyroid profile normal -Stool OB negative -monitor trend Code(s): D64.9 - ANEMIA, UNSPECIFIED (6) UTI (urinary tract infection) Assessment/Plan: -culture: Microbiology 08/01/18 17:19 Blood - Peripheral Venous Blood Culture - Final NO GROWTH AFTER 5 DAYS INCUBATION 08/01/18 17:19 Blood - Peripheral Venous Blood Culture - Final NO GROWTH AFTER 5 DAYS INCUBATION 08/01/18 18:14 Urine - Urine Clean Catch Urine Culture - Final Escherichia Coli 08/02/18 19:20 Stool Clostridium difficile Antigen (ELLIE) - Final 08/02/18 19:20 Stool Clostridium difficile Toxin Assay - Final -ID on board -On IV abx Code(s): N39.0 - URINARY TRACT INFECTION, SITE NOT SPECIFIED Qualifiers: Qualified Code(s): N39.0 - Urinary tract infection, site not specified (7) Hypokalemia Assessment/Plan: -resolved Code(s): E87.6 - HYPOKALEMIA
--- NOTE | 2018-08-11 14:10 | PN ---
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, Physician History of Present Illness: stable no new events - Current Medication List Current Medications: Active Medications Acetaminophen (Tylenol -) 500 mg PO Q6H PRN PRN Reason: FEVER Last Admin: 08/10/18 17:36 Dose: 500 mg Acetaminophen (Ofirmev Injection -) 1,000 mg IVPB Q6H PRN PRN Reason: PAIN LEVEL 6-10 Aspirin (Ecotrin -) 81 mg PO DAILY [facility] Last Admin: 08/11/18 10:16 Dose: 81 mg Atorvastatin Calcium (Lipitor -) 10 mg PO HS [facility] Last Admin: 08/10/18 21:26 Dose: 10 mg Bacitracin/Polymyxin B Sulfate (Polysporin Ointment -) 1 applic TP DAILY [facility] Last Admin: 08/10/18 11:01 Dose: 1 applic Magnesium Oxide (Mag-Ox -) 400 mg PO DAILY [facility] Stop: 08/15/18 10:01 Nystatin (Nystop Powder -) 1 applic TP BID [facility] Last Admin: 08/11/18 10:18 Dose: 1 applic Pantoprazole Sodium (Protonix Packets For Oral Suspension -) 40 mg PO DAILY [facility] Last Admin: 08/11/18 10:16 Dose: 40 mg Senna (Senna -) 2 tab PO HS [facility] Last Admin: 08/10/18 21:26 Dose: 2 tab Sodium Chloride ([place] Nasal [place] -) 2 spray NS BID [facility] Last Admin: 08/10/18 21:26 Dose: 2 sprays - Objective Vital Signs: Vital Signs Temperature 98.0 F 08/11/18 11:00 Pulse Rate 77 08/11/18 11:00 Respiratory Rate 18 08/11/18 11:00 Blood Pressure 135/66 08/11/18 11:00 O2 Sat by Pulse Oximetry (%) 96 08/11/18 10:00 Constitutional: Yes: No Distress, Calm Cardiovascular: Yes: Regular Rate and Rhythm Respiratory: Yes: Regular, CTA Bilaterally Gastrointestinal: Yes: Normal Bowel Sounds, Soft, Other (peg in place) Musculoskeletal: Yes: WNL Extremities: Yes: WNL Neurological: Yes: Alert, Other (dementia) Psychiatric: Yes: Other Labs: CBC, BMP 08/11/18 06:30 08/11/18 06:30 INR, PTT INR 1.29 (0.83-1.09) H 08/01/18 17:19 Assessment/Plan Problem List - Problems (1) Acute metabolic encephalopathy Code(s): G93.41 - METABOLIC ENCEPHALOPATHY (2) Dementia Assessment/Plan: -chronic Code(s): F03.90 - UNSPECIFIED DEMENTIA WITHOUT BEHAVIORAL DISTURBANCE (3) Dysphagia Code(s): R13.10 - DYSPHAGIA, UNSPECIFIED Qualifiers: Dysphagia type: oropharyngeal phase Qualified Code(s): R13.12 - Dysphagia, oropharyngeal phase (4) Failure to thrive in adult Code(s): R62.7 - ADULT FAILURE TO THRIVE (5) Anemia Code(s): D64.9 - ANEMIA, UNSPECIFIED (6) UTI (urinary tract infection) Assessment/Plan: 7 asp pna plan stopped zosyn changed to oral augmentin continue for another 3 days rest as per the team
--- NOTE | 2018-08-11 14:19 | DS ---
Physical Examination Vital Signs: Vital Signs Temperature 98.0 F 08/11/18 11:00 Pulse Rate 77 08/11/18 11:00 Respiratory Rate 18 08/11/18 11:00 Blood Pressure 135/66 08/11/18 11:00 O2 Sat by Pulse Oximetry (%) 96 08/11/18 10:00 Findings/Remarks: This is a 83 y/o woman with a PMHx of Dementia, HTN, CVA (r-sided deficits), Chronic Obstructions (NGTs, no sx). Who presents to the ED with family for AMS and weakness. Patient has Dementia, family not at bedside to provide HPI. Per ED records: presenting with decreased feeding for the past three days, warmth, and altered mental status. Family states that she has not been eating much over the past 3 days and they have been trying to force her to eat and drink with little success. Earlier today, she appeared altered and less responsive than usual according to the family. Typically she can respond, have a conversation, and knows her name + her location but never really knows the date. She has been less interactive the past year but has definitely declined over the past three days. Constitutional: Yes: Well Nourished, No Distress, Calm Cardiovascular: Yes: Regular Rate and Rhythm Respiratory: Yes: Regular Gastrointestinal: Yes: Normal Bowel Sounds, Soft Musculoskeletal: Yes: Muscle Weakness Edema: No Peripheral Pulses WNL: Yes Neurological: Yes: Alert, Pre-Existing Deficit Psychiatric: Yes: Alert Labs: CBC, BMP 08/11/18 06:30 08/11/18 06:30 Discharge Summary Reason For Visit: HYPERNATREMIA / AMS Current Active Problems Acute metabolic encephalopathy (Acute) Dementia (Acute) Dysphagia (Acute) Failure to thrive in adult (Acute) HTN (hypertension) (Acute) Hearing loss (Acute) Hypernatremia (Acute) Old cerebrovascular accident (CVA) without late effect (Acute) Rhinitis (Acute) Hospital Course: Laboratory Last Values WBC 7.7 K/mm3 (4.0-10.0) 08/11/18 06:30 RBC 3.10 M/mm3 (3.60-5.2) L 08/11/18 06:30 Hgb 9.2 GM/dL (10.7-15.3) L 08/11/18 06:30 Hct 28.2 % (32.4-45.2) L 08/11/18 06:30 MCV 90.9 fl (80-96) 08/11/18 06:30 MCH 29.7 pg (25.7-33.7) 08/11/18 06:30 MCHC 32.7 g/dl (32.0-36.0) 08/11/18 06:30 RDW 14.6 % (11.6-15.6) 08/11/18 06:30 Plt Count 218 K/MM3 (134-434) 08/11/18 06:30 MPV 9.3 fl (7.5-11.1) 08/11/18 06:30 Absolute Neuts (auto) 5.4 K/mm3 (1.5-8.0) 08/11/18 06:30 Neutrophils % No Result Required. 08/11/18 06:30 Neutrophils % (Manual) 74.0 % (42.8-82.8) 08/11/18 06:30 Band Neutrophils % 0.0 % 08/11/18 06:30 Lymphocytes % No Result Required. 08/11/18 06:30 Lymphocytes % (Manual) 17.0 % (8-40) 08/11/18 06:30 Monocytes % 3.0 % (3.8-10.2) L 08/10/18 05:30 Monocytes % (Manual) 5 % (3.8-10.2) 08/11/18 06:30 Eosinophils % 2.8 % (0-4.5) 08/10/18 05:30 Eosinophils % (Manual) 4.0 % (0-4.5) 08/11/18 06:30 Basophils % 0.4 % (0-2.0) 08/10/18 05:30 Basophils % (Manual) 0.0 % (0-2.0) 08/11/18 06:30 Myelocytes % (Man) 0 % (0-2) 08/11/18 06:30 Promyelocytes % (Man) 0 % (0-2) 08/11/18 06:30 Blast Cells % (Manual) 0 % (0-0) 08/11/18 06:30 Nucleated RBC % 0 % (0-0) 08/11/18 06:30 Metamyelocytes 0 % (0-2) 08/11/18 06:30 Hypochromia 0 08/11/18 06:30 Toxic Granulation 0 08/11/18 06:30 Dohle Bodies 0 08/11/18 06:30 Platelet Estimate Normal 08/11/18 06:30 Polychromasia 0 08/11/18 06:30 Poikilocytosis 0 08/11/18 06:30 Basophilic Stippling 0 08/11/18 06:30 Anisocytosis 0 08/11/18 06:30 Microcytosis 0 08/11/18 06:30 Macrocytosis 0 08/11/18 06:30 Spherocytes 0 08/11/18 06:30 Sickle Cells 0 08/11/18 06:30 Target Cells 0 08/11/18 06:30 Tear Drop Cells 0 08/11/18 06:30 Ovalocytes 0 08/11/18 06:30 Stomatocytes 0 08/11/18 06:30 Helmet Cells 0 08/11/18 06:30 Dickey-Spiro Bodies 0 08/11/18 06:30 [place] Rings 0 08/11/18 06:30 Abe Cells 0 08/11/18 06:30 Acanthocytes (Spur) 0 08/11/18 06:30 Rouleaux 0 08/11/18 06:30 Fragmented RBCs 0 08/11/18 06:30 Schistocytes 0 08/11/18 06:30 PT with INR 15.30 SEC (9.7-13.0) H 08/01/18 17:19 INR 1.29 (0.83-1.09) H 08/01/18 17:19 PTT (Actin FS) 27.1 SECONDS (25.2-36.5) 08/01/18 17:19 VBG pH 7.40 (7.32-7.42) 08/01/18 17:09 POC VBG pCO2 39.6 mmHg (38-52) 08/01/18 17:09 POC VBG pO2 47.1 mmHg (28-48) 08/01/18 17:09 Mixed VBG HCO3 24.1 meq/L (19-25) 08/01/18 17:09 Sodium 137 mmol/L (136-145) 08/11/18 06:30 Potassium 3.9 mmol/L (3.5-5.1) 08/11/18 06:30 Chloride 109 mmol/L (98-107) H 08/11/18 06:30 Carbon Dioxide 21 mmol/L (21-32) 08/11/18 06:30 Anion Gap 8 MMOL/L (8-16) 08/11/18 06:30 BUN 13 mg/dL (7-18) 08/11/18 06:30 Creatinine 0.5 mg/dL (0.55-1.3) L 08/11/18 06:30 Creat Clearance w eGFR > 60 (>60) 08/11/18 06:30 Random Glucose 104 mg/dL (74-106) 08/11/18 06:30 Lactic Acid 1.1 mmol/L (0.4-2.0) 08/07/18 20:45 Calcium 7.7 mg/dL (8.5-10.1) L 08/11/18 06:30 Phosphorus 3.6 mg/dL (2.5-4.9) 08/02/18 06:00 Magnesium 1.6 mg/dL (1.8-2.4) L 08/11/18 06:30 Ferritin 373.6 ng/ml (8-388) 08/06/18 05:40 Total Bilirubin 0.2 mg/dL (0.2-1) 08/11/18 06:30 AST 10 U/L (15-37) L 08/11/18 06:30 ALT 16 U/L (13-61) 08/11/18 06:30 Alkaline Phosphatase 84 U/L (45-117) 08/11/18 06:30 Troponin I < 0.02 ng/ml (0.00-0.05) 08/01/18 17:09 Total Protein 5.4 g/dl (6.4-8.2) L 08/11/18 06:30 Albumin 2.2 g/dl (3.4-5.0) L 08/11/18 06:30 Vitamin B12 514 pg/ml (193-986) 08/06/18 05:40 TSH 0.90 uIU/ml (0.358-3.74) 08/01/18 17:09 Urine Color Ltyellow 08/07/18 21:30 Urine Appearance Clear 08/07/18 21:30 Urine pH 5.0 (5.0-8.0) 12/15/18 21:30 Ur Specific [place] 1.009 (1.010-1.035) L 08/07/18 21:30 Urine Protein Negative (NEGATIVE) 08/07/18 21:30 Urine Glucose (UA) Negative (NEGATIVE) 08/07/18 21:30 Urine Ketones Negative (NEGATIVE) 08/07/18 21:30 Urine Blood Negative (NEGATIVE) 08/07/18 21:30 Urine Nitrite Negative (NEGATIVE) 08/07/18 21:30 Urine Bilirubin Negative (<2.0 mg/dL) 08/07/18 21:30 Urine Urobilinogen Negative mg/dL (0.2-1.0) 08/07/18 21:30 Ur Leukocyte Esterase Negative (NEGATIVE) 08/07/18 21:30 Urine WBC (Auto) 9 /hpf (3-5) 08/01/18 18:14 Urine RBC (Auto) None /hpf (0-3) 08/01/18 18:14 Urine Bacteria Many /hpf (NONE SEEN) 08/01/18 18:14 Urine Mucus Rare 08/01/18 18:14 Ur Random Sodium 38 MMOL/L (40-220) L 08/02/18 01:00 Ur Random Potassium 52.0 MMOL/L (25-125) 08/02/18 01:00 Ur Random Chloride 42 MMOL/L (110-250) L 08/02/18 01:00 Stool Occult Blood Negative (NEGATIVE) 08/07/18 23:00 Microbiology 08/07/18 21:10 Blood - Peripheral Venous Blood Culture - Preliminary NO GROWTH OBTAINED AFTER 72 HOURS, INCUBATION TO CONTINUE FOR 2 DAYS. 08/07/18 20:45 Blood - Peripheral Venous Blood Culture - Preliminary NO GROWTH OBTAINED AFTER 72 HOURS, INCUBATION TO CONTINUE FOR 2 DAYS. 08/07/18 21:54 Urine - Urine - Catheterized Urine Culture - Final NO GROWTH OBTAINED 08/01/18 17:19 Blood - Peripheral Venous Blood Culture - Final NO GROWTH AFTER 5 DAYS INCUBATION 08/01/18 17:19 Blood - Peripheral Venous Blood Culture - Final NO GROWTH AFTER 5 DAYS INCUBATION 08/01/18 18:14 Urine - Urine Clean Catch Urine Culture - Final Escherichia Coli 08/02/18 19:20 Stool Clostridium difficile Antigen (ELLIE) - Final 08/02/18 19:20 Stool Clostridium difficile Toxin Assay - Final Condition: Stable - Instructions Referrals: Ace Kelly MD [Primary Care Provider] - Disposition: [facility] - Home Medications Comprehensive Discharge Medication List: Ambulatory Orders Acetaminophen [Tylenol .Regular Strength -] 650 mg PO Q6H PRN #0 tablet Albuterol 2.5/Ipratropium 0.5 [Duoneb -] 1 amp NEB Q6H PRN #0 amp 09/03/16 Amino Acids/Protein Hydrolys [Prostat Sugar-Free Packet -] 30 ml PO BID Aspirin Coated [Ecotrin -] 81 mg PO DAILY tablet.ec 10/20/16 Atorvastatin Ca [Lipitor] 10 mg PO HS tablet 10/20/16 Ascorbic Acid [Vitamin C] 500 mg PO DAILY 05/11/18 Clopidogrel Bisulfate [Plavix] 75 mg PO DAILY 05/11/18 Pantoprazole Sodium [Protonix] 40 mg PO DAILY 05/11/18 Sennosides [Senokot] 8.6 mg PO HS 05/11/18 Metoclopramide HCl [Reglan -] 5 mg PO TIDAC #20 tablet MDD 3 05/17/18 Simethicone Liquid [Mylicon Liquid -] 80 mg PO QID #20 ml 05/17/18 Acetaminophen [Tylenol .Extra-Strength -] 500 mg GT Q6H PRN tablet 08/11/18 Amoxicillin/Potassium Clav [Augmentin 875-125 Tablet] 1 each PO BID #6 tablet Aspirin Coated [Ecotrin -] 81 mg GT DAILY tablet.ec 08/11/18 Atorvastatin Ca [Lipitor] 10 mg GT HS tablet 08/11/18 Clopidogrel Bisulfate [Plavix -] 75 mg GT DAILY tablet 08/11/18 Magnesium Oxide [Mag-Ox -] 400 mg GT DAILY tablet 08/11/18 Nystatin Powder [Nystop Powder -] 1 applic TP BID applic 08/11/18 Pantoprazole Suspension [Protonix Packets For Oral Suspension -] 40 mg GT DAILY packet 08/11/18 Sennosides [Senna -] 2 tab GT HS tablet 08/11/18 Sodium Chloride Nasal [place] [[place] Nasal [place] -] 2 spray NS BID spray
[2018-08-11] MEDS: SODIUM CHLORIDE NASAL SPRAY 44 ML BOTTLE NS SCH (14:30)
[2018-08-11] MEDS: BACITRACIN/POLYMYXIN B SULFATE 15 GM TUBE TP SCH (14:30)
[2018-08-11] MEDS ORDERED: AMOX TR/POT CLAV 875MG/125MG TABLETS (FP) PO SCH (17:30)
[2018-08-12] MEDS ORDERED: AMOX TR/POTASSIUM CLAVULANATE 600 MG/5 ML PO SCH (08:00)
[2018-08-12] MEDS ORDERED: MAGNESIUM OXIDE 400 MG TABLET (FP) PO SCH (10:00)
== END 2018-08-11 18:51 | DRG 640 ==
LOC: SUPCPDRO 16:21 → JER 16:21 → JERBED 16:57 → UNDOADMIN 20:34 → J4W 08-02 07:17 → J6S 08-05 17:30
PROVIDERS: ADMIT Internal Medicine; ATTEND Family Medicine
PROC: 0DH63UZ Insertion of Feeding Device into Stomach, Percutaneous Approach (ICD-10-PCS; principal; 2018-08-10 07:30)
DX: E87.0 Hyperosmolality and hypernatremia (principal); G93.41 Metabolic encephalopathy; R53.2 Functional quadriplegia; N39.0 Urinary tract infection, site not specified; N17.9 Acute kidney failure, unspecified; I69.351 Hemiplegia and hemiparesis following cerebral infarction affecting right dominant side; G30.9 Alzheimer's disease, unspecified; R62.7 Adult failure to thrive; R13.10 Dysphagia, unspecified; I10 Essential (primary) hypertension; J31.0 Chronic rhinitis; D64.9 Anemia, unspecified; F02.80 Dementia in other diseases classified elsewhere, unspecified severity, without behavioral disturbance, psychotic disturbance, mood disturbance, and anxiety; E78.5 Hyperlipidemia, unspecified; E86.0 Dehydration; I25.10 Atherosclerotic heart disease of native coronary artery without angina pectoris; R41.82 Altered mental status, unspecified; I69.322 Dysarthria following cerebral infarction; E87.6 Hypokalemia; H91.90 Unspecified hearing loss, unspecified ear
CPT/HCPCS: 36415; 70450-TC; 71045-TC-FY; 74018-TC-FY; 76775-TC; 76856-TC; 80048; 80053; 81003; 81015; 82272; 82436; 82607; 82728; 82803; 83540; 83550; 83605; 83735; 84100; 84133; 84300; 84443; 84484; 85025; 85027; 85610; 85730; 87040; 87086; 87186; 87324; 87449; 93005; 93010; 99285-25; J0131

== ENCOUNTER 2019-06-16 07:25 | Inpatient (IN) | payer MEDICARE, OTHER ==
--- NOTE | 2019-06-16 07:44 | PDOC ---
History of Present Illness - General Chief Complaint: Coffee Ground Emesis Stated Complaint: Vomiting Blood Time Seen by Provider: 06/16/19 07:33 Past History - Past Medical History Allergies/Adverse Reactions: Allergies Allergy/AdvReac Type Severity Reaction Status Date / Time No Known Allergies Allergy Verified 06/16/19 07:33 Home Medications: Ambulatory Orders Acetaminophen [Tylenol .Regular Strength -] 650 mg PO Q6H PRN #0 tablet Albuterol 2.5/Ipratropium 0.5 [Duoneb -] 1 amp NEB Q6H PRN #0 amp 09/03/16 Amino Acids/Protein Hydrolys [Prostat Sugar-Free Packet -] 30 ml PO BID Aspirin Coated [Ecotrin -] 81 mg PO DAILY tablet.ec 10/20/16 Atorvastatin Ca [Lipitor] 10 mg PO HS tablet 10/20/16 Ascorbic Acid [Vitamin C] 500 mg PO DAILY 05/11/18 Clopidogrel Bisulfate [Plavix] 75 mg PO DAILY 05/11/18 Pantoprazole Sodium [Protonix] 40 mg PO DAILY 05/11/18 Sennosides [Senokot] 8.6 mg PO HS 05/11/18 Metoclopramide HCl [Reglan -] 5 mg PO TIDAC #20 tablet MDD 3 05/17/18 Simethicone Liquid [Mylicon Liquid -] 80 mg PO QID #20 ml 05/17/18 Acetaminophen [Tylenol .Extra-Strength -] 500 mg GT Q6H PRN tablet 08/11/18 Amoxicillin/Potassium Clav [Augmentin 875-125 Tablet] 1 each PO BID #6 tablet Aspirin Coated [Ecotrin -] 81 mg GT DAILY tablet.ec 08/11/18 Atorvastatin Ca [Lipitor] 10 mg GT HS tablet 08/11/18 Clopidogrel Bisulfate [Plavix -] 75 mg GT DAILY tablet 08/11/18 Lactobacillus Acidophilus [Bacid -] 1 each GT DAILY #30 capsule 08/11/18 Magnesium Oxide [Mag-Ox -] 400 mg GT DAILY tablet 08/11/18 Nystatin Powder [Nystop Powder -] 1 applic TP BID applic 08/11/18 Pantoprazole Suspension [Protonix Packets For Oral Suspension -] 40 mg GT DAILY packet 08/11/18 Sennosides [Senna -] 2 tab GT HS tablet 08/11/18 Sodium Chloride Nasal [place] [[place] Nasal [place] -] 2 spray NS BID spray Anemia: Yes Asthma: Yes CVA: Yes (Right sided CVA January 2015, right arm weakness) COPD: No GI Disorders: Yes (volvulous) Disorders: Yes (/O UTI) HTN: Yes Hypercholesterolemia: Yes Other medical history: DVT - Surgical History GI Surgery: Yes (g tube) Orthopedic Surgery: Yes (Bilateral total knee replacements, Left hip surgery,) - Psycho Social/Smoking Cessation Hx Smoking History: Never smoked Have you smoked in the past 12 months: No Hx Alcohol Use: No Drug/Substance Use Hx: No Substance Use Type: None Hx Substance Use Treatment: No *Physical Exam - Vital Signs Last Vital Signs Temp Pulse Resp BP Pulse Ox 122 H 20 111/65 95 06/16/19 07:33 06/16/19 07:33 06/16/19 07:33 06/16/19 07:33
[2019-06-16] MEDS ORDERED: SODIUM CHLORIDE 0.9% 500 ML INFUS.BAG IV ONE ×3 (07:49→14:39)
[2019-06-16] MEDS ORDERED: PANTOPRAZOLE SODIUM 40 MG VIAL IVPUSH ONE (07:50)
--- NOTE | 2019-06-16 07:55 | PDOC ---
Attending Attestation - Resident Resident Name: Blank Caldwell - ED Attending Attestation I have performed the following: I have examined & evaluated the patient, The case was reviewed & discussed with the resident, I agree w/resident's findings & plan, Exceptions are as noted - HPI HPI: 06/16/19 07:51 84yo F hx dementia, HTN, CVA with residual R hemiplegia, aphasia c/b recurrent aspiration s/p PEG tube (replaced last wk after dislodged at [facility]), volvulus, chronically on plavix/asa, chronically bed bound from [place] presents to the ED with 1 episode of large volume coffee ground em[facility] the [facility]. History is limited as patient is nonverbal, is provided by son. He states patient was in her usual state of health yesterday. Patient has not had any recent he reports patient has chronic abdominal distention, and this has not changed over the last few days. Patient has not had any recent fevers, chills, diarrhea. No recent changes in her medications. Son is concerned that the PEG tube placement is causing the bleeding. PMD: Dr. Ace Kelly GI: Dr. Dequan Maxwell - Physicial Exam PE: 06/16/19 08:18 GENERAL: Awake, alert, non verbal, in no acute distress HEAD: No signs of trauma EYES: EOMI, sclera anicteric, conjunctiva clear ENT: +macroglossia, +dried dark blood on heladio NECK: Normal ROM, supple, no lymphadenopathy, JVD, or masses LUNGS: Breath sounds equal, clear to auscultation bilaterally. No wheezes, and no crackles HEART: Tachycardic to 120s but regular, normal S1 and S2, no murmurs, rubs or gallops ABDOMEN: Soft, distended, PEG tube noted in place in epigastrum with pill particulate and small amount of blood in tubing EXTREMITIES: WWP, no significant edema NEUROLOGICAL: Aphasic, R sided hemiplegia SKIN: Warm, Dry, normal turgor, no rashes or lesions noted. - Medical Decision Making 06/16/19 08:21 84yo F with MMP including previous abd obstruction, volvulus, CVA on plavix/asa , PEG tube presents to the ED with 1 episode of coffee-ground emesis. Vitals remarkable for tachycardia to 128, and patient is rectally febrile. Sepsis protocol initiated. Will give 1 L normal saline slowly. We will hold anticoagulation due to likely upper GI bleed today, and administer PPI. Once labs are back we will discuss case with Dr. Maxwell. We will also obtain CT abdomen pelvis to rule out evaluate for obstruction. 06/16/19 15:11 Labs with elevated BUN consistent with likely UGIB Dr. Maxwell consulted, case discussed, will see pt CTAP with possible infiltrate, in light of fever, tachycardia, pt was covered with Vanc/Zosyn Pt admitted to Dr. Wills for further mgmt/dispo Heart Score/ECG Review #1 06/16/19 08:33 Twelve-lead EKG was performed and reviewed by me. Sinus tachycardia, rate 125. Normal axis. No ST elevations. No T wave inversions.
--- NOTE | 2019-06-16 07:56 | PDOC ---
History of Present Illness - General Chief Complaint: Coffee Ground Emesis Stated Complaint: Vomiting Blood Time Seen by Provider: 06/16/19 07:33 - History of Present Illness Initial Comments: 84 year old female with PMH of CVA (r-sided deficits), Dementia, HTN, chronic obstructions (PEG tube in place) presenting to the ED with family for coffee ground emesis. Patient has Dementia, family not at bedside to provide HPI. Per ED records: presenting with decreased feeding for the past three days, warmth, and altered mental status. Family states that she has not been eating much over the past 3 days and they have been trying to force her to eat and drink with little success. Earlier today, she appeared altered and less responsive than usual according to the family. 06/16/19 07:56 Past History - Past Medical History Allergies/Adverse Reactions: Allergies Allergy/AdvReac Type Severity Reaction Status Date / Time No Known Allergies Allergy Verified 06/16/19 07:33 Home Medications: Ambulatory Orders Acetaminophen [Tylenol .Regular Strength -] 650 mg PO Q6H PRN #0 tablet Albuterol 2.5/Ipratropium 0.5 [Duoneb -] 1 amp NEB Q6H PRN #0 amp 09/03/16 Ascorbic Acid [Vitamin C] 500 mg PEG DAILY 05/11/18 Aspirin Coated [Ecotrin -] 81 mg GT DAILY tablet.ec 08/11/18 Lactobacillus Acidophilus [Bacid -] 1 each GT DAILY #30 capsule 08/11/18 Sodium Chloride Nasal [place] [[place] Nasal [place] -] 2 spray NS BID spray Ferrous Sulfate 220 mg PEG DAILY 06/16/19 Linaclotide [Linzess] 290 mcg PEG DAILY 06/16/19 Polyethylene Glycol 3350 [Miralax 119 gm Btl -] 17 gm PEG DAILY 06/16/19 Pravastatin Sodium [Pravachol -] 20 mg PEG HS 06/16/19 Simethicone Liquid [Mylicon Liquid -] 80 mg PEG QID 06/16/19 Acetaminophen Oral Solution [Tylenol Oral Solution -] 650 mg PEG Q4H PRN soln.oral 06/19/19 Amoxicillin/Potassium Clav [Augmentin ES Suspension] 600 mg PO BID #70 ml Famotidine [Pepcid -] 20 mg NGT BID tablet 06/19/19 Iron Polysaccharides [Niferex-150 -] 150 mg GT DAILY capsule 06/19/19 Metoclopramide Oral Soln [Reglan Oral Solution -] 10 mg GT ACHS udc 06/19/19 Pantoprazole Sodium [Protonix -] 40 mg PO BID #60 tablet.ec 06/19/19 Anemia: Yes Asthma: Yes CVA: Yes (Right sided CVA January 2015, right arm weakness) COPD: No GI Disorders: Yes (volvulous) Disorders: Yes (/O UTI) HTN: Yes Hypercholesterolemia: Yes Other medical history: DVT - Surgical History GI Surgery: Yes (g tube) Orthopedic Surgery: Yes (Bilateral total knee replacements, Left hip surgery,) - Psycho Social/Smoking Cessation Hx Smoking History: Never smoked Have you smoked in the past 12 months: No Hx Alcohol Use: No Drug/Substance Use Hx: No Substance Use Type: None Hx Substance Use Treatment: No Review of Systems - Review of Systems Constitutional: No: Chills, Diaphoresis, Fever HEENTM: No: Eye Pain, Blurred Vision, Tearing Respiratory: Yes: Cough. No: Shortness of Breath ABD/GI: Yes: Nausea, Vomiting : No: Burning, Dysuria, Discharge Musculoskeletal: No: Joint Swelling, Muscle Pain Integumentary: No: Flushing, Lesions Neurological: No: Headache, Numbness, Paresthesia Psychiatric: No: Anxiety, Depression Hematologic/Lymphatic: Yes: Easy Bleeding, Bleeding Diathesis. No: Anemia *Physical Exam - Vital Signs Last Vital Signs Temp Pulse Resp BP Pulse Ox 122 H 20 111/65 95 06/16/19 07:33 06/16/19 07:33 06/16/19 07:33 06/16/19 07:33 - Physical Exam General Appearance: Yes: Nourished. No: Apparent Distress HEENT: negative: Normal ENT Inspection (dry immobile mouth with swollen tongue and dried blodo at margins), Normal Voice (unable to assess, non verbal) Neck: positive: Normal Thyroid, Supple. negative: Rigid Respiratory/Chest: negative: Chest Tender, Lungs Clear (coarse bibasilar lung sounds), Normal Breath Sounds, Respiratory Distress Cardiovascular: positive: Regular Rhythm, Tachycardia. negative: Regular Rate Gastrointestinal/Abdominal: positive: Normal Bowel Sounds, Flat, Soft, Other ( PEG tube in place with small specks of blood in the tube. ). negative: Tender Musculoskeletal: positive: Other (immobile, bed bound) Extremity: negative: Normal Inspection, Normal Range of Motion Integumentary: positive: Normal Color, Dry, Warm Neurologic: positive: Alert. negative: Fully Oriented, Normal Response ED Treatment Course - LABORATORY CBC & Chemistry Diagram: 06/22/19 07:05 06/22/19 07:05 - RADIOLOGY Radiology Studies Ordered: Category Date Time Status ABDOMEN CT WITH CONTRAST* [CT] Stat CT Scan 06/16/19 07:52 Ordered ABDOMEN-KUB FLAT PLATE [RAD] Stat Radiology 06/16/19 07:50 Ordered CHEST X-RAY PORTABLE* [RAD] Stat Radiology 06/16/19 07:50 Ordered Medical Decision Making - Medical Decision Making 84 year old a female with history of dementia and CVA presenting with coffee ground emesis and mild hypotension. Given 1 L NS and Labs WNL except for elevated BUN to 69. Head CT negative for pathology. 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 Patient admitted for overall weakness, failure to thrive , and altered mental status from baseline. 06/16/19 14:26 Discharge - Discharge Information Problems reviewed: Yes Clinical Impression/Diagnosis: Dementia Condition: Stable Disposition: [facility] - Admission Yes - Follow up/Referral - Patient Discharge Instructions - Post Discharge Activity
[2019-06-16] MEDS ORDERED: ACETAMINOPHEN 1000 MG/100 ML VIAL (NON FORMULARY) IVPB ONE (08:06)
[2019-06-16 08:33] LABS: BASO % 0.7 % (0-2.0); EOS % 0.5 % (0-4.5); HEMATOCRIT 29.1 % (32.4-45.2); HEMOGLOBIN 9.8 GM/dL (10.7-15.3); LYMPH % 14.6 % (8-40); MCH 31.8 pg (25.7-33.7); MCHC 33.5 g/dl (32.0-36.0); MEAN CELL VOLUME 94.8 fl (80-96); MEAN PLT VOLUME 8.9 fl (7.5-11.1); MONO % 4.2 % (3.8-10.2); PLATELET COUNT 297 K/MM3 (134-434); RBC 3.07 M/mm3 (3.60-5.2); RDW 13.9 % (11.6-15.6); VENOUS PH 7.46 (7.31-7.41); WHITE BLOOD COUNT 9.3 K/mm3 (4.0-10.0)
[2019-06-16] MEDS ORDERED: ACETAMINOPHEN INJECTION 100 ML IVPB ONE (08:37)
[2019-06-16] MEDS ORDERED: PANTOPRAZOLE SODIUM 40 MG VIAL ONE (08:38)
[2019-06-16 08:45] LABS: URINE APPEARANCE CLEAR; URINE BILIRUBIN NEGATIVE (NEGATIVE); URINE COLOR YELLOW; URINE GLUCOSE (UA) NEGATIVE (NEGATIVE); URINE KETONE NEGATIVE (NEGATIVE); URINE LEUK ESTERASE NEGATIVE (NEGATIVE); URINE NITRITE NEGATIVE (NEGATIVE); URINE PROTEIN NEGATIVE (NEGATIVE); URINE UROBILINOGEN 0.2 mg/dL (0.2-1.0)
[2019-06-16 08:56] LABS: INR 1.1 (0.83-1.09)
[2019-06-16 08:59] LABS: ACTIVATED PTT 28.6 SECONDS (25.2-36.5)
[2019-06-16 09:03] LABS: ALBUMIN 3.1 g/dl (3.4-5.0); BILIRUBIN,TOTAL 0.6 mg/dL (0.2-1); BLOOD UREA NITROGEN 66.9 mg/dL (7-18); CALCIUM 8.9 mg/dL (8.5-10.1); CREATININE 0.7 mg/dL (0.55-1.3); POTASSIUM 3.9 mmol/L (3.5-5.1); TOT PROT 6.7 g/dl (6.4-8.2)
[2019-06-16] MEDS ORDERED: PIPERACILLIN/TAZOB 3.375 GM 3.375 GM in DEXTROSE 5%-WATER - 50 ML IVPB ONE (11:41)
[2019-06-16] MEDS ORDERED: VANCOMYCIN HCL 1,500 MG in DEXTROSE 5%-WATER - 500 ML IVPB ONE (11:42)
[2019-06-16] MEDS ORDERED: PIPERACILLIN/TAZOB 3.375 GM 3.375 GM/50 ML BAG IVPB ONE (12:20)
--- NOTE | 2019-06-16 13:33 | EKG ---
Test Reason : Blood Pressure : / mmHG Vent. Rate : 125 BPM Atrial Rate : 125 BPM P-R Int : 148 ms QRS Dur : 090 ms QT Int : 304 ms P-R-T Axes : 023 040 021 degrees QTc Int : 438 ms SINUS TACHYCARDIA LOW VOLTAGE QRS BORDERLINE ECG WHEN COMPARED WITH ECG OF 01-AUG-2018 16:36, PREMATURE ATRIAL COMPLEXES ARE NO LONGER PRESENT Confirmed by STEFF CHAMBERS MD ([id number]) on 06/16/2019 1:33:16 PM Referred By: Confirmed By:STEFF CHAMBERS MD
--- NOTE | 2019-06-16 15:44 | HP ---
Admitting History and Physical - Admission Chief Complaint: coffee ground emesis History of Present Illness: 84yo F hx dementia, HTN, CVA with residual R hemiplegia, aphasia c/b recurrent aspiration s/p PEG tube (replaced last wk after dislodged at [facility]), volvulus, chronically on plavix/asa, chronically bed bound from [employer] presents to the ED with 1 episode of large volume coffee ground emesis this morning at the longterm this morning. History is limited as patient is nonverbal, is provided by son. He states patient was in her usual state of health yesterday. Patient has not had any recent he reports patient has chronic abdominal distention, and this has not changed over the last few days. Patient has not had any recent fevers, chills, diarrhea. No recent changes in her medications. patient seen by GI attending in the Er no need to scope h/h is ok for now History Source: Family Member, Medical Record - Past Medical History [employer]: Yes: CVA, Dementia Cardiovascular: Yes: HTN, Hyperlipdemia Pulmonary: Yes: Asthma Gastrointestinal: Yes: Other (chronic obstructions) Renal/: Yes: UTI Heme/Onc: Yes: Anemia - Past Surgical History Past Surgical History: Yes: None, Joint Replacement (bilateral knee replacement , left hip surgery) - Smoking History Smoking history: Never smoked Have you smoked in the past 12 months: No - Alcohol/Substance Use Hx Alcohol Use: No History of Substance Use: reports: None - Social History ADL: Support Services History of Recent Travel: No Home Medications - Allergies Allergies/Adverse Reactions: Allergies Allergy/AdvReac Type Severity Reaction Status Date / Time No Known Allergies Allergy Verified 06/16/19 07:33 - Home Medications Home Medications: Ambulatory Orders Acetaminophen [Tylenol .Regular Strength -] 650 mg PO Q6H PRN #0 tablet Albuterol 2.5/Ipratropium 0.5 [Duoneb -] 1 amp NEB Q6H PRN #0 amp 09/03/16 Ascorbic Acid [Vitamin C] 500 mg PEG DAILY 05/11/18 Aspirin Coated [Ecotrin -] 81 mg GT DAILY tablet.ec 08/11/18 Clopidogrel Bisulfate [Plavix -] 75 mg GT DAILY tablet 08/11/18 Lactobacillus Acidophilus [Bacid -] 1 each GT DAILY #30 capsule 08/11/18 Sodium Chloride Nasal [place] [[place] Nasal [place] -] 2 spray NS BID spray Ferrous Sulfate 220 mg PEG DAILY 06/16/19 Linaclotide [Linzess] 290 mcg PEG DAILY 06/16/19 Polyethylene Glycol 3350 [Miralax (For Daily Use) -] 17 gm PEG DAILY 06/16/19 Pravastatin Sodium [Pravachol (Nf)] 20 mg PEG HS 06/16/19 Simethicone Liquid [Mylicon] 80 mg PEG QID 06/16/19 Review of Systems Unable to obtain ROS, reason: non verbal Physical Examination Vital Signs: Vital Signs Temperature 100.6 F H 06/16/19 13:30 Pulse Rate 118 H 06/16/19 13:30 Respiratory Rate 18 06/16/19 13:30 Blood Pressure 136/83 06/16/19 13:30 O2 Sat by Pulse Oximetry (%) 95 06/16/19 13:30 Constitutional: Yes: Calm Cardiovascular: Yes: Regular Rate and Rhythm, S1, S2 Respiratory: Yes: CTA Bilaterally Gastrointestinal: Yes: Normal Bowel Sounds, Soft, Hernia, Other (g tube) Labs: CBC, BMP 06/16/19 08:05 06/16/19 08:05 Imaging - Results Cat Scan: Report Reviewed Problem List - Problems (1) Coffee ground emesis Assessment/Plan: monitor h/h seen by gi- Code(s): K92.0 - HEMATEMESIS (2) Fever Assessment/Plan: broad spectrum abx ID eval cultures pending Code(s): R50.9 - FEVER, UNSPECIFIED (3) CVA (cerebral vascular accident) Assessment/Plan: hold plavix and aspirin for now contnue statin scd for dvtppx Code(s): I63.9 - CEREBRAL INFARCTION, UNSPECIFIED
[2019-06-16] MEDS ORDERED: SODIUM PHOSPHATE/NA BIPHOS 133 ML ENEMA PR ONE (17:10)
[2019-06-16] MEDS ORDERED: METOCLOPRAMIDE HCL INJECTION 10 MG/2 ML VIAL IVPUSH PRN (17:11)
[2019-06-16] MEDS ORDERED: MAGNESIUM CITRATE 300 ML BOTTLE GT ONE (17:13)
[2019-06-16 17:56] VITALS: BMI 37.4
--- NOTE | 2019-06-16 17:57 | PN ---
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 (short form) - Note 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: ID CONSULT DICTATED R/O ASPIRATION PNEUMONIA/ SEPSIS AWAIT C/S CONTINUE EMPIRIC ZOSYN DISCUSSED WITH SON AT BEDSIDE
[2019-06-16] MEDS ORDERED: DEXTROSE 5%-WATER - 50 ML IVPB ONE (18:08)
[2019-06-16] MEDS ORDERED: PIPERACILLIN/TAZOBACTAM 3.375 GM VIAL IVPB ONE (18:08)
[2019-06-16] MEDS: PIPERACILLIN/TAZOB 3.375 GM 3.375 GM in DEXTROSE 5%-WATER - 50 ML IVPB SCH (18:27)
--- NOTE | 2019-06-16 20:05 | CONS ---
INFECTIOUS DISEASE CONSULTATION DATE OF CONSULTATION: DATE OF DICTATION: 06/16/2019 HISTORY: The patient is an 84-year-old female evaluated for possible aspiration pneumonia. History was obtained from the chart as well as the patient's son who was present at the time of the examination. She is a long term resident. She is bedbound. She has a feeding gastrostomy tube. She was recently hospitalized at [facility] after the feeding tube became dislodged. It was replaced. Over the past several days, she has had increased lethargy and decreased responsiveness. She was transferred to the emergency room after she developed hematemesis. Her course has been complicated by fever 100.6. Chest x-ray did not show any focal infiltrate. CAT scan of the abdomen and pelvis, no evidence of bowel obstruction. There was evidence of cystic bronchiectasis at the lung bases. She is unable to offer any additional details. No reports of high-grade fever or shaking chills, labored breathing, or diarrhea. Her skin is intact. PAST MEDICAL HISTORY: Positive for dementia, hypertension, stroke with right hemiparesis, recurrent aspiration, volvulus. PAST SURGICAL HISTORY: Status post feeding gastrostomy. ALLERGIES: No known allergies. MEDICATIONS: Include Tylenol, Reglan, Protonix, vancomycin, Zosyn. SOCIAL HISTORY: She suffers from dementia and stroke. She is bedbound. She is dependent in activities of daily living. SYSTEMS REVIEW: Neurologic: As per HPI. Cardiac: Negative for cardiac arrhythmia. Respiratory: As per HPI. Gastrointestinal: Positive for feeding gastrostomy and abdominal distention. Genitourinary: Negative for urinary tract infection. LABORATORY DATA: White count 9.3, hematocrit 29.1, platelets 297, creatinine 0.7. Urinalysis negative. PHYSICAL EXAMINATION: General: On examination, she is awake with eyes open, however, not verbally responsive. Vital Signs: Temperature 100.6, blood pressure 136/83, pulse 118 regular, respirations 18 per minute. HEENT: Sclerae anicteric. Heart: Sounds S1, S2. Lungs: Diminished breath sounds bilaterally. Abdomen: Distended. No tenderness elicited. Extremities: Positive lower extremity edema. Skin: Intact. IMPRESSION: 1. Rule out aspiration pneumonia. 2. Status post hematemesis. 3. History of dementia and stroke. PLAN: Await culture results. Empiric antibiotic coverage for aspiration in the setting of long term resident with Zosyn. Aspiration precautions. Case discussed with the patient's son present at the time of the examination. Thank you for the kind referral. RODRÍGUEZ WOODY M.D. [id number]
[2019-06-16] MEDS: PANTOPRAZOLE SODIUM 40 MG VIAL IVPUSH SCH (22:51)
[2019-06-17] MEDS ORDERED: DEXTROSE 5%-WATER - 50 ML IVPB ONE ×3 (01:26→17:23)
[2019-06-17] MEDS ORDERED: PIPERACILLIN/TAZOBACTAM 3.375 GM VIAL IVPB ONE ×3 (01:26→17:23)
[2019-06-17] MEDS: PIPERACILLIN/TAZOB 3.375 GM 3.375 GM in DEXTROSE 5%-WATER - 50 ML IVPB SCH ×3 (02:51→17:51)
[2019-06-17 07:58] LABS: HEMATOCRIT 24.3 % (32.4-45.2); HEMOGLOBIN 8.1 GM/dL (10.7-15.3); MCH 32.1 pg (25.7-33.7); MCHC 33.4 g/dl (32.0-36.0); MEAN CELL VOLUME 96.1 fl (80-96); PLATELET COUNT 221 K/MM3 (134-434); RBC 2.53 M/mm3 (3.60-5.2); RDW 14.6 % (11.6-15.6); WHITE BLOOD COUNT 6.1 K/mm3 (4.0-10.0)
--- NOTE | 2019-06-17 08:50 | CON.GI ---
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 I was consulted to see patient for Upper GI bleed. Patient is non-verbal and information taken from medical record. [facility] 1 episode of coffee ground emesis. 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: CVA, Dementia Cardio/Vascular: Yes: HTN, Hyperlipdemia Pulmonary: Yes: Asthma Gastrointestinal: Yes: Other (chronic obstructions) Renal/: Yes: UTI ...: No - Past Surgical History Past Surgical History: Yes: None, Joint Replacement (bilateral knee replacement , left hip surgery) - Alcohol/Substance Use Hx Alcohol Use: No History of Substance Use: reports: None - Smoking History Smoking history: Never smoked Have you smoked in the past 12 months: No - Social History Usual Living Arrangement: Retirement ADL: Support Services History of Recent Travel: No Home Medications - Allergies Allergies/Adverse Reactions: Allergies Allergy/AdvReac Type Severity Reaction Status Date / Time No Known Allergies Allergy Verified 06/16/19 07:33 - Home Medications Home Medications: Ambulatory Orders Acetaminophen [Tylenol .Regular Strength -] 650 mg PO Q6H PRN #0 tablet Albuterol 2.5/Ipratropium 0.5 [Duoneb -] 1 amp NEB Q6H PRN #0 amp 09/03/16 Ascorbic Acid [Vitamin C] 500 mg PEG DAILY 05/11/18 Aspirin Coated [Ecotrin -] 81 mg GT DAILY tablet.ec 08/11/18 Clopidogrel Bisulfate [Plavix -] 75 mg GT DAILY tablet 08/11/18 Lactobacillus Acidophilus [Bacid -] 1 each GT DAILY #30 capsule 08/11/18 Sodium Chloride Nasal [place] [[place] Nasal [place] -] 2 spray NS BID spray Ferrous Sulfate 220 mg PEG DAILY 06/16/19 Linaclotide [Linzess] 290 mcg PEG DAILY 06/16/19 Polyethylene Glycol 3350 [Miralax (For Daily Use) -] 17 gm PEG DAILY 06/16/19 Pravastatin Sodium [Pravachol (Nf)] 20 mg PEG HS 06/16/19 Simethicone Liquid [Mylicon] 80 mg PEG QID 06/16/19 Review of Systems Unable to obtain ROS, reason: due to clinical condition Physical Exam-GI Vital Signs: Vital Signs Temperature 99.0 F 06/17/19 05:00 Pulse Rate 98 H 06/17/19 05:00 Respiratory Rate 20 06/17/19 05:00 Blood Pressure 110/68 06/17/19 05:00 O2 Sat by Pulse Oximetry (%) 96 06/16/19 21:00 Constitutional: Yes: No Distress, Calm Eyes: Yes: Conjunctiva Clear HENT: Yes: Atraumatic Cardiovascular: Yes: Regular Rate and Rhythm Respiratory: Yes: Regular, Rhonchi Gastrointestinal Inspection: Yes: Distention. No: WNL, Ascites, Hernia, Scars, Other ...Auscultate: Yes: Normoactive Bowel Sounds. No: Hyperactive Bowel Sounds, Hypoactive Bowel Sounds, No Bowel Sounds, Other ...Palpate: Yes: Soft. No: Firm/Rigid, Guarding, Hepatomegaly, Mass, Pulsatile Mass, Splenomegaly, Tenderness, Tenderness, Epigastium, Tenderness, Rebound, Other ...Percussion: Yes: Other (high tympany) Neurological: Yes: Alert Labs: CBC, BMP 06/17/19 06:50 INR, PTT INR 1.10 (0.83-1.09) H 06/16/19 08:05 Imaging - Results Cat Scan: Report Reviewed Problem List - Problems (1) Coffee ground emesis Assessment/Plan: >secondary to Abdominal Distention, Ventral hernia, Fecal impaction >restart G tube feedings >IV Protonix >IV Reglan >CXR ordered to R/O Aspiration, will order Ceftriaxone to treat empirically Code(s): K92.0 - HEMATEMESIS
[2019-06-17 09:03] LABS: BILIRUBIN,TOTAL 0.2 mg/dL (0.2-1); BLOOD UREA NITROGEN 44.4 mg/dL (7-18); CALCIUM 8.6 mg/dL (8.5-10.1); CREATININE 0.7 mg/dL (0.55-1.3); MAGNESIUM 2.6 mg/dL (1.8-2.4); PHOSPHOROUS 2.3 mg/dL (2.5-4.9); POTASSIUM 3.7 mmol/L (3.5-5.1); TOT PROT 6.2 g/dl (6.4-8.2)
--- NOTE | 2019-06-17 09:41 | PN ---
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, Physician History of Present Illness: AWAKE, NON VERBAL NO ACUTE DISTRESS TEMPS DOWN AFEBRILE WBC WNL CULTURES PENDING - Current Medication List Current Medications: Active Medications Piperacillin Sod/Tazobactam (Sod 3.375 gm/ Dextrose) 50 mls @ 100 mls/hr IVPB Q8H-IV AIDEE; Protocol Last Admin: 06/17/19 02:51 Dose: 100 mls/hr Ceftriaxone Sodium 1 gm/ (Dextrose) 50 mls @ 200 mls/hr IVPB DAILY AIDEE; Protocol Metoclopramide HCl (Reglan Injection -) 10 mg IVPUSH Q8H PRN PRN Reason: NAUSEA AND/OR VOMITING Pantoprazole Sodium (Protonix Iv) 40 mg IVPUSH BID AIDEE Last Admin: 06/16/19 22:51 Dose: 40 mg - Objective Vital Signs: Vital Signs Temperature 99.0 F 06/17/19 05:00 Pulse Rate 98 H 06/17/19 05:00 Respiratory Rate 20 06/17/19 05:00 Blood Pressure 110/68 06/17/19 05:00 O2 Sat by Pulse Oximetry (%) 96 06/16/19 21:00 Constitutional: Yes: No Distress Eyes: Yes: Conjunctiva Clear Cardiovascular: Yes: Regular Rate and Rhythm, S1, S2 Respiratory: Yes: Diminished Gastrointestinal: Yes: Normal Bowel Sounds, Soft. No: Tenderness Edema: Yes Labs: CBC, BMP 06/17/19 06:50 06/17/19 06:50 INR, PTT INR 1.10 (0.83-1.09) H 06/16/19 08:05 Assessment/Plan S/P HEMATEMESIS R/O ASPIRATION PNEUMONIA CVA/OBS AWAIT C/S CONTINUE EMPIRIC ZOSYN
[2019-06-17] MEDS: PANTOPRAZOLE SODIUM 40 MG VIAL IVPUSH SCH ×2 (09:51→21:45)
[2019-06-17] MEDS ORDERED: CEFTRIAXONE 1 GM in DEXTROSE 5%-WATER - 50 ML IVPB SCH (10:00)
--- NOTE | 2019-06-17 10:52 | PN ---
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, Physician Chief Complaint: Coffee Ground Emesis History of Present Illness: Previous notes and events reviewed awake and alert NAD non-verbal no further episodes of hematemesis repeat CXR done to R/O aspiration - Current Medication List Current Medications: Active Medications Piperacillin Sod/Tazobactam (Sod 3.375 gm/ Dextrose) 50 mls @ 100 mls/hr IVPB Q8H-IV AIDEE; Protocol Last Admin: 06/17/19 09:51 Dose: 100 mls/hr Metoclopramide HCl (Reglan Injection -) 10 mg IVPUSH Q8H PRN PRN Reason: NAUSEA AND/OR VOMITING Pantoprazole Sodium (Protonix Iv) 40 mg IVPUSH BID AIDEE Last Admin: 06/17/19 09:51 Dose: 40 mg - Objective Vital Signs: Vital Signs Temperature 99.0 F 06/17/19 05:00 Pulse Rate 98 H 06/17/19 05:00 Respiratory Rate 20 06/17/19 05:00 Blood Pressure 110/68 06/17/19 05:00 O2 Sat by Pulse Oximetry (%) 96 06/16/19 21:00 Constitutional: Yes: No Distress, Calm Eyes: Yes: Conjunctiva Clear HENT: Yes: Atraumatic, Other (protruding tongue) Cardiovascular: Yes: Regular Rate and Rhythm Respiratory: Yes: Regular, Diminished Gastrointestinal: Yes: Normal Bowel Sounds, Soft, Distention, Other (g-tube) Musculoskeletal: Yes: Muscle Weakness Extremities: Yes: WNL Edema: No Neurological: Yes: Alert, Pre-Existing Deficit Psychiatric: Yes: Alert Labs: CBC, BMP 06/17/19 06:50 06/17/19 06:50 INR, PTT INR 1.10 (0.83-1.09) H 06/16/19 08:05 Microbiology 06/16/19 08:20 Urine - Urine - Catheterized Urine Culture - Final NO GROWTH OBTAINED 06/16/19 08:05 Blood - Peripheral Venous Blood Culture - Preliminary NO GROWTH OBTAINED AFTER 24 HOURS, INCUBATION TO CONTINUE FOR 4 DAYS. 06/16/19 07:48 Blood - Peripheral Venous Blood Culture - Preliminary NO GROWTH OBTAINED AFTER 24 HOURS, INCUBATION TO CONTINUE FOR 4 DAYS. Problem List - Problems (1) Coffee ground emesis Assessment/Plan: -GI on board -Hg 8.1 -Protonix -feedings resumed -ASA and Plavix on hold Code(s): K92.0 - HEMATEMESIS (2) Fever Assessment/Plan: -tylenol prn for temp >100F -BC and UC neg -no leukocytosis -ID on board -CXR to r/o aspiration -Zosyn Code(s): R50.9 - FEVER, UNSPECIFIED (3) AZALEA (acute kidney injury) Assessment/Plan: -BUN/Cr 44.4/0.7 -monitor renal function -showing downtrend Code(s): N17.9 - ACUTE KIDNEY FAILURE, UNSPECIFIED (4) Anemia Assessment/Plan: -Hg 8.1 -Ferrous sulfate -monitor Hg daily -transfuse if Hg <7.0 to avoid fluid overload Code(s): D64.9 - ANEMIA, UNSPECIFIED (5) CVA (cerebral vascular accident) Assessment/Plan: -asa and plavix on hold 2/2 to coffee ground emesis Code(s): I63.9 - CEREBRAL INFARCTION, UNSPECIFIED (6) Functional quadriplegia Assessment/Plan: -fall risk precaution Code(s): R53.2 - FUNCTIONAL QUADRIPLEGIA (7) HTN (hypertension) Assessment/Plan: -monitor BP Code(s): I10 - ESSENTIAL (PRIMARY) HYPERTENSION Assessment/Plan see problem list dvt ppx
[2019-06-17] MEDS ORDERED: ALBUTEROL SO4 2.5/IPRATROPIUM 0.5 INH SOL 3 ML VIAL.NEB. NEB PRN (11:40)
[2019-06-17] MEDS ORDERED: SODIUM PHOSPHATE/NA BIPHOS 133 ML ENEMA PR ONE (13:29)
--- NOTE | 2019-06-17 15:00 | CON.CARD ---
Cardiology Consult (text) - Consultation Consultation Note: cc: hematemesis pt with dementia, not communicating, hx from charts hpi: 84 f hx dementia, htn, hld, cva, here with hematemesis. Sent from [place], Appears comfortable. No further episodes here. pmh: per hpi psh: hip, knee social: no tob fam: unknown ros: unable to obtain 2/2 dementia meds: Home Medications Medication Instructions Recorded Acetaminophen [Tylenol .Regular 650 mg PO Q6H PRN #0 tablet 09/03/16 Strength -] Albuterol 2.5/Ipratropium 0.5 1 amp NEB Q6H PRN #0 amp 09/03/16 [Duoneb -] Ascorbic Acid [Vitamin C] 500 mg PEG DAILY 05/11/18 Aspirin Coated [Ecotrin -] 81 mg GT DAILY tablet.ec 08/11/18 Clopidogrel Bisulfate [Plavix -] 75 mg GT DAILY tablet 08/11/18 Lactobacillus Acidophilus [Bacid -] 1 each GT DAILY #30 capsule 08/11/18 Sodium Chloride Nasal [place] [[place] 2 spray NS BID spray 08/11/18 [place] Nasal [place] -] Ferrous Sulfate 220 mg PEG DAILY 06/16/19 Linaclotide [Linzess] 290 mcg PEG DAILY 06/16/19 Polyethylene Glycol 3350 [Miralax 17 gm PEG DAILY 06/16/19 (For Daily Use) -] Pravastatin Sodium [Pravachol (Nf)] 20 mg PEG HS 06/16/19 Simethicone Liquid [Mylicon] 80 mg PEG QID 06/16/19 pe: Vital Signs Period Temp Pulse Resp BP Sys/[place] Pulse Ox Last 24 Hr 98.5 F-99.6 F 92-105 18-20 101-118/58-68 96-96 nad no jvd rrr s1s2 no mrg no le e/c/c abd nd pos bs no jaudice diaphoresis awake alert confused pos dp pt no carotid bruits cta bl anteriorly, poor eff Laboratory Last Values WBC 6.1 K/mm3 (4.0-10.0) 06/17/19 06:50 RBC 2.53 M/mm3 (3.60-5.2) L 06/17/19 06:50 Hgb 8.1 GM/dL (10.7-15.3) L 06/17/19 06:50 Hct 24.3 % (32.4-45.2) L D 06/17/19 06:50 MCV 96.1 fl (80-96) H 06/17/19 06:50 MCH 32.1 pg (25.7-33.7) 06/17/19 06:50 MCHC 33.4 g/dl (32.0-36.0) 06/17/19 06:50 RDW 14.6 % (11.6-15.6) 06/17/19 06:50 Plt Count 221 K/MM3 (134-434) D 06/17/19 06:50 MPV 9.0 fl (7.5-11.1) 06/17/19 06:50 Absolute Neuts (auto) 7.4 K/mm3 (1.5-8.0) 06/16/19 08:05 Neutrophils % 80.0 % (42.8-82.8) 06/16/19 08:05 Lymphocytes % 14.6 % (8-40) D 06/16/19 08:05 Monocytes % 4.2 % (3.8-10.2) 06/16/19 08:05 Eosinophils % 0.5 % (0-4.5) D 06/16/19 08:05 Basophils % 0.7 % (0-2.0) 06/16/19 08:05 Nucleated RBC % 0 % (0-0) 06/16/19 08:05 PT with INR 13.00 SEC (9.7-13.0) 06/16/19 08:05 INR 1.10 (0.83-1.09) H 06/16/19 08:05 PTT (Actin FS) 28.6 SECONDS (25.2-36.5) 06/16/19 08:05 VBG pH 7.46 (7.31-7.41) H 06/16/19 08:05 POC VBG pCO2 37.0 mmHg (38-52) L 06/16/19 08:05 POC VBG pO2 139 mmHg (28-48) H 06/16/19 08:05 VBG HCO3 26.0 mmol/L (23-29) 06/16/19 08:05 VBG O2 Sat (Kerry) 99.2 % (70-80) H 06/16/19 08:05 VBG Base Excess 2.6 meq/l (-2-2) H 06/16/19 08:05 Sodium 148 mmol/L (136-145) H 06/17/19 06:50 Potassium 3.7 mmol/L (3.5-5.1) 06/17/19 06:50 Chloride 112 mmol/L (98-107) H 06/17/19 06:50 Carbon Dioxide 27 mmol/L (21-32) 06/17/19 06:50 Anion Gap 8 MMOL/L (8-16) 06/17/19 06:50 BUN 44.4 mg/dL (7-18) H 06/17/19 06:50 Creatinine 0.7 mg/dL (0.55-1.3) 06/17/19 06:50 Est GFR (CKD-EPI)AfAm 91.57 06/17/19 06:50 Est GFR (CKD-EPI)NonAf 79.00 06/17/19 06:50 Random Glucose 152 mg/dL (74-106) H 06/17/19 06:50 Lactic Acid 1.3 mmol/L (0.4-2.0) 06/16/19 08:05 Calcium 8.6 mg/dL (8.5-10.1) 06/17/19 06:50 Phosphorus 2.3 mg/dL (2.5-4.9) L 06/17/19 06:50 Magnesium 2.6 mg/dL (1.8-2.4) H 06/17/19 06:50 Total Bilirubin 0.2 mg/dL (0.2-1) 06/17/19 06:50 AST 9 U/L (15-37) L 06/17/19 06:50 ALT 13 U/L (13-61) 06/17/19 06:50 Alkaline Phosphatase 62 U/L (45-117) 06/17/19 06:50 Troponin I < 0.02 ng/ml (0.00-0.05) 06/16/19 08:05 Total Protein 6.2 g/dl (6.4-8.2) L 06/17/19 06:50 Albumin 3.0 g/dl (3.4-5.0) L 06/17/19 06:50 Urine Color Yellow 06/16/19 08:20 Urine Appearance Clear 06/16/19 08:20 Urine pH 5.0 (5.0-8.0) 06/16/19 08:20 Ur Specific [place] 1.020 (1.010-1.035) 06/16/19 08:20 Urine Protein Negative (NEGATIVE) 06/16/19 08:20 Urine Glucose (UA) Negative (NEGATIVE) 06/16/19 08:20 Urine Ketones Negative (NEGATIVE) 06/16/19 08:20 Urine Blood Negative (NEGATIVE) 06/16/19 08:20 Urine Nitrite Negative (NEGATIVE) 06/16/19 08:20 Urine Bilirubin Negative (NEGATIVE) 06/16/19 08:20 Urine Urobilinogen 0.2 mg/dL (0.2-1.0) 06/16/19 08:20 Ur Leukocyte Esterase Negative (NEGATIVE) 06/16/19 08:20 Blood Type B POSITIVE 06/16/19 08:05 Antibody Screen Negative 06/16/19 08:05 cxr: clear lungs echo 08/2016: tds, nl lvef, rv tds, no sig valve path, rvsp 30-40 ecg: sinus tach, nl intervals, no ischemic changes a/p: 84 f hx dementia, htn, hld, cva, here with hematemesis. hematemesis: -GI following -was on asa and plavix at [place] -no obvious indication for plavix at this time so would dc. When stable per GI can resume asa 81 only. htn: -stable off meds hld: -cont statin cva: -cont statin, asa (when able) aspiration pna: -abx per ID
[2019-06-17] MEDS: HEPARIN NA (PORCINE) 5,000 UNITS/ML 1ML VIAL SQ SCH ×2 (15:52→21:45)
[2019-06-17] MEDS: SIMETHICONE 40 MG/0.6 ML BOTTLE PEG SCH ×2 (15:52→17:51)
[2019-06-17] MEDS ORDERED: PT OWN MED DRAWER 7, Y5N ONE ×3 (21:42→23:57)
[2019-06-17] MEDS: SODIUM CHLORIDE NASAL SPRAY 44 ML BOTTLE NS SCH (21:44)
[2019-06-17] MEDS: ATORVASTATIN CA 10 MG TABLET (FP) PEG SCH (21:45)
[2019-06-17] MEDS: POLYETHYLENE GLYCOL 3350 119 GM BTL PEG SCH (23:19)
[2019-06-18] MEDS: SIMETHICONE 40 MG/0.6 ML BOTTLE PEG SCH ×5 (00:07→21:46)
[2019-06-18] MEDS ORDERED: PIPERACILLIN/TAZOBACTAM 3.375 GM VIAL IVPB ONE ×3 (01:59→16:36)
[2019-06-18] MEDS ORDERED: DEXTROSE 5%-WATER - 50 ML IVPB ONE ×3 (02:00→16:36)
[2019-06-18] MEDS: PIPERACILLIN/TAZOB 3.375 GM 3.375 GM in DEXTROSE 5%-WATER - 50 ML IVPB SCH ×3 (02:32→17:24)
[2019-06-18] MEDS: HEPARIN NA (PORCINE) 5,000 UNITS/ML 1ML VIAL SQ SCH ×3 (06:14→21:47)
[2019-06-18 08:09] LABS: HEMATOCRIT 24.3 % (32.4-45.2); MCHC 32.8 g/dl (32.0-36.0); MEAN CELL VOLUME 97.5 fl (80-96); MEAN PLT VOLUME 8.9 fl (7.5-11.1); PLATELET COUNT 206 K/MM3 (134-434); RDW 14.8 % (11.6-15.6); WHITE BLOOD COUNT 5.5 K/mm3 (4.0-10.0)
[2019-06-18 08:37] LABS: ALBUMIN 2.9 g/dl (3.4-5.0); BILIRUBIN,TOTAL 0.3 mg/dL (0.2-1); BLOOD UREA NITROGEN 38.8 mg/dL (7-18); CALCIUM 8.6 mg/dL (8.5-10.1); CREATININE 0.8 mg/dL (0.55-1.3); POTASSIUM 3.7 mmol/L (3.5-5.1)
[2019-06-18] MEDS: ASCORBIC ACID 500 MG/5 ML PEG SCH (09:10)
[2019-06-18] MEDS: SODIUM CHLORIDE NASAL SPRAY 44 ML BOTTLE NS SCH ×2 (09:11→21:48)
[2019-06-18] MEDS: POLYETHYLENE GLYCOL 3350 119 GM BTL PEG SCH ×2 (09:12→21:57)
[2019-06-18] MEDS: LACTOBACILLUS ACIDOPHILUS 1 TABLET GT SCH (09:12)
[2019-06-18] MEDS: PANTOPRAZOLE SODIUM 40 MG VIAL IVPUSH SCH (09:12)
[2019-06-18] MEDS ORDERED: POLYETHYLENE GLYCOL 3350 119 GM BTL PEG SCH (10:00)
[2019-06-18] MEDS ORDERED: FERROUS SULFATE 220 MG PEG SCH (10:00)
--- NOTE | 2019-06-18 10:19 | PN ---
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, Physician Chief Complaint: Hematemesis Anemia History of Present Illness: Febrile on admission On IV abx - Current Medication List Current Medications: Active Medications Albuterol/Ipratropium (Duoneb -) 1 amp NEB Q6H PRN PRN Reason: SHORTNESS OF BREATH Ascorbic Acid (Vitamin C Oral Solution -) 500 mg PEG DAILY [facility] Last Admin: 06/18/19 09:10 Dose: 500 mg Atorvastatin Calcium (Lipitor -) 20 mg PEG HS [facility] Last Admin: 06/17/19 21:45 Dose: 20 mg Heparin Sodium (Porcine) (Heparin -) 5,000 unit SQ TID [facility] Last Admin: 06/18/19 06:14 Dose: 5,000 unit Piperacillin Sod/Tazobactam (Sod 3.375 gm/ Dextrose) 50 mls @ 100 mls/hr IVPB Q8H-IV [facility]; Protocol Last Admin: 06/18/19 09:10 Dose: 100 mls/hr Lactobacillus Acidophilus (Bacid -) 1 tab GT DAILY [facility] Last Admin: 06/18/19 09:12 Dose: 1 tab Metoclopramide HCl (Reglan Injection -) 10 mg IVPUSH Q8H PRN PRN Reason: NAUSEA AND/OR VOMITING Non-Formulary Medication (Ferrous Sulfate [Ferrous Sulfate]) 220 mg PEG DAILY [facility] Pantoprazole Sodium (Protonix Iv) 40 mg IVPUSH BID [facility] Last Admin: 06/18/19 09:12 Dose: 40 mg Polyethylene Glycol (Miralax (For Daily Use) -) 34 gm PEG BID [facility] Last Admin: 06/18/19 09:12 Dose: 34 gm Simethicone (Mylicon Liquid -) 80 mg PEG QID [facility] Last Admin: 06/18/19 09:09 Dose: 80 mg Sodium Chloride ([place] Nasal [place] -) 2 spray NS BID [facility] Last Admin: 06/18/19 09:11 Dose: 2 spray - Objective Vital Signs: Vital Signs Temperature 98.1 F 06/18/19 02:00 Pulse Rate 109 H 06/18/19 02:00 Respiratory Rate 20 06/18/19 02:00 Blood Pressure 130/67 06/18/19 02:00 O2 Sat by Pulse Oximetry (%) 96 06/17/19 19:48 Constitutional: Yes: Well Nourished, No Distress, Calm Cardiovascular: Yes: Regular Rate and Rhythm Respiratory: Yes: Regular Gastrointestinal: Yes: Normal Bowel Sounds, Soft, Abdomen, Obese Genitourinary: Yes: WNL Musculoskeletal: Yes: Other (bedbound) Extremities: Yes: WNL Edema: No Peripheral Pulses WNL: Yes Neurological: Yes: Alert, Confusion Psychiatric: Yes: Alert Labs: CBC, BMP 06/18/19 06:45 06/18/19 06:45 INR, PTT INR 1.10 (0.83-1.09) H 06/16/19 08:05 Assessment/Plan 1) Coffee ground emesis Assessment/Plan: -GI on board -Protonix -feedings resumed -D/C Plavix as per cardiology-not indicated at this time -Will resume ASA 81 if H/H remains stable Code(s): K92.0 - HEMATEMESIS (2) Fever Assessment/Plan: -tylenol prn for temp >100F -BC and UC neg -no leukocytosis -ID on board -CXR to r/o aspiration -Zosyn Code(s): R50.9 - FEVER, UNSPECIFIED (3) AZALEA (acute kidney injury) Assessment/Plan: -BUN/Cr 44.4/0.7 -monitor renal function -showing downtrend Code(s): N17.9 - ACUTE KIDNEY FAILURE, UNSPECIFIED (4) Anemia Assessment/Plan: -Hg 8.1 -Ferrous sulfate -monitor Hg daily -transfuse if Hg <7.0 to avoid fluid overload Code(s): D64.9 - ANEMIA, UNSPECIFIED (5) CVA (cerebral vascular accident) Assessment/Plan: -D/C Plavix as per cardiology-not indicated at this time -Resume ASA 81 if H/H stable Code(s): I63.9 - CEREBRAL INFARCTION, UNSPECIFIED (6) Functional quadriplegia Assessment/Plan: -fall risk precaution Code(s): R53.2 - FUNCTIONAL QUADRIPLEGIA (7) HTN (hypertension) Assessment/Plan: -monitor BP Code(s): I10 - ESSENTIAL (PRIMARY) HYPERTENSION
--- NOTE | 2019-06-18 12:44 | CON.PULM ---
Consult Consult Specialty:: PULMONARY Referred by:: Dr Art Reason for Consultation:: bronchiectasis - History of Present Illness Chief Complaint: hematemesis History of Present Illness: 84yo female with h/o HTN, h/o CVA with R hemiplegia, recurrent aspiration s/p PEG placement, dementia who was admitted from the senior care after an episode of coffee ground emeisis. Pt is nonverbal, unable to provide further history at this time. Had a low grade fever on presentation, started on empiric antibiotics per ID. CT A/P was performed as part of the work up and was noted to have cystic bronchiectasis at the RLL base. - History Source History Provided By: Medical Record Limitations to Obtaining History: Clinical Condition - Past Medical History MANAGER MATERIAL: Yes: CVA, Dementia Cardio/Vascular: Yes: HTN, Hyperlipdemia Pulmonary: Yes: Asthma Gastrointestinal: Yes: Other (chronic obstructions) Renal/: Yes: UTI ...: No - Past Surgical History Past Surgical History: Yes: None, Joint Replacement (bilateral knee replacement , left hip surgery) - Alcohol/Substance Use Hx Alcohol Use: No History of Substance Use: reports: None - Smoking History Smoking history: Never smoked Have you smoked in the past 12 months: No - Social History Usual Living Arrangement: Care Home ADL: Support Services History of Recent Travel: No Home Medications - Allergies Allergies/Adverse Reactions: Allergies Allergy/AdvReac Type Severity Reaction Status Date / Time No Known Allergies Allergy Verified 06/16/19 07:33 - Home Medications Home Medications: Ambulatory Orders Acetaminophen [Tylenol .Regular Strength -] 650 mg PO Q6H PRN #0 tablet Albuterol 2.5/Ipratropium 0.5 [Duoneb -] 1 amp NEB Q6H PRN #0 amp 09/03/16 Ascorbic Acid [Vitamin C] 500 mg PEG DAILY 05/11/18 Aspirin Coated [Ecotrin -] 81 mg GT DAILY tablet.ec 08/11/18 Clopidogrel Bisulfate [Plavix -] 75 mg GT DAILY tablet 08/11/18 Lactobacillus Acidophilus [Bacid -] 1 each GT DAILY #30 capsule 08/11/18 Sodium Chloride Nasal [place] [[place] Nasal [place] -] 2 spray NS BID spray Ferrous Sulfate 220 mg PEG DAILY 06/16/19 Linaclotide [Linzess] 290 mcg PEG DAILY 06/16/19 Polyethylene Glycol 3350 [Miralax (For Daily Use) -] 17 gm PEG DAILY 06/16/19 Pravastatin Sodium [Pravachol (Nf)] 20 mg PEG HS 06/16/19 Simethicone Liquid [Mylicon] 80 mg PEG QID 06/16/19 Review of Systems Unable to obtain ROS, reason: pt nonverbal Physical Exam Vital Sings: Vital Signs Temperature 98.6 F 06/18/19 10:00 Pulse Rate 106 H 06/18/19 10:00 Respiratory Rate 18 06/18/19 10:00 Blood Pressure 121/63 06/18/19 10:00 O2 Sat by Pulse Oximetry (%) 94 L 06/18/19 09:00 Constitutional: Yes: Calm Eyes: Yes: Conjunctiva Clear, EOM Intact HENT: Yes: Atraumatic, Normocephalic Neck: Yes: Supple, Trachea Midline Cardiovascular: Yes: Regular Rate and Rhythm Respiratory: Yes: Diminished (decreased breath sounds at the bases) ...Clubbing: No Gastrointestinal: Yes: Normal Bowel Sounds, Soft, Abdomen, Obese. No: Tenderness Edema: No Labs: CBC, BMP 06/18/19 06:45 06/18/19 06:45 Imaging - Results Chest X-ray: Report Reviewed, Image Reviewed Cat Scan: Report Reviewed, Image Reviewed (RLL cystic bronchiectasis) Problem List - Problems (1) Coffee ground emesis Code(s): K92.0 - HEMATEMESIS (2) Functional quadriplegia Code(s): R53.2 - FUNCTIONAL QUADRIPLEGIA Assessment/Plan Hematemesis r/o Aspiration Pneumonia Cystic Bronchiectasis h/o CVA Functional Quadriplegia HTN Dementia - on empiric antibiotics - f/u cultures - aspiration precautions - enteral feeds - findings on CT chest likely due to chronic, repeated aspiration, no need for further follow up at this time - DVT prophylaxis Thank you for this consult Tate Salas MD
--- NOTE | 2019-06-18 16:42 | PN ---
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, Physician History of Present Illness: AWAKE, NON VERBAL NO ACUTE DISTRESS TEMPS DOWN AFEBRILE WBC WNL CULTURES NO GROWTH - Current Medication List Current Medications: Active Medications Acetaminophen (Tylenol Oral Solution -) 650 mg PEG Q4H PRN PRN Reason: PAIN LEVEL 1-5 Albuterol/Ipratropium (Duoneb -) 1 amp NEB Q6H PRN PRN Reason: SHORTNESS OF BREATH Ascorbic Acid (Vitamin C Oral Solution -) 500 mg PEG DAILY [facility] Last Admin: 06/18/19 09:10 Dose: 500 mg Atorvastatin Calcium (Lipitor -) 20 mg PEG HS [facility] Last Admin: 06/17/19 21:45 Dose: 20 mg Famotidine (Pepcid -) 20 mg NGT BID [facility] Heparin Sodium (Porcine) (Heparin -) 5,000 unit SQ TID [facility] Last Admin: 06/18/19 13:59 Dose: 5,000 unit Piperacillin Sod/Tazobactam (Sod 3.375 gm/ Dextrose) 50 mls @ 100 mls/hr IVPB Q8H-IV [facility]; Protocol Last Admin: 06/18/19 09:10 Dose: 100 mls/hr Lactobacillus Acidophilus (Bacid -) 1 tab GT DAILY [facility] Last Admin: 06/18/19 09:12 Dose: 1 tab Metoclopramide HCl (Reglan Oral Solution -) 10 mg GT ACHS [facility] Non-Formulary Medication (Ferrous Sulfate [Ferrous Sulfate]) 220 mg PEG DAILY [facility] Polyethylene Glycol (Miralax (For Daily Use) -) 34 gm PEG BID [facility] Last Admin: 06/18/19 09:12 Dose: 34 gm Simethicone (Mylicon Liquid -) 80 mg PEG QID [facility] Last Admin: 06/18/19 14:33 Dose: 80 mg Sodium Chloride ([place] Nasal [place] -) 2 spray NS BID [facility] Last Admin: 06/18/19 09:11 Dose: 2 spray - Objective Vital Signs: Vital Signs Temperature 98.8 F 06/18/19 15:18 Pulse Rate 108 H 06/18/19 15:18 Respiratory Rate 20 06/18/19 15:18 Blood Pressure 128/66 06/18/19 15:18 O2 Sat by Pulse Oximetry (%) 94 L 06/18/19 09:00 Constitutional: Yes: No Distress Cardiovascular: Yes: Regular Rate and Rhythm, S1, S2 Respiratory: Yes: Diminished Gastrointestinal: Yes: Normal Bowel Sounds, Soft Edema: Yes Labs: CBC, BMP 06/18/19 06:45 06/18/19 06:45 INR, PTT INR 1.10 (0.83-1.09) H 06/16/19 08:05 Assessment/Plan S/P HEMATEMESIS R/O ASPIRATION PNEUMONIA CVA/OBS CONTINUE EMPIRIC ZOSYN SUBSTITUTE AUGMENTIN VIA GT NEXT 24H ASPIRATION PRECAUTIONS
[2019-06-18] MEDS: METOCLOPRAMIDE HCL 5 MG/5 ML UNIT DOSE CUP GT SCH ×2 (17:24→21:47)
[2019-06-18] MEDS ORDERED: PT OWN MED DRAWER 7, Y5N ONE (21:13)
[2019-06-18] MEDS: ATORVASTATIN CA 10 MG TABLET (FP) PEG SCH (21:47)
[2019-06-18] MEDS: FAMOTIDINE 20 MG TABLET NGT SCH (21:47)
[2019-06-19] MEDS ORDERED: PIPERACILLIN/TAZOBACTAM 3.375 GM VIAL IVPB ONE ×3 (02:46→17:29)
[2019-06-19] MEDS ORDERED: DEXTROSE 5%-WATER - 50 ML IVPB ONE ×3 (02:47→17:29)
[2019-06-19] MEDS: PIPERACILLIN/TAZOB 3.375 GM 3.375 GM in DEXTROSE 5%-WATER - 50 ML IVPB SCH ×3 (02:51→18:02)
[2019-06-19] MEDS: METOCLOPRAMIDE HCL 5 MG/5 ML UNIT DOSE CUP GT SCH ×4 (06:05→22:35)
[2019-06-19] MEDS: HEPARIN NA (PORCINE) 5,000 UNITS/ML 1ML VIAL SQ SCH ×3 (06:05→22:37)
[2019-06-19 08:02] LABS: BASO % 1.1 % (0-2.0); EOS % 6.6 % (0-4.5); HEMATOCRIT 23.8 % (32.4-45.2); HEMOGLOBIN 7.9 GM/dL (10.7-15.3); LYMPH % 21.1 % (8-40); MCH 32.3 pg (25.7-33.7); MCHC 33.1 g/dl (32.0-36.0); MEAN CELL VOLUME 97.4 fl (80-96); MEAN PLT VOLUME 8.7 fl (7.5-11.1); MONO % 7.3 % (3.8-10.2); NEUT % 63.9 % (42.8-82.8); PLATELET COUNT 210 K/MM3 (134-434); RBC 2.45 M/mm3 (3.60-5.2); RDW 14.5 % (11.6-15.6); WHITE BLOOD COUNT 5.1 K/mm3 (4.0-10.0)
--- NOTE | 2019-06-19 08:20 | PN ---
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, Physician Chief Complaint: Hematemesis Anemia History of Present Illness: Febrile on admission On IV abx Mild drop in H/H today Hypokalemic - Current Medication List Current Medications: Active Medications Acetaminophen (Tylenol Oral Solution -) 650 mg PEG Q4H PRN PRN Reason: PAIN LEVEL 1-5 Albuterol/Ipratropium (Duoneb -) 1 amp NEB Q6H PRN PRN Reason: SHORTNESS OF BREATH Ascorbic Acid (Vitamin C Oral Solution -) 500 mg PEG DAILY [facility] Last Admin: 06/18/19 09:10 Dose: 500 mg Atorvastatin Calcium (Lipitor -) 20 mg PEG HS [facility] Last Admin: 06/18/19 21:47 Dose: 20 mg Famotidine (Pepcid -) 20 mg NGT BID [facility] Last Admin: 06/18/19 21:47 Dose: 20 mg Heparin Sodium (Porcine) (Heparin -) 5,000 unit SQ TID [facility] Last Admin: 06/19/19 06:05 Dose: 5,000 unit Piperacillin Sod/Tazobactam (Sod 3.375 gm/ Dextrose) 50 mls @ 100 mls/hr IVPB Q8H-IV [facility]; Protocol Last Admin: 06/19/19 02:51 Dose: 100 mls/hr Lactobacillus Acidophilus (Bacid -) 1 tab GT DAILY [facility] Last Admin: 06/18/19 09:12 Dose: 1 tab Metoclopramide HCl (Reglan Oral Solution -) 10 mg GT ACHS [facility] Last Admin: 06/19/19 06:05 Dose: 10 mg Polyethylene Glycol (Miralax (For Daily Use) -) 34 gm PEG BID [facility] Last Admin: 06/18/19 21:57 Dose: Not Given Polysaccharide Iron Complex (Niferex-150 -) 150 mg GT DAILY [facility] Simethicone (Mylicon Liquid -) 80 mg PEG QID [facility] Last Admin: 06/18/19 21:46 Dose: 80 mg Sodium Chloride ([place] Nasal [place] -) 2 spray NS BID [facility] Last Admin: 06/18/19 21:48 Dose: 2 spray - Objective Vital Signs: Vital Signs Temperature 98.6 F 06/19/19 06:00 Pulse Rate 112 H 06/19/19 06:00 Respiratory Rate 20 06/19/19 06:00 Blood Pressure 137/74 06/19/19 06:00 O2 Sat by Pulse Oximetry (%) 94 L 06/18/19 21:00 Constitutional: Yes: Well Nourished, No Distress, Calm Cardiovascular: Yes: Regular Rate and Rhythm Respiratory: Yes: Regular Gastrointestinal: Yes: Normal Bowel Sounds, Soft Genitourinary: Yes: Incontinence Musculoskeletal: Yes: Muscle Weakness Extremities: Yes: Other (generalized atrophy) Edema: No Peripheral Pulses WNL: Yes Neurological: Yes: Alert, Confusion Psychiatric: Yes: Alert Labs: CBC, BMP 06/19/19 07:06 INR, PTT INR 1.10 (0.83-1.09) H 06/16/19 08:05 Assessment/Plan 1) Coffee ground emesis Assessment/Plan: -GI on board -Protonix -feedings resumed -D/C Plavix as per cardiology-not indicated at this time -Continue to hold ASA for now Code(s): K92.0 - HEMATEMESIS (2) Fever Assessment/Plan: -tylenol prn for temp >100F -BC and UC neg -no leukocytosis -ID on board -CXR 06/17/19-unremarkable -Zosyn Code(s): R50.9 - FEVER, UNSPECIFIED (3) Anemia Assessment/Plan: -Venofer x 1 today -change ferrous sulfate to iron polysaccharide 1 tab po daily -monitor Hg daily -transfuse if Hg <7.0 to avoid fluid overload Code(s): D64.9 - ANEMIA, UNSPECIFIED (5) CVA (cerebral vascular accident) Assessment/Plan: -D/C Plavix as per cardiology-not indicated at this time -Resume ASA 81 if H/H stable Code(s): I63.9 - CEREBRAL INFARCTION, UNSPECIFIED (6) Functional quadriplegia Assessment/Plan: -fall risk precaution Code(s): R53.2 - FUNCTIONAL QUADRIPLEGIA (7) HTN (hypertension) Assessment/Plan: -monitor BP Code(s): I10 - ESSENTIAL (PRIMARY) HYPERTENSION
[2019-06-19 08:21] LABS: ALBUMIN 3.1 g/dl (3.4-5.0); BILIRUBIN,TOTAL 0.3 mg/dL (0.2-1); BLOOD UREA NITROGEN 31.5 mg/dL (7-18); CALCIUM 8.2 mg/dL (8.5-10.1); CREATININE 0.7 mg/dL (0.55-1.3); POTASSIUM 3.3 mmol/L (3.5-5.1); TOT PROT 6.2 g/dl (6.4-8.2)
--- NOTE | 2019-06-19 08:21 | DS ---
Physical Examination Vital Signs: Vital Signs Temperature 98.6 F 06/19/19 06:00 Pulse Rate 112 H 06/19/19 06:00 Respiratory Rate 20 06/19/19 06:00 Blood Pressure 137/74 06/19/19 06:00 O2 Sat by Pulse Oximetry (%) 94 L 06/18/19 21:00 Findings/Remarks: 84yo F hx dementia, HTN, CVA with residual R hemiplegia, aphasia c/b recurrent aspiration s/p PEG tube (replaced last wk after dislodged at [facility]), volvulus, chronically on plavix/asa, chronically bed bound from [facility] presents to the ED with 1 episode of large volume coffee ground emesis this morning at the long-term this morning. History is limited as patient is nonverbal, is provided by son. He states patient was in her usual state of health yesterday. Patient has not had any recent he reports patient has chronic abdominal distention, and this has not changed over the last few days. Patient has not had any recent fevers, chills, diarrhea. No recent changes in her medications. patient seen by GI attending in the Er no need to scope Constitutional: Yes: Well Nourished, No Distress, Calm Cardiovascular: Yes: Regular Rate and Rhythm Respiratory: Yes: Regular Gastrointestinal: Yes: Normal Bowel Sounds, Soft, Abdomen, Obese Renal/: Yes: Incontinence Musculoskeletal: Yes: Muscle Weakness Extremities: Yes: Other (generalized atrophy) Edema: No Peripheral Pulses WNL: Yes Neurological: Yes: Alert, Confusion Psychiatric: Yes: Alert Labs: CBC, BMP 06/19/19 07:06 Discharge Summary Problems reviewed: Yes Reason For Visit: COFFEE GROUND EMESIS,UPPER GASTROINTESTINAL HEMORR Current Active Problems Coffee ground emesis (Acute) Coffee ground emesis (Acute) Fever (Acute) Laboratory Last Values WBC 5.1 K/mm3 (4.0-10.0) 06/19/19 07:06 RBC 2.45 M/mm3 (3.60-5.2) L 06/19/19 07:06 Hgb 7.9 GM/dL (10.7-15.3) L 06/19/19 07:06 Hct 23.8 % (32.4-45.2) L 06/19/19 07:06 MCV 97.4 fl (80-96) H 06/19/19 07:06 MCH 32.3 pg (25.7-33.7) 06/19/19 07:06 MCHC 33.1 g/dl (32.0-36.0) 06/19/19 07:06 RDW 14.5 % (11.6-15.6) 06/19/19 07:06 Plt Count 210 K/MM3 (134-434) 06/19/19 07:06 MPV 8.7 fl (7.5-11.1) 06/19/19 07:06 Absolute Neuts (auto) 3.3 K/mm3 (1.5-8.0) 06/19/19 07:06 Neutrophils % 63.9 % (42.8-82.8) D 06/19/19 07:06 Lymphocytes % 21.1 % (8-40) D 06/19/19 07:06 Monocytes % 7.3 % (3.8-10.2) 06/19/19 07:06 Eosinophils % 6.6 % (0-4.5) H D 06/19/19 07:06 Basophils % 1.1 % (0-2.0) 06/19/19 07:06 Nucleated RBC % 0 % (0-0) 06/19/19 07:06 PT with INR 13.00 SEC (9.7-13.0) 06/16/19 08:05 INR 1.10 (0.83-1.09) H 06/16/19 08:05 PTT (Actin FS) 28.6 SECONDS (25.2-36.5) 06/16/19 08:05 VBG pH 7.46 (7.31-7.41) H 06/16/19 08:05 POC VBG pCO2 37.0 mmHg (38-52) L 06/16/19 08:05 POC VBG pO2 139 mmHg (28-48) H 06/16/19 08:05 VBG HCO3 26.0 mmol/L (23-29) 06/16/19 08:05 VBG O2 Sat (Kerry) 99.2 % (70-80) H 06/16/19 08:05 VBG Base Excess 2.6 meq/l (-2-2) H 06/16/19 08:05 Sodium 146 mmol/L (136-145) H 06/18/19 06:45 Potassium 3.7 mmol/L (3.5-5.1) 06/18/19 06:45 Chloride 111 mmol/L (98-107) H 06/18/19 06:45 Carbon Dioxide 29 mmol/L (21-32) 06/18/19 06:45 Anion Gap 7 MMOL/L (8-16) L 06/18/19 06:45 BUN 38.8 mg/dL (7-18) H 06/18/19 06:45 Creatinine 0.8 mg/dL (0.55-1.3) 06/18/19 06:45 Est GFR (CKD-EPI)AfAm 77.92 06/18/19 06:45 Est GFR (CKD-EPI)NonAf 67.23 06/18/19 06:45 Random Glucose 133 mg/dL (74-106) H 06/18/19 06:45 Lactic Acid 1.3 mmol/L (0.4-2.0) 06/16/19 08:05 Calcium 8.6 mg/dL (8.5-10.1) 06/18/19 06:45 Phosphorus 2.3 mg/dL (2.5-4.9) L 06/17/19 06:50 Magnesium 2.6 mg/dL (1.8-2.4) H 06/17/19 06:50 Iron 38 ug/dL (50-175) L 06/18/19 06:45 TIBC 227 ug/dL (250-450) L 06/18/19 06:45 Iron Saturation 16 % (17.5-39) L 06/18/19 06:45 Unsaturated IBC 189 ug/dL (200-275) L 06/18/19 06:45 Ferritin 298.2 ng/ml (8-388) 06/18/19 06:45 Total Bilirubin 0.3 mg/dL (0.2-1) 06/18/19 06:45 AST 14 U/L (15-37) L 06/18/19 06:45 ALT 14 U/L (13-61) 06/18/19 06:45 Alkaline Phosphatase 57 U/L (45-117) 06/18/19 06:45 Troponin I < 0.02 ng/ml (0.00-0.05) 06/16/19 08:05 Total Protein 6.0 g/dl (6.4-8.2) L 06/18/19 06:45 Albumin 2.9 g/dl (3.4-5.0) L 06/18/19 06:45 Vitamin B12 542 pg/ml (193-986) 06/18/19 06:45 Urine Color Yellow 06/16/19 08:20 Urine Appearance Clear 06/16/19 08:20 Urine pH 5.0 (5.0-8.0) 06/16/19 08:20 Ur Specific [place] 1.020 (1.010-1.035) 06/16/19 08:20 Urine Protein Negative (NEGATIVE) 06/16/19 08:20 Urine Glucose (UA) Negative (NEGATIVE) 06/16/19 08:20 Urine Ketones Negative (NEGATIVE) 06/16/19 08:20 Urine Blood Negative (NEGATIVE) 06/16/19 08:20 Urine Nitrite Negative (NEGATIVE) 06/16/19 08:20 Urine Bilirubin Negative (NEGATIVE) 06/16/19 08:20 Urine Urobilinogen 0.2 mg/dL (0.2-1.0) 06/16/19 08:20 Ur Leukocyte Esterase Negative (NEGATIVE) 06/16/19 08:20 Stool Occult Blood Positive (NEGATIVE) 06/18/19 12:00 Influenza A (Rapid) Negative (Negative) 06/18/19 13:00 Influenza B (Rapid) Negative (Negative) 06/18/19 13:00 Blood Type B POSITIVE 06/16/19 08:05 Antibody Screen Negative 06/16/19 08:05 Microbiology 06/16/19 08:05 Blood - Peripheral Venous Blood Culture - Preliminary NO GROWTH OBTAINED AFTER 48 HOURS, INCUBATION TO CONTINUE FOR 3 DAYS. 06/16/19 07:48 Blood - Peripheral Venous Blood Culture - Preliminary NO GROWTH OBTAINED AFTER 48 HOURS, INCUBATION TO CONTINUE FOR 3 DAYS. 06/16/19 08:20 Urine - Urine - Catheterized Urine Culture - Final NO GROWTH OBTAINED Vital Signs Temp 98.6 F 06/19/19 06:00 Pulse 112 H 06/19/19 06:00 Resp 20 06/19/19 06:00 BP 137/74 06/19/19 06:00 Pulse Ox 94 L 06/18/19 21:00 Intake & Output 06/18/19 06/18/19 06/19/19 11:59 23:59 11:59 Intake Total 490 190 375 Balance 490 190 375 Intake: IV 10 10 saline lock 10 10 IVPB 50 Tube Feeding 330 120 210 Tube Irrigant 160 60 105 Other: Voiding Method Incontinent Incontinent Bowel Movement Yes Yes # Bowel Movements 1 1 Condition: Stable - Instructions Diet, Activity, Other Instructions: Repeat CBC in 1 week D/C plavix Resume ASA 81 mg po daily Start Pantaprazole 40 mg po BID Reglan 10 mg achs Simethicone 80 mg QID Miralax 1 capful daily Referrals: Ace Kelly MD [Primary Care Provider] - Disposition: CARE HOME FACILITY - Home Medications Comprehensive Discharge Medication List: Ambulatory Orders Acetaminophen [Tylenol .Regular Strength -] 650 mg PO Q6H PRN #0 tablet Albuterol 2.5/Ipratropium 0.5 [Duoneb -] 1 amp NEB Q6H PRN #0 amp 09/03/16 Ascorbic Acid [Vitamin C] 500 mg PEG DAILY 05/11/18 Aspirin Coated [Ecotrin -] 81 mg GT DAILY tablet.ec 08/11/18 Lactobacillus Acidophilus [Bacid -] 1 each GT DAILY #30 capsule 08/11/18 Sodium Chloride Nasal [place] [[place] Nasal [place] -] 2 spray NS BID spray Ferrous Sulfate 220 mg PEG DAILY 06/16/19 Linaclotide [Linzess] 290 mcg PEG DAILY 06/16/19 Polyethylene Glycol 3350 [Miralax 119 gm Btl -] 17 gm PEG DAILY 06/16/19 Pravastatin Sodium [Pravachol -] 20 mg PEG HS 06/16/19 Simethicone Liquid [Mylicon Liquid -] 80 mg PEG QID 06/16/19 Acetaminophen Oral Solution [Tylenol Oral Solution -] 650 mg PEG Q4H PRN soln.oral 06/19/19 Amoxicillin/Potassium Clav [Augmentin ES Suspension] 600 mg PO BID #70 ml Famotidine [Pepcid -] 20 mg NGT BID tablet 06/19/19 Iron Polysaccharides [Niferex-150 -] 150 mg GT DAILY capsule 06/19/19 Metoclopramide Oral Soln [Reglan Oral Solution -] 10 mg GT ACHS udc 06/19/19 Pantoprazole Sodium [Protonix -] 40 mg PO BID #60 tablet.ec 06/19/19
[2019-06-19] MEDS ORDERED: PT OWN MED DRAWER 7, Y5N ONE (08:31)
[2019-06-19] MEDS: LACTOBACILLUS ACIDOPHILUS 1 TABLET GT SCH (09:40)
[2019-06-19] MEDS: IRON POLYSACCHARIDES 150 MG CAPSULE GT SCH (09:40)
[2019-06-19] MEDS: FAMOTIDINE 20 MG TABLET NGT SCH ×2 (09:40→22:36)
[2019-06-19] MEDS: POLYETHYLENE GLYCOL 3350 119 GM BTL PEG SCH ×2 (09:47→22:41)
[2019-06-19] MEDS: SODIUM CHLORIDE NASAL SPRAY 44 ML BOTTLE NS SCH ×2 (09:47→22:36)
[2019-06-19] MEDS: ACETAMINOPHEN 650 MG/20.3 ML ORAL SOLUTION (CUPS) PEG PRN (09:48)
[2019-06-19] MEDS: SIMETHICONE 40 MG/0.6 ML BOTTLE PEG SCH ×4 (09:49→22:55)
[2019-06-19] MEDS ORDERED: IRON SUCROSE INJECTION 300 MG in SODIUM CHLORIDE 235 ML IVPB ONE (09:50)
[2019-06-19] MEDS: ASCORBIC ACID 500 MG/5 ML PEG SCH (11:37)
--- NOTE | 2019-06-19 11:47 | PN ---
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 (short form) - Note 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: PULMONARY Pt nonverbal. Low grade temp this AM. Vital Signs Period Temp Pulse Resp BP Sys/[place] Pulse Ox Last 24 Hr 98.5 F-100.2 F 100-112 18-22 128-137/48-74 94-95 Gen: NAD at rest Heart: RRR Lung: decreased breath sounds at the bases Abd: softly distended, nontender Ext: no edema CBC, BMP 06/19/19 07:06 06/19/19 07:06 Active Medications Acetaminophen (Tylenol Oral Solution -) 650 mg PEG Q4H PRN PRN Reason: PAIN LEVEL 1-5 Last Admin: 06/19/19 09:48 Dose: 650 mg Albuterol/Ipratropium (Duoneb -) 1 amp NEB Q6H PRN PRN Reason: SHORTNESS OF BREATH Ascorbic Acid (Vitamin C Oral Solution -) 500 mg PEG DAILY [facility] Last Admin: 06/19/19 11:37 Dose: 500 mg Atorvastatin Calcium (Lipitor -) 20 mg PEG HS [facility] Last Admin: 06/18/19 21:47 Dose: 20 mg Famotidine (Pepcid -) 20 mg NGT BID [facility] Last Admin: 06/19/19 09:40 Dose: 20 mg Heparin Sodium (Porcine) (Heparin -) 5,000 unit SQ TID [facility] Last Admin: 06/19/19 06:05 Dose: 5,000 unit Piperacillin Sod/Tazobactam (Sod 3.375 gm/ Dextrose) 50 mls @ 100 mls/hr IVPB Q8H-IV [facility]; Protocol Last Admin: 06/19/19 09:47 Dose: 100 mls/hr Lactobacillus Acidophilus (Bacid -) 1 tab GT DAILY [facility] Last Admin: 06/19/19 09:40 Dose: 1 tab Metoclopramide HCl (Reglan Oral Solution -) 10 mg GT ACHS [facility] Last Admin: 06/19/19 11:07 Dose: 10 mg Polyethylene Glycol (Miralax (For Daily Use) -) 34 gm PEG BID [facility] Last Admin: 06/19/19 09:47 Dose: 34 gm Polysaccharide Iron Complex (Niferex-150 -) 150 mg GT DAILY [facility] Last Admin: 06/19/19 09:40 Dose: 150 mg Simethicone (Mylicon Liquid -) 80 mg PEG QID [facility] Last Admin: 06/19/19 09:49 Dose: 80 mg Sodium Chloride ([place] Nasal [place] -) 2 spray NS BID [facility] Last Admin: 06/19/19 09:47 Dose: 2 spray A/P Hematemesis r/o Aspiration Pneumonia Cystic Bronchiectasis h/o CVA Functional Quadriplegia HTN Dementia - on empiric antibiotics - aspiration precautions - enteral feeds - findings on CT chest likely due to chronic, repeated aspiration, no need for further follow up at this time - DVT prophylaxis Problem List - Problems (1) Coffee ground emesis Code(s): K92.0 - HEMATEMESIS (2) Functional quadriplegia Code(s): R53.2 - FUNCTIONAL QUADRIPLEGIA
[2019-06-19] MEDS ORDERED: POTASSIUM CHLORIDE TABS 20 MEQ TABLET.ER (FP) PO ONE (20:30)
[2019-06-19] MEDS: ATORVASTATIN CA 10 MG TABLET (FP) PEG SCH (22:36)
[2019-06-20] MEDS ORDERED: DEXTROSE 5%-WATER - 50 ML IVPB ONE ×2 (01:48→09:33)
[2019-06-20] MEDS ORDERED: PIPERACILLIN/TAZOBACTAM 3.375 GM VIAL IVPB ONE ×2 (01:48→09:32)
[2019-06-20] MEDS: PIPERACILLIN/TAZOB 3.375 GM 3.375 GM in DEXTROSE 5%-WATER - 50 ML IVPB SCH ×2 (01:50→09:35)
[2019-06-20] MEDS: HEPARIN NA (PORCINE) 5,000 UNITS/ML 1ML VIAL SQ SCH ×3 (06:38→21:44)
[2019-06-20] MEDS: METOCLOPRAMIDE HCL 5 MG/5 ML UNIT DOSE CUP GT SCH ×4 (06:38→21:44)
[2019-06-20 07:36] LABS: EOS % 5.2 % (0-4.5); HEMATOCRIT 24.2 % (32.4-45.2); HEMOGLOBIN 7.7 GM/dL (10.7-15.3); LYMPH % 21.8 % (8-40); MCH 31.9 pg (25.7-33.7); MEAN CELL VOLUME 99.7 fl (80-96); MEAN PLT VOLUME 8.7 fl (7.5-11.1); MONO % 8.2 % (3.8-10.2); NEUT % 63.8 % (42.8-82.8); PLATELET COUNT 185 K/MM3 (134-434); RBC 2.43 M/mm3 (3.60-5.2); RDW 15.1 % (11.6-15.6); WHITE BLOOD COUNT 5.8 K/mm3 (4.0-10.0)
[2019-06-20 08:18] LABS: ALBUMIN 2.8 g/dl (3.4-5.0); BILIRUBIN,TOTAL 0.4 mg/dL (0.2-1); BLOOD UREA NITROGEN 24.9 mg/dL (7-18); CALCIUM 8.2 mg/dL (8.5-10.1); CREATININE 0.7 mg/dL (0.55-1.3); POTASSIUM 3.7 mmol/L (3.5-5.1)
[2019-06-20] MEDS: ASCORBIC ACID 500 MG/5 ML PEG SCH (09:36)
[2019-06-20] MEDS: SIMETHICONE 40 MG/0.6 ML BOTTLE PEG SCH ×4 (09:36→23:09)
[2019-06-20] MEDS: LACTOBACILLUS ACIDOPHILUS 1 TABLET GT SCH (09:36)
[2019-06-20] MEDS: FAMOTIDINE 20 MG TABLET NGT SCH ×2 (09:36→21:44)
[2019-06-20] MEDS: IRON POLYSACCHARIDES 150 MG CAPSULE GT SCH (09:36)
[2019-06-20] MEDS: SODIUM CHLORIDE NASAL SPRAY 44 ML BOTTLE NS SCH ×2 (09:37→23:10)
[2019-06-20] MEDS: ACETAMINOPHEN 650 MG/20.3 ML ORAL SOLUTION (CUPS) PEG PRN (09:41)
[2019-06-20] MEDS: POLYETHYLENE GLYCOL 3350 119 GM BTL PEG SCH ×2 (09:41→21:45)
--- NOTE | 2019-06-20 10:46 | PN ---
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 (short form) - Note 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: Nonverbal. No acute distress. No documented acute events overnight. Intake & Output 06/17/19 06/18/19 06/19/19 06/20/19 23:59 23:59 23:59 23:59 Intake Total 361 314 2336 650 Balance 611 318 5340 650 Weight 179 lb Last Vital Signs Temp Pulse Resp BP Pulse Ox 99 F 95 H 19 120/66 95 06/19/19 20:41 06/19/19 20:41 06/19/19 20:41 06/19/19 20:41 06/19/19 09:00 Active Medications Acetaminophen (Tylenol Oral Solution -) 650 mg PEG Q4H PRN PRN Reason: PAIN LEVEL 1-5 Last Admin: 06/20/19 09:41 Dose: 650 mg Albuterol/Ipratropium (Duoneb -) 1 amp NEB Q6H PRN PRN Reason: SHORTNESS OF BREATH Ascorbic Acid (Vitamin C Oral Solution -) 500 mg PEG DAILY [facility] Last Admin: 06/20/19 09:36 Dose: 500 mg Atorvastatin Calcium (Lipitor -) 20 mg PEG HS [facility] Last Admin: 06/19/19 22:36 Dose: 20 mg Famotidine (Pepcid -) 20 mg NGT BID [facility] Last Admin: 06/20/19 09:36 Dose: 20 mg Heparin Sodium (Porcine) (Heparin -) 5,000 unit SQ TID [facility] Last Admin: 06/20/19 06:38 Dose: 5,000 unit Piperacillin Sod/Tazobactam (Sod 3.375 gm/ Dextrose) 50 mls @ 100 mls/hr IVPB Q8H-IV [facility]; Protocol Last Admin: 06/20/19 09:35 Dose: 100 mls/hr Lactobacillus Acidophilus (Bacid -) 1 tab GT DAILY [facility] Last Admin: 06/20/19 09:36 Dose: 1 tab Metoclopramide HCl (Reglan Oral Solution -) 10 mg GT ACHS [facility] Last Admin: 06/20/19 06:38 Dose: 10 mg Polyethylene Glycol (Miralax (For Daily Use) -) 34 gm PEG BID [facility] Last Admin: 06/20/19 09:41 Dose: 34 gm Polysaccharide Iron Complex (Niferex-150 -) 150 mg GT DAILY [facility] Last Admin: 06/20/19 09:36 Dose: 150 mg Simethicone (Mylicon Liquid -) 80 mg PEG QID [facility] Last Admin: 06/20/19 09:36 Dose: 80 mg Sodium Chloride ([place] Nasal [place] -) 2 spray NS BID [facility] Last Admin: 06/20/19 09:37 Dose: 2 spray Gen: NAD at rest Heart: RRR Lung: decreased breath sounds at the bases Abd: softly distended, nontender Ext: no edema Laboratory Results - last 24 hr 06/20/19 06/20/19 07:15 07:15 WBC 5.8 RBC 2.43 L Hgb 7.7 L Hct 24.2 L MCV 99.7 H MCH 31.9 MCHC 32.0 RDW 15.1 Plt Count 185 MPV 8.7 Absolute Neuts (auto) 3.7 Neutrophils % 63.8 Lymphocytes % 21.8 Monocytes % 8.2 Eosinophils % 5.2 H Basophils % 1.0 Nucleated RBC % 0 Sodium 145 Potassium 3.7 Chloride 111 H Carbon Dioxide 28 Anion Gap 6 L BUN 24.9 H Creatinine 0.7 Est GFR (CKD-EPI)AfAm 91.57 Est GFR (CKD-EPI)NonAf 79.00 Random Glucose 128 H Calcium 8.2 L Total Bilirubin 0.4 AST 17 ALT 26 Alkaline Phosphatase 63 Total Protein 6.0 L Albumin 2.8 L Problem List - Problems (1) Coffee ground emesis Code(s): K92.0 - HEMATEMESIS (2) Functional quadriplegia Code(s): R53.2 - FUNCTIONAL QUADRIPLEGIA A/P Hematemesis r/o Aspiration Pneumonia Cystic Bronchiectasis h/o CVA Functional Quadriplegia HTN Dementia - Transfusional support per Primary team - ABX per ID - aspiration precautions - enteral feeds - findings on CT chest likely due to chronic, repeated aspiration, no need for further follow up at this time - DVT prophylaxis Dr Dailey
--- NOTE | 2019-06-20 10:57 | PN ---
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, Physician Chief Complaint: Coffee Ground Emesis History of Present Illness: Previous notes and events reviewed awake and alert NAD non-verbal no further episodes of hematemesis downtrend in Hg 7.7 now - Current Medication List Current Medications: Active Medications Acetaminophen (Tylenol Oral Solution -) 650 mg PEG Q4H PRN PRN Reason: PAIN LEVEL 1-5 Last Admin: 06/20/19 09:41 Dose: 650 mg Albuterol/Ipratropium (Duoneb -) 1 amp NEB Q6H PRN PRN Reason: SHORTNESS OF BREATH Ascorbic Acid (Vitamin C Oral Solution -) 500 mg PEG DAILY [facility] Last Admin: 06/20/19 09:36 Dose: 500 mg Atorvastatin Calcium (Lipitor -) 20 mg PEG HS [facility] Last Admin: 06/19/19 22:36 Dose: 20 mg Famotidine (Pepcid -) 20 mg NGT BID [facility] Last Admin: 06/20/19 09:36 Dose: 20 mg Heparin Sodium (Porcine) (Heparin -) 5,000 unit SQ TID [facility] Last Admin: 06/20/19 06:38 Dose: 5,000 unit Piperacillin Sod/Tazobactam (Sod 3.375 gm/ Dextrose) 50 mls @ 100 mls/hr IVPB Q8H-IV AIDEE; Protocol Last Admin: 06/20/19 09:35 Dose: 100 mls/hr Lactobacillus Acidophilus (Bacid -) 1 tab GT DAILY [facility] Last Admin: 06/20/19 09:36 Dose: 1 tab Metoclopramide HCl (Reglan Oral Solution -) 10 mg GT ACHS [facility] Last Admin: 06/20/19 06:38 Dose: 10 mg Polyethylene Glycol (Miralax (For Daily Use) -) 34 gm PEG BID [facility] Last Admin: 06/20/19 09:41 Dose: 34 gm Polysaccharide Iron Complex (Niferex-150 -) 150 mg GT DAILY [facility] Last Admin: 06/20/19 09:36 Dose: 150 mg Simethicone (Mylicon Liquid -) 80 mg PEG QID [facility] Last Admin: 06/20/19 09:36 Dose: 80 mg Sodium Chloride ([place] Nasal [place] -) 2 spray NS BID [facility] Last Admin: 06/20/19 09:37 Dose: 2 spray - Objective Vital Signs: Vital Signs Temperature 99 F 06/19/19 20:41 Pulse Rate 95 H 06/19/19 20:41 Respiratory Rate 19 06/19/19 20:41 Blood Pressure 120/66 06/19/19 20:41 O2 Sat by Pulse Oximetry (%) 95 06/19/19 09:00 Constitutional: Yes: No Distress, Calm, Obese Eyes: Yes: Conjunctiva Clear HENT: Yes: Atraumatic Cardiovascular: Yes: Regular Rate and Rhythm Respiratory: Yes: Regular, CTA Bilaterally Gastrointestinal: Yes: Normal Bowel Sounds, Soft, Distention Musculoskeletal: Yes: Muscle Weakness Extremities: Yes: WNL Edema: No Neurological: Yes: Alert, Pre-Existing Deficit Psychiatric: Yes: Alert Labs: CBC, BMP 06/20/19 07:15 06/20/19 07:15 INR, PTT INR 1.10 (0.83-1.09) H 06/16/19 08:05 Microbiology 06/16/19 08:05 Blood - Peripheral Venous Blood Culture - Preliminary NO GROWTH OBTAINED AFTER 96 HOURS, INCUBATION TO CONTINUE FOR 1 DAYS. 06/16/19 07:48 Blood - Peripheral Venous Blood Culture - Preliminary NO GROWTH OBTAINED AFTER 96 HOURS, INCUBATION TO CONTINUE FOR 1 DAYS. 06/16/19 08:20 Urine - Urine - Catheterized Urine Culture - Final NO GROWTH OBTAINED Problem List - Problems (1) Coffee ground emesis Assessment/Plan: -GI on board -Hg 7.7 -Protonix -feedings resumed -Plavix discontinued -Aspirin on hold Code(s): K92.0 - HEMATEMESIS (2) Fever Assessment/Plan: -tylenol prn for temp >100F -BC and UC neg -no leukocytosis -ID on board -CXR to r/o aspiration done -Zosyn Code(s): R50.9 - FEVER, UNSPECIFIED (3) AZALEA (acute kidney injury) Assessment/Plan: -BUN/Cr 24.9/0.7 -monitor renal function -showing downtrend Code(s): N17.9 - ACUTE KIDNEY FAILURE, UNSPECIFIED (4) Anemia Assessment/Plan: -Hg 7.7 -Iron Polysaccharide -monitor Hg daily -transfuse if Hg <7.0 to avoid fluid overload -received IV Venofer yesterday -monitor Hg and if still <8.0 order another dose of venofer Code(s): D64.9 - ANEMIA, UNSPECIFIED (5) CVA (cerebral vascular accident) Assessment/Plan: -asa and plavix on hold 2/2 to coffee ground emesis Code(s): I63.9 - CEREBRAL INFARCTION, UNSPECIFIED (6) Functional quadriplegia Assessment/Plan: -fall risk precaution Code(s): R53.2 - FUNCTIONAL QUADRIPLEGIA (7) HTN (hypertension) Assessment/Plan: -monitor BP Code(s): I10 - ESSENTIAL (PRIMARY) HYPERTENSION Assessment/Plan see problem list dvt ppx d/c when changed to ABT via G tube and if Hg >8.0
--- NOTE | 2019-06-20 16:07 | PN ---
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 (short form) - Note 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: s: not answering questions, awake, h/o dementia Current Medications Acetaminophen (Tylenol Oral Solution -) 650 mg PEG Q4H PRN PRN Reason: PAIN LEVEL 1-5 Last Admin: 06/20/19 09:41 Dose: 650 mg Albuterol/Ipratropium (Duoneb -) 1 amp NEB Q6H PRN PRN Reason: SHORTNESS OF BREATH Amoxicillin/Clavulanate Potassium (Augmentin 250 Mg/5 Ml Oral Suspension -) 250 mg GT BID@0800,1730 [facility] Ascorbic Acid (Vitamin C Oral Solution -) 500 mg PEG DAILY [facility] Last Admin: 06/20/19 09:36 Dose: 500 mg Atorvastatin Calcium (Lipitor -) 20 mg PEG HS [facility] Last Admin: 06/19/19 22:36 Dose: 20 mg Famotidine (Pepcid -) 20 mg NGT BID [facility] Last Admin: 06/20/19 09:36 Dose: 20 mg Heparin Sodium (Porcine) (Heparin -) 5,000 unit SQ TID [facility] Last Admin: 06/20/19 13:53 Dose: 5,000 unit Lactobacillus Acidophilus (Bacid -) 1 tab GT DAILY [facility] Last Admin: 06/20/19 09:36 Dose: 1 tab Metoclopramide HCl (Reglan Oral Solution -) 10 mg GT ACHS [facility] Last Admin: 06/20/19 12:21 Dose: 10 mg Polyethylene Glycol (Miralax (For Daily Use) -) 34 gm PEG BID [facility] Last Admin: 06/20/19 09:41 Dose: 34 gm Polysaccharide Iron Complex (Niferex-150 -) 150 mg GT DAILY [facility] Last Admin: 06/20/19 09:36 Dose: 150 mg Simethicone (Mylicon Liquid -) 80 mg PEG QID [facility] Last Admin: 06/20/19 13:53 Dose: 80 mg Sodium Chloride ([place] Nasal [place] -) 2 spray NS BID [facility] Last Admin: 06/20/19 09:37 Dose: 2 spray Vital Signs Period Temp Pulse Resp BP Sys/Hancock Pulse Ox Last 24 Hr 98.9 F-99 F 79-95 19-20 120-121/62-66 94 nad no jvd rrr s1s2 no mrg cta bl anteriorly, poor eff no le e/c/c abd nd pos bs no jaudice diaphoresis awake alert confused pos dp pt no carotid bruits cxr: clear lungs echo 08/2016: tds, nl lvef, rv tds, no sig valve path, rvsp 30-40 ecg: sinus tach, nl intervals, no ischemic changes a/p: 84 f hx dementia, htn, hld, cva, here with hematemesis. hematemesis: -GI following, holding asa -[place]avix [place] -no obvious indication for plavix at this time so would dc. When stable per GI can resume asa 81 only. htn: -stable off meds hld: -cont statin cva: -cont statin, asa (when able) aspiration pna: -abx per ID
--- NOTE | 2019-06-20 16:18 | PN ---
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, Physician History of Present Illness: AWAKE, NON VERBAL NO ACUTE DISTRESS AFEBRILE WBC WNL CULTURES NO GROWTH - Current Medication List Current Medications: Active Medications Acetaminophen (Tylenol Oral Solution -) 650 mg PEG Q4H PRN PRN Reason: PAIN LEVEL 1-5 Last Admin: 06/20/19 09:41 Dose: 650 mg Albuterol/Ipratropium (Duoneb -) 1 amp NEB Q6H PRN PRN Reason: SHORTNESS OF BREATH Amoxicillin/Clavulanate Potassium (Augmentin 250 Mg/5 Ml Oral Suspension -) 250 mg GT BID@0800,1730 [facility] Ascorbic Acid (Vitamin C Oral Solution -) 500 mg PEG DAILY [facility] Last Admin: 06/20/19 09:36 Dose: 500 mg Atorvastatin Calcium (Lipitor -) 20 mg PEG HS [facility] Last Admin: 06/19/19 22:36 Dose: 20 mg Famotidine (Pepcid -) 20 mg NGT BID [facility] Last Admin: 06/20/19 09:36 Dose: 20 mg Heparin Sodium (Porcine) (Heparin -) 5,000 unit SQ TID [facility] Last Admin: 06/20/19 13:53 Dose: 5,000 unit Lactobacillus Acidophilus (Bacid -) 1 tab GT DAILY [facility] Last Admin: 06/20/19 09:36 Dose: 1 tab Metoclopramide HCl (Reglan Oral Solution -) 10 mg GT ACHS [facility] Last Admin: 06/20/19 12:21 Dose: 10 mg Polyethylene Glycol (Miralax (For Daily Use) -) 34 gm PEG BID [facility] Last Admin: 06/20/19 09:41 Dose: 34 gm Polysaccharide Iron Complex (Niferex-150 -) 150 mg GT DAILY [facility] Last Admin: 06/20/19 09:36 Dose: 150 mg Simethicone (Mylicon Liquid -) 80 mg PEG QID [facility] Last Admin: 06/20/19 13:53 Dose: 80 mg Sodium Chloride ([place] Nasal [place] -) 2 spray NS BID [facility] Last Admin: 06/20/19 09:37 Dose: 2 spray - Objective Vital Signs: Vital Signs Temperature 98.7 F 06/20/19 16:10 Pulse Rate 84 06/20/19 16:10 Respiratory Rate 20 06/20/19 16:10 Blood Pressure 118/60 06/20/19 16:10 O2 Sat by Pulse Oximetry (%) 94 L 06/20/19 09:00 Constitutional: Yes: No Distress Eyes: Yes: Conjunctiva Clear Cardiovascular: Yes: Regular Rate and Rhythm, S1, S2 Respiratory: Yes: Rhonchi Gastrointestinal: Yes: Normal Bowel Sounds, Soft Labs: CBC, BMP 06/20/19 07:15 06/20/19 07:15 INR, PTT INR 1.10 (0.83-1.09) H 06/16/19 08:05 Assessment/Plan S/P HEMATEMESIS R/O ASPIRATION PNEUMONIA CVA/OBS SUBSTITUTE AUGMENTIN VIA GT X 7D ASPIRATION PRECAUTIONS
[2019-06-20] MEDS: AMOX TR/POTASSIUM CLAVULANATE 250 MG/5 ML BOTTLE GT SCH (18:20)
[2019-06-20] MEDS ORDERED: PT OWN MED DRAWER 7, Y5N ONE (21:35)
[2019-06-20] MEDS: ATORVASTATIN CA 10 MG TABLET (FP) PEG SCH (21:44)
[2019-06-21] MEDS ORDERED: PT OWN MED DRAWER 7, Y5N ONE ×2 (04:53→20:56)
[2019-06-21] MEDS: HEPARIN NA (PORCINE) 5,000 UNITS/ML 1ML VIAL SQ SCH ×3 (05:23→21:01)
[2019-06-21] MEDS: METOCLOPRAMIDE HCL 5 MG/5 ML UNIT DOSE CUP GT SCH ×4 (07:04→21:00)
[2019-06-21 08:28] LABS: BASO % 0.9 % (0-2.0); EOS % 5.5 % (0-4.5); HEMATOCRIT 23.5 % (32.4-45.2); HEMOGLOBIN 7.6 GM/dL (10.7-15.3); LYMPH % 20.3 % (8-40); MCH 31.9 pg (25.7-33.7); MCHC 32.2 g/dl (32.0-36.0); MEAN PLT VOLUME 8.8 fl (7.5-11.1); MONO % 5.8 % (3.8-10.2); NEUT % 67.5 % (42.8-82.8); PLATELET COUNT 200 K/MM3 (134-434); RBC 2.38 M/mm3 (3.60-5.2); RDW 14.8 % (11.6-15.6); WHITE BLOOD COUNT 5.5 K/mm3 (4.0-10.0)
[2019-06-21 08:58] LABS: ALBUMIN 2.8 g/dl (3.4-5.0); BILIRUBIN,TOTAL 0.2 mg/dL (0.2-1); BLOOD UREA NITROGEN 24.9 mg/dL (7-18); CALCIUM 8.4 mg/dL (8.5-10.1); CREATININE 0.6 mg/dL (0.55-1.3); POTASSIUM 3.4 mmol/L (3.5-5.1); TOT PROT 5.9 g/dl (6.4-8.2)
[2019-06-21] MEDS: POLYETHYLENE GLYCOL 3350 119 GM BTL PEG SCH ×2 (10:04→21:02)
[2019-06-21] MEDS: SODIUM CHLORIDE NASAL SPRAY 44 ML BOTTLE NS SCH ×2 (10:04→21:05)
[2019-06-21] MEDS: SIMETHICONE 40 MG/0.6 ML BOTTLE PEG SCH ×4 (10:04→21:01)
[2019-06-21] MEDS: LACTOBACILLUS ACIDOPHILUS 1 TABLET GT SCH (10:05)
[2019-06-21] MEDS: AMOX TR/POTASSIUM CLAVULANATE 250 MG/5 ML BOTTLE GT SCH ×2 (10:05→16:45)
[2019-06-21] MEDS: IRON POLYSACCHARIDES 150 MG CAPSULE GT SCH (10:05)
[2019-06-21] MEDS: FAMOTIDINE 20 MG TABLET NGT SCH ×2 (10:05→21:02)
[2019-06-21] MEDS: ASCORBIC ACID 500 MG/5 ML PEG SCH (10:06)
--- NOTE | 2019-06-21 10:51 | PN ---
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 (short form) - Note 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: Awake but confused. No acute distress. No documented acute events overnight. Intake & Output 06/18/19 06/19/19 06/20/19 06/21/19 23:59 23:59 23:59 23:59 Intake Total 680 1020 1460 689 Balance 680 1020 1460 689 Last Vital Signs Temp Pulse Resp BP Pulse Ox 98.9 F 81 18 111/67 94 L 06/21/19 06:00 06/21/19 06:00 06/21/19 06:00 06/21/19 06:00 06/20/19 19:43 Active Medications Acetaminophen (Tylenol Oral Solution -) 650 mg PEG Q4H PRN PRN Reason: PAIN LEVEL 1-5 Last Admin: 06/20/19 09:41 Dose: 650 mg Albuterol/Ipratropium (Duoneb -) 1 amp NEB Q6H PRN PRN Reason: SHORTNESS OF BREATH Amoxicillin/Clavulanate Potassium (Augmentin 250 Mg/5 Ml Oral Suspension -) 250 mg GT BID@0800,1730 [facility] Last Admin: 06/21/19 10:05 Dose: 5 ml Ascorbic Acid (Vitamin C Oral Solution -) 500 mg PEG DAILY [facility] Last Admin: 06/21/19 10:06 Dose: 500 mg Atorvastatin Calcium (Lipitor -) 20 mg PEG HS [facility] Last Admin: 06/20/19 21:44 Dose: 20 mg Famotidine (Pepcid -) 20 mg NGT BID [facility] Last Admin: 06/21/19 10:05 Dose: 20 mg Heparin Sodium (Porcine) (Heparin -) 5,000 unit SQ TID [facility] Last Admin: 06/21/19 05:23 Dose: 5,000 unit Lactobacillus Acidophilus (Bacid -) 1 tab GT DAILY [facility] Last Admin: 06/21/19 10:05 Dose: 1 tab Metoclopramide HCl (Reglan Oral Solution -) 10 mg GT ACHS [facility] Last Admin: 06/21/19 10:05 Dose: 10 mg Polyethylene Glycol (Miralax (For Daily Use) -) 34 gm PEG BID [facility] Last Admin: 06/21/19 10:04 Dose: 34 gm Polysaccharide Iron Complex (Niferex-150 -) 150 mg GT DAILY [facility] Last Admin: 06/21/19 10:05 Dose: 150 mg Simethicone (Mylicon Liquid -) 80 mg PEG QID [facility] Last Admin: 06/21/19 10:04 Dose: 80 mg Sodium Chloride ([place] Nasal [place] -) 2 spray NS BID [facility] Last Admin: 06/21/19 10:04 Dose: 2 spray Gen: NAD at rest Heart: RRR Lung: decreased breath sounds at the bases Abd: softly distended, nontender Ext: no edema Laboratory Results - last 24 hr 06/21/19 06/21/19 07:50 07:50 WBC 5.5 RBC 2.38 L Hgb 7.6 L Hct 23.5 L MCV 99.0 H MCH 31.9 MCHC 32.2 RDW 14.8 Plt Count 200 MPV 8.8 Absolute Neuts (auto) 3.7 Neutrophils % 67.5 Lymphocytes % 20.3 Monocytes % 5.8 Eosinophils % 5.5 H Basophils % 0.9 Nucleated RBC % 0 Sodium 145 Potassium 3.4 L Chloride 110 H Carbon Dioxide 30 Anion Gap 6 L BUN 24.9 H Creatinine 0.6 Est GFR (CKD-EPI)AfAm 96.33 Est GFR (CKD-EPI)NonAf 83.11 Random Glucose 123 H Calcium 8.4 L Total Bilirubin 0.2 AST 11 L ALT 19 Alkaline Phosphatase 64 Total Protein 5.9 L Albumin 2.8 L Problem List - Problems (1) Coffee ground emesis Code(s): K92.0 - HEMATEMESIS (2) Functional quadriplegia Code(s): R53.2 - FUNCTIONAL QUADRIPLEGIA A/P Hematemesis r/o Aspiration Pneumonia Cystic Bronchiectasis h/o CVA Functional Quadriplegia HTN Dementia - Transfusional support per Primary team - ABX per ID - aspiration precautions - enteral feeds - findings on CT chest likely due to chronic, repeated aspiration, no need for further follow up at this time - DVT prophylaxis Dr Dailey
--- NOTE | 2019-06-21 12:19 | PN ---
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 (short form) - Note 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: s: not answering questions, awake, h/o dementia Current Medications Acetaminophen (Tylenol Oral Solution -) 650 mg PEG Q4H PRN PRN Reason: PAIN LEVEL 1-5 Last Admin: 06/20/19 09:41 Dose: 650 mg Albuterol/Ipratropium (Duoneb -) 1 amp NEB Q6H PRN PRN Reason: SHORTNESS OF BREATH Amoxicillin/Clavulanate Potassium (Augmentin 250 Mg/5 Ml Oral Suspension -) 250 mg GT BID@0800,1730 [facility] Last Admin: 06/21/19 10:05 Dose: 5 ml Ascorbic Acid (Vitamin C Oral Solution -) 500 mg PEG DAILY [facility] Last Admin: 06/21/19 10:06 Dose: 500 mg Atorvastatin Calcium (Lipitor -) 20 mg PEG HS [facility] Last Admin: 06/20/19 21:44 Dose: 20 mg Famotidine (Pepcid -) 20 mg NGT BID [facility] Last Admin: 06/21/19 10:05 Dose: 20 mg Heparin Sodium (Porcine) (Heparin -) 5,000 unit SQ TID [facility] Last Admin: 06/21/19 05:23 Dose: 5,000 unit Lactobacillus Acidophilus (Bacid -) 1 tab GT DAILY [facility] Last Admin: 06/21/19 10:05 Dose: 1 tab Metoclopramide HCl (Reglan Oral Solution -) 10 mg GT ACHS [facility] Last Admin: 06/21/19 10:05 Dose: 10 mg Polyethylene Glycol (Miralax (For Daily Use) -) 34 gm PEG BID [facility] Last Admin: 06/21/19 10:04 Dose: 34 gm Polysaccharide Iron Complex (Niferex-150 -) 150 mg GT DAILY [facility] Last Admin: 06/21/19 10:05 Dose: 150 mg Simethicone (Mylicon Liquid -) 80 mg PEG QID [facility] Last Admin: 06/21/19 10:04 Dose: 80 mg Sodium Chloride ([place] Nasal [place] -) 2 spray NS BID [facility] Last Admin: 06/21/19 10:04 Dose: 2 spray Vital Signs Period Temp Pulse Resp BP Sys/Hancock Pulse Ox Last 24 Hr 98 F-98.9 F 74-100 16-20 94-118/57-71 94-95 nad no jvd rrr s1s2 no mrg cta bl anteriorly, poor eff no le e/c/c abd nd pos bs no jaudice diaphoresis awake alert confused pos dp pt no carotid bruits cxr: clear lungs echo 08/2016: tds, nl lvef, rv tds, no sig valve path, rvsp 30-40 ecg: sinus tach, nl intervals, no ischemic changes a/p: 84 f hx dementia, htn, hld, cva, here with hematemesis. hematemesis: -GI following, holding asa -[place]avix [place] -no obvious indication for plavix at this time so would dc. When stable per GI can resume asa 81 only. htn: -stable off meds hld: -cont statin cva: -cont statin, asa (when able) aspiration pna: -abx per ID
--- NOTE | 2019-06-21 13:27 | PN ---
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, Physician Chief Complaint: Coffee Ground Emesis History of Present Illness: Previous notes and events reviewed awake and alert NAD non-verbal no further episodes of hematemesis Hg 7.7 - Current Medication List Current Medications: Active Medications Acetaminophen (Tylenol Oral Solution -) 650 mg PEG Q4H PRN PRN Reason: PAIN LEVEL 1-5 Last Admin: 06/20/19 09:41 Dose: 650 mg Albuterol/Ipratropium (Duoneb -) 1 amp NEB Q6H PRN PRN Reason: SHORTNESS OF BREATH Amoxicillin/Clavulanate Potassium (Augmentin 250 Mg/5 Ml Oral Suspension -) 250 mg GT BID@0800,1730 [facility] Last Admin: 06/21/19 10:05 Dose: 5 ml Ascorbic Acid (Vitamin C Oral Solution -) 500 mg PEG DAILY [facility] Last Admin: 06/21/19 10:06 Dose: 500 mg Atorvastatin Calcium (Lipitor -) 20 mg PEG HS [facility] Last Admin: 06/20/19 21:44 Dose: 20 mg Famotidine (Pepcid -) 20 mg NGT BID [facility] Last Admin: 06/21/19 10:05 Dose: 20 mg Heparin Sodium (Porcine) (Heparin -) 5,000 unit SQ TID [facility] Last Admin: 06/21/19 05:23 Dose: 5,000 unit Lactobacillus Acidophilus (Bacid -) 1 tab GT DAILY [facility] Last Admin: 06/21/19 10:05 Dose: 1 tab Metoclopramide HCl (Reglan Oral Solution -) 10 mg GT ACHS [facility] Last Admin: 06/21/19 10:05 Dose: 10 mg Polyethylene Glycol (Miralax (For Daily Use) -) 34 gm PEG BID [facility] Last Admin: 06/21/19 10:04 Dose: 34 gm Polysaccharide Iron Complex (Niferex-150 -) 150 mg GT DAILY [facility] Last Admin: 06/21/19 10:05 Dose: 150 mg Simethicone (Mylicon Liquid -) 80 mg PEG QID [facility] Last Admin: 06/21/19 10:04 Dose: 80 mg Sodium Chloride ([place] Nasal [place] -) 2 spray NS BID [facility] Last Admin: 06/21/19 10:04 Dose: 2 spray - Objective Vital Signs: Vital Signs Temperature 98.7 F 06/21/19 10:00 Pulse Rate 74 06/21/19 10:00 Respiratory Rate 18 06/21/19 10:00 Blood Pressure 109/57 L 06/21/19 10:00 O2 Sat by Pulse Oximetry (%) 95 06/21/19 09:00 Constitutional: Yes: No Distress, Calm Eyes: Yes: Conjunctiva Clear HENT: Yes: Atraumatic Cardiovascular: Yes: Regular Rate and Rhythm Respiratory: Yes: Regular, Diminished Gastrointestinal: Yes: Normal Bowel Sounds, Soft, Distention, Other (G tube) Genitourinary: Yes: Incontinence Musculoskeletal: Yes: Muscle Weakness Extremities: Yes: WNL Edema: No Neurological: Yes: Alert, Pre-Existing Deficit Psychiatric: Yes: Alert Labs: CBC, BMP 06/21/19 07:50 06/21/19 07:50 INR, PTT INR 1.10 (0.83-1.09) H 06/16/19 08:05 Microbiology 06/16/19 08:05 Blood - Peripheral Venous Blood Culture - Final NO GROWTH AFTER 5 DAYS INCUBATION 06/16/19 07:48 Blood - Peripheral Venous Blood Culture - Final NO GROWTH AFTER 5 DAYS INCUBATION 06/16/19 08:20 Urine - Urine - Catheterized Urine Culture - Final NO GROWTH OBTAINED Problem List - Problems (1) Coffee ground emesis Assessment/Plan: -GI on board -Hg 7.6 -Protonix -feedings resumed -Plavix discontinued -Aspirin on hold Code(s): K92.0 - HEMATEMESIS (2) Fever Assessment/Plan: -tylenol prn for temp >100F -BC and UC neg -no leukocytosis -ID on board -CXR to r/o aspiration done -Zosyn Code(s): R50.9 - FEVER, UNSPECIFIED (3) AZALEA (acute kidney injury) Assessment/Plan: -BUN/Cr 24.9/0.7 -monitor renal function -showing downtrend Code(s): N17.9 - ACUTE KIDNEY FAILURE, UNSPECIFIED (4) Anemia Assessment/Plan: -Hg 7.6 -Iron Polysaccharide -monitor Hg daily -transfuse if Hg <7.0 to avoid fluid overload -Iron Sucrose 200mg IVPB x 1 dose Code(s): D64.9 - ANEMIA, UNSPECIFIED (5) CVA (cerebral vascular accident) Assessment/Plan: -asa and plavix on hold 09/25 to coffee ground emesis Code(s): I63.9 - CEREBRAL INFARCTION, UNSPECIFIED (6) Functional quadriplegia Assessment/Plan: -fall risk precaution Code(s): R53.2 - FUNCTIONAL QUADRIPLEGIA (7) HTN (hypertension) Assessment/Plan: -monitor BP Code(s): I10 - ESSENTIAL (PRIMARY) HYPERTENSION Assessment/Plan see problem list dvt ppx d/c tomorrow after repeat Hg
[2019-06-21] MEDS ORDERED: IRON SUCROSE INJECTION 200 MG in SODIUM CHLORIDE 90 ML IVPB ONE (13:58)
[2019-06-21] MEDS: ATORVASTATIN CA 10 MG TABLET (FP) PEG SCH (21:00)
[2019-06-22] MEDS: HEPARIN NA (PORCINE) 5,000 UNITS/ML 1ML VIAL SQ SCH ×2 (06:01→15:39)
[2019-06-22] MEDS: METOCLOPRAMIDE HCL 5 MG/5 ML UNIT DOSE CUP GT SCH ×2 (06:01→10:00)
[2019-06-22 08:33] LABS: HEMATOCRIT 23.7 % (32.4-45.2); MCHC 33.7 g/dl (32.0-36.0); MEAN CELL VOLUME 97.8 fl (80-96); MEAN PLT VOLUME 8.9 fl (7.5-11.1); PLATELET COUNT 188 K/MM3 (134-434); RBC 2.43 M/mm3 (3.60-5.2); RDW 14.9 % (11.6-15.6); WHITE BLOOD COUNT 5.9 K/mm3 (4.0-10.0)
[2019-06-22 08:38] LABS: ALBUMIN 2.9 g/dl (3.4-5.0); BILIRUBIN,TOTAL 0.2 mg/dL (0.2-1); CALCIUM 8.1 mg/dL (8.5-10.1); CREATININE 0.5 mg/dL (0.55-1.3); POTASSIUM 3.7 mmol/L (3.5-5.1); TOT PROT 6.2 g/dl (6.4-8.2)
--- NOTE | 2019-06-22 09:37 | DS ---
Physical Examination Vital Signs: Vital Signs Temperature 98.6 F 06/22/19 06:00 Pulse Rate 81 06/22/19 06:00 Respiratory Rate 20 06/22/19 09:00 Blood Pressure 143/82 06/22/19 06:00 O2 Sat by Pulse Oximetry (%) 96 06/22/19 09:00 Findings/Remarks: Laboratory Results - last 24 hr 06/22/19 06/22/19 07:05 07:05 WBC 5.9 RBC 2.43 L Hgb 8.0 L Hct 23.7 L MCV 97.8 H MCH 33.0 MCHC 33.7 RDW 14.9 Plt Count 188 MPV 8.9 Sodium 143 Potassium 3.7 Chloride 108 H Carbon Dioxide 29 Anion Gap 6 L BUN 22.0 H Creatinine 0.5 L Est GFR (CKD-EPI)AfAm 102.29 Est GFR (CKD-EPI)NonAf 88.25 Random Glucose 100 Calcium 8.1 L Total Bilirubin 0.2 AST 12 L ALT 19 Alkaline Phosphatase 68 Total Protein 6.2 L Albumin 2.9 L Active Medications Generic Name Dose Route Start Last Admin Trade Name Freq PRN Reason Stop Dose Admin Acetaminophen 650 mg 06/18/19 11:45 06/20/19 09:41 Tylenol Oral Solution - PEG 650 mg Q4H PRN Administration PAIN LEVEL 1-5 Albuterol/Ipratropium 1 amp 06/17/19 11:40 Duoneb - NEB Q6H PRN SHORTNESS OF BREATH Amoxicillin/Clavulanate Potassium 250 mg 06/20/19 17:30 06/21/19 16:45 Augmentin 250 Mg/5 Ml Oral Suspension - GT 5 ml BID@0800,1730 AIDEE Administration Ascorbic Acid 500 mg 06/18/19 10:00 06/21/19 10:06 Vitamin C Oral Solution - PEG 500 mg DAILY AIDEE Administration Aspirin 81 mg 06/22/19 10:00 Ecotrin - PO DAILY AIDEE Atorvastatin Calcium 20 mg 06/17/19 22:00 06/21/19 21:00 Lipitor - PEG 20 mg HS AIDEE Administration Famotidine 20 mg 06/18/19 22:00 06/21/19 21:02 Pepcid - NGT 20 mg BID AIDEE Administration Heparin Sodium (Porcine) 5,000 unit 06/17/19 14:00 06/22/19 06:01 Heparin - SQ 5,000 unit TID AIDEE Administration Lactobacillus Acidophilus 1 tab 06/18/19 10:00 06/21/19 10:05 Bacid - GT 1 tab DAILY AIDEE Administration Metoclopramide HCl 10 mg 06/18/19 16:30 06/22/19 06:01 Reglan Oral Solution - GT 10 mg ACHS AIDEE Administration Polyethylene Glycol 34 gm 06/17/19 22:00 06/21/19 21:02 Miralax (For Daily Use) - PEG 34 gm BID AIDEE Administration Polysaccharide Iron Complex 150 mg 06/19/19 10:00 06/21/19 10:05 Niferex-150 - GT 150 mg DAILY AIDEE Administration Simethicone 80 mg 06/17/19 14:00 06/21/19 21:01 Mylicon Liquid - PEG 80 mg QID AIDEE Administration Sodium Chloride 2 spray 06/17/19 22:00 06/21/19 21:05 [place] Lynch Nasal Lynch - NS 2 spray BID AIDEE Administration Microbiology 06/16/19 08:05 Blood - Peripheral Venous Blood Culture - Final NO GROWTH AFTER 5 DAYS INCUBATION 06/16/19 07:48 Blood - Peripheral Venous Blood Culture - Final NO GROWTH AFTER 5 DAYS INCUBATION 06/16/19 08:20 Urine - Urine - Catheterized Urine Culture - Final NO GROWTH OBTAINED Constitutional: Yes: No Distress, Calm Eyes: Yes: Conjunctiva Clear HENT: Yes: Atraumatic Cardiovascular: Yes: Regular Rate and Rhythm Respiratory: Yes: Regular, Diminished Gastrointestinal: Yes: Normal Bowel Sounds, Soft, Abdomen, Obese Renal/: Yes: Incontinence Musculoskeletal: Yes: Muscle Weakness Extremities: Yes: WNL Edema: No Neurological: Yes: Alert, Pre-Existing Deficit Psychiatric: Yes: Alert Labs: CBC, BMP 06/22/19 07:05 06/22/19 07:05 Discharge Summary Problems reviewed: Yes Reason For Visit: COFFEE GROUND EMESIS,UPPER GASTROINTESTINAL HEMORR Current Active Problems Coffee ground emesis (Acute) Coffee ground emesis (Acute) Fever (Acute) Hospital Course: 84yo F hx dementia, HTN, CVA with residual R hemiplegia, aphasia c/b recurrent aspiration s/p PEG tube (replaced last wk after dislodged at [facility]), volvulus, chronically on plavix/asa, chronically bed bound from [facility] presents to the ED with 1 episode of large volume coffee ground emesis this morning at the group home this morning. History is limited as patient is nonverbal, is provided by son. He states patient was in her usual state of health yesterday. Patient has not had any recent he reports patient has chronic abdominal distention, and this has not changed over the last few days. Patient has not had any recent fevers, chills, diarrhea. No recent changes in her medications. patient seen by GI attending in the Er no need to scope Condition: Stable - Instructions Diet, Activity, Other Instructions: Repeat CBC in 1 week D/C plavix Resume ASA 81 mg po daily Start Pantaprazole 40 mg po BID Reglan 10 mg achs Simethicone 80 mg QID Miralax 1 capful daily Referrals: Ace Kelly MD [Primary Care Provider] - [facility] - Home Medications Comprehensive Discharge Medication List: Ambulatory Orders Acetaminophen [Tylenol .Regular Strength -] 650 mg PO Q6H PRN #0 tablet Albuterol 2.5/Ipratropium 0.5 [Duoneb -] 1 amp NEB Q6H PRN #0 amp 09/03/16 Ascorbic Acid [Vitamin C] 500 mg PEG DAILY 05/11/18 Aspirin Coated [Ecotrin -] 81 mg GT DAILY tablet.ec 08/11/18 Lactobacillus Acidophilus [Bacid -] 1 each GT DAILY #30 capsule 08/11/18 Sodium Chloride Nasal Lynch [[place] Lynch Nasal Lynch -] 2 spray NS BID spray Ferrous Sulfate 220 mg PEG DAILY 06/16/19 Linaclotide [Linzess] 290 mcg PEG DAILY 06/16/19 Polyethylene Glycol 3350 [Miralax 119 gm Btl -] 17 gm PEG DAILY 06/16/19 Pravastatin Sodium [Pravachol -] 20 mg PEG HS 06/16/19 Simethicone Liquid [Mylicon Liquid -] 80 mg PEG QID 06/16/19 Acetaminophen Oral Solution [Tylenol Oral Solution -] 650 mg PEG Q4H PRN soln.oral 06/19/19 Amoxicillin/Potassium Clav [Augmentin ES Suspension] 600 mg PO BID #70 ml Famotidine [Pepcid -] 20 mg NGT BID tablet 06/19/19 Iron Polysaccharides [Niferex-150 -] 150 mg GT DAILY capsule 06/19/19 Metoclopramide Oral Soln [Reglan Oral Solution -] 10 mg GT ACHS udc 06/19/19 Pantoprazole Sodium [Protonix -] 40 mg PO BID #60 tablet.ec 06/19/19
[2019-06-22] MEDS: IRON POLYSACCHARIDES 150 MG CAPSULE GT SCH (09:57)
[2019-06-22] MEDS: LACTOBACILLUS ACIDOPHILUS 1 TABLET GT SCH (09:57)
[2019-06-22] MEDS: FAMOTIDINE 20 MG TABLET NGT SCH (09:58)
[2019-06-22] MEDS: SIMETHICONE 40 MG/0.6 ML BOTTLE PEG SCH ×2 (09:58→15:40)
[2019-06-22] MEDS: SODIUM CHLORIDE NASAL SPRAY 44 ML BOTTLE NS SCH (09:58)
[2019-06-22] MEDS: ASCORBIC ACID 500 MG/5 ML PEG SCH (09:59)
[2019-06-22] MEDS: POLYETHYLENE GLYCOL 3350 119 GM BTL PEG SCH (10:00)
[2019-06-22] MEDS ORDERED: ASPIRIN COATED 81 MG TABLET.EC PO SCH (10:00)
[2019-06-22] MEDS: AMOX TR/POTASSIUM CLAVULANATE 250 MG/5 ML BOTTLE GT SCH (10:14)
--- NOTE | 2019-06-22 11:26 | PN ---
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 (short form) - Note 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: s: not answering questions, awake, h/o dementia Current Medications Acetaminophen (Tylenol Oral Solution -) 650 mg PEG Q4H PRN PRN Reason: PAIN LEVEL 1-5 Last Admin: 06/20/19 09:41 Dose: 650 mg Albuterol/Ipratropium (Duoneb -) 1 amp NEB Q6H PRN PRN Reason: SHORTNESS OF BREATH Amoxicillin/Clavulanate Potassium (Augmentin 250 Mg/5 Ml Oral Suspension -) 250 mg GT BID@0800,1730 REPLACED BY [facility] Last Admin: 06/22/19 10:14 Dose: 5 ml Ascorbic Acid (Vitamin C Oral Solution -) 500 mg PEG DAILY REPLACED BY [facility] Last Admin: 06/22/19 09:59 Dose: 500 mg Aspirin (Ecotrin -) 81 mg PO DAILY REPLACED BY [facility] Last Admin: 06/22/19 09:58 Dose: 81 mg Atorvastatin Calcium (Lipitor -) 20 mg PEG HS REPLACED BY [facility] Last Admin: 06/21/19 21:00 Dose: 20 mg Famotidine (Pepcid -) 20 mg NGT BID REPLACED BY [facility] Last Admin: 06/22/19 09:58 Dose: 20 mg Heparin Sodium (Porcine) (Heparin -) 5,000 unit SQ TID REPLACED BY [facility] Last Admin: 06/22/19 06:01 Dose: 5,000 unit Lactobacillus Acidophilus (Bacid -) 1 tab GT DAILY REPLACED BY [facility] Last Admin: 06/22/19 09:57 Dose: 1 tab Metoclopramide HCl (Reglan Oral Solution -) 10 mg GT ACHS REPLACED BY [facility] Last Admin: 06/22/19 10:00 Dose: 10 mg Polyethylene Glycol (Miralax (For Daily Use) -) 34 gm PEG BID REPLACED BY [facility] Last Admin: 06/22/19 10:00 Dose: 34 gm Polysaccharide Iron Complex (Niferex-150 -) 150 mg GT DAILY REPLACED BY [facility] Last Admin: 06/22/19 09:57 Dose: 150 mg Simethicone (Mylicon Liquid -) 80 mg PEG QID REPLACED BY [facility] Last Admin: 06/22/19 09:58 Dose: 80 mg Sodium Chloride ([place] Nasal [place] -) 2 spray NS BID REPLACED BY [facility] Last Admin: 06/22/19 09:58 Dose: 2 spray Vital Signs Period Temp Pulse Resp BP Sys/[place] Pulse Ox Last 24 Hr 98 F-98.6 F 68-81 18-20 100-143/53-82 95-96 nad no jvd rrr s1s2 no mrg cta bl anteriorly, poor eff no le e/c/c abd nd pos bs no jaudice diaphoresis awake alert confused pos dp pt no carotid bruits cxr: clear lungs echo 08/2016: tds, nl lvef, rv tds, no sig valve path, rvsp 30-40 ecg: sinus tach, nl intervals, no ischemic changes a/p: 84 f hx dementia, htn, hld, cva, here with hematemesis. hematemesis: -GI following, holding asa -was on as[facility] and [facility] -no obvious indication for plavix at this time so would dc - aspirin restarted htn: -stable off meds hld: -cont statin cva: -cont statin, asa (when able) aspiration pna: -abx per ID
[2019-06-22 14:36] VITALS: BP 124/62; PULSE 95; TEMP 98.2
== END 2019-06-22 16:24 | DRG 377 ==
LOC: JER 07:25 → JERBED 09:08 → J6S 17:15
PROVIDERS: ADMIT Student in an Organized Health Care Education/Training Program; ATTEND Student in an Organized Health Care Education/Training Program
PROC: 3E0G76Z Introduction of Nutritional Substance into Upper GI, Via Natural or Artificial Opening (ICD-10-PCS; principal; 2019-06-16)
DX: K92.0 Hematemesis (principal); J69.0 Pneumonitis due to inhalation of food and vomit; R53.2 Functional quadriplegia; I69.351 Hemiplegia and hemiparesis following cerebral infarction affecting right dominant side; N17.9 Acute kidney failure, unspecified; Z68.42 Body mass index [BMI] 45.0-49.9, adult; F03.90 Unspecified dementia, unspecified severity, without behavioral disturbance, psychotic disturbance, mood disturbance, and anxiety; I10 Essential (primary) hypertension; I69.320 Aphasia following cerebral infarction; Z93.1 Gastrostomy status; Z74.01 Bed confinement status; I95.9 Hypotension, unspecified; K43.9 Ventral hernia without obstruction or gangrene; K56.41 Fecal impaction; J47.9 Bronchiectasis, uncomplicated; D64.9 Anemia, unspecified; E87.6 Hypokalemia; E66.9 Obesity, unspecified
CPT/HCPCS: 36415; 71045-TC-FY; 74019-TC-FY; 74178-TC; 80053; 81003; 82272; 82607; 82728; 82803; 83540; 83550; 83605; 83735; 84100; 84484; 85025; 85027; 85610; 85730; 86850; 86900; 86901; 87040; 87086; 87804; 93005; 93010; 99285-25; J0131; J1644; J1756

== ENCOUNTER 2019-09-25 14:11 | Inpatient (IN) | payer MEDICARE, OTHER ==
--- NOTE | 2019-09-25 14:40 | PDOC ---
History of Present Illness - General Chief Complaint: G Tube Problem Stated Complaint: GI REPLACEMENT Time Seen by Provider: 09/25/19 14:32 - History of Present Illness Initial Comments: HPI: 84yo F with PMH of dementia, HTN, CVA with residual R hemiplegia, aphasia c/b recurrent aspiration s/p PEG tube (replaced last wk after dislodged at [facility]), volvulus, chronically on plavix/asa, chronically bed bound from [facility] presents to the ED with dislodged PEG tube. Patient's son is at the bedside providing collateral history. He believes the tube became dislodged at 11am today. Patient last finished a feeding at 9:30am. At 11am, an aide noticed the PEG was not in place. The tube was placed in Jul 2018 and was last replaced in Jun 2019. Patient's son reports that the patient has intermittent problems with gas in her stomach that is relieved with a rectal tube. Patient last had a bowel movement last night. No fevers. History limited as patient is nonverbal and noncommunicative. PCP: Dr. Ace Kelly ROS: Unable to complete (patient nonverbal) PE: General: Awake, alert, nonverbal Head: No signs of trauma Eyes: Will track with eyes, sclera anicteric ENT: Moist mucus membranes, distended tongue and lower lip Neck: Supple Lungs: Lungs clear Cardio: Regular rhythm, S1 and S2 present Abdomen: Distended and tympanic. Soft, nontender. No guarding, no rebound, no masses. PEG tube site present, hemostatic and does not appear infected Extremities: Distal pulses present SKIN: Warm, Dry, normal turgor Neurologic: Nonverbal. Not able to follow commands ED Course/MDM: DDX including but not limited to dislodged G tube, SBO, Labs, EKG, CXR Abdominal Xray Unable to pass another G tube 09/25/19 14:40 EKG: rate 90, QTc 467, sinus with PACs Page to Dr. Maxwell, via call service 09/25/19 15:[address] Cruz. Patient to be admitted. He will let Dr. Maxwell know about the patient. Consult to be placed for Dr. Maxwell 09/25/19 15:34 Dr. Kurkowski received call from radiology regarding concern for SBO with distention seen on abdominal xray CT ordered Patient at CT CXR as read by radiology: "EXAM#: TYPE/EXAM: RESULT: [id number] RAD/CHEST X-RAY PORTABLE* ADDENDUM ADDENDUM #1 An old fracture deformity of the proximal right humerus is noted. This was present in the earlier study of 06/16/2019. ORIGINAL REPORT Chest: Abdominal distention. Pain. Admission. Single view of the chest has been submitted. Since 06/16/2019, there is less chin artifact. There is a weak inspiratory effort with large heart, tortuous aorta, prominent hilar markings and coarse lung changes. There is no sign of infiltrate or pneumothorax. Pleural fluid or atelectasis is not seen. There is no sign of a pneumoperitoneum. Correlation recommended. Please note abdomen imaging done today shows very distended bowel and a CT scan is strongly recommended. ER staff notified of this finding." Abd xray as read by radiology: "EXAM#: TYPE/EXAM: RESULT: [id number] RAD/ABDOMEN- KUB FLAT PLATE Abdomen: Distention A single limited view of the abdomen does not include the mid diaphragm level but does include the pelvis. There is marked abdominal distention with the appearance of an obstructive process. Further evaluation with CT is strongly recommended. There are degenerative spine changes, IVC filter and old fracture deformity of the left hip. Free air is not appreciated. There is no sign of organomegaly or calcifications of significance. Impression: Very distended bowel. CT is strongly recommended for evaluation. ER at [facility] / Dr. Rios notified of findings on 09/25/2019 at 1652 hours. Reported By: Abiel Vila MD 09/25/19 1655 " EKG: rate 90, Qtc 467, Sinus, PACs 09/25/19 17:17 CBC WBC 6.0 K/mm3 (4.0-10.0) 09/25/19 16:50 RBC 3.53 M/mm3 (3.60-5.2) L 09/25/19 16:50 Hgb 10.6 GM/dL (10.7-15.3) L 09/25/19 16:50 Hct 31.9 % (32.4-45.2) L D 09/25/19 16:50 MCV 90.5 fl (80-96) 09/25/19 16:50 MCH 29.9 pg (25.7-33.7) 09/25/19 16:50 MCHC 33.1 g/dl (32.0-36.0) 09/25/19 16:50 RDW 16.0 % (11.6-15.6) H 09/25/19 16:50 Plt Count 199 K/MM3 (134-434) 09/25/19 16:50 MPV 8.6 fl (7.5-11.1) 09/25/19 16:50 Absolute Neuts (auto) 4.3 K/mm3 (1.5-8.0) 09/25/19 16:50 Neutrophils % 71.3 % (42.8-82.8) 09/25/19 16:50 Lymphocytes % 21.5 % (8-40) 09/25/19 16:50 Monocytes % 4.1 % (3.8-10.2) 09/25/19 16:50 Eosinophils % 2.3 % (0-4.5) 09/25/19 16:50 Basophils % 0.8 % (0-2.0) 09/25/19 16:50 Nucleated RBC % 0 % (0-0) 09/25/19 16:50 No leukocytosis Mild anemia CMP Sodium 139 mmol/L (136-145) 09/25/19 16:50 Potassium 3.9 mmol/L (3.5-5.1) 09/25/19 16:50 Chloride 102 mmol/L (98-107) 09/25/19 16:50 Carbon Dioxide 28 mmol/L (21-32) 09/25/19 16:50 Anion Gap 8 MMOL/L (8-16) 09/25/19 16:50 BUN 28.2 mg/dL (7-18) H 09/25/19 16:50 Creatinine 0.6 mg/dL (0.55-1.3) 09/25/19 16:50 Est GFR (CKD-EPI)AfAm 96.33 09/25/19 16:50 Est GFR (CKD-EPI)NonAf 83.11 09/25/19 16:50 Random Glucose 95 mg/dL (74-106) 09/25/19 16:50 Calcium 9.0 mg/dL (8.5-10.1) 09/25/19 16:50 Total Bilirubin 0.3 mg/dL (0.2-1) 09/25/19 16:50 AST 14 U/L (15-37) L 09/25/19 16:50 ALT 15 U/L (13-61) 09/25/19 16:50 Alkaline Phosphatase 81 U/L (45-117) 09/25/19 16:50 Total Protein 7.0 g/dl (6.4-8.2) 09/25/19 16:50 Albumin 3.1 g/dl (3.4-5.0) L 09/25/19 16:50 Electrolytes unremarkable Cr normal Pending CT report 09/25/19 18:10 Maintenance fluids ordered Patient receives enema three times a week and rectal tube about once a week 09/25/19 18:32 Call from Imaging transaction manager radiologist regarding finding of sigmoid volvulus CT: "FINDINGS: There is a sigmoid volvulus with partial obstruction and marked distention of the sigmoid measuring up to 10 cm in greatest transverse dimension The remainder of the bowel is unremarkable No intra-abdominal free air or free fluid Diminutive kidneys with lobulated cortices bilaterally Infrarenal IVC filter Mild hepatosplenomegaly Small calcification in the left lobe of the liver compatible with a granuloma There is a soft tissue opacity extending from the gastric antrum to the anterior abdominal wall cutaneous surface possibly from prior PEG tube placement Right lower lobe compressive atelectasis and bronchiectasis with fluid in multiple dilated bronchi. A collection containing small amount of fluid in the right lower lobe measuring 3.5 x 1.9 cm axially appears to communicate with the bronchial tree and is likely a dilated bronchus as opposed to a pulmonary abscess There are multiple subcentimeter nodules in the right lower lobe One or more of the following dose reduction techniques were used: automated exposure control, adjustment of the mA and/or kV according to patient size, use of iterative reconstructive technique. THIS DOCUMENT HAS BEEN ELECTRONICALLY SIGNED Alex Gross MD" 09/25/19 18:[address] Cruz. We will decompress that patient with a rectal tube. 02/02/20 19:25 Awaiting callback from admitting team 09/25/19 19:27 Patient signed out to Dr. Jara and night team Past History - Past Medical History Allergies/Adverse Reactions: Allergies Allergy/AdvReac Type Severity Reaction Status Date / Time No Known Allergies Allergy Verified 09/25/19 14:39 Home Medications: Ambulatory Orders Acetaminophen [Tylenol .Regular Strength -] 650 mg PO Q6H PRN #0 tablet Albuterol 2.5/Ipratropium 0.5 [Duoneb -] 1 amp NEB Q6H PRN #0 amp 09/03/16 Ascorbic Acid [Vitamin C] 500 mg PEG DAILY 05/11/18 Aspirin Coated [Ecotrin -] 81 mg GT DAILY tablet.ec 08/11/18 Lactobacillus Acidophilus [Bacid -] 1 each GT DAILY #30 capsule 08/11/18 Sodium Chloride Nasal Dafter [[place] Dafter Nasal Dafter -] 2 spray NS BID spray Linaclotide [Linzess] 290 mcg PEG DAILY 06/16/19 Simethicone Liquid [Mylicon Liquid -] 80 mg PEG QID 06/16/19 Acetaminophen Oral Solution [Tylenol Oral Solution -] 650 mg PEG Q4H PRN soln.oral 06/19/19 Famotidine [Pepcid -] 20 mg NGT BID tablet 06/19/19 Iron Polysaccharides [Niferex-150 -] 150 mg GT DAILY capsule 06/19/19 Metoclopramide Oral Soln [Reglan Oral Solution -] 10 mg GT ACHS udc 06/19/19 Pantoprazole Sodium [Protonix -] 40 mg PO BID #60 tablet.ec 06/19/19 Albuterol 2.5/Ipratropium 0.5 [Duoneb -] 1 amp NEB Q6H PRN amp 09/28/19 Aspirin [ASA -] 81 mg GT DAILY tab.chew 09/28/19 Atorvastatin Ca [Lipitor] 20 mg GT HS tablet 09/28/19 Container,Empty [Enema Bottle] 1 each MOWEFR #90 bottle 09/28/19 Polyethylene Glycol 3350 [Miralax 119 gm Btl -] 17 gm PEG BID #2 bottle Anemia: Yes Asthma: Yes Cancer: No Cardiac Disorders: No CVA: Yes (Right sided CVA January 2015, right arm weakness) COPD: No CHF: No Dementia: Yes Diabetes: No GI Disorders: Yes (volvulous) Disorders: Yes (/O UTI) HTN: Yes Hypercholesterolemia: Yes Seizures: No Thyroid Disease: No - Surgical History Abdominal Surgery: Yes Appendectomy: No Cardiac Surgery: No Cholecystectomy: No GI Surgery: Yes (g tube) Lung Surgery: No Neurologic Surgery: No Orthopedic Surgery: Yes (Bilateral total knee replacements, Left hip surgery,) - Psycho Social/Smoking Cessation Hx Smoking History: Never smoked Have you smoked in the past 12 months: No Information on smoking cessation initiated: No Hx Alcohol Use: No Drug/Substance Use Hx: No Substance Use Type: None Hx Substance Use Treatment: No *Physical Exam - Vital Signs Last Vital Signs Temp Pulse Resp BP Pulse Ox 96.6 F L 84 16 116/68 97 09/25/19 14:15 09/25/19 14:15 09/25/19 14:15 09/25/19 14:15 09/25/19 14:15 ED Treatment Course - LABORATORY CBC & Chemistry Diagram: 09/27/19 07:40 09/27/19 07:40 Discharge - Discharge Information Problems reviewed: Yes Clinical Impression/Diagnosis: Abdominal distension, Volvulus of sigmoid colon, Dislodged gastrostomy tube Condition: Guarded - Admission Yes - Follow up/Referral - Patient Discharge Instructions - Post Discharge Activity
--- NOTE | 2019-09-25 15:38 | PDOC ---
Documentation entered by Gladys Dunbar SCRIBE, acting as scribe for Patience Rios DO. Patience Rios DO: This documentation has been prepared by the Bettina amos Nirvannie, SCRIBE, under my direction and personally reviewed by me in its entirety. I confirm that the documentation accurately reflects all work, treatment, procedures, and medical decision making performed by me. Attending Attestation - Resident Resident Name: ShanthiWinterGladys - ED Attending Attestation I have performed the following: I have examined & evaluated the patient, The case was reviewed & discussed with the resident, I agree w/resident's findings & plan, Exceptions are as noted - HPI HPI: 09/25/19 16:43 The patient is an 84 year old female, with a significant past medical history of dementia, HTN, CVA (with residual R hemiplegia), aphasia (c/b recurrent aspiration s/p G tube), volvulus, chronically on plavix/asa, chronically bed bound, who presents to the emergency department with a dislodged g tube. As per patients family, they gave her morning meds via the 22 algerian g tube at 9am and it became dislodged at approximately 11am, prompting her arrival to the ED. Family denies any recent fevers, chills, diarrhea. Allergies: NKDA Primary Care Physician: Dr. Kelly GI: Dr. Weiner - Physicial Exam PE: 09/25/19 16:48 Constitutional: Awake, at baseline. No acute distress. Head: Normocephalic. Atraumatic Eyes: PERRL. EOMI. Conjunctivae are not pale. ENT: Mucous membranes are moist and intact. Posterior pharynx without exudates or erythema. Uvula midline. Neck: Supple. Full ROM. No lymphadenopathy. Cardiovascular: Regular rate. Regular rhythm. S1, S2 regular. Distal pulses are 2+ and symmetric. Pulmonary/Chest: No evidence of respiratory distress. Clear to auscultation bilaterally No wheezing, rales or rhonchi. Abdominal: +Protuberant, minimal blood at closed site of the Gtube. Typanic. Soft and non-distended. There is no tenderness. No rebound, guarding or rigidity. No organomegaly. No palpable masses. Good bowel sounds. Back: No CVA tenderness. Musculoskeletal: No edema. No cyanosis. No clubbing. Full range of motion in all extremities. No calf tenderness. Radial/pedal pulses are intact and 2+ bilaterally Skin: Skin is warm and dry. No petechiae. No purpura. Neurological: Nonverbal, acting as baseline. Strength is grossly symmetric. No sensory deficits. Psychiatric: Good eye contact. Normal interaction, affect and behavior. - Medical Decision Making 09/25/19 15:36 a/p: 84yo female sent in for dislodged g tube -pt with 22f g tube out of the site -per the family, the tube was out since around 11am, but apparently used at 9am -pt is nonverbal and bedbound -a ulrich and a g tube were attempted to be placed but the fistula track has closed and the tube is unable to be advance -dr. weiner has placed the tube in the past -per the family- they only request that Dr. Weiner place the tube -will send labs, will start gentle ivf hydration -family at the bedside, pt will need admission for replacement of the g tube 09/25/19 16:21 resident discussed the case with GI who will let dr. weiner know 09/25/19 17:07 distended loops of bowel on xray called by radiology, stat request for ct abd/pelvis ct ordered pt taken to ct by the resident 09/25/19 18:48 pt with sigmoid volvulus on ct call placed to Dr. Rafael Duffy 09/25/19 18:[address] romo who states sigmoid volvulus is treated by GI repeat call placed to dr. figueroa 09/25/19 19:[address] rectal tube and will admit pmd dr zeenat kelly microblog [facility] Discharge - Discharge Information Problems reviewed: Yes Clinical Impression/Diagnosis: Abdominal distension, Volvulus of sigmoid colon, Dislodged gastrostomy tube Condition: Guarded - Admission Yes - Follow up/Referral Referrals: Zeenat Kelly MD [Primary Care Provider] - - Patient Discharge Instructions - Post Discharge Activity Heart Score/ECG Review - ECG Intrepretation Comment:: 09/25/19 17:08 sinus at 90, pac, low voltage, no acute st/t wave findings
[2019-09-25 17:08] LABS: BASO % 0.8 % (0-2.0); EOS % 2.3 % (0-4.5); HEMATOCRIT 31.9 % (32.4-45.2); HEMOGLOBIN 10.6 GM/dL (10.7-15.3); LYMPH % 21.5 % (8-40); MCH 29.9 pg (25.7-33.7); MCHC 33.1 g/dl (32.0-36.0); MEAN CELL VOLUME 90.5 fl (80-96); MEAN PLT VOLUME 8.6 fl (7.5-11.1); MONO % 4.1 % (3.8-10.2); NEUT % 71.3 % (42.8-82.8); PLATELET COUNT 199 K/MM3 (134-434); RBC 3.53 M/mm3 (3.60-5.2)
[2019-09-25 17:20] LABS: INR 1.06 (0.83-1.09); PROTHROMBIN TIME (PATIENT) 12.5 SEC (9.7-13.0)
[2019-09-25 17:23] LABS: ACTIVATED PTT 29.5 SECONDS (25.2-36.5)
[2019-09-25 17:28] LABS: ALBUMIN 3.1 g/dl (3.4-5.0); BILIRUBIN,TOTAL 0.3 mg/dL (0.2-1); BLOOD UREA NITROGEN 28.2 mg/dL (7-18); CREATININE 0.6 mg/dL (0.55-1.3); POTASSIUM 3.9 mmol/L (3.5-5.1)
[2019-09-25] MEDS ORDERED: SODIUM CHLORIDE 1,000 ML IV SCH (18:45)
--- NOTE | 2019-09-25 20:06 | CON.GI ---
Consult Consult Specialty:: GI: For Dr. Maxwell Referred by:: ER Reason for Consultation:: Dislodged G-tube and sigmoid volvulus - History of Present Illness Chief Complaint: Dislodged G-Tube History of Present Illness: 84F with exitsing G-Tube that doslodged in the morning per her son. Called by ER around 330 this afternoon that ulrich could not be placed because the tract closed. Called 730 for stat consult because CT scan showed a sigmoid volvulus. Abdominal exam, however, per ER resident, did not change from initial presentation. He son was present at bedside. States that her abdomnen gets distended periodically and he alleviates this by placing rectal tube and giving enemas. In review of [place], the partient has a history of colonic distention / ileus, sigmoid redundancy. - History Source History Provided By: Medical Record - Past Medical History [employer]IVER: Yes: CVA, Dementia Cardio/Vascular: Yes: HTN, Hyperlipdemia Pulmonary: Yes: Asthma Gastrointestinal: Yes: Other (chronic obstructions) Renal/: Yes: UTI - Past Surgical History Past Surgical History: Yes: None, Joint Replacement (bilateral knee replacement , left hip surgery) Additional Surgical History: G-Tube - Alcohol/Substance Use Hx Alcohol Use: No History of Substance Use: reports: None - Smoking History Smoking history: Never smoked Have you smoked in the past 12 months: No - Social History Usual Living Arrangement: Retirement ADL: Support Services History of Recent Travel: No Home Medications - Allergies Allergies/Adverse Reactions: Allergies Allergy/AdvReac Type Severity Reaction Status Date / Time No Known Allergies Allergy Verified 09/25/19 14:39 - Home Medications Home Medications: Ambulatory Orders Acetaminophen [Tylenol .Regular Strength -] 650 mg PO Q6H PRN #0 tablet Albuterol 2.5/Ipratropium 0.5 [Duoneb -] 1 amp NEB Q6H PRN #0 amp 09/03/16 Ascorbic Acid [Vitamin C] 500 mg PEG DAILY 05/11/18 Aspirin Coated [Ecotrin -] 81 mg GT DAILY tablet.ec 08/11/18 Lactobacillus Acidophilus [Bacid -] 1 each GT DAILY #30 capsule 08/11/18 Sodium Chloride [place] [[place] -] 2 spray NS BID spray Ferrous Sulfate 220 mg PEG DAILY 06/16/19 Linaclotide [Linzess] 290 mcg PEG DAILY 06/16/19 Polyethylene Glycol 3350 [Miralax 119 gm Btl -] 17 gm PEG DAILY 06/16/19 Pravastatin Sodium [Pravachol -] 20 mg PEG HS 06/16/19 Simethicone Liquid [Mylicon Liquid -] 80 mg PEG QID 06/16/19 Acetaminophen Oral Solution [Tylenol Oral Solution -] 650 mg PEG Q4H PRN soln.oral 06/19/19 Amoxicillin/Potassium Clav [Augmentin ES Suspension] 600 mg PO BID #70 ml Famotidine [Pepcid -] 20 mg NGT BID tablet 06/19/19 Iron Polysaccharides [Niferex-150 -] 150 mg GT DAILY capsule 06/19/19 Metoclopramide Oral Soln [Reglan Oral Solution -] 10 mg GT ACHS udc 06/19/19 Pantoprazole Sodium [Protonix -] 40 mg PO BID #60 tablet.ec 06/19/19 Family Medical History Family History: Unable to Obtain Physical Exam-GI Vital Signs: Vital Signs Temperature 96.6 F L 09/25/19 14:15 Pulse Rate 84 09/25/19 14:15 Respiratory Rate 16 09/25/19 18:50 Blood Pressure 116/68 09/25/19 14:15 O2 Sat by Pulse Oximetry (%) 97 09/25/19 18:50 Constitutional: Yes: Calm Eyes: No: Sclera Icterus Cardiovascular: Yes: Regular Rate and Rhythm Respiratory: Yes: Diminished (at bases bilaterally with poor insp effort) Gastrointestinal Inspection: Yes: Distention, Scars (G-tube site in upper abdomen with granulation tissue, stoma closed) ...Auscultate: Yes: Normoactive Bowel Sounds ...Palpate: No: Tenderness (no grimacing upon palpation) ...Percussion: Yes: Tympanitic ...Rectal Exam: Yes: Other (Rectal tube placed with patient left lateral. copious air and liquid stool expelled. turned right lateral decubitus with similar result. Abdomen soft, improved tympany) Labs: CBC, BMP 09/25/19 16:50 09/25/19 16:50 INR, PTT INR 1.06 (0.83-1.09) 09/25/19 16:50 Imaging - Results Cat Scan: Report Reviewed, Image Reviewed Problem List - Problems (1) Dislodged gastrostomy tube Assessment/Plan: G-Tube stoma closed. Will need G-tube replaced. Dr. Maxwell to reassess tomorrow. Can see if IR can use existing tract to spare repeat EGD/PEG. For now , IV hydration per primary team Code(s): Z43.1 - ENCOUNTER FOR ATTENTION TO GASTROSTOMY (2) Volvulus of sigmoid colon Assessment/Plan: Likely component of colonic ileus with chronic intermittent sigmoid volvulus. Rectal tube placed with good result and clinical improvement. Rectal tube left in place overnight. flush with 30 cc twice per shift and rotate patient into left lateral decubitus position for 20 minutes per shift. Repeat AXR ordered: follow-up result Code(s): K56.2 - VOLVULUS
--- NOTE | 2019-09-25 21:31 | HP ---
Admitting History and Physical - Primary Care Physician PCP: Ace Kelly S - Admission Chief Complaint: Dislodged PEG Tube, Abdominal Distention History of Present Illness: This is a 84 y/o woman from [facility] with a PMHx of Dementia, HTN, CVA (residual R hemiplegia, aphasia c/b recurrent aspiration), s/p PEG tube ( replaced last week after dislodged at [facility]), Volvulus, chronically on plavix/asa, chronically bed bound. Who presents to the ED with a dislodged PEG tube. Patient's son is at the bedside providing HPI. The G-tube was placed in Jul 2018 and was last replaced in Jun 2019. Patient's son reports that the patient has intermittent problems with gas in her stomach that is relieved with a rectal tube. Patient last had a bowel movement last night. No fevers. History limited as patient is nonverbal and noncommunicative. 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, Dementia Cardiovascular: Yes: HTN, Hyperlipdemia Pulmonary: Yes: Asthma Gastrointestinal: Yes: Other (chronic obstructions) Renal/: Yes: UTI Heme/Onc: Yes: Anemia - Past Surgical History Past Surgical History: Yes: None, Joint Replacement (bilateral knee replacement , left hip surgery) Additional Past Surgical History: PEG - Smoking History Smoking history: Never smoked Have you smoked in the past 12 months: No - Alcohol/Substance Use Hx Alcohol Use: No History of Substance Use: reports: None - Social History Usual Living Arrangement: Yes: Skilled Nursing ADL: Support Services History of Recent Travel: No Home Medications - Allergies Allergies/Adverse Reactions: Allergies Allergy/AdvReac Type Severity Reaction Status Date / Time No Known Allergies Allergy Verified 09/25/19 14:39 - Home Medications Home Medications: Ambulatory Orders Acetaminophen [Tylenol .Regular Strength -] 650 mg PO Q6H PRN #0 tablet Albuterol 2.5/Ipratropium 0.5 [Duoneb -] 1 amp NEB Q6H PRN #0 amp 09/03/16 Ascorbic Acid [Vitamin C] 500 mg PEG DAILY 05/11/18 Aspirin Coated [Ecotrin -] 81 mg GT DAILY tablet.ec 08/11/18 Lactobacillus Acidophilus [Bacid -] 1 each GT DAILY #30 capsule 08/11/18 Sodium Chloride [place] [[place] -] 2 spray NS BID spray Ferrous Sulfate 220 mg PEG DAILY 06/16/19 Linaclotide [Linzess] 290 mcg PEG DAILY 06/16/19 Polyethylene Glycol 3350 [Miralax 119 gm Btl -] 17 gm PEG DAILY 06/16/19 Pravastatin Sodium [Pravachol -] 20 mg PEG HS 06/16/19 Simethicone Liquid [Mylicon Liquid -] 80 mg PEG QID 06/16/19 Acetaminophen Oral Solution [Tylenol Oral Solution -] 650 mg PEG Q4H PRN soln.oral 06/19/19 Amoxicillin/Potassium Clav [Augmentin ES Suspension] 600 mg PO BID #70 ml Famotidine [Pepcid -] 20 mg NGT BID tablet 06/19/19 Iron Polysaccharides [Niferex-150 -] 150 mg GT DAILY capsule 06/19/19 Metoclopramide Oral Soln [Reglan Oral Solution -] 10 mg GT ACHS udc 06/19/19 Pantoprazole Sodium [Protonix -] 40 mg PO BID #60 tablet.ec 06/19/19 Family Medical History Family History: Unable to Obtain Review of Systems Unable to obtain ROS, reason: Clinical Condition Physical Examination Vital Signs: Vital Signs Temperature 96.6 F L 09/25/19 14:15 Pulse Rate 84 09/25/19 14:15 Respiratory Rate 16 09/25/19 18:50 Blood Pressure 116/68 09/25/19 14:15 O2 Sat by Pulse Oximetry (%) 97 09/25/19 18:50 Constitutional: Yes: No Distress, Calm, Obese, Other (aphasic- baseline) Eyes: Yes: Conjunctiva Clear, PERRL HENT: Yes: WNL, Atraumatic, Normocephalic Neck: Yes: WNL, Supple, Trachea Midline Cardiovascular: Yes: Regular Rate and Rhythm, S1, S2 Respiratory: Yes: WNL, Regular, CTA Bilaterally Gastrointestinal: Yes: Normal Bowel Sounds, Abdomen, Obese, Distention, Other ( mid abdomen- scant blood to closed stoma) ...Rectal Exam: Yes: Other (rectal tube) Renal/: Yes: Incontinence Breast(s): Yes: WNL Musculoskeletal: Yes: WNL Extremities: Yes: WNL Edema: No Peripheral Pulses WNL: Yes Neurological: Yes: Alert, Aphasia, Pre-Existing Deficit Psychiatric: Yes: Alert Labs: CBC, BMP 09/25/19 16:50 09/25/19 16:50 Laboratory Results - last 24 hr 09/25/19 09/25/19 09/25/19 16:50 16:50 16:50 WBC 6.0 RBC 3.53 L Hgb 10.6 L Hct 31.9 L D MCV 90.5 MCH 29.9 MCHC 33.1 RDW 16.0 H Plt Count 199 MPV 8.6 Absolute Neuts (auto) 4.3 Neutrophils % 71.3 Lymphocytes % 21.5 Monocytes % 4.1 Eosinophils % 2.3 Basophils % 0.8 Nucleated RBC % 0 PT with INR 12.50 INR 1.06 PTT (Actin FS) 29.5 Sodium 139 Potassium 3.9 Chloride 102 Carbon Dioxide 28 Anion Gap 8 BUN 28.2 H Creatinine 0.6 Est GFR (CKD-EPI)AfAm 96.33 Est GFR (CKD-EPI)NonAf 83.11 Random Glucose 95 Lactic Acid Calcium 9.0 Total Bilirubin 0.3 AST 14 L ALT 15 Alkaline Phosphatase 81 Total Protein 7.0 Albumin 3.1 L 09/25/19 20:15 WBC RBC Hgb Hct MCV MCH MCHC RDW Plt Count MPV Absolute Neuts (auto) Neutrophils % Lymphocytes % Monocytes % Eosinophils % Basophils % Nucleated RBC % PT with INR INR PTT (Actin FS) Sodium Potassium Chloride Carbon Dioxide Anion Gap BUN Creatinine Est GFR (CKD-EPI)AfAm Est GFR (CKD-EPI)NonAf Random Glucose Lactic Acid 1.4 Calcium Total Bilirubin AST ALT Alkaline Phosphatase Total Protein Albumin Intake & Output 09/23/19 09/24/19 09/25/19 09/26/19 23:59 23:59 23:59 23:59 Weight 83.915 kg Imaging - Results Chest X-ray: Report Reviewed, Image Reviewed X-ray: Report Reviewed, Image Reviewed EKG: Image Reviewed Problem List - Problems (1) Dislodged gastrostomy tube Assessment/Plan: attempts made in ED by resident for replacement- unsuccessful- stoma closed Wound Care- DSD Appreciate GI consult- aware per ED resident Abdominal Xray- distended loops of bowel NPO Gentle IVF Monitor CBc, BMP Monitor vitals Code(s): Z43.1 - ENCOUNTER FOR ATTENTION TO GASTROSTOMY (2) Abdominal distension Assessment/Plan: Abdominal Xray- distended loops of bowel CTAP- Sigmoid Volvulus Rectal tube placed by Dr. Cruz Monitor vitals Code(s): R14.0 - ABDOMINAL DISTENSION (GASEOUS) (3) Volvulus of sigmoid colon Assessment/Plan: CTAP- reviewed Rectal placed by GI Monitor vitals Monitor CBC, BMP Turn and Position per GI recommendations Code(s): K56.2 - VOLVULUS (4) CAD (coronary artery disease) Assessment/Plan: EKG reviewed Will hold home meds secondary to PEG dislodgment Code(s): I25.10 - ATHSCL HEART DISEASE OF [place] CORONARY ARTERY W/O ANG PCTRS (5) CVA (cerebral vascular accident) Assessment/Plan: Will continue to monitor and treat with interventions accordingly Fall Precautions Aspiration Precautions Code(s): I63.9 - CEREBRAL INFARCTION, UNSPECIFIED (6) Dementia Assessment/Plan: Hold home meds for now- PEG dislodgment Consider Ativan prn Code(s): F03.90 - UNSPECIFIED DEMENTIA WITHOUT BEHAVIORAL DISTURBANCE (7) HTN (hypertension) Assessment/Plan: stable Monitor BP Consider Lopressor IV for BP control until PEG replaced Code(s): I10 - ESSENTIAL (PRIMARY) HYPERTENSION (8) Functional quadriplegia Assessment/Plan: Complete immobility due to frailty, end-stage Dementia Requires total care Turn Q2h Che Lift as needed Heel Protectors Fall Precautions Code(s): R53.2 - FUNCTIONAL QUADRIPLEGIA Assessment/Plan This is a 84 y/o woman admitted to Med/Surg for Dislodged Peg Tube, Abdominal Distention for further evaluation of their emergent condition. Plan: See Problem List FEN D51/2NS@45ml/hr Replete lytes prn NPO DVT ppx SCDs Resume AC post Peg placement Code Status: Full Code Dispo: Requires Inpatient Care Visit type - Emergency Visit Emergency Visit: Yes ED Registration Date: 09/25/19 Care time: The patient presented to the Emergency Department on the above date and was hospitalized for further evaluation of their emergent condition. - New Patient This patient is new to me today: Yes Date on this admission: 09/25/19 - Critical Care Critical Care patient: No
[2019-09-25 23:48] VITALS: BMI 38.6
[2019-09-26] MEDS ORDERED: ALBUTEROL SO4 2.5/IPRATROPIUM 0.5 INH SOL 3 ML VIAL.NEB. NEB PRN (02:08)
[2019-09-26] MEDS: DEXTROSE 5%-0.45% SALINE 1,000 ML IV SCH ×2 (06:18→20:49)
--- NOTE | 2019-09-26 08:35 | PN.GI ---
GI 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 Subjective: Patient is non-verbal at baseline, information received from RN. Rectal tube is in place, no BM as per RN. Gtube stoma noted with sanguinous drainage at base. No reports of nausea, vomiting, rectal bleeding. - Objective Vital Signs: Vital Signs Temperature 99 F 09/26/19 05:42 Pulse Rate 96 H 09/26/19 05:42 Respiratory Rate 20 09/26/19 05:42 Blood Pressure 133/72 09/26/19 05:42 O2 Sat by Pulse Oximetry (%) 98 09/26/19 03:20 Constitutional: No Distress, Calm Eyes: Yes: Conjunctiva Clear HENT: Yes: Atraumatic Cardiovascular: Yes: Regular Rate and Rhythm Respiratory: Yes: Regular, Diminished Gastrointestinal Inspection: Yes: Distention. No: WNL, Ascites, Hernia, Scars, Other ...Auscultate: Yes: Normoactive Bowel Sounds. No: Hyperactive Bowel Sounds, Hypoactive Bowel Sounds, No Bowel Sounds, Other ...Palpate: Yes: Soft. No: Firm/Rigid, Guarding, Hepatomegaly, Mass, Pulsatile Mass, Splenomegaly, Tenderness, Tenderness, Epigastium, Tenderness, Rebound, Other ...Percussion: Yes: Tympanitic Neurological: Yes: Alert Psychiatric: Yes: Alert Labs: CBC, BMP 09/25/19 16:50 09/25/19 16:50 INR, PTT INR 1.06 (0.83-1.09) 09/25/19 16:50 Problem List - Problems (1) Abdominal distension Code(s): R14.0 - ABDOMINAL DISTENSION (GASEOUS) (2) Dislodged gastrostomy tube Code(s): Z43.1 - ENCOUNTER FOR ATTENTION TO GASTROSTOMY
[2019-09-26 09:08] LABS: BASO % 0.8 % (0-2.0); EOS % 2.6 % (0-4.5); HEMATOCRIT 30.9 % (32.4-45.2); HEMOGLOBIN 10.2 GM/dL (10.7-15.3); LYMPH % 25.1 % (8-40); MCH 30.2 pg (25.7-33.7); MCHC 32.9 g/dl (32.0-36.0); MEAN CELL VOLUME 91.8 fl (80-96); MEAN PLT VOLUME 8.5 fl (7.5-11.1); MONO % 6.1 % (3.8-10.2); NEUT % 65.4 % (42.8-82.8); PLATELET COUNT 187 K/MM3 (134-434); RBC 3.37 M/mm3 (3.60-5.2); RDW 16.1 % (11.6-15.6)
--- NOTE | 2019-09-26 09:17 | EKG ---
Test Reason : Blood Pressure : / mmHG Vent. Rate : 090 BPM Atrial Rate : 090 BPM P-R Int : 182 ms QRS Dur : 090 ms QT Int : 382 ms P-R-T Axes : 020 -02 031 degrees QTc Int : 467 ms SINUS RHYTHM WITH PREMATURE ATRIAL COMPLEXES POSSIBLE INFERIOR INFARCT , AGE UNDETERMINED ABNORMAL ECG WHEN COMPARED WITH ECG OF 16-JUN-2019 07:47, PREMATURE ATRIAL COMPLEXES ARE NOW PRESENT BORDERLINE CRITERIA FOR INFERIOR INFARCT ARE NOW PRESENT Confirmed by Lanette García ([id number]) on 09/26/2019 9:17:38 AM Referred By: Confirmed By:Lanette García
[2019-09-26 09:41] LABS: BLOOD UREA NITROGEN 22.9 mg/dL (7-18); CALCIUM 8.7 mg/dL (8.5-10.1); CREATININE 0.5 mg/dL (0.55-1.3); POTASSIUM 4.1 mmol/L (3.5-5.1)
--- NOTE | 2019-09-26 10:48 | PN ---
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, Physician Chief Complaint: Dislodged PEG Tube, Abdominal Distention History of Present Illness: NAD abd less distended Non verbal at baseline - Current Medication List Current Medications: Active Medications Albuterol/Ipratropium (Duoneb -) 1 amp NEB Q6H PRN PRN Reason: SHORTNESS OF BREATH Dextrose/Sodium Chloride (D5-1/2ns -) 1,000 mls @ 60 mls/hr IV ASDIR AIDEE Last Admin: 09/26/19 06:18 Dose: 60 mls/hr - Objective Vital Signs: Vital Signs Temperature 99 F 09/26/19 05:42 Pulse Rate 96 H 09/26/19 05:42 Respiratory Rate 20 09/26/19 09:00 Blood Pressure 133/72 09/26/19 05:42 O2 Sat by Pulse Oximetry (%) 98 09/26/19 09:00 Constitutional: Yes: Well Nourished, No Distress, Calm, Obese Cardiovascular: Yes: Regular Rate and Rhythm Respiratory: Yes: Regular Gastrointestinal: Yes: Normal Bowel Sounds, Soft, Abdomen, Obese, Distention Genitourinary: Yes: Incontinence Musculoskeletal: Yes: WNL Extremities: Yes: WNL Edema: No Peripheral Pulses WNL: Yes Neurological: Yes: Alert, Pre-Existing Deficit Psychiatric: Yes: Alert Labs: CBC, BMP 09/26/19 07:30 09/26/19 07:30 INR, PTT INR 1.06 (0.83-1.09) 09/25/19 16:50 Problem List - Problems (1) Abdominal distension Assessment/Plan: -GI consult appreciated -AXR reviewed -CT abd/ple done-results pending -Rectal tube in place with good results Problems reviewed: Yes Code(s): R14.0 - ABDOMINAL DISTENSION (GASEOUS) (2) Dislodged gastrostomy tube Assessment/Plan: -Seen by GI -Repeat AXR this AM -Consult by IR for PEG re-insertion Problems reviewed: Yes Code(s): Z43.1 - ENCOUNTER FOR ATTENTION TO GASTROSTOMY (3) Volvulus of sigmoid colon Assessment/Plan: -Repeat AXR -Maintain Rectal tube -IR consult for PEG re-insertion Problems reviewed: Yes Code(s): K56.2 - VOLVULUS (4) Dementia Problems reviewed: Yes Code(s): F03.90 - UNSPECIFIED DEMENTIA WITHOUT BEHAVIORAL DISTURBANCE (5) Anemia Assessment/Plan: -Chronic -H/H stable -Monitor trend Problems reviewed: Yes Code(s): D64.9 - ANEMIA, UNSPECIFIED Assessment/Plan see problem list
[2019-09-27] MEDS: DEXTROSE 5%-0.45% SALINE 1,000 ML IV SCH ×2 (08:18→17:26)
[2019-09-27 08:33] LABS: BASO % 0.7 % (0-2.0); EOS % 1.7 % (0-4.5); HEMATOCRIT 30.2 % (32.4-45.2); HEMOGLOBIN 10.1 GM/dL (10.7-15.3); LYMPH % 25.6 % (8-40); MCH 30.2 pg (25.7-33.7); MCHC 33.5 g/dl (32.0-36.0); MEAN CELL VOLUME 90.1 fl (80-96); MEAN PLT VOLUME 8.4 fl (7.5-11.1); MONO % 5.4 % (3.8-10.2); NEUT % 66.6 % (42.8-82.8); PLATELET COUNT 187 K/MM3 (134-434); RBC 3.35 M/mm3 (3.60-5.2); WHITE BLOOD COUNT 5.3 K/mm3 (4.0-10.0)
[2019-09-27 08:59] LABS: ALBUMIN 3.1 g/dl (3.4-5.0); BILIRUBIN,TOTAL 0.6 mg/dL (0.2-1); BLOOD UREA NITROGEN 19.7 mg/dL (7-18); CALCIUM 8.8 mg/dL (8.5-10.1); CREATININE 0.5 mg/dL (0.55-1.3); POTASSIUM 3.9 mmol/L (3.5-5.1); TOT PROT 6.7 g/dl (6.4-8.2)
--- NOTE | 2019-09-27 11:28 | PN ---
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, Physician Chief Complaint: Dislodged PEG Tube, Abdominal Distention History of Present Illness: NAD abd less distended Non verbal at baseline - Current Medication List Current Medications: Active Medications Albuterol/Ipratropium (Duoneb -) 1 amp NEB Q6H PRN PRN Reason: SHORTNESS OF BREATH Dextrose/Sodium Chloride (D5-1/2ns -) 1,000 mls @ 60 mls/hr IV ASDIR AIDEE Last Admin: 09/27/19 08:18 Dose: Not Given - Objective Vital Signs: Vital Signs Temperature 98.9 F 09/27/19 06:17 Pulse Rate 70 09/27/19 06:17 Respiratory Rate 09/27/19 06:17 Blood Pressure 125/64 09/27/19 06:17 O2 Sat by Pulse Oximetry (%) 98 09/26/19 21:00 Constitutional: Yes: Well Nourished, No Distress, Calm, Obese Cardiovascular: Yes: Regular Rate and Rhythm Respiratory: Yes: Regular Gastrointestinal: Yes: Normal Bowel Sounds, Soft, Distention (improved) Genitourinary: Yes: Incontinence Musculoskeletal: Yes: Muscle Weakness Extremities: Yes: WNL Edema: No Peripheral Pulses WNL: Yes Neurological: Yes: Alert, Pre-Existing Deficit Psychiatric: Yes: Alert Labs: CBC, BMP 09/27/19 07:40 09/27/19 07:40 INR, PTT INR 1.06 (0.83-1.09) 09/25/19 16:50 Problem List - Problems (1) Abdominal distension Assessment/Plan: -GI consult appreciated -AXR reviewed -CT abd/pel reviewed -Rectal tube in place with good results Problems reviewed: Yes Code(s): R14.0 - ABDOMINAL DISTENSION (GASEOUS) (2) Dislodged gastrostomy tube Assessment/Plan: -Seen by GI -Consult by IR for PEG re-insertion, to be done today Problems reviewed: Yes Code(s): Z43.1 - ENCOUNTER FOR ATTENTION TO GASTROSTOMY (3) Volvulus of sigmoid colon Assessment/Plan: -Repeat AXR -Maintain Rectal tube -IR consult for PEG re-insertion Problems reviewed: Yes Code(s): K56.2 - VOLVULUS (4) Dementia Problems reviewed: Yes Code(s): F03.90 - UNSPECIFIED DEMENTIA WITHOUT BEHAVIORAL DISTURBANCE (5) Anemia Assessment/Plan: -Chronic -H/H stable -Monitor trend Problems reviewed: Yes Code(s): D64.9 - ANEMIA, UNSPECIFIED Assessment/Plan see problem list
--- NOTE | 2019-09-27 18:15 | PN.GI ---
GI 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 Subjective: s/p gtube insertion by IR, reviewed abd xray marked decompression was noted. - Objective Vital Signs: Vital Signs Temperature 98.9 F 09/27/19 06:17 Pulse Rate 70 09/27/19 06:17 Respiratory Rate 20 09/27/19 06:17 Blood Pressure 125/64 09/27/19 06:17 O2 Sat by Pulse Oximetry (%) 98 09/26/19 21:00 Constitutional: Obese Eyes: Yes: Conjunctiva Clear HENT: Yes: Atraumatic Neck: Yes: Trachea Midline Cardiovascular: Yes: Regular Rate and Rhythm Respiratory: Yes: CTA Bilaterally Gastrointestinal Inspection: Yes: Distention ...Palpate: Yes: Soft. No: Firm/Rigid, Guarding, Hepatomegaly, Mass, Pulsatile Mass, Splenomegaly ...Percussion: Yes: Tympanitic Labs: CBC, BMP 09/27/19 07:40 09/27/19 07:40 INR, PTT INR 1.06 (0.83-1.09) 09/25/19 16:50 Problem List - Problems (1) Abdominal distension Assessment/Plan: secondary to volvulus S/p removal and reinsertion of rectal tube spoke to her son and made aware that same symptoms will occur because of underlying volvulus R> remove rectal tube in am restart tube feeds Code(s): R14.0 - ABDOMINAL DISTENSION (GASEOUS) (2) Dislodged gastrostomy tube Code(s): Z43.1 - ENCOUNTER FOR ATTENTION TO GASTROSTOMY
[2019-09-27] MEDS ORDERED: ACETAMINOPHEN 650 MG/20.3 ML ORAL SOLUTION (CUPS) PEG PRN (18:42)
[2019-09-27] MEDS ORDERED: PANTOPRAZOLE 40 MG TABLET PO SCH (22:00)
[2019-09-27] MEDS ORDERED: ATORVASTATIN CA 20 MG TABLET (FP) GT SCH (22:00)
[2019-09-27] MEDS: METOCLOPRAMIDE HCL 5 MG/5 ML UNIT DOSE CUP GT SCH (22:17)
[2019-09-27] MEDS: SODIUM CHLORIDE NASAL SPRAY 44 ML BOTTLE NS SCH (22:18)
[2019-09-27] MEDS: FAMOTIDINE 40 MG/5 ML ORAL SUSPENSION NGT SCH (22:50)
[2019-09-27] MEDS: SIMETHICONE 40 MG/0.6 ML BOTTLE PEG SCH (22:50)
[2019-09-28] MEDS: METOCLOPRAMIDE HCL 5 MG/5 ML UNIT DOSE CUP GT SCH ×3 (06:28→17:34)
--- NOTE | 2019-09-28 08:41 | PN.GI ---
GI 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 Subjective: Patient is tolerating Gtube feedings, no residuals noted. Rectal tube removed, and she did have a BM. No reports of nausea, vomiting, rectal bleeding, or melena. - Objective Vital Signs: Vital Signs Temperature 98.0 F 09/28/19 05:57 Pulse Rate 83 09/28/19 05:57 Respiratory Rate 20 09/28/19 05:57 Blood Pressure 102/51 L 09/28/19 05:57 O2 Sat by Pulse Oximetry (%) 98 09/27/19 21:00 Constitutional: No Distress, Calm Eyes: Yes: Conjunctiva Clear HENT: Yes: Atraumatic Cardiovascular: Yes: Regular Rate and Rhythm Respiratory: Yes: Regular, Diminished Gastrointestinal Inspection: Yes: WNL. No: Ascites, Distention, Hernia, Scars, Other ...Auscultate: Yes: Normoactive Bowel Sounds. No: Hyperactive Bowel Sounds, Hypoactive Bowel Sounds, No Bowel Sounds, Other ...Palpate: Yes: Soft. No: Firm/Rigid, Guarding, Hepatomegaly, Mass, Pulsatile Mass, Splenomegaly, Tenderness, Tenderness, Epigastium, Tenderness, Rebound, Other ...Percussion: Yes: Tympanitic. No: Dullness, Fluid Wave, Other Neurological: Yes: Alert, Pre-Existing Deficit Psychiatric: Yes: Alert Labs: CBC, BMP 09/27/19 07:40 09/27/19 07:40 INR, PTT INR 1.06 (0.83-1.09) 09/25/19 16:50 Active Medications Generic Name Dose Route Start Last Admin Trade Name Freq PRN Reason Stop Dose Admin Acetaminophen 650 mg 09/27/19 18:42 Tylenol Oral Solution - PEG Q4H PRN PAIN LEVEL 1-5 Albuterol/Ipratropium 1 amp 09/26/19 02:08 Duoneb - NEB Q6H PRN SHORTNESS OF BREATH Ascorbic Acid 500 mg 09/28/19 10:00 Vitamin C Oral Solution - PEG DAILY AIDEE Aspirin 81 mg 09/28/19 10:00 Asa - GT DAILY AIDEE Atorvastatin Calcium 20 mg 09/27/19 22:00 09/27/19 22:17 Lipitor - GT 20 mg HS AIDEE Administration Famotidine 20 mg 09/27/19 22:00 09/27/19 22:50 Pepcid NGT 20 mg BID AIDEE Administration Dextrose/Sodium Chloride 1,000 mls @ 60 mls/hr 09/26/19 06:15 09/27/19 17:26 D5-1/2ns - IV 60 mls/hr ASDIR AIDEE Administration Lactobacillus Acidophilus 1 tab 09/28/19 10:00 Bacid - GT DAILY AIDEE Metoclopramide HCl 10 mg 09/27/19 22:00 09/28/19 06:28 Reglan Oral Solution - GT 10 mg ACHS AIDEE Administration Polyethylene Glycol 17 gm 09/28/19 10:00 Miralax (For Daily Use) - PEG DAILY AIDEE Polysaccharide Iron Complex 150 mg 09/28/19 10:00 Niferex-150 - GT DAILY AIDEE Simethicone 80 mg 09/27/19 22:00 09/27/19 22:50 Mylicon Liquid - PEG 80 mg QID AIDEE Administration Sodium Chloride 2 spray 09/27/19 22:00 09/27/19 22:18 [place] - NS 2 sprays BID AIDEE Administration Problem List - Problems (1) Abdominal distension Assessment/Plan: secondary to volvulus S/p removal and reinsertion of rectal tube spoke to her son and made aware that same symptoms will occur because of underlying volvulus R> rectal tube removed feeds restarted on discharge she will need [employer] every Thursday, Thursday, Thursday Miralax 34g BID Code(s): R14.0 - ABDOMINAL DISTENSION (GASEOUS) (2) Dislodged gastrostomy tube Assessment/Plan: Gtube replaced by IR, feeds started and is tolerating Code(s): Z43.1 - ENCOUNTER FOR ATTENTION TO GASTROSTOMY
[2019-09-28] MEDS ORDERED: ASPIRIN 81 MG CHEWABLE TABLETS GT SCH (10:00)
[2019-09-28] MEDS ORDERED: POLYETHYLENE GLYCOL 3350 119 GM BTL PEG SCH (10:00)
[2019-09-28] MEDS ORDERED: ASCORBIC ACID 500 MG/5 ML UNIT DOSE CUP PEG SCH (10:00)
[2019-09-28] MEDS ORDERED: LACTOBACILLUS ACIDOPHILUS 1 TABLET GT SCH (10:00)
[2019-09-28] MEDS ORDERED: IRON POLYSACCHARIDES 150 MG CAPSULE GT SCH (10:00)
[2019-09-28] MEDS: SODIUM CHLORIDE NASAL SPRAY 44 ML BOTTLE NS SCH (10:24)
[2019-09-28] MEDS: SIMETHICONE 40 MG/0.6 ML BOTTLE PEG SCH ×3 (10:24→17:34)
--- NOTE | 2019-09-28 11:23 | DS ---
Physical Examination Vital Signs: Vital Signs Temperature 98.3 F 09/28/19 09:30 Pulse Rate 71 09/28/19 09:30 Respiratory Rate 20 09/28/19 09:30 Blood Pressure 107/64 09/28/19 09:30 O2 Sat by Pulse Oximetry (%) 98 09/27/19 21:00 Findings/Remarks: This is a 84 y/o woman from [facility] with a PMHx of Dementia, HTN, CVA (residual R hemiplegia, aphasia c/b recurrent aspiration), s/p PEG tube ( replaced last week after dislodged at [facility]), Volvulus, chronically on plavix/asa, chronically bed bound. Who presents to the ED with a dislodged PEG tube. Patient's son is at the bedside providing HPI. The G-tube was placed in Jul 2018 and was last replaced in Jun 2019. Patient's son reports that the patient has intermittent problems with gas in her stomach that is relieved with a rectal tube. Patient last had a bowel movement last night. No fevers. History limited as patient is nonverbal and noncommunicative. (1) Abdominal distension Assessment/Plan: -GI consult appreciated -AXR reviewed -CT abd/pel reviewed -Rectal tube removed this AM by GI -tolerating Tube feeds Problems reviewed: Yes Code(s): R14.0 - ABDOMINAL DISTENSION (GASEOUS) (2) Dislodged gastrostomy tube Assessment/Plan: -Seen by GI -PEG re-inserted yesterday by IR Problems reviewed: Yes Code(s): Z43.1 - ENCOUNTER FOR ATTENTION TO GASTROSTOMY (3) Volvulus of sigmoid colon Assessment/Plan: -Repeat AXR -Maintain Rectal tube -PEG re-inserted yesterday by IR Problems reviewed: Yes Code(s): K56.2 - VOLVULUS (4) Dementia Problems reviewed: Yes Code(s): F03.90 - UNSPECIFIED DEMENTIA WITHOUT BEHAVIORAL DISTURBANCE (5) Anemia Assessment/Plan: -Chronic -H/H stable -Monitor trend -JOSUE -Ferrous sulfate switched to Iron polysaccharide Problems reviewed: Yes Code(s): D64.9 - ANEMIA, UNSPECIFIED Assessment/Plan see problem list Constitutional: Yes: Well Nourished, No Distress, Calm, Obese Cardiovascular: Yes: Regular Rate and Rhythm Respiratory: Yes: Regular Gastrointestinal: Yes: Normal Bowel Sounds, Soft, Abdomen, Obese Renal/: Yes: Incontinence Musculoskeletal: Yes: WNL Extremities: Yes: WNL Edema: No Peripheral Pulses WNL: Yes Neurological: Yes: Alert, Pre-Existing Deficit Psychiatric: Yes: Alert Labs: CBC, BMP 09/27/19 07:40 09/27/19 07:40 Discharge Summary Problems reviewed: Yes Reason For Visit: ABDOMINAL DISTENSION, VOLVULUS OF SIGMOID COLON Current Active Problems Abdominal distension (Acute) Dislodged gastrostomy tube (Acute) Volvulus of sigmoid colon (Acute) Laboratory Last Values WBC 5.3 K/mm3 (4.0-10.0) 09/27/19 07:40 RBC 3.35 M/mm3 (3.60-5.2) L 09/27/19 07:40 Hgb 10.1 GM/dL (10.7-15.3) L 09/27/19 07:40 Hct 30.2 % (32.4-45.2) L 09/27/19 07:40 MCV 90.1 fl (80-96) 09/27/19 07:40 MCH 30.2 pg (25.7-33.7) 09/27/19 07:40 MCHC 33.5 g/dl (32.0-36.0) 09/27/19 07:40 RDW 16.0 % (11.6-15.6) H 09/27/19 07:40 Plt Count 187 K/MM3 (134-434) 09/27/19 07:40 MPV 8.4 fl (7.5-11.1) 09/27/19 07:40 Absolute Neuts (auto) 3.5 K/mm3 (1.5-8.0) 09/27/19 07:40 Neutrophils % 66.6 % (42.8-82.8) 09/27/19 07:40 Lymphocytes % 25.6 % (8-40) 09/27/19 07:40 Monocytes % 5.4 % (3.8-10.2) 09/27/19 07:40 Eosinophils % 1.7 % (0-4.5) 09/27/19 07:40 Basophils % 0.7 % (0-2.0) 09/27/19 07:40 Nucleated RBC % 0 % (0-0) 09/27/19 07:40 PT with INR 12.50 SEC (9.7-13.0) 09/25/19 16:50 INR 1.06 (0.83-1.09) 09/25/19 16:50 PTT (Actin FS) 29.5 SECONDS (25.2-36.5) 09/25/19 16:50 Sodium 139 mmol/L (136-145) 09/27/19 07:40 Potassium 3.9 mmol/L (3.5-5.1) 09/27/19 07:40 Chloride 105 mmol/L (98-107) 09/27/19 07:40 Carbon Dioxide 27 mmol/L (21-32) 09/27/19 07:40 Anion Gap 7 MMOL/L (8-16) L 09/27/19 07:40 BUN 19.7 mg/dL (7-18) H 09/27/19 07:40 Creatinine 0.5 mg/dL (0.55-1.3) L 09/27/19 07:40 Est GFR (CKD-EPI)AfAm 102.29 09/27/19 07:40 Est GFR (CKD-EPI)NonAf 88.25 09/27/19 07:40 Random Glucose 101 mg/dL (74-106) 09/27/19 07:40 Lactic Acid 1.4 mmol/L (0.4-2.0) 09/25/19 20:15 Calcium 8.8 mg/dL (8.5-10.1) 09/27/19 07:40 Total Bilirubin 0.6 mg/dL (0.2-1) 09/27/19 07:40 AST 18 U/L (15-37) 09/27/19 07:40 ALT 17 U/L (13-61) 09/27/19 07:40 Alkaline Phosphatase 86 U/L (45-117) 09/27/19 07:40 Total Protein 6.7 g/dl (6.4-8.2) 09/27/19 07:40 Albumin 3.1 g/dl (3.4-5.0) L 09/27/19 07:40 Vital Signs Temp 98.3 F 09/28/19 09:30 Pulse 71 09/28/19 09:30 Resp 20 09/28/19 09:30 BP 107/64 09/28/19 09:30 Pulse Ox 98 09/27/19 21:00 Intake & Output 09/27/19 09/27/19 09/28/19 11:59 23:59 11:59 Intake Total 720 660 Balance 720 660 Intake: IV 720 660 D5-1/2Ns - 1,000 ml @ 60 720 660 mls/hr IV ASDIR AIDEE Rx#: [id number] Oral 0 Other: Voiding Method External Catheter External Catheter External Catheter # Unmeasured Voids External Catheter 1 2 Void 2 Bowel Movement Yes Condition: Guarded - Instructions Diet, Activity, Other Instructions: on discharge she will need Fleet Enemas every Thursday, Thursday, Thursday Miralax 34g BID Referrals: Ace Kelly MD [Primary Care Provider] - Disposition: [facility] - Home Medications Comprehensive Discharge Medication List: Ambulatory Orders Acetaminophen [Tylenol .Regular Strength -] 650 mg PO Q6H PRN #0 tablet Albuterol 2.5/Ipratropium 0.5 [Duoneb -] 1 amp NEB Q6H PRN #0 amp 09/03/16 Ascorbic Acid [Vitamin C] 500 mg PEG DAILY 05/11/18 Aspirin Coated [Ecotrin -] 81 mg GT DAILY tablet.ec 08/11/18 Lactobacillus Acidophilus [Bacid -] 1 each GT DAILY #30 capsule 08/11/18 Sodium Chloride Nasal [place] [[place] Nasal [place] -] 2 spray NS BID spray Linaclotide [Linzess] 290 mcg PEG DAILY 06/16/19 Simethicone Liquid [Mylicon Liquid -] 80 mg PEG QID 06/16/19 Acetaminophen Oral Solution [Tylenol Oral Solution -] 650 mg PEG Q4H PRN soln.oral 06/19/19 Famotidine [Pepcid -] 20 mg NGT BID tablet 06/19/19 Iron Polysaccharides [Niferex-150 -] 150 mg GT DAILY capsule 06/19/19 Metoclopramide Oral Soln [Reglan Oral Solution -] 10 mg GT ACHS udc 06/19/19 Pantoprazole Sodium [Protonix -] 40 mg PO BID #60 tablet.ec 06/19/19 Albuterol 2.5/Ipratropium 0.5 [Duoneb -] 1 amp NEB Q6H PRN amp 09/28/19 Aspirin [ASA -] 81 mg GT DAILY tab.chew 09/28/19 Atorvastatin Ca [Lipitor] 20 mg GT HS tablet 09/28/19 Container,Empty [Enema Bottle] 1 each MOWEFR #90 bottle 09/28/19 Polyethylene Glycol 3350 [Miralax 119 gm Btl -] 17 gm PEG BID #2 bottle Prescription Drug Monitoring Program (I-STOP) results: I-STOP reviewed and no issues identified
[2019-09-28] MEDS ORDERED: PT OWN MED DRAWER 7, Y5N ONE ×2 (11:51→17:28)
[2019-09-28] MEDS: FAMOTIDINE 40 MG/5 ML ORAL SUSPENSION NGT SCH (13:06)
[2019-09-28 14:56] VITALS: BP 98/52; PULSE 78; TEMP 97.5
[2019-09-28] MEDS: DEXTROSE 5%-0.45% SALINE 1,000 ML IV SCH (17:24)
== END 2019-09-28 19:04 | DRG 388 ==
LOC: JER 14:11 → JERBED 18:50 → J6S 23:14
PROVIDERS: ADMIT Internal Medicine; ATTEND Family Medicine
PROC: 0DH63UZ Insertion of Feeding Device into Stomach, Percutaneous Approach (ICD-10-PCS; principal; 2019-09-27)
DX: K56.2 Volvulus (principal); R53.2 Functional quadriplegia; I69.351 Hemiplegia and hemiparesis following cerebral infarction affecting right dominant side; Z43.1 Encounter for attention to gastrostomy; I69.820 Aphasia following other cerebrovascular disease; F03.90 Unspecified dementia, unspecified severity, without behavioral disturbance, psychotic disturbance, mood disturbance, and anxiety; I10 Essential (primary) hypertension; R14.0 Abdominal distension (gaseous); I25.10 Atherosclerotic heart disease of native coronary artery without angina pectoris; D64.9 Anemia, unspecified; E66.9 Obesity, unspecified; Z68.38 Body mass index [BMI] 38.0-38.9, adult
CPT/HCPCS: 36415; 49440; 71045-TC-FY; 74018-TC-FY; 74176-TC; 80048; 80053; 83605; 85025; 85610; 85730; 93005; 93010; 99284-25; C1769; C1887; J7030

== ENCOUNTER 2019-10-23 23:36 | Emergency (ER) | payer OTHER ==
--- NOTE | 2019-10-23 23:53 | PDOC ---
History of Present Illness - General Stated Complaint: CLOGGED GI TUBE - History of Present Illness Initial Comments: 10/23/19 23:45 84 yo F PMH dementia, HTN, CVA (residual R hemiplegia, aphasia, recurrent aspirations in the past), volvulus s/p PEG tube placed initially in July 2018 and recently replaced about 1 month ago after dislodgement, bed bound, non- verbal at baseline, BIBEMS from [facility] with a non-functioning PEG tube. Patient's son is at the bedside providing all history. Son reports that the last time the patient's PEG tube was replaced, a smaller 16Fr tube was placed. Today, the nurse crushed some iron pills and tried to give it through the PEG tube. Afterwards, the PEG tube has been non-functional despite attempted flushing, prompting the son to bring her to the ER. Son states that patient is otherwise at her baseline and has no other issues. Past History - Past Medical History Allergies/Adverse Reactions: Allergies Allergy/AdvReac Type Severity Reaction Status Date / Time No Known Allergies Allergy Verified 10/24/19 00:01 Home Medications: Ambulatory Orders Acetaminophen [Tylenol .Regular Strength -] 650 mg PO Q6H PRN #0 tablet Albuterol 2.5/Ipratropium 0.5 [Duoneb -] 1 amp NEB Q6H PRN #0 amp 09/03/16 Ascorbic Acid [Vitamin C] 500 mg PEG DAILY 05/11/18 Aspirin Coated [Ecotrin -] 81 mg GT DAILY tablet.ec 08/11/18 Lactobacillus Acidophilus [Bacid -] 1 each GT DAILY #30 capsule 08/11/18 Sodium Chloride Nasal [place] [[place] Nasal [place] -] 2 spray NS BID spray Linaclotide [Linzess] 290 mcg PEG DAILY 06/16/19 Simethicone Liquid [Mylicon Liquid -] 80 mg PEG QID 06/16/19 Acetaminophen Oral Solution [Tylenol Oral Solution -] 650 mg PEG Q4H PRN soln.oral 06/19/19 Famotidine [Pepcid -] 20 mg NGT BID tablet 06/19/19 Iron Polysaccharides [Niferex-150 -] 150 mg GT DAILY capsule 06/19/19 Metoclopramide Oral Soln [Reglan Oral Solution -] 10 mg GT ACHS udc 06/19/19 Pantoprazole Sodium [Protonix -] 40 mg PO BID #60 tablet.ec 06/19/19 Albuterol 2.5/Ipratropium 0.5 [Duoneb -] 1 amp NEB Q6H PRN amp 09/28/19 Aspirin [ASA -] 81 mg GT DAILY tab.chew 09/28/19 Atorvastatin Ca [Lipitor] 20 mg GT HS tablet 09/28/19 Container,Empty [Enema Bottle] 1 each MOWEFR #90 bottle 09/28/19 Polyethylene Glycol 3350 [Miralax 119 gm Btl -] 17 gm PEG BID #2 bottle Anemia: Yes Asthma: Yes Cancer: No Cardiac Disorders: No CVA: Yes (Right sided CVA January 2015, right arm weakness) COPD: No CHF: No Dementia: Yes Diabetes: No GI Disorders: Yes (volvulous) Disorders: Yes (/O UTI) HTN: Yes Hypercholesterolemia: Yes Seizures: No Thyroid Disease: No - Surgical History Abdominal Surgery: Yes Appendectomy: No Cardiac Surgery: No Cholecystectomy: No GI Surgery: Yes (g tube) Lung Surgery: No Neurologic Surgery: No Orthopedic Surgery: Yes (Bilateral total knee replacements, Left hip surgery,) - Psycho Social/Smoking Cessation Hx Smoking History: Never smoked Have you smoked in the past 12 months: No Hx Alcohol Use: No Drug/Substance Use Hx: No Substance Use Type: None Hx Substance Use Treatment: No Review of Systems - Review of Systems Comments:: 10/24/19 02:38 Unable to assess due to nonverbal at baseline. *Physical Exam - Physical Exam 10/24/19 02:38 Gen: well-developed, well-nourished Neuro: PERRLA, unable to cooperate with neurological exam HEENT: atraumatic, normocephalic, dry mucous membranes Neck: trachea midline, supple CV: regular rate, regular rhythm, no murmurs, rubs, or gallops Pulm: CTA b/l, no wheezing Abd: obese, soft, non-distended, non-tender, clogged G tube in place, no erythema or discharge MSK: full ROM, intact pulses Extr: no edema, no deformities Skin: warm, dry Medical Decision Making - Medical Decision Making 10/23/19 23:55 G tube clogged, unable to flush. New 16 Fr G tube placed and abdomen X ray shot with Omnipaque. Pending read; once confirmed to be in place, will dc back to [facility]. 10/24/19 03:[address] in place, will dc. Discharge - Discharge Information Problems reviewed: Yes Clinical Impression/Diagnosis: Problem with gastrostomy tube Condition: Improved Disposition: HOME - Admission No - Follow up/Referral - Patient Discharge Instructions Patient Printed Discharge Instructions: DI for Gastrostomy: Permanent and Temporary Additional Instructions: Follow up with your primary care doctor regarding your Emergency Room visit. Your care is not complete until you follow up. Return to the Emergency Department for increasing pain, chest pain, shortness of breath, vomiting, fever, or any other new, worsening or concerning symptoms. - Post Discharge Activity
[2019-10-24 00:01] VITALS: TEMP 97.6; BMI 37.6
--- NOTE | 2019-10-24 01:28 | PDOC ---
Documentation entered by Colleen Landry SCRIBE, acting as scribe for Erica Khan MD. Erica Khan MD: This documentation has been prepared by the mamieibe, Colleen Landry SCRIBE, under my direction and personally reviewed by me in its entirety. I confirm that the documentation accurately reflects all work, treatment, procedures, and medical decision making performed by me. Attending Attestation - Resident Resident Name: Dayanara Charles - ED Attending Attestation I have performed the following: I have examined & evaluated the patient, The case was reviewed & discussed with the resident, I agree w/resident's findings & plan, Exceptions are as noted - HPI HPI: [id number]/24/19 00:53 The patient is an 84-year-old female with a past medical history significant for HTN, dementia, CVA, volvulus s/p PEG tube placement, who presents to the emergency department for PEG tube evaluation. Per son at the bedside, the patient was given crushed iron pills through the PEG tube, following the PEG tube has been nonfunctional, despite attempts to flush the tube. Otherwise, the son reports the patient is at baseline. - Physicial Exam PE: 10/24/19 01:17 GENERAL: Fraile, nonverbal 84 year old female. No apparent distress. Chronically bedridden HEENT: No head trauma, Oropharynx: macroglossia, tongue protruding out, dry mucus membrane. CARDIOVASCULAR: Regular rate and rhythm. PULMONARY: Clear to auscultation anteriorly. ABDOMEN: G-tube intact, no drainage or erythema. Protuberant abdomen, bowel sounds present. SKIN: Warm, dry. No rash NEUROLOGICAL: Non verbal, appears alert. - Medical Decision Making 10/24/19 01:27 Patient presents with an intact G-tube that is clogged Plan we will try to find a replacement or clear the clot 10/24/19 01:56 16 Mongolian G-tube was replaced with another 16 Mongolian G-tube We will do KUB and insert Gastrografin to confirm placement
--- NOTE | 2019-10-24 02:51 | PDOC ---
*Physical Exam - Vital Signs Last Vital Signs Temp Pulse Resp BP Pulse Ox 97.6 F 89 18 123/81 96 10/23/19 23:56 10/23/19 23:56 10/23/19 23:56 10/23/19 23:56 10/23/19 23:56 Medical Decision Making - Medical Decision Making 10/24/19 02:51 Signed out to me by Dr. Charles. Presented with clogged PEG. Replaced with 16F G tube. Confirmatory XR obtained. Sent to imaging airport operations coordinator. Pending read. 10/24/19 04:51 XR confirms placement. Stable for discharge. Discharge - Discharge Information Problems reviewed: Yes Clinical Impression/Diagnosis: Problem with gastrostomy tube Condition: Improved Disposition: [facility] - Follow up/Referral Referrals: Ace Kelly MD [Primary Care Provider] - - Patient Discharge Instructions Patient Printed Discharge Instructions: DI for Gastrostomy: Permanent and Temporary Additional Instructions: Follow up with your primary care doctor regarding your Emergency Room visit. Your care is not complete until you follow up. Return to the Emergency Department for increasing pain, chest pain, shortness of breath, vomiting, fever, or any other new, worsening or concerning symptoms. - Post Discharge Activity Work/Back to School Note: Back to Work
[2019-10-24 03:52] VITALS: BP 126/77; PULSE 92
== END 2019-10-24 03:53 ==
LOC: JER 23:36
PROC: 0DP67UZ Removal of Feeding Device from Stomach, Via Natural or Artificial Opening (ICD-10-PCS; principal; 2019-10-23)
PROC: 0DH67UZ Insertion of Feeding Device into Stomach, Via Natural or Artificial Opening (ICD-10-PCS; 2019-10-23)
DX: K94.23 Gastrostomy malfunction (principal); I10 Essential (primary) hypertension; D64.9 Anemia, unspecified; F03.90 Unspecified dementia, unspecified severity, without behavioral disturbance, psychotic disturbance, mood disturbance, and anxiety; E78.00 Pure hypercholesterolemia, unspecified; I69.851 Hemiplegia and hemiparesis following other cerebrovascular disease affecting right dominant side; I69.820 Aphasia following other cerebrovascular disease; Z74.01 Bed confinement status
CPT/HCPCS: 43762; 74018-TC-FY; 99283-25